=== PATIENT | female | born 1935 | race Caucasian/White ===

== ENCOUNTER 2016-04-29 19:31 | Outpatient (CLI) | payer MEDICARE ==
[~2016-04-29] VITALS: Ht 162.6 cm; Wt 65.0 kg
--- NOTE | ~2016-04-29 | HEMODYNAMI ---
PATIENT:LILI DELUCA MEDICAL RECORD: [id number] : 33 LOCATION:[facility] ADMISSION DATE: 04/29/16 Generatedon:04/30/201611:47 Patient name: LILI DELUCA Patient #: [id number] : 1935 Date of study: 04/30/2016 Page: Of Hemodynamic Procedure Report Patient Data Patient Demographics Procedure consent was obtained First Name: LILI Gender: Female Last Name: SANDRINE : 1935 Middle Initial: R Age: 81 year(s) Patient #: [id number] Race: SSN: [id number] Additional ID: [id number] Contact details Address: [address] [place] [address] State: [place] City: [place] Zip code: [address] Past Medical History Allergies Allergen Reaction Date Comments Reported Other allergy 04/30/2016 Keflex Admission Admission Data Admission Date: 04/29/2016 Admission Time: 19:31 Arrival Date: 04/29/2016 Arrival Time: 18:24 Admit Source: Emergency Insurance Payor: Medicare department Height (in.): 66 BSA: 1.73 (m2) Height (cm.): 167.64 BMI: 23.08 (kg/m2) Weight (lbs.): 143 Weight (kg.): 64.86 Lab Results Lab Result Date: 04/30/2016 Lab Result Time: 0:00 Biochemistry Name Units Result Min Max BUN mg/dl 36 --(----)-* 7 18 Creatinine mg/dl 2.3 --(----)-* 0.6 1.3 Glucose mg/dl 147 --(----)-* 74 106 CBC Name Units Result Min Max Hemoglobin g/dl 12.1 *-(----)-- 13.5 17.5 Procedure Procedure Types Cath Procedure Diagnostic Procedure [facility] w/Coronaries PCI Procedure Coronary Stent Initial Miscellaneous Procedures Moderate Sedation up to 15 minutes Procedure Description Procedure Date Procedure Date: 04/30/2016 Procedure Start Time: 11:04 Procedure End Time: 11:19 Procedure Staff Name Function Joe Carranza RT Roof Panel Hanger Renetta Ying RT Scrub Fahad Feliciano RN Nurse Manuelito Castillo MD Performing Physician Luzmaria Everett RT Monitor Procedure Data Cath Procedure Fluoroscopy Diagnostic fluoroscopy Total fluoroscopy Time: 2.3 time: 2.3 min min Diagnostic fluoroscopy Total fluoroscopy dose: 325 dose: 325 mGy mGy Contrast Material Contrast Material Type Amount (ml) Isovue 300 75 Entry Location Entry Primary Successful Side Size Upsize Upsize Entry Closure Succes sful Closure Location (Fr) 1 (Fr) 2 (Fr) Remarks Device Remarks Femoral Right 5 Fr 6 Fr Exoseal Fem stop artery Short Estimated blood loss: 10 ml Diagnostic catheters Device Type Used For End Catheter Placement Cordis 5Fr Pigtail Ventriculography Catheter (MP) Cordis 5Fr JL 4.0 Procedure Catheter (MP) Cordis 5Fr 3DRC Catheter Procedure (MP) Procedure Complications No complications Procedure Medications Medication Administration Route Dosage Oxygen NC 2 l/min Lidocaine 2% added to field 20 Heparin Flush Bag added to field 2 bags (1000units/500ml NS) 0.9% NaCl I.V. 100 ml/hr Versed I.V. 1 mg Fentanyl I.V. 50 mcg Lopressor I.V. 5 mg Heparin Bolus I.V. 4000 units Lopressor I.V. 5 mg Integrilin (Bolus I.V. 5.6 ml 2mg/ml) Plavix P.O. 600 mg Hemodynamics Rest HGB: 12.1 (g/dl) O2 Consumption: Estimated: 184.09 (ml/min) O2 Consumption index ed: Estimated:106.41 (ml/min/m) Heart Rate: 115 (bpm) Snapshots Pre Cath Intra NCS Post Cath Vital Signs Time Heart Resp SPO2 NIBP (mmHg) Rhythm Pain Sedation Rate (ipm) (%) Status Level (bpm) 10:37:16 130 19 97 166/118(148) NSR 0 (11) 10(A) , No pain 10:41:30 114 35 96 179/117(157) NSR 0 (11) 10(A) , No pain 10:52:03 129 25 97 183/127(170) NSR 0 (11) 10(A) , No pain 10:56:23 119 28 94 183/121(153) NSR 0 (11) 10(A) , No pain 11:00:43 114 18 93 170/114(143) NSR 0 (11) 10(A) , No pain 11:04:59 116 13 93 152/104(133) NSR 0 (11) 10(A) , No pain 11:09:09 110 16 95 145/94(128) NSR 0 (11) 9(A) , No pain 11:13:19 108 15 96 144/85(125) NSR 0 (11) 9(A) , No pain 11:18:32 117 16 96 138/98(125) NSR 0 (11) 10(A) , No pain Medications Time Medication Route Dose Verified Delivered Reason Notes Effectiveness by by 10:52:39 Oxygen NC 2 Manuelito Vásquez Per physician l/min Anna Feliciano RN 10:52:46 Lidocaine 2% added 20ml Manuelito Billings for local to vial Anna Castillo MD anesthetic field 10:52:52 Heparin Flush added 2 Manuelito Manuelito used for Bag to bags Anna Castillo MD procedure (1000units/500ml field NS) 10:53:00 0.9% NaCl I.V. 100 Manuelito Vásquez Per physician ml/hr Anna Feliciano RN 11:05:01 Versed I.V. 1 mg Manuelito Vásquez for sedation Anna Feliciano RN 11:05:06 Fentanyl I.V. 50 Manuelito Ferrellie for sedation mcg Anna Feliciano RN 11:07:53 Lopressor I.V. 5 mg Manuelito Vásquez Per physician Anna Feliciano RN 11:09:29 Heparin Bolus I.V. 4000 Manuelito Vásquez for units Anna Feliciano RN anticoagulation 11:10:55 Lopressor I.V. 5 mg Manuelito Vásquez Per physician Anna Feliciano RN 11:13:12 Integrilin I.V. 5.6 Manuelito Vásquez for (Bolus 2mg/ml) ml Anna Feliciano RN antiplatelet therapy 11:19:50 Plavix P.O. 600 Manuelito Vásquez for mg Anna Feliciano RN antiplatelet therapy Procedure Log Time Note 10:19:13 Informed consent obtained and on chart 10:19:27 Arrival Date: 04/29/2016 6:24:00 PM 10:19:34 Insurance Payor : Medicare 10::42 Lab Result : Creatinine 2.3 mg/dl 10::42 Lab Result : Hemoglobin 12.1 g/dl 10::42 Lab Result : Glucose 147 mg/dl :: Lab Result : BUN 36 mg/dl 10:23:56 Procedure type changed to Cath procedure, Diagnostic procedure, LHC, [facility] w/Coronaries, PCI procedure, Coronary Stent Initial, Miscellaneous Procedures, Moderate Sedation up to 15 minutes 10:24:25 Diagnostic Cath status Emergency 10:24:28 Joe Carranza RT(R) (CV) sent for patient. Start room use. 10:24:30 Time tracking: Regular hours 10:24:35 Plan of Care:Hemodynamics will remain stable., Cardiac rhythm will remain stable., Comfort level will be maintained., Respiratory function will remain adequate., Patient/ family verbilizes understanding of procedure., Procedure tolerated without complication., Recovers from procedure without complications.. 10:30:32 Patient received from ED to CCL 2 Alert and oriented. Tansferred to table in Supine position. 10:30:33 Correct patient and procedure confirmed by team. 10:30:33 Warm blankets applied, and vini hugger turned on for patient comfort. 10:30:35 ECG and BP/O2 sat monitors applied to patient. 10:36:09 Vital chart was started 10:36:11 Baseline sample Acquired. 10:36:15 Full Disclosure recording started 10:36:21 H&P Date Dictated: 04/30/2016 Within 30 days and on chart.. 10:36:23 Pre-procedure instructions explained to patient. 10:36:29 Pre-op teaching completed and patient verbalized understanding. 10:36:34 Patient NPO since Midnight. 10:39:00 Patient allergic to Other allergyKeflex 10:39:07 Is the patient allergic to Iodine/contrast media? No. 10:39:54 [facility] 22 gauge IV catheter with 0.9% NaCl at KVO. 10:40:53 Patient is Moh[place]. Does not speak Romansh... 10:41:06 Lab results completed and on chart. 10:41:09 Right groin area was prepped with chlora-prep and draped in sterile fashion 10:41:10 Alarms reviewed by R. N. 10:41:11 Sharps counted by scrub and verified by R.N. 10:41:13 Physician paged 10:41:21 Previous problem with sedation/anesthesia? Unknown ? 10:41:23 Snore? Unknown 10:52:21 Sleep apnea? Unknown 10:52:32 Dentures? Unknown ? 10:52:39 Oxygen 2 l/min NC was administered by Fahad Feliciano RN; Per physician; 10:52:46 Lidocaine 2% 20ml vial added to field was administered by Manuelito Castillo MD; for local anesthetic; 10:52:52 Heparin Flush Bag (1000units/500ml NS) 2 bags added to field was administered by Manuelito Castillo MD; used for procedure; 10:53:00 0.9% NaCl 100 ml/hr I.V. was administered by Fahad Feliciano RN; Per physician; 10:54:20 Patient Weight : 64.86 kg 10:54:28 Patient Height : 167.64 cm 10:56:14 Use device set Femoral Dx 10:56:16 Bag Decanter opened to sterile field. 10:56:16 Acist Syringe opened to sterile field. 10:56:17 Medline Cath Pack opened to sterile field. 10:56:18 Terumo 5Fr [place] Sheath opened to sterile field. 10:56:19 [facility] 260cm J .035 wire opened to sterile field. 10:56:20 Acist Hand Control opened to sterile field. 10:56:21 Acist Manifold opened to sterile field. 10:56:22 Diagnostic Infinity 5Fr Multipack catheter opened to sterile field. 10:56:23 Tegaderm 4 x 4 opened to sterile field. 10:56:51 IV Extension Set opened to sterile field. 11:04:33 Physician arrived 11:04:34 --------ALL STOP TIME OUT------ 11:04:37 Final Timeout: patient, procedure, and site verified with staff and physician. All members of the team are in agreement. 11:04:39 Right groin site verified by team. 11:04:42 Physical assessment completed. ASA score P 2 - A patient with mild systemic disease as per Manuelito Castillo MD. 11:04:46 Sedation plan: IV Moderate Sedation Versed, Fentanyl 11:04:50 Procedure started. 11:04:54 Local anesthetic to right femoral artery with Lidocaine 2% by Manuelito Castillo MD.INITIAL ACCESS ONLY 11:05:01 Versed 1 mg I.V. was administered by Fahad Feliciano RN; for sedation; 11:05:06 Fentanyl 50 mcg I.V. was administered by Fahad Feliciano RN; for sedation; 11:05:20 A 5 Fr sheath was inserted into the Right Femoral artery 11:05:25 Zero performed for pressure channel P1 11:05:31 Zero performed for pressure channel P1 11:05:51 A Cordis 5Fr Pigtail Catheter (MP) was advanced over the wire and used for Ventriculography. 11:06:53 EF : 35 % 11:06:58 Catheter removed. 11:07:07 A Cordis 5Fr JL 4.0 Catheter (MP) was advanced over the wire and used for Procedure. 11:07:12 LCA angiography performed. 11:07:53 Lopressor 5 mg I.V. was administered by Fahad Feliciano RN; Per physician; 11:09:01 Catheter removed. 11:09:08 A Cordis 5Fr 3DRC Catheter (MP) was advanced over the wire and used for Procedure. 11:09:29 Heparin Bolus 4000 units I.V. was administered by Fahad Feliciano RN; for anticoagulation; 11:09:40 Catheter removed. 11:10:38 Crain Whisper J 300cm 0.014 guide wire opened to sterile field. 11:10:38 Terumo TR Band Standard opened to sterile field. 11:10:39 [employer] BasixCompak Inflation Kit opened to sterile field. 11:10:40 Terumo 6Fr [place] Sheath opened to sterile field. 11:10:50 6 Fr ? guide catheter was inserted over the wire 11:10:55 Lopressor 5 mg I.V. was administered by Fahad Feliciano RN; Per physician; 11:11:01 Sheath upsized to a 6 Fr Short. 11:11:27 6 Fr xblad guide catheter was inserted over the wire 11:11:43 Cordis 6FR XBLAD 3.5 guide catheter opened to sterile field. 11:11:48 whisp wire advanced. 11:12:43 Inflation Number: 1 A Imonomy Interactivetronic Integrity 3.0 X 26 stent was prepped and advanced across the Mid LAD. The stent was deployed at 13 FEROZ for 0:10 (min:sec). 11:13:12 Integrilin (Bolus 2mg/ml) 5.6 ml I.V. was administered by Fahad Feliciano RN; for antiplatelet therapy; 11:15:39 [facility] Femstop Arch Gold opened to sterile field. 11:15:54 Guide catheter removed. 11:16:28 Sheath removed intact; hemostasis achieved with Exoseal to the Right Femoral artery. 11:16:32 Procedure ended.(Physican Out) 11:16:40 Fluoroscopy time 02.30 minutes. 11:16:45 Fluoroscopy dose: 325 mGy 11:16:45 Flurop Dose total: 325 11:16:51 Contrast amount:Isovue 300 75ml. 11:16:53 Sharps counted by scrub and verified by R.N. 11:17:13 Post right femoral artery:hematoma 11:17:22 Femstop placed over the right femoral artery at 125 mmHg. Hemostasis achieved. 11:17:37 Post Procedure Pulses reassessed and unchanged 11:17:43 Post-procedure physical assessment completed. ASA score P 2 - A patient with mild systemic disease as per Manuelito Castillo MD. 11:17:48 Post procedure rhythm: unchanged. 11:17:51 Estimated blood loss: 10 ml 11:17:55 Post procedure instruction explained to patient.Patient verbalizes understanding. 11:17:58 Patient needs reinforcement of post procedure teaching. 11:18:11 Procedure and supply charges have been captured, reviewed, submitted and are correct. 11:18:53 Procedure Complication : No complications 11:18:59 Vital chart was stopped 11:19:00 See physician's report for complete and final results. 11:19:03 Report given to ED. 11:19:07 Full Disclosure recording stopped 11:19:07 Procedure ended. 11:19:11 End room use (Document Last) 11:19:50 Plavix 600 mg P.O. was administered by Fahad Feliciano RN; for antiplatelet therapy; Intervention Summary Intervention Notes Time ActionType Lesion and Equipment Action# Pressure Duration Attributes Used 11:12:43 Place stent Mid LAD Medtronic 1 13 00:10 Integrity 3.0 X 26 stent Device Usage Item Name Manufacture Quantity Catalog Hospital Part Current Minimal L ot# / Number Charge Number Stock Stock Serial# Code [email or web address] 1 16290 212998 783930 909083 20 Syringe Medical Systems Inc Bag Microtek 1 2002S 793227 49951 770827 5 Decanter Medical Inc. Medline Cardinal 1 [id number] 991856 55487 765744 5 Cath Pack Health Terumo 5Fr Terumo 1 [id number] 671268 615862 727107 [address] [facility] 1 923458 671999 694804 010134 30 260cm J .035 wire Acist Hand Acist 1 25714 411254 588512 822380 5 Control Medical Systems Inc Acist Acist 1 21263 764611 280322 479504 5 Manifold Medical Systems Inc Diagnostic Cardinal 1 [id number] 386437 15730 419436 30 Dreamforge 5Fr Multipack catheter Tegaderm 4 3M 1 1626W 290904 294278 908542 5 x 4 IV Hospira 1 08159-46 111203 76478 212140 5 Extension Set Cordis 5Fr Cardinal 1 [id number] 5 Pigtail Health Catheter (MP) Cordis 5Fr Cardinal 1 687161 5 JL 4.0 Health Catheter (MP) Cordis 5Fr Cardinal 1 768244 5 3DRC Health Catheter (MP) Terumo TR Terumo 1 [id number] 688194 584384 578068 40 Band Standard Crain Crain 1 [id number] 900635 494084 200765 5 Whisper J Vascular 300cm 0.014 guide wire Merit Merit 1 [id number] 144618 949377 178610 15 BasixCompak Medical Inflation Kit Terumo 6Fr Terumo 1 [id number] 864594 001063 188819 40 [place] Sheath Cordis 6FR Cardinal 1 [id number] 612626 350016 463509 10 XBLAD 3.5 Health guide catheter Medtronic Medtronic 1 [id number] 938808 489181 1 0 [id number] Integrity 3.[address] [facility] 1 [id number] 848538 338351 601188 5 Femstop Arch Gold Signature Audit [place] Stage Time Signature Unsigned Intra-Procedure 04/30/2016 Luzmaria Everett 11:25:34 AM RT(R) Signatures Monitor : Luzmaria Everett Signature : RT Date : Time : [id number] [place] [address]
[2016-04-29 19:04] LABS: BASOPHILS 0.4 % (0.0-2.0); EOSINOPHILS 1.8 % (0-7); HEMATOCRIT 34.2 % (36.0-48.0); IMMATURE GRANULOCYTES 0.2 % (0-5); LYMPHOCYTES 27.3 % (15-50); MCH 29.3 pg (26.0-34.0); MCHC 32.2 g/dL (31.0-37.0); MCV 91.2 fL (80.0-100.0); MEAN PLATELET VOLUME 11.7 fL (7.4-10.4); MONOCYTES 6.4 % (2-11); NEUTROPHILS 63.9 % (40-80); PLATELET COUNT 161 10x3/uL (130-400); RBC 3.75 10x6/uL (4.00-5.40); RDW 14.8 % (11.5-14.5); WBC 5.7 10x3/uL (4.8-10.8)
[2016-04-29 19:19] LABS: ALBUMIN 3.4 g/dL (3.4-5.0); ALKALINE PHOSPHATASE 91 U/L (46-116); ALT (SGPT) 19 U/L (10-68); BILIRUBIN - TOTAL 0.29 mg/dL (0.2-1.3); CALC OSMOLALITY 286 mosm/kg (275-300); CALCIUM 7.6 mg/dL (8.5-10.1); CARBON DIOXIDE 23.9 mmol/L (21.0-32.0); CHLORIDE - SERUM 104 mmol/L (98-107); CREATININE - SERUM 2.3 mg/dL (0.6-1.3); GLUCOSE 122 mg/dL (74-106); POTASSIUM - SERUM 4.8 mmol/L (3.5-5.1); SODIUM 139 mmol/L (136-145); UREA NITROGEN 34 mg/dL (7-18); eGFR NON AFRICAN AMERICAN 21 mL/min (90-120)
[2016-04-29 19:29] LABS: CHOL - HDL RATIO 3.3 ratio (2.3-4.1); CHOLESTEROL, TOTAL 187 mg/dL (0-200); CKMB 1.7 U/L (0.0-3.6); CREATINE KINASE 79 UL (21-215); HDL CHOLESTEROL 57 mg/dL (32-96); LDL CHOLESTEROL 102 mg/dL (0-100); LDL-HDL RATIO 1.8 ratio (1.5-3.5); TRIGLYCERIDE 144 mg/dL (30-200); TROPONIN-I 0.019 ng/mL (0.000-0.060)
[~2016-04-29 19:31] MED LIST: CARDIZEM CD180 MG PO; CARDIZEM CD240 MG PO; CORDARONE200 MG PO; COREG12.5 MG PO; COREG25 MG PO; COUMADIN5 MG PO; LASIX20 MG PO; LEVAQUIN250 MG PO; METOPROLOL TART50 MG PO; PROTONIX40 MG PO
[2016-04-29 22:05] LABS: APPEARANCE HAZY (CLEAR); BILIRUBIN NEGATIVE (NEGATIVE); COLOR YELLOW (YELLOW); GLUCOSE NEGATIVE (NEGATIVE); KETONE NEGATIVE (NEGATIVE); LEUKOCYTE ESTERASE 1+ (NEGATIVE); NITRITE POSITIVE (NEGATIVE); PROTEIN NEGATIVE (NEGATIVE); SPECIFIC GRAVITY 1.015 (1.005-1.020); UROBILINOGEN NORMAL (NORMAL)
[2016-04-29 22:08] LABS: BACTERIA MANY /hpf (NONE SEEN); EPITHELIAL CELLS 0-5 /hpf (0-5); RED CELLS - URINE 0-5 /hpf (0-5)
[2016-04-30 04:53] LABS: INR 1.6 (0.85-1.17)
[2016-04-30 07:20] VITALS: BP 161/96; Ht 162.6 cm; Wt 65.0 kg
[2016-04-30 07:54] VITALS: BP 115/108
[2016-04-30 08:08] LABS: BASOPHILS 0.5 % (0.0-2.0); EOSINOPHILS 0.9 % (0-7); HEMATOCRIT 37.8 % (36.0-48.0); HEMOGLOBIN 12.1 g/dL (12-16); IMMATURE GRANULOCYTES 0.1 % (0-5); LYMPHOCYTES 25.2 % (15-50); MCH 28.9 pg (26.0-34.0); MCV 90.2 fL (80.0-100.0); NEUTROPHILS 68.3 % (40-80); PLATELET COUNT 184 10x3/uL (130-400); RBC 4.19 10x6/uL (4.00-5.40); RDW 14.4 % (11.5-14.5)
[2016-04-30 08:11] LABS: WBC 7.5 10x3/uL (4.8-10.8)
[2016-04-30 08:13] LABS: ANION GAP 18.3 mmol/L (8-16); CALCIUM 8.4 mg/dL (8.5-10.1); CARBON DIOXIDE 21.5 mmol/L (21.0-32.0); CREATININE - SERUM 2.3 mg/dL (0.6-1.3); POTASSIUM - SERUM 4.8 mmol/L (3.5-5.1)
--- NOTE | 2016-04-30 08:45 | NUR ---
PATIENT IS RESTING QUIETLY IN HER BED, CURLED UP IN THE POSITION. HER COVERS ARE ALL WADDED UP AROUND HER. TOOK SOME AND COVERED HER MORE THOROUGHLY, I DID SO SHE LOOKED UP AND SMILED, NO ATTEMPTS TO VERBALIZE THOUGH. SHE CLOSED HER EYES BACK AND APPEARS TO SLEEP. TACHYCARDIA NOTED, B/P UNCHANGED. MONITORING.
[2016-04-30 09:08] VITALS: BP 161/96
--- NOTE | 2016-04-30 09:42 | NUR ---
DR. MEDINA REVIEWED NEW EKG VS'S PRIOR EKG. HE WILL BE TAKING HER TO TRAVEL DIRECTOR TODAY. WILL KEEP HER NPO.
--- NOTE | 2016-04-30 10:00 | NUR ---
ER NURSE TRIP GOINS RN CALLED THE LANGUAGE LINE TO DISCUSS HEART CATH AND CONSENT FOR TREATMENT. PATIENT IS SCOTTISH. SHE VOICED CONSENT AND SIGNED FORMS. VS'S 161/96, 96% ON 2 LITERS, RESP 20, HR 115. BHAVESH PONCE FROM HOSE INSPECTOR IS PRESENT AND TOOK TO HOSE INSPECTOR WHEN CONVERSATION COMPLETED.
--- NOTE | 2016-04-30 10:30 | NUR ---
PATIENT OFF THE UNIT TO CATHLAB.
--- NOTE | 2016-04-30 12:01 | NUR ---
RECEIVED PATINET BACK TO ROOM 3. SHE IS RESTING QUIETLY WITH EYES CLOSED FEMSTOP IN PLACE, NO BLEEDING AT INSERTION SITE. IVF INITIATDE TO RIGHT WRIST IV. NO SIGNS OF IRRITATION OF INFILTRATION AT THIS SITE. HER VSS.
[2016-04-30 12:06] VITALS: BP 157/104
--- NOTE | 2016-04-30 13:24 | NUR ---
PT ARRIVED TO UNIT VIA ER STAFF. TRANSFERRED PT ONTO [facility] 2 BED. PT IS NEPALESE AND DOESNT SPEAK ANY ROMANIAN. LANGUAGE BARRIER IN PLACE BUT TRANSLATING PHONE AT BEDSIDE. VSS AND BEING MONITERED. PT HAD A CATH DONE AND HAS FEM STOP IN PLACE TO R.GROIN, NO S/S OF BLEEDING OR HEMATOMA NOTED. PT IS CONSTANTLY MOVING AND TRYING TO RAISE HER LEG. PT HAS A FRIEND AT BEDSIDE WHO CAN SPEAK ROMANIAN AND NEPALESE AND RELATED TO PT TO KEEP HER LEGS STRAIGHT AND REMAIN FLAT FOR 4 HOURS. 4 HOUR LAY COMPLETE AT 1600. PT VERBALIZES UNDERSTANDING TO FRIEND AT BEDSIDE HOWEVER PT OFTEN STAY FIDGETING. WILL CTM CLOSELY.
--- NOTE | 2016-04-30 14:59 | NUR ---
PT CALLED FOR BEDPAN. VOIDED VERY SCANT AMOUNT CLEAR YELLOW URINE. VITALS HTN BUT STABLE. PT HAS FAMILY AT BEDSIDE VISITING WHOM SPEAK CZECH AND ASSIST WITH TRANSLATION. PT LYING FLAT R.GROIN FEM STOP DEFLATED, NO S/S OF BLEEDING. WILL CPOC.
--- NOTE | 2016-04-30 15:28 | NUR ---
PTS HTN INCREASING. BP NOW 160/110 VIA L.ARM. PAGED AND AWAITING ORDERS.
[2016-04-30 16:01] VITALS: BP 160/110
--- NOTE | 2016-04-30 18:40 | NUR ---
PT RESTING QUIETLY IN BED WITH EYES CLOSED. RR NONLABORED ON RA. VSS. PERIPHERAL PULSES INTACT, R.GROIN DRSG CDI NO S/S OF HEMATOMA OR BLEEDING NOTED. CL IN REACH. WILL CTM.
--- NOTE | 2016-04-30 19:59 | NUR ---
RESUMED CARE OF PT LYING IN BED RESPIRATIONS EVEN AND UNLABORED ON ROOM AIR. RIGHT HAND IV REMOVED BY PT, TIP INTACT. 96 CAF ON TELEMETRY. RIGHT GROIN WNL PEDAL PULSE PALPABLE. NO NEEDS VOICED AT THIS TIME. WILL CONTINUE TO MONITOR. SEE NURSE ASSESSMENT.
[2016-04-30 20:00] VITALS: BP 152/86
[2016-05-01] VITALS: BP 136/83
[2016-05-01 04:00] VITALS: BP 122/53
--- NOTE | 2016-05-01 06:47 | NUR ---
NO CHANGES FROM PREVIOUS ASSESSMENT. CALL LIGHT IN REACH. RIGHT GROIN C/D/I.
[2016-05-01] MEDS ORDERED: PLAVIX75 MG PO (07:40)
[2016-05-01 07:41] VITALS: BP 155/90
[2016-05-01] MEDS ORDERED: METOPROLOL TART50 MG PO (07:41)
--- NOTE | 2016-05-01 10:34 | NUR ---
DISCHARGE INSTRUCTIONS COMPLETED. PAPERS SIGNED AND IN THE CHART. TELEMETRY REMOVED. ARY SITE HAS SEAN STILL CDI. PT HAS FRIENED AT BEDSIDE TO ASSIST HER GETTING DRESSED AND SHE IS HER RIDE. WILL CALL FOR TRANSPORTER WHEN SHE IS COMPLETELY READY.
--- NOTE | 2016-05-01 10:47 | NUR ---
PT LEAVING FLOOR NOW.
--- NOTE | 2016-05-06 14:38 | HP ---
PATIENT: LILI DELUCA MEDICAL RECORD: [id number] ACCOUNT: [id number] LOCATION:[facility] : 33 ADMISSION DATE: 04/29/16 HISTORY AND PHYSICAL EXAMINATION DIAGNOSES: 1. Unstable angina. 2. Coronary artery disease. 3. Atrial fibrillation, chronic. 4. Coumadin anticoagulation. 5. Hypertension. HISTORY OF PRESENT ILLNESS: Mrs. Deluca presents with anginal symptomatology times 2 days. She is very uncomfortable with chest pain, chest discomfort, she rates it as an 8. She has nonspecific ST-T abnormalities on her EKG. She is quite tachycardic, which is not unusual for her. She is in atrial fibrillation, which is chronic, this is not new. She is on diltiazem and Coreg for rate control as well as on Coumadin. Her INR is 1.6. She continues to have significant chest pain. She does have a history of coronary artery disease, previous PTCA stent of her LAD a number of years ago. PHYSICAL EXAMINATION: GENERAL APPEARANCE: Well-nourished, well-developed, appears stated age. Level of distress, comfortable. PSYCHIATRIC: Mental status, alert, normal affect. Orientation, oriented to time, place and person. EYES: Lids and conjunctiva, noninjected. No discharge, no pallor. ENT: Lips, teeth, gums, normal dentition. Oropharynx, no cyanosis, no pallor. NECK: Carotid arteries, bilateral normal upstroke, no bruits, no thrills. JUGULAR VEINS: No jugular venous pressure or distention. CERVICAL LYMPH NODES: Nontender, nonenlarged. THYROID: Not enlarged. Nontender. No nodules. LUNGS: Respiratory effort, unlabored. CHEST: Normal curvature. No thoracic deformity. No chest wall tenderness. Percussion, resonant. Auscultation, clear. No wheezes, no rales, no rhonchi. CARDIOVASCULAR: Precordial exam, nondisplaced. No heaves or pericardial thrills. Rate and rhythm is irregularly irregular. Tachycardic with atrial fibrillation. Heart sounds, normal S1, normal S2. No S3, no gallop, no rub. Systolic murmur, not heard. Diastolic murmur, not heard. EXTREMITIES: No cyanosis, no edema. Peripheral pulses, full and equal in all extremities, except as noted. No bruits appreciated. ABDOMEN: Soft, nondistended. Normal aorta. No bruit. Nontender. No masses. Liver, nontender, no hepatomegaly. Spleen, nontender, no splenomegaly. MUSCULOSKELETAL: No joint tenderness. No joint swelling. No erythema. NEUROLOGICAL: Normal gait, normal strength, normal tone. SKIN: Warm and dry. OVERALL IMPRESSION: Unstable angina. We will try to control her heart rate with increased beta-blockade. We will proceed with coronary angiography. Further care depends upon findings of the angiography. TRANSINT:[id number] Voice Confirmation ID: [id number] DOCUMENT ID: [id number] HISTORY AND PHYSICAL [id number] LILI DELUCA JEFFREY MD at 1438 CC: [id number] DICTATION DATE: 04/30/16 1124 COGNOS REPORT DEVELOPER: 04/30/16 1148 DEP CLI 05/01/16 [id number] [place] [address]
--- NOTE | 2016-05-06 14:38 | OP ---
PATIENT NAME: LILI DELUCA MEDICAL RECORD: [id number] :33 LOCATION:D.OPS ADMISSION DATE: SURGEON: RUBY MEDINA MD DATE OF OPERATION: 04/30/2016 PROCEDURES: 1. PTCA stent of ramus intermedius. 2. Left heart catheterization. 3. Selective coronary angiography. 4. Left ventriculogram. INDICATION: Unstable angina. PROCEDURE IN DETAIL: After informed consent was obtained and after detailed explanation of risks, benefits as well as alternative therapies, the patient elected to proceed with angiogram and angioplasty. The right femoral area was prepped and draped in normal sterile fashion. Right femoral artery was cannulated via modified Seldinger technique with placement of 6-Kazakh sheath. All catheters exchanged through this sheath. FINDINGS: Left ventriculogram was performed in standard 30-degree HELTON view, reveals decreased cardiac wall motion throughout all segments. Overall ejection fraction 35%. SELECTIVE CORONARY ANGIOGRAPHY: 1. Left main showed no significant angiographic disease. 2. Left anterior descending has previously placed stent. This is widely patent with no significant restenosis. No disease elsewise throughout the LAD or its branches. 3. The left circumflex and large ramus intermedius with 80% stenosis proximally. 4. Right coronary has moderate irregularities, but no flow-limiting stenosis. PTCA STENT OF THE LEFT CIRCUMFLEX AND RAMUS INTERMEDIUS: The stent used was a 3.0 x 26 mm Integrity. Result was 0% residual stenosis. OVERALL IMPRESSION: Successful percutaneous transluminal coronary angioplasty stent of the ramus intermedius going from 80% initial stenosis to 0% residual. TRANSINT:[id number] Voice Confirmation ID: [id number] DOCUMENT ID: [id number] RUBY MEDINA MD at 1438 CC: [id number] DICTATION DATE: 04/30/16 1126 SOLE SEAMER: 04/30/16 1232 DEP CLI 05/01/16 [place] [id number]
== END 2016-05-01 10:48 | disposition home or self-care (01) ==
LOC: D.OPS 19:31 → EDSTATUS 04-30 12:30 → D.M2 04-30 13:10 → D.OPS 05-01 10:48
PROVIDERS: Emergency Medicine; Internal Medicine Interventional Cardiology; Physician Assistant Medical
DX: I25.110 Atherosclerotic heart disease of native coronary artery with unstable angina pectoris (principal); I48.2 Chronic atrial fibrillation; Z79.01 Long term (current) use of anticoagulants; I10 Essential (primary) hypertension

== ENCOUNTER 2016-05-04 13:59 | Inpatient (IN) | payer MEDICARE ==
[~2016-05-04] VITALS: Ht 162.6 cm; Wt 54.5 kg
[~2016-05-04 13:59] MED LIST changes: +PLAVIX75 MG PO
[2016-05-04 14:39] LABS: BASOPHILS 0.4 % (0.0-2.0); EOSINOPHILS 0.9 % (0-7); HEMATOCRIT 36.9 % (36.0-48.0); HEMOGLOBIN 11.8 g/dL (12-16); IMMATURE GRANULOCYTES 0.3 % (0-5); LYMPHOCYTES 17.5 % (15-50); MCH 29.1 pg (26.0-34.0); MCV 90.9 fL (80.0-100.0); MEAN PLATELET VOLUME 11.5 fL (7.4-10.4); NEUTROPHILS 73.9 % (40-80); PLATELET COUNT 186 10x3/uL (130-400); RBC 4.06 10x6/uL (4.00-5.40); RDW 14.5 % (11.5-14.5); WBC 7.5 10x3/uL (4.8-10.8)
[2016-05-04 15:12] LABS: ALBUMIN 3.6 g/dL (3.4-5.0); ALKALINE PHOSPHATASE 91 U/L (46-116); ALT (SGPT) 23 U/L (10-68); BILIRUBIN - TOTAL 0.46 mg/dL (0.2-1.3); CALC OSMOLALITY 284 mosm/kg (275-300); CALCIUM 7.7 mg/dL (8.5-10.1); CARBON DIOXIDE 25.5 mmol/L (21.0-32.0); CHLORIDE - SERUM 104 mmol/L (98-107); CREATININE - SERUM 2.2 mg/dL (0.6-1.3); GLUCOSE 111 mg/dL (74-106); PROTEIN - SERUM 7.4 g/dL (6.4-8.2); SODIUM 138 mmol/L (136-145); UREA NITROGEN 36 mg/dL (7-18); eGFR NON AFRICAN AMERICAN 23 mL/min (90-120)
[2016-05-04 15:22] LABS: CHOL - HDL RATIO 3.5 ratio (2.3-4.1); CHOLESTEROL, TOTAL 205 mg/dL (0-200); CKMB 2.5 U/L (0.0-3.6); CREATINE KINASE 122 UL (21-215); HDL CHOLESTEROL 59 mg/dL (32-96); LDL CHOLESTEROL 123 mg/dL (0-100); LDL-HDL RATIO 2.1 ratio (1.5-3.5); TRIGLYCERIDE 119 mg/dL (30-200); TROPONIN-I 0.032 ng/mL (0.000-0.060)
--- NOTE | 2016-05-04 17:30 | NUR ---
RECEIVED PT TO ROOM 2122 VIA W/C FROM ER IN STABLE CONDITION TELEMETRY APPLIED SR RATE 93 O2 APPLIED AT 2 LPM NC RECEIVED REPORT FROM JASIEL PONCE IN ER SHE STATED DR WITT HAD BEEN CONSULTED AND NOTIFIED
[2016-05-04 17:38] VITALS: BP 183/102; BMI 20.6
[2016-05-04] MEDS ORDERED: COREG12.5 MG PO (17:44)
--- NOTE | 2016-05-04 19:27 | NUR ---
INITIAL ROUNDS COMPLETED. PT DENIES ANY DISCOMFORT. WILL CONTINUE TO MONITOR. BED ALARM IN USE.
[2016-05-04 20:15] VITALS: BP 145/67
[2016-05-04 22:33] LABS: CKMB 2.9 U/L (0.0-3.6); CREATINE KINASE 100 UL (21-215); TROPONIN-I 0.033 ng/mL (0.000-0.060)
--- NOTE | 2016-05-04 23:13 | NUR ---
ASSESSMENT COMPLETED AT 2020 HRS. VSS. A-FLUTTER PER CM HR 61. IV TO LAC SL. O2 2LNC. LUNGS DIMINISHED IN BASES BILAT. PT DECLINES SCD'S. BED ALARM IN USE. EKG DONE AT 2240 HRS. PT CURRENTLY RESTING WITH EYES CLOSED. RESP EVEN AND REGULAR. SR UP X2,CALL LIGHT WITHIN REACH.
--- NOTE | 2016-05-05 00:23 | NUR ---
PT RESTING WITH EYES CLOSEDE. RESP EVEN AND REGULAR. SR UP X2, CALL LIGHT WITHIN REACH.
[2016-05-05 01:00] VITALS: BP 149/72
--- NOTE | 2016-05-05 02:13 | NUR ---
PT AWAKE; DENIES ANY DISCOMFORT. SR UP X2, CALL LIGHT WITHIN REACH AND BED ALARM ON.
--- NOTE | 2016-05-05 04:36 | NUR ---
ST HR 125 PER CM. PT DENIES ANY DISCOMFORT. SR UP X2 CALL LIGHT WITHIN REACH AND BED ALARM ON.
[2016-05-05 04:45] VITALS: BP 159/104
[2016-05-05 05:27] LABS: CKMB 3.2 U/L (0.0-3.6); CREATINE KINASE 105 UL (21-215)
--- NOTE | 2016-05-05 06:29 | NUR ---
A-FLUTTER HR SUSTAINING IN 120'S. AM BROOKE HOFFMAN WILL CONTINUE TO MONITOR.
[2016-05-05 08:16] VITALS: BP 195/114
--- NOTE | 2016-05-05 10:45 | NUR ---
PT MORNING BP PER TECH 194/114. PAGED PRIMARY FOR BP MEDICATION SHE NORMALLY TAKES METOPROLOL. RECHECKED PTS BP AND ITS 164/88, STILL WAITING ON PAGE BACK.
[2016-05-05 11:35] LABS: CKMB 3.5 U/L (0.0-3.6); CREATINE KINASE 109 UL (21-215); TROPONIN-I 0.036 ng/mL (0.000-0.060)
[2016-05-05 11:37] VITALS: BP 162/88
[2016-05-05 13:19] VITALS: Ht 162.6 cm; Wt 54.5 kg
[2016-05-05 13:43] LABS: INR 1.43 (0.85-1.17); PROTIME 17.4 SECONDS (11.6-15.0)
[2016-05-05 15:32] VITALS: BP 160/75
--- NOTE | 2016-05-05 19:30 | NUR ---
SITTING UP IN BED, VOICES NO C/O PAIN OR DISCOMFORT AT THIS TIME. TELEMETRY SHOWING HR ST PER DESIGN ANALYST, O2 @ 2L VIA NC IN USE. UP AD JEMAL W/O DIFF TO BSC, KADY WELL. HOB UP SR UP X2, C/L IN REACH, CONTINUE TO MONITOR.
[2016-05-05 20:00] VITALS: BP 154/99
[2016-05-06] VITALS (9 sets, daily range): BP systolic 106–160; BP diastolic 59–105
--- NOTE | 2016-05-06 02:50 | NUR ---
AWAKE, ALERT, SITTING UP ON SIDE OF BED, VOICES NO C/O PAIN OR DISCOMFORT AT THIS TIME. C/L IN REACH.
--- NOTE | 2016-05-06 04:26 | NUR ---
BP 148/98 MANUALLY AT THIS TIME. HOT PACK PLACED ON RT HIP AREA. KADY WELL. HOB UP SR UP X2, C/L IN REACH. CONTINUE TO MONITOR.
[2016-05-06 05:55] LABS: BASOPHILS 0.6 % (0.0-2.0); EOSINOPHILS 2.3 % (0-7); HEMATOCRIT 34.5 % (36.0-48.0); HEMOGLOBIN 11.2 g/dL (12-16); IMMATURE GRANULOCYTES 0.2 % (0-5); MCH 29.2 pg (26.0-34.0); MCHC 32.5 g/dL (31.0-37.0); MCV 90.1 fL (80.0-100.0); MEAN PLATELET VOLUME 11.3 fL (7.4-10.4); MONOCYTES 8.4 % (2-11); NEUTROPHILS 69.5 % (40-80); PLATELET COUNT 187 10x3/uL (130-400); RBC 3.83 10x6/uL (4.00-5.40); RDW 14.6 % (11.5-14.5); WBC 6.4 10x3/uL (4.8-10.8)
[2016-05-06 06:07] LABS: INR 1.52 (0.85-1.17); PROTIME 18.3 SECONDS (11.6-15.0)
[2016-05-06 06:14] LABS: ANION GAP 13.4 mmol/L (8-16); CALCIUM 8.3 mg/dL (8.5-10.1); CARBON DIOXIDE 25.3 mmol/L (21.0-32.0); CREATININE - SERUM 2.3 mg/dL (0.6-1.3); POTASSIUM - SERUM 4.7 mmol/L (3.5-5.1)
--- NOTE | 2016-05-06 16:15 | NUR ---
Patient Name: LILI DELUCA Admission Status: ER Accout number: [id number] Admission Date: 05-05-2016 : 1935 Admission Diagnosis: Attending: KRYSTLE Current LOS: 1 Anticipated DC Date: 05-08-2016 Planned Disposition: Care Home Facility Primary Insurance: MEDICARE A & B PLANNED EXTERNAL PROVIDER: [facility], MEDICARE REHAB BED Discharge Planning Comments: * Is the patient Alert and Oriented? Yes 0 * How many steps to enter\exit or inside your home? 3-O / 0-I 0 * PCP NONE 0 * Pharmacy [facility] 0 * Preadmission Environment Home Alone 0 * ADLs Independent 0 * Equipment None 0 * Other Equipment NO MEDICAL EQUIPMENT PROVIDER PREFERENCE 0 * List name and contact numbers for known caregivers / representatives who currently or will assist patient after discharge: SIDNEY CHRISTIANSEN, SON IN LAW, LATOYA SMALL, FRIEND, 0 * Community resources currently utilized None 0 * Please name any agencies selected above. NONE 0 * Additional services required to return to the preadmission environment? Yes * Can the patient safely return to the preadmission environment? Yes 0 * Has this patient been hospitalized within the prior 30 days at any hospital? No 0 05/05/16 AT APPROXIMATELY 1630 HOURS, CM MET WITH PT AND LATOYA SMALL, FRIEND, IN ROOM TO DISCUSS DISCHARGE PLANNING AND NEEDS. PT REPORTS LIVING AT HOME INDEPENDENTLY AND ALONE. PT HAS NO MEDICAL EQUIPMENT AND NO OUTSIDE SERVICES ASSISTING IN THE HOME. CM DISCUSSED AVAILABILITY OF HOME HEALTH, REHAB SERVICES AND MEDICAL EQUIPMENT. PT REPORTS SHE MAY NEED A WHEELCHAIR AND WANTS TO GO TO [facility] FOR REHAB PRIOR TO GOING HOME. PT REPORTS THAT IF SHE NEEDS ORNAMENT SETTER CARE, SHE WOULD WANT TO STAY AT [facility]. PT'S FRIEND REPORTS THAT SHE DOES NOT THINK PT NEEDS TO LIVE AT HOME ALONE ANY LONGER; SHE ALSO REPORTS THAT PT'S FAMILY DOES NOT LIVE HERE AND PT HAS NO SUPPORT OTHER THAN FRIENDS AT THIS TIME. PT REPORTS HAVING FRIENDS TO ASSIST WITH TRANSPORT HOME AT DISCHARGE. IMPORTANT MESSAGE FROM MEDICARE PROVIDED AND EXPLAINED. CHOICE SIGNED FOR [facility]. CM CALLED JADIEL AT [facility], , WHO WILL SCREEN PT FOR REHAB AND ORNAMENT SETTER CARE. CM FAXED REFERRAL TO [facility] AT [phone]. CM WAITING ADMISSION DETERMINATION FROM [facility]. Rail Splitter: Stef [employer]
--- NOTE | 2016-05-06 17:52 | NUR ---
TRANSFERRED PT TO [facility]. BEDSIDE SHIFT REPORT GIVEN. PT VERBALIZED UNDERSTANDING. VSS. NO FURTHER NEEDS.
--- NOTE | 2016-05-06 18:13 | NUR ---
PATIENT RECEIVED TO ROOM 1214 VIA ACCOMPANIED BY HER PRIMARY CARE NURSE. SHE IS UP AD JEMAL AROUND HER ROOM. SHE DENIES NEEDS, MEAL TRAY SET UP ON HER BEDSIDE TABLE. SHE HAS AN ENSURE THAT SHE LIKES. FRIEND IS AT THE BEDSIDE AND ASSISTS WITH GETTING HER SETTLED.
--- NOTE | 2016-05-06 18:40 | NUR ---
PATIENT IS RESTING QUIETLY WITH EYES CLOSED, HOB UP 60 DEGREES. NO NEEDS NOTED.
--- NOTE | 2016-05-06 19:30 | NUR ---
PM ROUNDS MADE, PT VISITING WITH FRIENDS, INFORMED PT THAT I WILL BE BACK SHORTLY TO DO ASSESSMENT, PT VERBALIZES UNDERSTANDING, DENIES NEEDS AT THIS TIME
--- NOTE | 2016-05-06 20:09 | NUR ---
ASSESSMENT PER FLOW SHEET, VS OBTAINED PER ALANA PATTON RN, SALINE LOCK IN LEFT AC INTACT WITH NO REDNESS OR EDEMA, PT REPORTS FLATUS, NO BM, VOIDING BY SELF WITH NO DIFFICULTY, PT DENIES NEEDS OR PAIN AT THIS TIME
--- NOTE | 2016-05-06 21:16 | NUR ---
PT AWAKE, ADM 2100 MEDS PO PER MD ORDERS, SEE EMAR, PT DENIES NEEDS OR PAIN
--- NOTE | 2016-05-06 21:35 | NUR ---
PT WANDERED INTO ROOM 1215, WANTED TO STAY IN THERE WITH THE OTHER PT, PT STATES "I JUST GOT SCARED", PT BACK TO HER OWN ROOM AND TO BED, PT INST TO NOT GET UP WITHOUT USING THE CALL LIGHT AND NOT TO BE GOING INTO ANOTHER PT'S ROOM, PT VERBALIZES UNDERSTANDING, DENIES NEEDS AT THIS TIME
--- NOTE | 2016-05-06 22:33 | NUR ---
PT RESTING WITH EYES CLOSED, RESP QUIET, NO DISTRESS NOTED, LEFT UNDISTURBED AT THIS TIME
--- NOTE | 2016-05-06 23:40 | NUR ---
PT SITTING ON SIDE OF BED RESTING WITH EYES CLOSED, PT AROUSES TO SOFT VERBAL STIMULATION, PT UP TO BR, GAIT STEADY, VOIDED BY SELF WITH NO DIFFICULTY, PT TO SINK TO WASH HANDS, PT BACK TO BED, PT INFORMED OF SCD'S, PT REFUSES, PT INFORMED OF THE REASON FOR THE SCD'S, CONTINUES TO REFUSE, PT INFORMED AND INST ON BED ALARM, PT VERBALIZES UNDERSTANDING, BED IN LOW POSITION, SIDE RAILS X 2, CALL LIGHT IN REACH
--- NOTE | 2016-05-07 00:25 | NUR ---
PT AWAKE, PT REPORTS BEING COLD, WARM BLANKET AND EXTRA PILLOW PROVIDED, PT STATES "OH YEA, THAT FEELS SO MUCH BETTER", PT DENIES FURTHER NEEDS
--- NOTE | 2016-05-07 02:00 | NUR ---
PT RESTING WITH EYES CLOSED, RESP QUIET, NO DISTRESS NOTED, LEFT UNDISTURBED AT THIS TIME
[2016-05-07 04:30] VITALS: BP 141/92
--- NOTE | 2016-05-07 04:30 | NUR ---
PT AWAKE, PT HAD GOTTEN UP PER SELF TO BR, PT UP TO BEDSIDE SCALE, WEIGHT 121, PT BACK TO BED, VS OBTAINED, PT DENIES NEEDS OR PAIN AT THIS TIME
--- NOTE | 2016-05-07 05:27 | NUR ---
GIOVANNI, MEDIA LAW FACULTY MEMBER, REPORTS THAT PT GOES FROM SINUS TO CONTROLLED AFIB TO SINUS TACHYCARDIA TO SINUS
[2016-05-07 06:24] LABS: BASOPHILS 0.6 % (0.0-2.0); EOSINOPHILS 3.6 % (0-7); HEMOGLOBIN 10.8 g/dL (12-16); IMMATURE GRANULOCYTES 0.2 % (0-5); LYMPHOCYTES 22.8 % (15-50); MCHC 31.8 g/dL (31.0-37.0); MCV 91.4 fL (80.0-100.0); MEAN PLATELET VOLUME 11.2 fL (7.4-10.4); MONOCYTES 8.4 % (2-11); NEUTROPHILS 64.4 % (40-80); PLATELET COUNT 174 10x3/uL (130-400); RBC 3.72 10x6/uL (4.00-5.40); RDW 14.8 % (11.5-14.5); WBC 5.4 10x3/uL (4.8-10.8)
[2016-05-07 06:48] LABS: ANION GAP 13.4 mmol/L (8-16); CARBON DIOXIDE 24.2 mmol/L (21.0-32.0); CREATININE - SERUM 2.3 mg/dL (0.6-1.3); POTASSIUM - SERUM 4.6 mmol/L (3.5-5.1)
--- NOTE | 2016-05-07 07:00 | NUR ---
SHIFT REPORT TO DAY SHIFT
--- NOTE | 2016-05-07 07:00 | NUR ---
SBAR HANDOFF RECEIVED FROM KIARA MULLINS RN. PATIENT REMAINS STABLE IN BED WITH EYES CLOSED; RESP REG AND EVEN. HOB ELEVATED 45 DEGREES. SKIN WARM DRY AND PINK. LEFT AC SALINE LOCK INTACT WITH NO SIGNS OF COMPLICATIONS.
--- NOTE | 2016-05-07 07:05 | NUR ---
SBAR HANDOFF RECEIVED FROM KIARA MULLINS RN. PATIENT REMAINS STABLE IN BED WITH NO SIGNS OF RESP DISTRESS OR OTHER DISTRESS NOTED OR REPORTED. SKIN WARM DRY AND PINK. O2 CONT PER NASAL CANNULA AT 2L/MIN. LEFT FOREARM SALINE LOCK INTACT WITH NO SIGNS OF COMPLICATIONS.
[2016-05-07 07:13] LABS: INR 1.54 (0.85-1.17); PROTIME 18.4 SECONDS (11.6-15.0)
[2016-05-07 07:40] VITALS: BP 151/105
--- NOTE | 2016-05-07 07:40 | NUR ---
ALERT AND ORIENTED X 4. REMINDED NOT TO GET OUT OF BED WITHOUT STAFF ASSIST. DENIES PAIN OR DYSPNEA. O2 CONT AT 2 LITER/MIN PER NASAL CANNULA. PATIENT WAS RETURNING FROM BATHROOM WHEN NURSE ENTERED ROOM. STEADY GAIT. REVIEWED POC WITH PATIENT. PATIENT STATES SHE LIVES WITH DTR.
--- NOTE | 2016-05-07 08:10 | NUR ---
BP MEDS GIVEN EARLY DUE TO ELEVATED BP 151/105
--- NOTE | 2016-05-07 08:30 | NUR ---
NTG MEDS HELD DUE TO SPB 97
--- NOTE | 2016-05-07 08:57 | NUR ---
REMAINS STABLE IN BED WITH NO SIGNS OF RESP DISTRESS OR OTHER DISTRESS NOTED OR REPORTED.
--- NOTE | 2016-05-07 09:13 | NUR ---
SPOKE WITH DIANE COLON APN RE CONSTIPATION AND BP. NEW ORDERS NOTED.
[2016-05-07 10:20] VITALS: BP 132/89
--- NOTE | 2016-05-07 10:27 | NUR ---
dulcolax suppository 10 mg x2 given per rectum while patient lying on left side. patient wears depends. depends is dry. scd applied ble. reminded to call for assist to get out of bed. miralax mixed in 4 oz water but patient would only drink 2 oz. left ac saline lock flushed w/saline
--- NOTE | 2016-05-07 11:00 | NUR ---
HAS DRANK 1/2 OF MIRALAX DOSE IN 4 OZ WATER. STATES SHE CANNOT DRINK ANYMORE IT WILL MAKE HER VOMIT.
--- NOTE | 2016-05-07 11:00 | NUR ---
TO BATHROOM FOR BM. SPONGE BATH GIVEN AND KADY WELL THEN RETURNED TO BED SLIGHTLY DYSPNEIC. VSS.
--- NOTE | 2016-05-07 11:30 | NUR ---
VISITOR AT BEDSIDE. REMAINS STABLE DENYING COMPLAINTS OF PAIN OR DYSPNEA EXCEPT AFTER BM COMPLAINED OF SLIGHT DYSPNEA BUT VSS AT THAT TIME
--- NOTE | 2016-05-07 12:21 | NUR ---
Patient Name: LILI DELUCA Encounter No: [id number] : 1935 Primary Insurance: MEDICARE A & B Anticipated DC Date: 05-08-2016 Planned Disposition: Half-Way Facility External Planned Provider: [facility], MEDICARE REHAB BED DCP follow-up note: CM CALLED JADIEL AT [facility], , WHO REPORTS THEY WILL ACCEPT PT TOMORROW FOR A SHORT REHAB STAY PT WILL HAVE THREE MIDNIGHTS AFTER TONIGHT. CM NOTIFIED RN ANDREA URIAS. FOR DISCHARGE ON 05-08-16 TO [facility] FOR REHAB, FAX DISCHARGE INFORMATION TO [facility], ; NURSE REPORT TO BE CALLED TO [facility] AT [phone]. [facility] TO ARRANGE VAN TRANSPORTION. Slot Host: Stef [employer]
--- NOTE | 2016-05-07 12:43 | NUR ---
DIANE COLON APN AT BEDSIDE FOR ROUNDS; [facility] IS WORKING ON PLACEMENT FOR PATIENT AFTER DISCHARGE.
[2016-05-07] MEDS ORDERED: PROTONIX40 MG PO (13:15)
[2016-05-07] MEDS ORDERED: MIRALAX17 GM PO (13:15)
[2016-05-07] MEDS ORDERED: LANOXIN125 MCG PO (13:15)
--- NOTE | 2016-05-07 13:45 | NUR ---
PT REQUESTED SOMETHING TO EAT. TOLD HIM HE COULD HAVE CLEAR LIQUIDS, THEN WE WILL ADVANCE TO A REGULAR DIET. .
--- NOTE | 2016-05-07 14:30 | NUR ---
WALKING IN [place] WITH O2 OFF PER PATIENT REQUEST. KADY WELL.
--- NOTE | 2016-05-07 14:56 | NUR ---
REMAINS STABLE IN ROOM WITH O2 AT 2L/MIN PER NASAL CANNULA. NO DYPSNEA NOTED. SKIN WARM DRY AND PINK. ALERT AND ORIENTED X 4. SALINE LOCK INTACT LEFT AC WITH NO COMPLICATIONS NOTED.
--- NOTE | 2016-05-07 15:08 | NUR ---
REFUSES SCD STATING SHE WANTS TO BE ABLE TO GET OUT OF BED FREELY TO GO TO RESTROOM AND WALK.
--- NOTE | 2016-05-07 15:30 | NUR ---
INTRODUCED MYSELF TO PT. SHE OFFERS NO COMPLAINTS. I GAVE HER COUMADIN 5MG PO. HER BED IS LOW, SIDE RAILS UP X 2 AND CALL LIGHT IN REACH. SHE HAD A BM EARLIER AFTER TAKING DUCOLAX AND HALF OF MIRALAX.
--- NOTE | 2016-05-07 17:08 | NUR ---
PT IS SITTING UP IN BED. WENT TO ASK HER IF SHE NEEDED ANYTHING. ASKED ME TO SIT ON SIDE OF BED. SHE WANTED TO TALK. SUCH A SWEET LADY. OFFERED NO COMPLAINTS. BE IS LOW, SIDE RAILS UP X 2 AND CALL LIGHT IN REACH.
--- NOTE | 2016-05-07 17:13 | NUR ---
PT GIVEN VANILLA ICE CREAM. SHE TOLERATED WELL.
[2016-05-07 19:10] VITALS: BP 156/101
--- NOTE | 2016-05-07 19:10 | NUR ---
AWAKE DURING INITIAL ROUNDS. INTRODUCED SELF. V/S TAKEN. BP 156/101. O2 SAT 96% ON 2L/NC. ASSESSMENT DONE. STATUS Dx: CHEST PAIN, HYPERTENSION, ATRIAL FIB/FLUTTER. SALINE LOCK TO R ac. TELEMETRY ON. REFUSED SCD's. UP AD JEMAL IN THE ROOM.
--- NOTE | 2016-05-07 20:39 | NUR ---
LOPRESSOR 100mg PO GIVEN FOR HYPERTENSION. UP TO THE BATHROOM. GAIT STEADY. REFUSED SCD's. PT STATES "NO PUT."
[2016-05-07 23:05] VITALS: BP 163/90
--- NOTE | 2016-05-07 23:05 | NUR ---
V/S RECHECKED. BP 163/90.
--- NOTE | 2016-05-08 01:27 | NUR ---
EYES CLOSED. LEFT UNDISTURBED.
--- NOTE | 2016-05-08 03:20 | NUR ---
APPEARS TO BE ASLEEP.
[2016-05-08 04:20] VITALS: BP 156/106
--- NOTE | 2016-05-08 04:20 | NUR ---
V/S RECHECKED. BP 156/106. UP TO THE BATHROOM. VOIDED.
--- NOTE | 2016-05-08 04:40 | NUR ---
INTERNAL REVENUE SERVICE AGENT HERE TO DRAW AM LAB.
--- NOTE | 2016-05-08 04:58 | NUR ---
DAILY WEIGHT DONE ON UPRIGHT SCALE. SLEPT ON AND OFF DURING THE NIGHT. CONTINUING PLAN OF CARE.
--- NOTE | 2016-05-08 06:01 | NUR ---
PROTONIX 40mg 1tab PO GIVEN SCHED. SEE E-MAR.
[2016-05-08 06:12] LABS: BASOPHILS 0.5 % (0.0-2.0); EOSINOPHILS 3.4 % (0-7); HEMATOCRIT 35.6 % (36.0-48.0); HEMOGLOBIN 11.3 g/dL (12-16); IMMATURE GRANULOCYTES 0.2 % (0-5); LYMPHOCYTES 23.7 % (15-50); MCH 28.8 pg (26.0-34.0); MCHC 31.7 g/dL (31.0-37.0); MCV 90.8 fL (80.0-100.0); MEAN PLATELET VOLUME 11.4 fL (7.4-10.4); MONOCYTES 9.2 % (2-11); PLATELET COUNT 184 10x3/uL (130-400); RBC 3.92 10x6/uL (4.00-5.40); RDW 14.7 % (11.5-14.5); WBC 6.1 10x3/uL (4.8-10.8)
[2016-05-08 06:28] LABS: ANION GAP 11.9 mmol/L (8-16); CALCIUM 8.5 mg/dL (8.5-10.1); CARBON DIOXIDE 27.1 mmol/L (21.0-32.0); CREATININE - SERUM 2.3 mg/dL (0.6-1.3)
[2016-05-08 06:34] LABS: INR 1.49 (0.85-1.17); PROTIME 17.9 SECONDS (11.6-15.0)
[2016-05-08 07:45] VITALS: BP 168/107
--- NOTE | 2016-05-08 07:45 | NUR ---
PATIENT IS AWAKE AND ALERT, SHE HAS BEEN UP TO THE RESTROOM AND IS BACK INTO BED ASSESSING HER BREAKFAST. SHE ATE HER TOAST BUT VERY LITTLE OF ANYTHING ELSE. ELEVATED BP NOTED. TACHYCARDIA WELL. WILL HOLGER FELICIANO. SHE IS WITHOUT DISTRESS. LUNGS ARE CLEAR AND IS WITHOUT NOTED MURMUR. NO SWELLING NOTED. BS X4. CALL LIGHT IS WITHIN REACH, PATINET VISIBLE FROM DESK, UP AD JEMAL WITH SLOW BUT STEADY GAIT. MONITORING.
--- NOTE | 2016-05-08 08:38 | NUR ---
AM rounds - pt noted setting up in bed. Resting with eyes closed at this time. No acute distress noted at this time.
--- NOTE | 2016-05-08 08:54 | NUR ---
PATIENT TOOK HER AM MEDICATIONS. TELEMETRY CONFIRMED STDR. TUCKER PAGEAruna REGARDING HER BP. LANI WAS RESTING WITH EYES CLOSED I ENTERED. SHE FROWNED AT HER MEDICATIONS, AFTER AWAKENING EASILY TO VOICE. STATES THAT SHE WAS DREAMING OF RUNNING AWAY. AND FLUTTERED FINGERS.
--- NOTE | 2016-05-08 09:13 | NUR ---
PATIENT SLEEPIN WITH HOB UP 60 DEGREES. CALL LIGHT IS WITHIN HER REACH. VISIBLE FROM DESK. NO NEEDS NOTED.
--- NOTE | 2016-05-08 09:54 | NUR ---
SPOKE WITH JADIEL AT [facility]. SHE WILL BE COMING TODAY TO SIGN PAPERWORK FOR ADMISSION TO THEIR REHAB, SHE IS ARRANGING A SETTLEMENT TECHNICIAN. SPOKW WITH KRIS TUCKERSUPPLY PLANNER. PHONE NUMBER FOR TRANSLATER REGARDING OUR DISCHARGE PAPERWORK OBTAINED. WILL VERIFY HER UNDERSTANDING OF REHAB AT THAT TIME.
--- NOTE | 2016-05-08 10:42 | NUR ---
PATIENT SITTING UP IN BED VISITING WITH THE DIRECTOR MEETINGS. SHE IS ANIMATED AND WITHOUT NOTED NEEDS.
--- NOTE | 2016-05-08 10:42 | NUR ---
Nutrition Follow Up: Chart reviewed. Pt is eating 13% meal avg on an AHA diet. +BM 05/07/16. Wt stable. Meds and labs noted. Noted pt to likely d/c. Will change diet to Regular to encourage po intake. Rec an appetite stimulant. RD following.
--- NOTE | 2016-05-08 11:04 | NUR ---
164/102 BP NOTED. EXTRA TOPROL GIVEN. PATIENT STATES THAT SHE HAS GREST EMOTION AND FEELING, MAKING HER BP GO UP, UP. SHE TOOK MEDICATION WITHOUT COMPLAINT. SHE DOESN'T LOOK FORWARD TO GOING TO [facility] FOR REHAB.
--- NOTE | 2016-05-08 12:19 | NUR ---
Patient Name: LILI DELUCA Encounter No: [id number] : 1935 Primary Insurance: MEDICARE A & B Anticipated DC Date: 05-08-2016 Planned Disposition: Halfway Facility External Planned Provider: [facility], MEDICARE REHAB BED DCP follow-up note: KRIS HATHAWAY CALLED JADIEL OF [facility] WHO REPORTS THEY WILL ACCEPT PT TODAY AFTER COMING TO HOSPITAL AND HAVING PT SIGN LEGALS FOR ADMISSION. JADIEL WILL CALL PT'S FRIEND AND BOTH WILL MEET WITH PT TODAY AROUND 1:00PM. ANDREA MET WITH PT IN ROOM, INFORMED OF ACCEPTANCE AT [facility] FOR REHAB. PT IN AGREEMENT WITH DISCHARGE TO [facility] FOR REHAB TODAY AND UNDERSTANDS THAT SAULTOBYShanita AND HER FRIEND WILL BE HERE AFTER LUNCH TO SEE HER TO FILL OUT PAPERWORK. IMPORTANT MESSAGE FROM MEDICARE PROVIDED AND EXPLAINED. [facility] TO MEET WITH PT AT ABOUT 1300 HOURS TODAY; WHEN NOTIFIED BY [facility] THAT THEY CAN ACCEPT, FAX DISCHARGE INFORMATION TO [facility], ; NURSE REPORT TO BE CALLED TO [facility] AT [phone]. [facility] TO ARRANGE VAN TRANSPORTION. Marketing Developer: [employer]
--- NOTE | 2016-05-08 12:23 | NUR ---
PATIENT SITTING UP IN HER BED, HI FOWLERS. NO COMPLAINTS OR NEEDS NOTED.
--- NOTE | 2016-05-08 14:23 | NUR ---
LANI SITTING UP IN HER BED, REFUSED SHOWER.
--- NOTE | 2016-05-08 14:52 | NUR ---
Patient Name: LILI DELUCA Encounter No: [id number] : 1935 Primary Insurance: MEDICARE A & B Anticipated DC Date: 05-08-2016 Planned Disposition: Assisted Facility External Planned Provider: [facility], MEDICARE REHAB BED DCP follow-up note: CM RECEIVED CALL FROM BEDSIDE NURSE TO CHECK ON STATUS OF PLACEMENT; [place] STAFF MET WITH PT EARLIER TODAY. CM CALLED JADIEL AT [facility], , WHO REPORTED THAT PT HAS COMPLETED ADMISSION PAPTERWORK AND [facility] CAN ACCEPT TODAY. JADIEL WILL NOTIFY CM WITH VAN HOT MIX OPERATOR TIME SHORTLY. CM TO FAX DISCHARGE INFORMATION TO [facility], ; NURSE REPORT TO BE CALLED TO [facility], [facility] NURSE AT [phone]. [facility] TO ARRANGE VAN TRANSPORTION. Assistant Child Care Teacher: Stef Gaming
--- NOTE | 2016-05-08 15:15 | NUR ---
PATIENT WALKED TO DESK. SHE TOLD ME "MY SITUATION IS VERY BAD. I WANT TO GO HOME." CALLED CASE MANAGEMENT TO REPORT HER CHANGE OF INTENTIONS. SPOKE WITH DR. TUCKER ALSO. SHE WISHES THAT THE PATIENT WILL CONSIDER GOING TO REHAB.
--- NOTE | 2016-05-08 15:46 | NUR ---
PATIENT IS ADAMENT THAT SHE WILL BE GOING HOME TODAY. SHE WANTS TO CATCH THE BUS FOR A RIDE HOME. SHE IS SITTING IN THE HALLWAY WAITING FOR HER PAPERWORK TO BE COMPLETED. SHE HAS CALLED SOMEONE ON HER CELL PHONE ANDIS TALKING ANIMATEDLY WITH THE OTHER PERSON.
--- NOTE | 2016-05-08 15:59 | NUR ---
PATIENT REPORTS THAT SHE HAS A FRIEND THAT WILL COME PICK HER UP TO TAKE HER HOME. CASE MANAGEMENT IS HERE TO MAKE ARRANGEMENTS FOR HOME HEALTH. WAITING FOR PHYSICIAN TO RETURN PAGE. LANI CONTINUES TO WAIT IN THE HALLWAY. SHE'S ASKED ME TO GET HER PAPERS READY.
--- NOTE | 2016-05-08 17:02 | NUR ---
Patient Name: LILI DELUCA Encounter No: [id number] : 1935 Primary Insurance: MEDICARE A & B Anticipated DC Date: 05-08-2016 Planned Disposition: HOME WITH HOME HEALTH External Planned Provider: [facility] DCP follow-up note: CM RECEIVED CALL FROM BEDSIDE NURSE, PT NOW REFUSING TO GO TO REHAB AND WANTS TO GO HOME. CM MET WITH PT IN ROOM. PT REPORTED SHE DOES NOT WANT TO GO TO REHAB. CM EXPLAINED THE DOCTOR FELT IT BEST FOR AT LEAST A WEEK TO ENSURE PT IS TAKING MEDICATIONS AND STRONG ENOUGH FOR HOME. PT STATED NO, SHE GO HOME. CM ASKED IF PT IS WILLING FOR HOME HEALTH NURSE TO COME AND CHECK ON HER AT HOME AND TO ENSURE HER MEDICATIONS ARE CORRECT AT HOME; PT STATED YES. PT HAD NO PREFERENCE FOR HOME HEALTH PROVIDER AND SIGNED CHOICE. CM ASKED TO CALL HER FAMILY, PT STATED NO. CM ASKED TO CALL A FRIEND TO PICK HER UP, PT STATED SHE WILL RIDE THE BUS, SHE HAS RODE THE BUS AND KNOWS IT COMES EVERY HOUR AND WILL DROP HER CLOSE TO HER HOUSE. CM EXPLAINED THAT SHE HAS NO PRIMARY DOCTOR AND CM WILL HAVE TO CHECK TO SEE IF HOME HEALTH CAN BE ARRANGED, PT AGREED TO WAIT. BEDSIDE NURSE SPOKE TO DR. TUCKER, ADVISED OF ABOVE. DR. TUCKER AGREED TO FOLLOW PT FOR HOME HEALTH ORDERS AND WILL HAVE HOUSE CALLS FOLLOW UP WITH PT. PT CALLED A FRIEND ON HER CELL PHONE. CM ADVISED BY LOG BRANDER TO USE [employer] LOIN PULLER TO ENSURE PT UNDERSTANDS EVERYTHING. CM CALLED [employer], , AND OBTAINED A [place] IS[place]ER LOIN PULLER. PT AGAIN STATED SHE DOES NOT WANT REHAB AT [place] AND WILL BE GOING HOME. SHE VERIFIED SHE WANTS HOME HEALTH AND UNDERSTOOD THAT DR. TUCKER WILL PROVIDE HOME HEALTH ORDERS. PT VERFIED HER PHARMACY AT [facility] ON [facility] WHICH IS CLOSE TO [place] [address] ON [address]. PT REPORTED SHE HAS CALLED A FRIEND, LUIS, WHO WILL PICK HER UP OUT FRONT OF THE HOSPITAL SHORTLY. PT DENIES FURTHER DISCHARGE NEEDS. CM CALLED [facility], , CANCELLED REFERRAL WITH JADIEL FOR REHAB SERVICES. CM CALLED [facility], , PROVIDED REFERRAL TO [facility] WHO WILL TRY TO HAVE PT ADMITTED TOMORROW FOR HOME HEALTH. ANDREA FAXED REFERRAL TO [facility] AT [phone]. BEDSIDE NURSE NOTIFIED. Stef Gaming, CASE MANAGEMENT
--- NOTE | 2016-05-08 17:25 | NUR ---
DISCUSSED PATIENT'S DISCHARGE INSTRUCTIONS AT LENGTH WITH A [place] INTERPERTER PER OUT LANGUAGE LINE. SHE VOICED UNDERSTANDING OF MEDICATIONS AND SAID THAT THE NEIGHBOR WHO IS PICKING HER UP TODAY WILL TAKE HER TO COLLECT HER MEDICATIONS. SHE IS THANKFUL FOR THE NURSES THAT WILL BE COMING TO HER HOME. SHE ALSO FEELS CONFIDENT THAT HER NEIGHBOR WILL TAKE HER TO THE GROCERY STORE. SHE REFUSES TO GO TO THE REHAB. SHE STATES THAT IT IS BAD. SHE CANNOT EAT OR SLEEP THERE, OR RELAX. SHE WANTS TO GO HOME. SHE UNDERSTANDS THAT SHE IS TO GO TO DR. MEDINA'S OFFICE FOR A FOLLOW UP AND IS THANKFUL THAT DR. TUCKER IS SENDING AN GLASSBLOWER TO HER HOUSE. SHE WOULD LIKE TO MEET HER IN THE FUTURE SINCE DR. FALCON IS NO LONGER PRACTICING.
--- NOTE | 2016-05-08 17:29 | NUR ---
LANI OUT TO WAITING VEHICLE VIA WHEELCHAIR. HER NEIGHBOR IS ANXIOUS TO GO AND CALLED TWICE WHILE WE WERE REVIEWING DISCHARGE INSTRUCTIONS.
--- NOTE | 2016-05-09 16:03 | NUR ---
Patient Name: LILI DELUCA Encounter No: [id number] : 1935 Primary Insurance: MEDICARE A & B Anticipated DC Date: 05-08-2016 Planned Disposition: HOME DCP follow-up note: CM RECEIVED ALL FROM [facility] WHO REPORTED THAT THEY WERE UNABLE TO ADMIT PT FOR HOME HEALTH THEY HAVE CONTACTED DR. TUCKER WHO REFUSED TO SIGN ORDERS ON NON ESTABLISHED PATIENT. Stef Gaming, CASE MANAGEMENT
== END 2016-05-08 17:15 | disposition home health service (06) | DRG 310 ==
LOC: D.ER 13:59 → OBSVTIME 16:53 → D.M2 16:53 → D.WS 05-06 17:52
PROVIDERS: Emergency Medicine; Family Medicine; ADMIT Family Medicine
DX: I48.92 Unspecified atrial flutter (principal); I16.0 Hypertensive urgency; I48.91 Unspecified atrial fibrillation; I25.10 Atherosclerotic heart disease of native coronary artery without angina pectoris; I12.9 Hypertensive chronic kidney disease with stage 1 through stage 4 chronic kidney disease, or unspecified chronic kidney disease; N18.9 Chronic kidney disease, unspecified

== ENCOUNTER 2016-08-24 12:27 | Inpatient (IN) | payer MEDICARE ==
[~2016-08-24] VITALS: Ht 162.6 cm; Wt 56.5 kg
[~2016-08-24 12:27] MED LIST changes: +LANOXIN125 MCG PO; +MIRALAX17 GM PO
[2016-08-24 13:06] LABS: BASOPHILS 0.5 % (0-2); EOSINOPHILS 3.1 % (0-7); HEMOGLOBIN 10.6 g/dL (12-16); IMMATURE GRANULOCYTES 0.2 % (0-5); LYMPHOCYTES 16.3 % (15-50); MCH 30.3 pg (26.0-34.0); MCHC 32.1 g/dL (31.0-37.0); MCV 94.3 fL (80.0-100.0); MEAN PLATELET VOLUME 10.2 fL (7.4-10.4); MONOCYTES 4.1 % (2-11); NEUTROPHILS 75.8 % (40-80); PLATELET COUNT 150 10x3/uL (130-400); RDW 14.6 % (11.5-14.5); WBC 6.1 10x3/uL (4.8-10.8)
[2016-08-24 13:33] LABS: APPEARANCE CLEAR (CLEAR); BACTERIA FEW /hpf (NONE SEEN); BILIRUBIN NEGATIVE (NEGATIVE); COLOR YELLOW (YELLOW); EPITHELIAL CELLS 0-5 /hpf (0-5); GLUCOSE NEGATIVE (NEGATIVE); KETONE NEGATIVE (NEGATIVE); LEUKOCYTE ESTERASE NEGATIVE (NEGATIVE); MUCUS <1+ /lpf (NONE SEEN); NITRITE NEGATIVE (NEGATIVE); PROTEIN 2+ mg/dL (NEGATIVE); RED CELLS - URINE 0-5 /hpf (0-5); UROBILINOGEN NORMAL (NORMAL); WHITE CELLS - URINE 0-5 /hpf (0-5)
[2016-08-24 13:48] LABS: ALBUMIN 3.6 g/dL (3.4-5.0); ANION GAP 15.9 mmol/L (8-16); BILIRUBIN - TOTAL 0.46 mg/dL (0.2-1.3); CALCIUM 7.8 mg/dL (8.5-10.1); CREATININE - SERUM 2.6 mg/dL (0.6-1.3); POTASSIUM - SERUM 4.9 mmol/L (3.5-5.1); PROTEIN - SERUM 7.2 g/dL (6.4-8.2); TROPONIN-I 0.031 ng/mL (0.000-0.060)
[2016-08-24 15:17] LABS: INR 1.11 (0.85-1.17); PROTIME 14.2 SECONDS (11.6-15.0)
--- NOTE | 2016-08-24 20:25 | NUR ---
ARRIVED TO FLOOR VIA STRETCHER, ACCOMPANIED BY HOSPITAL STAFF. ORIENTED TO UNIT. CALL LIGHT IN REACH. WILL CONTINUE TO MONITOR, SEE NURSE ASSESSMENT.
[2016-08-24 22:41] VITALS: BP 184/87
[2016-08-25 02:51] VITALS: BP 171/69
--- NOTE | 2016-08-25 03:07 | NUR ---
CALL LIGHT IN REACH, WILL CONTINUE WITH PLAN OF CARE. 47 SB WITH PACS ON TELEMETRY
--- NOTE | 2016-08-25 04:56 | NUR ---
42 CAF ON TELEMETRY. 100/62 BP. CLEANED OF INCONTINENT EPISODE. LETHARGIC, BUT AWARE OF SURROUNDINGS. WILL CONTINUE TO MONITOR.
[2016-08-25 05:27] VITALS: BP 108/52
--- NOTE | 2016-08-25 07:37 | NUR ---
ASSESSMENT DONE. DENIES NEEDS.
[2016-08-25 08:00] VITALS: BP 94/51
--- NOTE | 2016-08-25 09:30 | NUR ---
RESTS IN BED WITH EYES CLOSED. CALL LIGHT IN REACH. WILL MONITOR NEEDS.
[2016-08-25 12:09] LABS: % SATURATION 16 % (15-55); IRON 38 ug/dl (35-150); TOTAL IRON BIND CAPACITY 233 ug/dl (260-445); UNSAT IRON BIND CAPACITY 195 ug/dl (150-375)
[2016-08-25 12:17] VITALS: BP 152/61
[2016-08-25 12:21] LABS: CKMB 1.2 U/L (0.0-3.6); CREATINE KINASE 69 UL (21-215); TROPONIN-I 0.048 ng/mL (0.000-0.060)
[2016-08-25 12:26] LABS: DIGOXIN 2.36 ng/mL (0.90-2.00)
[2016-08-25 14:01] VITALS: Ht 162.6 cm; Wt 56.5 kg
[2016-08-25 14:49] VITALS: BP 145/38
--- NOTE | 2016-08-25 17:12 | NUR ---
WITHOUT CHANGES OR DIATRESS NOTED AT THIS TIME. DENIES NEEDS.
[2016-08-25 17:25] LABS: CREATINE KINASE 82 UL (21-215)
[2016-08-25 17:27] LABS: TROPONIN-I 0.069 ng/mL (0.000-0.060)
--- NOTE | 2016-08-25 19:00 | NUR ---
ASSESSMENT COMPLETE PER FLOWSHEET. VOICES NO CO AT TIME. FAMILY AT THE BEDSIDE.
[2016-08-25 20:00] VITALS: BP 153/53
--- NOTE | 2016-08-25 21:00 | NUR ---
SLEEPING NO DISTRESS NOTED. AWAKEN FOR MEDS, AND REFUSES THEM WILL TRY AGAIN.
[2016-08-25 22:58] LABS: CKMB 0.8 U/L (0.0-3.6); CREATINE KINASE 73 UL (21-215)
[2016-08-25 22:59] LABS: TROPONIN-I 0.077 ng/mL (0.000-0.060)
--- NOTE | 2016-08-25 23:48 | NUR ---
SLEEPING NO DISTRESS NOTED. SR UP X 2. CALL LIGHT WITHIN REACH.
[2016-08-26] VITALS: BP 170/71
--- NOTE | 2016-08-26 00:25 | NUR ---
SLEEPING NO DISTRESS NOTED. SR UP X 2. CALL LIGHT WITHIN REACH.
--- NOTE | 2016-08-26 03:00 | NUR ---
ATTEMPT TO GIVE MEDS AGAIN PT SHUT MOUTH AND SHOOK HEAD NO.
[2016-08-26 04:00] VITALS: BP 166/74
--- NOTE | 2016-08-26 04:56 | NUR ---
PT AWAKEN AND SWALLOW PROTONIX. CARDIZEM AND ATENOLOL PT REFUSED.
[2016-08-26 06:36] LABS: ANION GAP 16.9 mmol/L (8-16); CALCIUM 7.3 mg/dL (8.5-10.1); CARBON DIOXIDE 23.5 mmol/L (21.0-32.0); POTASSIUM - SERUM 5.4 mmol/L (3.5-5.1)
[2016-08-26 06:37] LABS: CREATININE - SERUM 3.4 mg/dL (0.6-1.3)
[2016-08-26 06:51] LABS: BASOPHILS 0.3 % (0-2); HEMATOCRIT 30.3 % (36.0-48.0); HEMOGLOBIN 9.6 g/dL (12-16); IMMATURE GRANULOCYTES 0.2 % (0-5); LYMPHOCYTES 25.7 % (15-50); MCH 30.3 pg (26.0-34.0); MCHC 31.7 g/dL (31.0-37.0); MCV 95.6 fL (80.0-100.0); MEAN PLATELET VOLUME 11.7 fL (7.4-10.4); NEUTROPHILS 63.8 % (40-80); PLATELET COUNT 170 10x3/uL (130-400); RBC 3.17 10x6/uL (4.00-5.40); RDW 14.8 % (11.5-14.5); WBC 6.5 10x3/uL (4.8-10.8)
--- NOTE | 2016-08-26 08:49 | NUR ---
RESTS WITH EYES CLOSED. CALL LIGHT IN REACH. NO S/S DISCOMFORTS NOTED. WILL MONITOR.
[2016-08-26 09:15] LABS: FOLATE (FOLIC ACID) - SERUM 15.8 ng/mL (>3.0)
[2016-08-26 13:08] VITALS: BP 173/90
[2016-08-26 13:09] VITALS: BP 176/92
[2016-08-26 16:30] VITALS: BP 150/77
--- NOTE | 2016-08-26 16:43 | NUR ---
WITHOUT CHANGES OR DISTRESS NOTED AT THIS TIME. DENIES NEEDS.
--- NOTE | 2016-08-26 20:38 | NUR ---
PT LYING IN BED, AWAKE, ALERT, ORIENTED, DENIES ANY NEEDS AT THIS TIME. CONTINUE TO MONITOR CLOSELY. BED LOW, CALL LIGHT IN REACH, SIDE RAILS X 2, HOB 30 DEGREES.
--- NOTE | 2016-08-26 23:54 | NUR ---
PT LYING IN BED ON RIGHT SIDE, EYES CLOSED, RESPIRATIONS EVEN AND UNLABORED. COTNINUE TO MONITOR CLOSELY. BED LOW, CALL LIGHT IN REACH, SIDE RAILS X 2, HOB 30 DEGREES.
[2016-08-27 04:00] VITALS: BP 148/58
[2016-08-27 06:23] LABS: BASOPHILS 0.3 % (0-2); EOSINOPHILS 4.1 % (0-7); HEMATOCRIT 30.4 % (36.0-48.0); IMMATURE GRANULOCYTES 0.1 % (0-5); LYMPHOCYTES 24.1 % (15-50); MCH 31.3 pg (26.0-34.0); MCHC 32.9 g/dL (31.0-37.0); MEAN PLATELET VOLUME 11.3 fL (7.4-10.4); MONOCYTES 5.5 % (2-11); NEUTROPHILS 65.9 % (40-80); PLATELET COUNT 173 10x3/uL (130-400); RDW 14.8 % (11.5-14.5); WBC 7.1 10x3/uL (4.8-10.8)
--- NOTE | 2016-08-27 06:48 | NUR ---
PT AWAKE, ALERT, ORIENTED, DENIES ANY NEEDS. CONTINUE TO MONITOR.
[2016-08-27 07:02] LABS: ANION GAP 16.4 mmol/L (8-16); CALCIUM 7.4 mg/dL (8.5-10.1); CARBON DIOXIDE 24.8 mmol/L (21.0-32.0); CREATININE - SERUM 3.8 mg/dL (0.6-1.3)
[2016-08-27 07:32] LABS: POTASSIUM - SERUM 6.2 mmol/L (3.5-5.1)
--- NOTE | 2016-08-27 08:12 | NUR ---
LAB CALLED WITH CRITICAL K+ OF 6.2. DIANE [facility]ON APN CALLED AND ORDERS RECEIVED. MONITOR SHOWS [email or web address].
[2016-08-27 10:02] VITALS: BP 148/57
[2016-08-27 14:42] VITALS: BP 160/75
[2016-08-27 17:48] VITALS: BP 133/63
[2016-08-27 19:00] VITALS: BP 160/79
[2016-08-27 20:09] LABS: COMPLEMENT C4 24.8 mg/dL (17.4-52.2)
[2016-08-27 20:12] LABS: ANION GAP 15.8 mmol/L (8-16); CARBON DIOXIDE 26.9 mmol/L (21.0-32.0); CHOL - HDL RATIO 3.5 ratio (2.3-4.1); CREATININE - SERUM 4.2 mg/dL (0.6-1.3); LDL-HDL RATIO 2.2 ratio (1.5-3.5); MAGNESIUM - SERUM 2.1 mg/dL (1.8-2.4); PHOSPHOROUS 4.4 mg/dL (2.5-4.9); POTASSIUM - SERUM 5.7 mmol/L (3.5-5.1)
[2016-08-28] VITALS: BP 172/65
--- NOTE | 2016-08-28 | NUR ---
PT UP IN [place] WITH BLOOD NOTED TO RIGHT FORARM NOTED PT HAS PULLED IV PUT AND IS BLEEDING PRESSURE AND COLD COMPRESS APPLIED. IV RESITED TO LEFT UPPER ARM 20 GA X 1 STICK TOLERATED WELL. CALL LIGHT IN REACH. PT TELEMETRY SHOWS CONTROLLED ATRIAL FIB RATE 73.
--- NOTE | 2016-08-28 01:35 | NUR ---
CALL LIGHT IN REACH, WILL CONTINUE WITH PLAN OF CARE.
[2016-08-28 06:24] VITALS: BP 166/50
--- NOTE | 2016-08-28 06:43 | NUR ---
CAUSEY CATH INSERTED VIA STERILE TECHNIQUE 16 FR IMMEDIATE RETURN OF 150 CC CLEAR YELLOW URINE. URINE COLLECTRED FOR TESTING PER ORDER.
[2016-08-28 06:59] LABS: BASOPHILS 0.5 % (0-2); HEMATOCRIT 28.8 % (36.0-48.0); HEMOGLOBIN 9.4 g/dL (12-16); IMMATURE GRANULOCYTES 0.2 % (0-5); LYMPHOCYTES 22.1 % (15-50); MCH 30.8 pg (26.0-34.0); MCHC 32.6 g/dL (31.0-37.0); MCV 94.4 fL (80.0-100.0); MEAN PLATELET VOLUME 11.3 fL (7.4-10.4); MONOCYTES 6.6 % (2-11); NEUTROPHILS 66.6 % (40-80); PLATELET COUNT 164 10x3/uL (130-400); RBC 3.05 10x6/uL (4.00-5.40); RDW 14.8 % (11.5-14.5); WBC 6.1 10x3/uL (4.8-10.8)
[2016-08-28 07:00] LABS: ANION GAP 13.7 mmol/L (8-16); CALCIUM 7.7 mg/dL (8.5-10.1); CARBON DIOXIDE 26.6 mmol/L (21.0-32.0); CREATININE - SERUM 4.2 mg/dL (0.6-1.3); POTASSIUM - SERUM 5.3 mmol/L (3.5-5.1)
--- NOTE | 2016-08-28 07:50 | NUR ---
AM ROUNDING DONE WITH PATIENT APPEARING TO BE ASLEEP, RESP ARE EVEN AND NON LABORED. ON ROOM AIR. CAUSEY CATH SEEN WITH CLEAR YELLOW URINE. ON EP, LAB VALUES ARE NORMAL. WILL CPOC.
[2016-08-28 07:52] LABS: PROTEIN - URINE 63.4 mg/dL (0.0-11.9)
[2016-08-28 08:00] VITALS: BP 165/73
[2016-08-28 12:00] VITALS: BP 166/63
--- NOTE | 2016-08-28 14:00 | NUR ---
Nutrition follow-up: Diet: REnal as tolerated PO intake ~25% of meals Labs reviewed Wt: 115# +BM PO intake is poor at this time. RDN will order Ensure with meals. RDN following.
--- NOTE | 2016-08-28 14:10 | NUR ---
PATIENT TO PULL OUT LEFT UPPER ARM SALINE LOCK. WILL NOT LET ME RE-SITE IV.
[2016-08-28 16:00] VITALS: BP 146/53
[2016-08-28 19:00] VITALS: BP 149/52
--- NOTE | 2016-08-28 19:00 | NUR ---
RECEIVED REPORT AND ASSUMED PT CARE FROM DAY SHIFT NURSE @ THIS TIME.
--- NOTE | 2016-08-28 21:11 | NUR ---
PT UP AMBUATING IN HALLS, NO C/O OR DISTRESS NOTED. MEDICATIONS ADMINISTERED. NO NEEDS VOICED. PT ASSISTED WITH PUTTING ON SLIPPER SOCKS AT THIS TIME. WILL MONITOR.
--- NOTE | 2016-08-28 23:15 | NUR ---
PT ASSISTED BACK TO ROOM. ATTEMPTING TO WANDER OFF THE UNIT. PT UNSURE WHAT TIME IT IS, EXPLAINED TO PT ABOUT THE TIME AND SHOWED HER THAT IT WAS DARK OUTSIDE THE WINDOW. PT VERBALIZES UNDERSTANDING. BACK TO HER ROOM WITH SBA ONLY. WILL MONITOR.
--- NOTE | 2016-08-29 03:30 | NUR ---
PT RESTING WELL WITHOUT C/O OR DISTRESS NOTED. NO NEEDS VOICED. WILL MONITOR.
[2016-08-29 04:00] VITALS: BP 146/63
[2016-08-29 06:16] LABS: BASOPHILS 0.6 % (0-2); EOSINOPHILS 3.5 % (0-7); HEMATOCRIT 26.1 % (36.0-48.0); HEMOGLOBIN 8.6 g/dL (12-16); IMMATURE GRANULOCYTES 0.2 % (0-5); LYMPHOCYTES 24.3 % (15-50); MCH 30.8 pg (26.0-34.0); MCV 93.5 fL (80.0-100.0); MEAN PLATELET VOLUME 11.6 fL (7.4-10.4); MONOCYTES 7.9 % (2-11); NEUTROPHILS 63.5 % (40-80); PLATELET COUNT 166 10x3/uL (130-400); RBC 2.79 10x6/uL (4.00-5.40); RDW 14.7 % (11.5-14.5); WBC 6.2 10x3/uL (4.8-10.8)
[2016-08-29 06:36] LABS: ANION GAP 16.7 mmol/L (8-16); CALCIUM 7.2 mg/dL (8.5-10.1); CARBON DIOXIDE 24.5 mmol/L (21.0-32.0); CREATININE - SERUM 4.6 mg/dL (0.6-1.3); POTASSIUM - SERUM 5.2 mmol/L (3.5-5.1)
[2016-08-29 08:07] VITALS: BP 157/64
[2016-08-29 11:18] LABS: ANA REFLEX - DBL STRANDED DNA <1 IU/mL (0-9); ANA REFLEX - DIRECT Negative (Negative)
[2016-08-29 12:06] VITALS: BP 138/64
--- NOTE | 2016-08-29 12:36 | NUR ---
THIS SHIFT PT WANTS TO GO HOME. SHE IS DRESSED. EXPLAINED TO PT SHE IS NOT READY TO GO HOME PER MD. PT SEEMS TO UNDERSTAND
[2016-08-29 14:44] VITALS: BP 141/60
--- NOTE | 2016-08-29 16:46 | NUR ---
IV STARTED TO RIGHT FA WITH 22 GAUGE CATH. LINE IS PATENT.
--- NOTE | 2016-08-29 17:16 | NUR ---
SURGERY CONSENTS SIGNED BY DAUGHTER.
[2016-08-29 20:00] VITALS: BP 148/61
[2016-08-30] VITALS: BP 151/57
[2016-08-30 04:00] VITALS: BP 146/63
[2016-08-30 05:30] LABS: BASOPHILS 0.7 % (0-2); EOSINOPHILS 1.5 % (0-7); HEMATOCRIT 28.1 % (36.0-48.0); HEMOGLOBIN 9.2 g/dL (12-16); IMMATURE GRANULOCYTES 0.4 % (0-5); LYMPHOCYTES 15.3 % (15-50); MCH 30.2 pg (26.0-34.0); MCHC 32.7 g/dL (31.0-37.0); MCV 92.1 fL (80.0-100.0); MEAN PLATELET VOLUME 11.3 fL (7.4-10.4); MONOCYTES 5.6 % (2-11); NEUTROPHILS 76.5 % (40-80); PLATELET COUNT 174 10x3/uL (130-400); RBC 3.05 10x6/uL (4.00-5.40); RDW 14.9 % (11.5-14.5); WBC 7.1 10x3/uL (4.8-10.8)
[2016-08-30 05:45] LABS: ANION GAP 16.3 mmol/L (8-16); CALCIUM 7.2 mg/dL (8.5-10.1); CARBON DIOXIDE 22.6 mmol/L (21.0-32.0); CREATININE - SERUM 4.7 mg/dL (0.6-1.3); POTASSIUM - SERUM 4.9 mmol/L (3.5-5.1)
--- NOTE | 2016-08-30 08:30 | NUR ---
INTERPRETOT LINE CALLED. REFUSES SURGERY. SUGEON NOTIFIED. WILL CONT. PLAN OF CARE.
--- NOTE | 2016-08-30 09:33 | NUR ---
REFUSES I@O CATH FOR URINE SPECIMEN.
--- NOTE | 2016-08-30 10:20 | NUR ---
PATIENT WAS BROUGHT TO [facility] CONSENTS WERE SIGNED BY DAUGHTER BUT PATIENT SPOKE NO CUBAN AND NO WAY TO CALL DAUGHTER TO TRANSLATE, MANY THINGS WERE SIGNED UTS BUT PATIENT WAS VERY ALERT JUST UNABLE TO COMMINICATE, LANGUAGE AND INTERPERTER PHONE BROUGHT TO OR WHERE WE WERE ABLE TO COMMINICATE WITH PATIENT WHAT THE SURGERY WAS AND DR RECINOS ALSO TALKED TO PATIENT BUT PATIENT COMMINICATED NO TO SURGERY 3 TIMES, DR RECINOS CANCELLED PROCEDURE BECAUSE OF THIS ISSUE, GET.
--- NOTE | 2016-08-30 10:29 | NUR ---
SEE NURSES NOTES UNDER OPERATION, CANCELED DUE TO LANGUAGE BARRIER AND PATIENT NOT WANTING SURGERY AFTER BRINE PROCESS OPERATOR CALLED, GET.
[2016-08-30 11:27] VITALS: BP 157/50
--- NOTE | 2016-08-30 15:08 | NUR ---
IV STARTED 22 GA TO RIGHT WRIST X 2 ATTEMPTS, IV COVERED WITH TEGADERM, FLUSHED WITHOUT DIFFICULTY
[2016-08-30 15:16] VITALS: BP 138/55; BP 140/63
[2016-08-30 19:00] VITALS: BP 138/54
--- NOTE | 2016-08-30 19:29 | NUR ---
Late Entry 1310 Patient's daughter, Halle, request to speak with CM. patient had apparently been taken to the OR for procedure. She declined. daughter reports the patient is confused and has been. The daughter signed the operative consent for the stent. She would like to proceed with the procedure. She states the patient is also schizophrenic. The daughter states she manages all of her mother's business and care. She does not have POA. Patient's help desk specialist retired. She has a new one at [facility]. Dtr cannot recall his name at this time. Contact home number for the daughter, Halle, is [phone]. Will address w/ admitting MD.
--- NOTE | 2016-08-30 22:14 | NUR ---
PT RESTING WELL WITHOUT C/O OR DISTRESS NOTED. NO NEEDS VOICED. WILL CONT TO MONITOR.
--- NOTE | 2016-08-31 03:30 | NUR ---
PT RESTING WELL WITHOUT C/O OR DISTRESS NOTED. CALL LIGHT WITHIN REACH.
[2016-08-31 05:00] VITALS: BP 151/73
[2016-08-31 05:47] LABS: BASOPHILS 0.3 % (0-2); EOSINOPHILS 1.8 % (0-7); HEMATOCRIT 27.2 % (36.0-48.0); IMMATURE GRANULOCYTES 0.3 % (0-5); LYMPHOCYTES 13.6 % (15-50); MCH 30.5 pg (26.0-34.0); MCHC 33.1 g/dL (31.0-37.0); MCV 92.2 fL (80.0-100.0); MEAN PLATELET VOLUME 10.7 fL (7.4-10.4); PLATELET COUNT 178 10x3/uL (130-400); RBC 2.95 10x6/uL (4.00-5.40); WBC 7.8 10x3/uL (4.8-10.8)
[2016-08-31 06:26] LABS: CARBON DIOXIDE 20.9 mmol/L (21.0-32.0); CREATININE - SERUM 4.9 mg/dL (0.6-1.3); POTASSIUM - SERUM 4.9 mmol/L (3.5-5.1)
[2016-08-31 06:28] LABS: CALCIUM 6.9 mg/dL (8.5-10.1)
--- NOTE | 2016-08-31 08:01 | NUR ---
STOOL COLLECTED AND TAKEN TO LAB. WILL MONITOR.
[2016-08-31 08:16] VITALS: BP 120/63
[2016-08-31 11:59] VITALS: BP 154/58
--- NOTE | 2016-08-31 12:24 | NUR ---
URINE SPECIMEN COLLECTED AND TAKEN TO LAB. WILL MONITOR.
[2016-08-31 12:46] LABS: APPEARANCE CLOUDY (CLEAR); COLOR YELLOW (YELLOW); LEUKOCYTE ESTERASE 2+ (NEGATIVE); NITRITE NEGATIVE (NEGATIVE); PROTEIN 1+ mg/dL (NEGATIVE)
[2016-08-31 12:47] LABS: BACTERIA MANY /hpf (NONE SEEN); BILIRUBIN NEGATIVE (NEGATIVE); EPITHELIAL CELLS 0-5 /hpf (0-5); GLUCOSE NEGATIVE (NEGATIVE); KETONE NEGATIVE (NEGATIVE); UROBILINOGEN NORMAL (NORMAL); WHITE CELLS - URINE >50 /hpf (0-5)
[2016-08-31 12:55] LABS: CREATININE - URINE 115.2 mg/dL (30-125); PRO/CRE RATIO URINE 0.7 mg/g; PROTEIN - URINE 79.4 mg/dL (0.0-11.9)
[2016-08-31 16:05] VITALS: BP 150/69
[2016-08-31 19:00] VITALS: BP 141/59
--- NOTE | 2016-08-31 19:36 | NUR ---
RESUMED CARE OF PT, LYING IN BED RESPIRATIONS EVEN AND UNLABORED ON ROOM AIR. RIGHT FOREARM INFUSING NS @ 75. NO NEEDS VOICED AT THIS TIME, CALL LIGHT IN REACH. SEE NURSE ASSESSMENT. WILL CONTINUE TO MONITOR.
--- NOTE | 2016-09-01 01:05 | NUR ---
CALL LIGHT IN REACH, WILL CONTINUE WITH PLAN OF CARE.
[2016-09-01 05:37] LABS: BASOPHILS 0.2 % (0-2); EOSINOPHILS 0.4 % (0-7); HEMATOCRIT 27.8 % (36.0-48.0); HEMOGLOBIN 9.3 g/dL (12-16); IMMATURE GRANULOCYTES 0.6 % (0-5); MCH 31.1 pg (26.0-34.0); MCHC 33.5 g/dL (31.0-37.0); MEAN PLATELET VOLUME 11.2 fL (7.4-10.4); MONOCYTES 4.9 % (2-11); NEUTROPHILS 84.9 % (40-80); PLATELET COUNT 204 10x3/uL (130-400); RBC 2.99 10x6/uL (4.00-5.40); RDW 15.3 % (11.5-14.5); WBC 8.9 10x3/uL (4.8-10.8)
[2016-09-01 05:55] LABS: ANION GAP 19.8 mmol/L (8-16); CARBON DIOXIDE 18.7 mmol/L (21.0-32.0); CREATININE - SERUM 4.7 mg/dL (0.6-1.3); POTASSIUM - SERUM 4.5 mmol/L (3.5-5.1)
[2016-09-01 05:58] LABS: CALCIUM 6.8 mg/dL (8.5-10.1)
--- NOTE | 2016-09-01 06:30 | NUR ---
NO CHANGES FROM PREVIOUS ASSESSMENT, CALL LIGHT IN REACH.
--- NOTE | 2016-09-01 07:30 | NUR ---
PT IN BED WITH EYES CLOSED RESP UNLABORED SKIN W/D COLOR WNL NAD NOTED
[2016-09-01 08:00] VITALS: BP 128/77
[2016-09-01 12:00] VITALS: BP 141/56
--- NOTE | 2016-09-01 12:39 | NUR ---
FSBS 142
--- NOTE | 2016-09-01 14:51 | NUR ---
Nutrition follow-up: Diet: Renal PO intake 25-50% of meals labs reviewed Wt: 117# +BM RDN following.
[2016-09-01 16:11] LABS: SPE - ALBUMIN 3.3 g/dL (2.9-4.4); SPE - ALPHA-1 GLOBULIN 0.3 g/dL (0.0-0.4); SPE - ALPHA-2 GLOBULIN 0.7 g/dL (0.4-1.0); SPE - GAMMA GLOBULIN 1.1 g/dL (0.4-1.8); SPE - M-SPIKE Not Observed g/dL (Not Observed); SPE - TOTAL PROTEIN 6.5 g/dL (6.0-8.5)
[2016-09-01 16:43] VITALS: BP 159/62
[2016-09-01 19:36] VITALS: BP 140/56
--- NOTE | 2016-09-01 20:09 | NUR ---
RESUMED CAER OF PT, LYING IN BED RESPIRATIONS EVEN AND UNLABORED ON ROOM AIR. FAMILY AT BEDSIDE. RIGHT FOREARM INFUSING NS @ 75. NO NEEDS VOICED AT THIS TIME, WILL CONTINUE TO MONITOR. SEE NURSE ASSESSMENT.
--- NOTE | 2016-09-02 00:31 | NUR ---
SAFETY COMPANION AT BEDSIDE TO OBTAIN VITALS, CALL LIGHT IN REACH. WILL CONTINUE WITH PLAN OF CARE.
[2016-09-02 01:53] VITALS: BP 132/54
[2016-09-02 05:28] LABS: BASOPHILS 0.1 % (0-2); EOSINOPHILS 0.2 % (0-7); HEMATOCRIT 26.3 % (36.0-48.0); HEMOGLOBIN 8.6 g/dL (12-16); IMMATURE GRANULOCYTES 0.4 % (0-5); LYMPHOCYTES 4.4 % (15-50); MCH 30.5 pg (26.0-34.0); MCHC 32.7 g/dL (31.0-37.0); MCV 93.3 fL (80.0-100.0); MEAN PLATELET VOLUME 11.1 fL (7.4-10.4); MONOCYTES 4.3 % (2-11); NEUTROPHILS 90.6 % (40-80); PLATELET COUNT 188 10x3/uL (130-400); RBC 2.82 10x6/uL (4.00-5.40); RDW 15.2 % (11.5-14.5); WBC 9.6 10x3/uL (4.8-10.8)
[2016-09-02 05:55] LABS: ANION GAP 20.7 mmol/L (8-16); CARBON DIOXIDE 18.3 mmol/L (21.0-32.0); CREATININE - SERUM 4.7 mg/dL (0.6-1.3)
[2016-09-02 05:56] VITALS: BP 132/47
[2016-09-02 06:07] LABS: CALCIUM 6.6 mg/dL (8.5-10.1)
--- NOTE | 2016-09-02 07:55 | NUR ---
RESTING QUIETLY RESP UNLABORED EYES CLOSED NAD NOTED
[2016-09-02 08:00] VITALS: BP 139/64
--- NOTE | 2016-09-02 08:14 | NUR ---
ASSESSMENT COMPLETED. PT HAS NO TELEMERTY OR O2. IV TO RIGHT FA WITH NS AT 75. NO C/O PAIN.UP AB JEMAL. DENIES ANY NEEDS. WILL MONITOR
[2016-09-02 08:19] LABS: UPE RAND - ALBUMIN 63.7 % (()); UPE RAND - ALPHA 1 GLOBULIN 3.5 % (()); UPE RAND - ALPHA 2 GLOBULIN 7.9 % (())
--- NOTE | 2016-09-02 10:53 | NUR ---
Patient Name: LILI DELUCA Encounter No: [id number] : 1935 Primary Insurance: MEDICARE A & B Anticipated DC Date: 09-02-2016 Planned Disposition: Inpatient Rehab External Planned Provider: [facility] INPATIENT REHAB DCP follow-up note: CM RECEIVED ORDER, MET WITH PT IN ROOM TO DISCUSS PRISON REHAB AND INPATIENT REHAB OPTIONS. PT WILL NOT CONSIDER PRISON FACILITY REHAB. PT WILL ONLY CONSIDER STAYING AT [place] FOR INPATIENT REHAB WITH PLAN TO RETURN HOME ALONE AT DISCHARGE. PT SPEAKS VERY LIMITED TANZANIAN, PT REPORTS SPEAKING FOUR LANGUAGES, PRIMARY LANGUAGE IS FRENCH, SECONDARY IS ENGLISH. IMPORTANT MESSAGE FROM MEDICARE PROVIDED AND EXPLAINED. [employer], CASE MANAGEMENT
[2016-09-02 11:55] VITALS: BP 142/56
--- NOTE | 2016-09-02 14:29 | NUR ---
Rehab Note- Acute Rehab Prescreen order received. The seems to be a good candidate for IRF stay. Will plan on admitting when medically stable and ready for discharge from the acute hospital. Thank you for this referral! Zaida Cardoza RN Clinical Liaison, [facility] Rehab
[2016-09-02 15:36] VITALS: BP 135/49
--- NOTE | 2016-09-02 16:29 | NUR ---
UP IN BEDSIDE CHAIR. DENIES ANY NEEDS. CALL LIGHT IN REACH. VISITOR AT BEDSIDE
--- NOTE | 2016-09-02 18:49 | NUR ---
LYING QUIETLY. DENIES ANY NEEDS. WILL MONITOR
[2016-09-02 20:01] VITALS: BP 135/56
[2016-09-03 00:17] VITALS: BP 141/58
--- NOTE | 2016-09-03 01:07 | NUR ---
THIS SHIFT, PATIENT HAS HAD VISITORS EARLY ON. PM MEDS GIVEN AND PATIENT SLEEPING AT THIS NOTE. WILL CONTINUE TO MONITOR
[2016-09-03 04:46] VITALS: BP 130/55
--- NOTE | 2016-09-03 06:02 | NUR ---
REFUSE TO HAVE AM LAB DRAWN.
[2016-09-03 08:19] VITALS: BP 142/69
--- NOTE | 2016-09-03 09:41 | NUR ---
Ambulates hallway with PT assist.
[2016-09-03 12:05] VITALS: BP 132/52
[2016-09-03 12:33] LABS: BASOPHILS 0.3 % (0-2); EOSINOPHILS 0.9 % (0-7); HEMATOCRIT 25.3 % (36.0-48.0); HEMOGLOBIN 8.4 g/dL (12-16); IMMATURE GRANULOCYTES 1.2 % (0-5); LYMPHOCYTES 8.8 % (15-50); MCH 30.9 pg (26.0-34.0); MCHC 33.2 g/dL (31.0-37.0); MEAN PLATELET VOLUME 11.3 fL (7.4-10.4); MONOCYTES 6.7 % (2-11); NEUTROPHILS 82.1 % (40-80); PLATELET COUNT 191 10x3/uL (130-400); RBC 2.72 10x6/uL (4.00-5.40); RDW 15.7 % (11.5-14.5); WBC 7.6 10x3/uL (4.8-10.8)
[2016-09-03 12:47] LABS: CARBON DIOXIDE 17.4 mmol/L (21.0-32.0); CREATININE - SERUM 5.1 mg/dL (0.6-1.3); POTASSIUM - SERUM 4.4 mmol/L (3.5-5.1)
[2016-09-03 12:49] LABS: CALCIUM 6.8 mg/dL (8.5-10.1)
--- NOTE | 2016-09-03 13:54 | CN ---
PATIENT NAME:LILI DELUCA MEDICAL RECORD: [id number] : [birth year] LOCATION:D. D.[id number] ADMIT DATE: 08/27/16 ACCOUNT: [id number] CONSULTING PHYSICIAN: RUBY MEDINA MD REFERRING PHYSICIAN: NAVYA JOEL MD DATE OF CONSULTATION: 08/25/2016 Cardiology Consultation ADMITTING DIAGNOSES: 1. Paroxysmal atrial fibrillation. 2. Bradycardia. 3. Hypertension. 4. Coronary artery disease. HISTORY OF PRESENT ILLNESS: Mrs. Deluca comes in with shortness of breath, no chest pain or chest discomfort. She has a past history of coronary artery disease, past history of atrial fibrillation. She was on metoprolol, digoxin and diltiazem for her blood pressure as well as her atrial fibrillation and she now has heart rates in the 30s. She also has chronic renal insufficiency with BUN of 33, creatinine of 2.6. This is approximately where she is and has been since 2013. She has a questionable compliance of medications at home. She is usually relatively compliant with her diltiazem, but not compliant with her Coumadin or her metoprolol. She has been getting metoprolol since she has been in here. PHYSICAL EXAMINATION: GENERAL APPEARANCE: Well-nourished, well-developed, appears stated age. Level of distress, comfortable. PSYCHIATRIC: Mental status, alert, normal affect. Orientation, oriented to time, place and person. EYES: Lids and conjunctiva, noninjected. No discharge, no pallor. ENT: Lips, teeth, gums, normal dentition. Oropharynx, no cyanosis, no pallor. NECK: Carotid arteries, bilateral normal upstroke, no bruits, no thrills. JUGULAR VEINS: No jugular venous pressure or distention. CERVICAL LYMPH NODES: Nontender, nonenlarged. THYROID: Not enlarged. Nontender. No nodules. LUNGS: Respiratory effort, unlabored. CHEST: Normal curvature. No thoracic deformity. No chest wall tenderness. Percussion, resonant. Auscultation, clear. No wheezes, no rales, no rhonchi. CARDIOVASCULAR: Precordial exam, nondisplaced. No heaves or pericardial thrills. Rate and rhythm, regular. Heart sounds, normal S1, normal S2. No S3, no gallop, no rub. Systolic murmur, not heard. Diastolic murmur, not heard. EXTREMITIES: No cyanosis, no edema. Peripheral pulses, full and equal in all extremities, except as noted. No bruits appreciated. ABDOMEN: Soft, nondistended. Normal aorta. No bruit. Nontender. No masses. Liver, nontender, no hepatomegaly. Spleen, nontender, no splenomegaly. MUSCULOSKELETAL: No joint tenderness. No joint swelling. No erythema. NEUROLOGICAL: Normal gait, normal strength, normal tone. SKIN: Warm and dry. OVERALL IMPRESSION: Bradycardia, most likely she does not take the metoprolol at home and with the renal insufficiency we have reinstituted the metoprolol therapy causing the bradycardia. She is usually not bradycardic if she only takes the diltiazem. She does not take the Coumadin and would not press that CONSULT REPORT [id number] LILI DELUCA as we have been through that before with her and she is grossly noncompliant with Coumadin. We will discontinue the digoxin and discontinue the metoprolol and use only the diltiazem. Hopefully, this will be adequate for heart rate and blood pressure control and she will take this as an outpatient. TRANSINT:[id number] Voice Confirmation ID: [id number] DOCUMENT ID: [id number] RUBY MEDINA MD at 1354 CC: [id number] DICTATION DATE: 08/25/16 1101 PLYWOOD STOCK GRADER: 08/28/16 0017 ADM IN [facility] [address] [place] [address]
[2016-09-03 15:13] VITALS: BP 131/56
[2016-09-03] MEDS ORDERED: HYDRALAZINE HCL50 MG PO (15:36)
[2016-09-03] MEDS ORDERED: CARDIZEM CD240 MG PO (15:36)
[2016-09-03] MEDS ORDERED: HYDROCODONE-APA1 TAB PO (15:37)
[2016-09-03] MEDS ORDERED: Levaquin PO (15:44)
--- NOTE | 2016-09-03 17:42 | NUR ---
REPORT CALLED TO REHAB. TRANSFERED BY W/C.
== END 2016-09-03 17:45 | DRG 640 ==
LOC: D.ER 12:27 → D.M2 17:30 → OBSVTIME 17:30 → D.M2 17:30
PROVIDERS: Emergency Medicine; Family Medicine; Internal Medicine Nephrology; ADMIT Emergency Medicine
DX: E87.5 Hyperkalemia (principal); N17.0 Acute kidney failure with tubular necrosis; N18.4 Chronic kidney disease, stage 4 (severe); E44.0 Moderate protein-calorie malnutrition; Z68.1 Body mass index [BMI] 19.9 or less, adult; I12.9 Hypertensive chronic kidney disease with stage 1 through stage 4 chronic kidney disease, or unspecified chronic kidney disease; I16.0 Hypertensive urgency; I48.0 Paroxysmal atrial fibrillation; Z91.14 Patient's other noncompliance with medication regimen; I25.10 Atherosclerotic heart disease of native coronary artery without angina pectoris

== ENCOUNTER 2016-09-03 18:23 | Inpatient (IN) | payer MEDICARE ==
[~2016-09-03] VITALS: Ht 162.6 cm; Wt 67.1 kg
[~2016-09-03 18:23] MED LIST changes: +HYDRALAZINE HCL50 MG PO; +HYDROCODONE-APA1 TAB PO; +Levaquin PO
--- NOTE | 2016-09-03 19:30 | NUR ---
IN BED, AWAKE. MULTIPLE FAMILY MEMBERS PRESENT VISITING. DENIES CURRENT NEEDS. GRAPHIC PRE PRESS TRADES WORKER PHONE SET UP FOR PATIENT.
--- NOTE | 2016-09-03 21:30 | NUR ---
PATIENT RESTING QUIETLY AT THIS TIME.
--- NOTE | 2016-09-03 22:05 | NUR ---
PLACED PATIENT ON 2L O2 PER N/C FOR CURRENT PULSEOX OF 93% WITH RR OF 24. PATIENT CONTINUES ANXIOUS BUT OTHERWISE VS ARE STABLE.
--- NOTE | 2016-09-03 22:20 | NUR ---
ATTEMPTED TO CONTACT FAMILY TO HAVE THEM SPEAK TO PATIENT AND IF POSSIBLE TO STAY WITH PATIENT TO REDUCE HER ANXIETY, BUT COULD NOT FIND A GOOD NUMBER FROM HOSPITAL RECORDS. CALLED PATIENT'S HOME NUMBER LISTED ON HER FACE SHEET AND REACH A MONIKA KNOX WHO SAYS HE IS A PERSONAL FRIEND AND PRIOR TO THIS HAD TAKEN CARE OF HER FOR MANY YEARS. ASKED HIM TO SPEAK WITH HER AND TRY TO OBTAIN A GOOD NUMBER FOR HER FAMILY MEMBERS. MR. KNOX STATED THAT HE IS IN [place], AND NOT IN [place], SO PATIENT'S PHONE IS SOMEHOW FORWARDED TO HIS NUMBER THERE.
[2016-09-03 22:57] VITALS: BP 153/73
--- NOTE | 2016-09-03 23:20 | NUR ---
PATIENT SPOKE WITH MR. KNOX FOR ABOUT 30 MINUTES. AT THE END OF THE CONVERSATION I ASKED MR. KNOX TO TELL THE PATIENT THAT SHE WAS PHYSICAL STABLE OR SHE WOULD NOT HAVE BEEN DISCHARGED TO US. MR. KNOX SAID HE WOULD TRY TO CONTACT FAMILY MEMBERS AND THEN EITHER HE WOULD GET BACK TO ME OR THEY WOULD CALL EITHER [facility] OR TOMORROW. HOPEFULLY FAMILY WILL VISIT HER TOMORROW. PROCEEDED WITH HS MEDS AND ADMISSION ASSESSMENT AFTER OBTAINING FRESH SET OF VITAL SIGNS. HR IS 92 AND REGULAR. BP SLIGHTLY ELEVATED @ 153/73. ASSURED PATIENT THAT I WILL LAN GOOD CARE OF HER. SHE SEEMED TO UNDERSTAND.
[2016-09-03 23:44] VITALS: BMI 21.3
--- NOTE | 2016-09-04 00:05 | NUR ---
PATIENT CALLED TO SAYS THAT SHE HAS BEEN PRAYING, BUT IS STILL NERVOUS (ANXIOUS). SHE STATED, "I PRAY,GOD SAY THAT I NOT ." I REITERATED THAT HER HEART IS MUCH BETTER THAN WHEN SHE CAME TO THE HOSPITAL, AND THAT I WILL BE WATCHING OVER HER ALL NIGHT. SHE SAID, POINTING TO HER BEDSIDE, "YOU STAY HERE." TOLD HER I HAVE OTHER PATIENTS THAT I MUST CARE FOR, BUT THAT I AM ONLY 20 FEET AWAY AT THE NURSING STATION AND WHEN SHE CALLS I WILL ANSWER.
--- NOTE | 2016-09-04 00:30 | NUR ---
ASSISTED PATIENT UP TO [facility] TO URINATE AFTER MODERATE INCONTINENCE IN HER BRIEF. PATIENT UNABLE TO URINATE FURTHER.
--- NOTE | 2016-09-04 02:00 | NUR ---
IN BED, AWAKE. DROWSY. COVERED PATIENT UP WITH SHEET SHE EARLIER REFUSED IT. PATIENT MUMBLING ALMOST CONTINUOUSLY. REMAINS DISORIENTED TO TIME AND SITUATION. RESTING POORLY. DENIES PAIN. IS ABLE TO USE CALL LIGHT AND TO COMMUNICATE WHEN SHE NEEDS TO TOILET.
--- NOTE | 2016-09-04 04:20 | NUR ---
RESTING QUIETLY IN BED, EYES CLOSED. RESPIRING QUIETLY. PATIENT HAS BEEN ALTERNATELY SLEEPING QUIETLY OR VERY RESTLESS AND CONFUSED TONIGHT.
--- NOTE | 2016-09-04 05:35 | NUR ---
PATIENT WAS RESTING QUIETLY AND APPEARED COMFORTABLE UNTIL SHE WAS AWAKENED BY PHLEBOTAMIST FOR LAB DRAW. SINCE THEN SHE HAS BEEN SOFTLY CALLING FOR HELP OR REPEATEDLY SAYING WHAT SOUNDS LIKE, "HEEYAH". ASKED HER TO OPEN HER EYES AND LOOK AT ME AND THE BEHAVIOR EXTINGUISHED UNTIL AFTER SHE TOOK HER PROTONIX TAB WITH WATER. SHE THEN CLOSED HER EYES AND BEGAN HER VOCALIZATIONS AGAIN. DENIED ANY PAIN. FSBS AT 0450 WAS 137. CONTINUES ON O2 @ 2L PER N/C.
[2016-09-04 06:45] LABS: BASOPHILS 0.2 % (0-2); EOSINOPHILS 0.2 % (0-7); HEMATOCRIT 24.9 % (36.0-48.0); HEMOGLOBIN 8.1 g/dL (12-16); IMMATURE GRANULOCYTES 0.7 % (0-5); LYMPHOCYTES 5.3 % (15-50); MCH 30.3 pg (26.0-34.0); MCHC 32.5 g/dL (31.0-37.0); MCV 93.3 fL (80.0-100.0); MEAN PLATELET VOLUME 11.4 fL (7.4-10.4); NEUTROPHILS 86.6 % (40-80); PLATELET COUNT 182 10x3/uL (130-400); RBC 2.67 10x6/uL (4.00-5.40); RDW 15.9 % (11.5-14.5); WBC 8.5 10x3/uL (4.8-10.8)
[2016-09-04 07:01] LABS: CARBON DIOXIDE 16.3 mmol/L (21.0-32.0); CREATININE - SERUM 5.3 mg/dL (0.6-1.3)
[2016-09-04 07:04] LABS: ANION GAP 22.9 mmol/L (8-16); CALCIUM 6.9 mg/dL (8.5-10.1); POTASSIUM - SERUM 5.2 mmol/L (3.5-5.1)
--- NOTE | 2016-09-04 07:54 | NUR ---
PT ASSISTED TO BR. PT DID NOT VOID AT THIS TIME. PT RETURNED TO BED AND REPOSITIONED FOR BREAKFAST. WCTM.
[2016-09-04 08:00] VITALS: BP 117/56
--- NOTE | 2016-09-04 09:30 | NUR ---
DUE TO LANGUAGE BARRIER, INTERPRETOR CALLED TO EXPLAIN THERAPY. PT DENIES NEEDS AT THIS TIME.
[2016-09-04 10:10] VITALS: Ht 162.6 cm; Wt 67.1 kg
--- NOTE | 2016-09-04 12:05 | NUR ---
PT SITTING UP IN WC WAITING FOR LUNCH, DENIES NEEDS. WCTM.
--- NOTE | 2016-09-04 15:11 | NUR ---
PT REQ AND REC'D PRN PAIN MEDICATION VIA CUSTODIAN MANAGER. WCTM. BED LOW. CL IN REACH.
[2016-09-04 19:21] VITALS: BP 125/76
--- NOTE | 2016-09-04 19:30 | NUR ---
GRANDDAUGHTER, CAREGIVER FOR MOTHER, STATES THEY CANNOT STAY, HOWEVER IF GRANDMA DOESN'T DO WELL DURING THE NIGHT TO CALL HER AND SHE WILL TRY TO COME UP. DAUGHTER STATES THAT MOTHER HAS HX OF SCHIZOPRHENIA, AND USUALLY TAKES SOME TIME TO ADJUST TO NEW SURROUNDINGS, BUT THINKS SHE WILL BE OK TONIGHT.
--- NOTE | 2016-09-04 20:20 | NUR ---
ADMINISTERED MEDICATIONS EARLY SO FAMILY COULD BE PRESENT TO ASSIST WITH TRANSLATION. DISCUSSED WITH FAMILY AND PATIENT COMMUNICATION STRATEGY.
[2016-09-05] VITALS (11 sets, daily range): BP systolic 112–136; BP diastolic 8–69
--- NOTE | 2016-09-05 01:30 | NUR ---
PT USED TO CALL LIGHT FOR ASSISTANCE, TRANSFERRED WITH MIN ASSIST FROM BED TO W/C. ASSISTANCE TO HELP BALANCE. PT TRANSFERRED TO TOILET WITH SBA AND USE OF HAND RAILS, MIN ASSIST TO TRANSFER FROM BED TO W/C. PT MOTIONED FOR TV TO BE OFF, TURNED OFF TV AND PT VERBALIZED 'THANK YOU.' ASSISTED PT WITH COVERS. PT DENIES PAIN.
--- NOTE | 2016-09-05 03:22 | NUR ---
RESTING QUIETLY IN BED, EYES CLOSED, RESPIRATIONS REGULAR AND UNLABORED, NO S/S OF ACUTE DISTRESS.
[2016-09-05 07:03] LABS: BASOPHILS 0.3 % (0-2); EOSINOPHILS 1.6 % (0-7); HEMATOCRIT 24.6 % (36.0-48.0); HEMOGLOBIN 8.1 g/dL (12-16); IMMATURE GRANULOCYTES 0.6 % (0-5); LYMPHOCYTES 12.9 % (15-50); MCH 30.7 pg (26.0-34.0); MCHC 32.9 g/dL (31.0-37.0); MCV 93.2 fL (80.0-100.0); MEAN PLATELET VOLUME 11.7 fL (7.4-10.4); NEUTROPHILS 77.6 % (40-80); PLATELET COUNT 210 10x3/uL (130-400); RBC 2.64 10x6/uL (4.00-5.40); RDW 16.1 % (11.5-14.5); WBC 6.9 10x3/uL (4.8-10.8)
[2016-09-05 07:07] LABS: ANION GAP 22.4 mmol/L (8-16); CARBON DIOXIDE 16.8 mmol/L (21.0-32.0); POTASSIUM - SERUM 5.2 mmol/L (3.5-5.1)
--- NOTE | 2016-09-05 08:00 | NUR ---
RESTING QUIETLY IN BED. EYES CLOSED. NO S/S DISTRESS.
--- NOTE | 2016-09-05 10:01 | NUR ---
SITTING ON BED WATCHING TV. DOES NOT SPEAK SLOVENIAN. STAFF HAS TO USE TRANSLATION PHONE WHICH IS AT BED SIDE. PT DENIES PAIN. HER APPETITE IS POOR. HER GRAND DAUGHTER VISITED THIS AM AND TRIED TO GET PT TO EAT. PT ARE FEW BITES ONLY.
--- NOTE | 2016-09-05 12:31 | NUR ---
BLOOD STARTED. PT COOPERATIVE. IV ACCESS NURSE HAD TO START IV DUE TO POOR VESSELS. NURSE SITTING IN ROOM WITH PT FOR FIRST 15 MINUTES TO MONITOR FOR REACTION.
--- NOTE | 2016-09-05 19:15 | NUR ---
PT. IN BED WITH HOB UP FOR COMFORT LYING ON HER RIGHT SIDE. EYES CLOSED AND RESP. EVEN. PT. AWAKENS EASILY FOR ASSESSMENT. CALL LIGHT WITHIN REACH.
--- NOTE | 2016-09-06 01:10 | NUR ---
ASSISTED PT TO BATHROOM AND BACK TO BED.
--- NOTE | 2016-09-06 01:15 | NUR ---
REST IN BED, EYE OPEN, DENIES NEEDS.
--- NOTE | 2016-09-06 03:08 | NUR ---
REST IN BED, EYE CLOSE, BED LOW, CALL LIGHT WITHIN REACH.
[2016-09-06 07:26] LABS: BASOPHILS 0.3 % (0-2); EOSINOPHILS 0.9 % (0-7); HEMATOCRIT 28.5 % (36.0-48.0); HEMOGLOBIN 9.5 g/dL (12-16); IMMATURE GRANULOCYTES 0.8 % (0-5); MCH 30.6 pg (26.0-34.0); MCHC 33.3 g/dL (31.0-37.0); MCV 91.9 fL (80.0-100.0); MEAN PLATELET VOLUME 11.2 fL (7.4-10.4); MONOCYTES 6.7 % (2-11); NEUTROPHILS 84.3 % (40-80); PLATELET COUNT 181 10x3/uL (130-400); RDW 16.3 % (11.5-14.5); WBC 7.6 10x3/uL (4.8-10.8)
--- NOTE | 2016-09-06 07:30 | NUR ---
SITTING UP IN BED RUBBING LEGS. PT STATES "HURT WHILE RUBBING LEGS" AND ALSO STATES "HOME" AND POINTS UPWARD. PT DOES HAVE LANGUAGE BARRIER AND SPEAKS VERY LITTLE KITTITIAN. BLE 2+ EDEMA. CONTINUES ON O2 2L NC AND LEFT UPPER ARM IV NS @ 100ML/HR. CALL LIGHT IN REACH WILL CONTINUE TO MONITOR
[2016-09-06 08:00] VITALS: BP 144/53
[2016-09-06 08:15] LABS: CARBON DIOXIDE 17.8 mmol/L (21.0-32.0); POTASSIUM - SERUM 5.8 mmol/L (3.5-5.1)
[2016-09-06 08:24] LABS: CALCIUM 6.6 mg/dL (8.5-10.1)
--- NOTE | 2016-09-06 12:30 | RHP ---
PATIENT: LILI DELUCA MEDICAL RECORD: [id number] ACCOUNT: [id number] LOCATION:[facility]1112 : [birth year] ADMISSION DATE: 09/03/16 REHABILITATION HISTORY AND PHYSICAL EXAMINATION POST ADMISSION PHYSICIAN EXAMINATION Post-Admission Physical Examination and History of Physical DATE OF ADMISSION TO THE REHAB: 09/04/2016 ADMITTING DIAGNOSES: Cardiac with paroxysmal atrial fibrillation. HISTORY OF PRESENT ILLNESS: Patient was admitted to the inpatient rehab with paroxysmal atrial fibrillation. She is an 81-year-old lady of descent, presented to the ED with altered mental status and reports of blood sugar 62. She was admitted to the hospital, found to have hypertension, hypoglycemia with altered mental status. She complained of dyspnea during her acute hospital stay. Her admit had been episodes of bradycardia down in the 30s. She was found to have a UTI with E. coli bacteria. She has been started on Levaquin. She has chronic renal insufficiency with BUN of 33 and creatinine of 2.6, has been independent with her ADLs and mobility prior to this hospitalization. She is currently a moderate assist for ADLs and [id number] assist for mobility. She wants to return home. She lives alone and would like to get back to her prior level of functioning better. COMORBIDITIES: Include dysphagia, UTI, bradycardia, hypertension, coronary artery disease, hyperkalemia, AFib, chronic kidney disease, noncompliance and hyperglycemia. PAST MEDICAL HISTORY: Significant for unstable angina, coronary artery disease with stenting, chronic AFib, hypertension, chronic kidney disease stage IV, CHF, schizophrenia. PAST SURGICAL HISTORY: Includes stent placement. ALLERGIES: No known drug allergies. CURRENT MEDICATIONS: Include MiraLax 17 grams daily. She is on Floranex 460 mg daily, Protonix 40 mg daily, Levaquin 250 mg daily, Indian 10/325 as needed for pain, hydralazine 100 mg t.i.d., and diltiazem 240 b.i.d. HABITS: No alcohol or tobacco use. FAMILY HISTORY: Noncontributory. SOCIAL HISTORY: Patient hopes to return back home and get back to her prior level of functioning. She lives alone. REVIEW OF SYSTEMS: GENERAL: Does complain of weakness and fatigue. HEENT: Denies cold, cough, or congestion. CARDIOVASCULAR: Denies chest pain. LUNGS: Does complain of some shortness of breath. PHYSICAL EXAMINATION: HISTORY AND PHYSICAL [id number] LILI DELUCA VITAL SIGNS: Stable. She is afebrile. GENERAL: Elderly female in no acute distress, alert upon exam. HEENT: Normocephalic and atraumatic. Mucosa moist. NECK: Supple, with no lymphadenopathy. LUNGS: Clear at this time. HEART: Irregular rate and rhythm. ABDOMEN: Benign. EXTREMITIES: No clubbing, cyanosis or edema. NEUROLOGIC: Slow to mentate. LABORATORY DATA: Her white count is 8.5, H&H 8.1 and 24.9, platelet count is 182. Sodium is 136, potassium 5.2, BUN and creatinine of 74 and 5.3 and her blood sugar is noted to be 127. ASSESSMENT: This is an 81-year-old female patient admitted to rehab with a working diagnosis of cardiac/atrial fibrillation with weakness. Patient has potential to make improvement. We instituted the following multidisciplinary therapies including, but not limited to physical, occupational, respiratory, speech, nutritional services, prosthetics and orthotics. Given her complex condition and risk for more complications, rehabilitation services cannot be provided at a lower level of care such as detention facility. PLAN: 1. Admit to [facility] rehab for intensive inpatient therapy to include the following disciplines: A. Physical therapy to improve gait, all transfer skills and bed mobility to a modified independent level. B. Occupational therapy to improve activities of daily living to a modified independent level. C. Case management to assist with discharge planning and placement options. D. Nutrition to assist with nutritional needs. E. Rehabilitation nursing to assist with monitoring the patient's underlying medical conditions and to assist with any type of bowel or bladder management. 2. The patient's current medications and medical care will be continued. 3. The patient's FIM scores updated as reported. 4. We will discuss this patient during care team staff meeting this week. TRANSINT:[id number] Voice Confirmation ID: [id number] DOCUMENT ID: [id number] EDUIN notes whether there has been none or any medical/functional change since admission: - No change since prescreen. EDUIN attests patient continues to be appropriate for IRF: - Continues to be appropriate. HISTORY AND PHYSICAL [id number] LILI DELUCA SCOTT MD at 1230 CC: [id number] DICTATION DATE: 09/04/16 0844 BURR GRINDER: 09/04/16 1034 ADM IN [facility] [address] [id number]
--- NOTE | 2016-09-06 13:25 | NUR ---
LYING IN BED GRIMMACING AND TEARY EYED RUBBING LEGS. ADMINISTERED NORCO 10MG FOR PAIN IN BLE. CALL LIGHT IN REACH
--- NOTE | 2016-09-06 13:57 | NUR ---
IN BED,EYES CLOSED.CL IN REACH.STATES DOING FINE.
--- NOTE | 2016-09-06 14:28 | NUR ---
LYING IN BED ON RIGHT SIDE EYES CLOSED RESTING. EASILY AROUSED WITH STIMULI. WILL CONTINUE TO MONITOR. CALL LIGHT IN REACH
--- NOTE | 2016-09-06 17:00 | NUR ---
FAMILY FRIEND TRANSLATED TO PT IN REGARDS TO INSERTING CAUSEY CATHETER. PT TURNED TO ME AND STATED "IT'S OK DO WHAT YOU HAVE TO". WILL INSERT AFTER PT FINISHES VISITING WITH FRIENDS
[2016-09-06 18:00] VITALS: BP 143/73
--- NOTE | 2016-09-06 18:00 | NUR ---
SITTING UP IN BED VISITING WITH FAMILY AND FRIENDS. CALL LIGHT IN REACH. WILL CONTINUE TO MONITOR
--- NOTE | 2016-09-06 18:59 | NUR ---
INSERTED CAUSEY CATH 16FR. PER DR. DALE. PREPED FERN AREA WITH CAUSEY PREP CLOTHES. PREPPED FERN AREA WITH POVIDINE-IODINE, INSERTED CAUSEY CATH WITHOUT DIFFICULTY. FILLED BULB WITH 10ML SALINE. STATLOCK ADHERED TO RIGHT INNER THIGH. CLEANED FERN AREA. CAUSEY BAG HANGING ON RIGHT SIDE OF BED. CALL LIGHT IN REACH. WILL CONTINUE TO MONITOR.
[2016-09-06 20:00] VITALS: BP 149/74
--- NOTE | 2016-09-06 20:00 | NUR ---
PT IN BED WITH HOB UP FOR COMFORT. WATCHING TV. RESTING QUIETLY. 02 @ 2L VIA N/C. LEFT UPPER ARM NS @ 100ML/HR. FSBS. CAUSEY CATH. STRICT I & O. DAILY WEIGHT. Q6H VITALS. SPEAKS VERY LITTLE CITIZEN [place]. BED IN LOWEST POSITION AND CALL LIGHT WITHIN REACH.
--- NOTE | 2016-09-06 22:52 | NUR ---
PT. IN BED WITH HOB UP FOR COMFORT WITH EYES CLOSED AND RESP. EVEN. CALL LIGHT WITHIN REACH.
[2016-09-07 00:50] VITALS: BP 136/70
--- NOTE | 2016-09-07 02:20 | NUR ---
PT LYING IN BED WITH HOB UP FOR COMFORT. EYES CLOSED. RESP. EVEN. BED IN POSITION AND CALL LIGHT WITHIN REACH.
--- NOTE | 2016-09-07 04:20 | NUR ---
PT LYING ING BED. EYES CLOSED. CHEST RISING AND FALLING. BED IN LOWEST POSITION AND CALL LIGHT WITHIN REACH.
[2016-09-07 06:04] VITALS: BP 154/65
[2016-09-07 06:40] LABS: BASOPHILS 0.3 % (0-2); EOSINOPHILS 2.2 % (0-7); HEMATOCRIT 27.6 % (36.0-48.0); HEMOGLOBIN 9.1 g/dL (12-16); LYMPHOCYTES 8.5 % (15-50); MCH 30.5 pg (26.0-34.0); MCV 92.6 fL (80.0-100.0); MEAN PLATELET VOLUME 10.3 fL (7.4-10.4); MONOCYTES 8.6 % (2-11); NEUTROPHILS 79.4 % (40-80); PLATELET COUNT 167 10x3/uL (130-400); RBC 2.98 10x6/uL (4.00-5.40); RDW 16.3 % (11.5-14.5); WBC 7.7 10x3/uL (4.8-10.8)
--- NOTE | 2016-09-07 06:59 | NUR ---
LYING IN BED SUPINE EYES CLOSED RESTING. CONTINUES ON O2 @ 2L NC. IV LT FOREARM NS @ 100ML/HR. APPROPRIATE RISE AND FALL OF CHEST. EASILY AROUSED WITH STIMULI. CALL LIGHT IN REACH. WILL CONTINUE TO FOLLOW.
[2016-09-07 07:12] LABS: ANION GAP 20.9 mmol/L (8-16); CREATININE - SERUM 5.8 mg/dL (0.6-1.3); POTASSIUM - SERUM 4.9 mmol/L (3.5-5.1)
[2016-09-07 07:13] LABS: CALCIUM 6.5 mg/dL (8.5-10.1)
--- NOTE | 2016-09-07 11:30 | NUR ---
PT SITTING UP IN BED WITH FAMILY AT BEDSIDE. CALL LIGHT IN REACH.
[2016-09-07 12:00] VITALS: BP 138/72
--- NOTE | 2016-09-07 13:00 | NUR ---
CL IN REACH.WILL CONTINUE TO MONITOR
--- NOTE | 2016-09-07 14:30 | NUR ---
PER DR. MEHTA ORDER DC IV NS AND CAUSEY CATHETER. CAUSEY CATHETER INTACT.
--- NOTE | 2016-09-07 17:00 | NUR ---
SITTING UP IN BED RESTING AND VISITING WITH FRIENDS. CALL LIGHT IN REACH
[2016-09-07 18:15] VITALS: BP 140/76
[2016-09-07 20:00] VITALS: BP 157/69
--- NOTE | 2016-09-07 20:15 | NUR ---
LYING IN BED WITH EYES OPEN. FAMILY AT BEDSIDE. DENIES ANY PAIN.
--- NOTE | 2016-09-08 00:43 | NUR ---
RESTING IN BED WITH EYES CLOSED. NO S/S OF DISTRESS OBSERVED. CALL LIGHT AND OVERBED TABLE IN REACH.
[2016-09-08 01:20] VITALS: BP 157/69
[2016-09-08 06:54] VITALS: BP 127/56
[2016-09-08 07:35] LABS: ANION GAP 22.1 mmol/L (8-16); CARBON DIOXIDE 16.1 mmol/L (21.0-32.0); POTASSIUM - SERUM 5.2 mmol/L (3.5-5.1)
[2016-09-08 07:39] LABS: CALCIUM 6.7 mg/dL (8.5-10.1)
--- NOTE | 2016-09-08 08:01 | NUR ---
SITTING UP IN BED EATING BREAKFAST. DENIES NEEDS OR C/O. CALL LIGHT IN REACH
--- NOTE | 2016-09-08 08:06 | NUR ---
DR SOTOMAYOR ON FLOOR. HE IS AWARE OF CALCIUM LEVEL.
[2016-09-08 08:27] VITALS: BP 127/60
[2016-09-08 12:30] VITALS: BP 141/69
--- NOTE | 2016-09-08 16:06 | NUR ---
RESTING QUIETLY IN BED. NO S/S DISTRESS. CALL LIGHT IN REACH
--- NOTE | 2016-09-08 18:18 | NUR ---
RESTING QUIETLY IN BED. REFUSED SUPPER. CALL LIGHT IN REACH
--- NOTE | 2016-09-08 19:30 | NUR ---
PT RESTING WITH EYES CLOSED, RESPIRATIONS REGULAR AND UNLABORED.
[2016-09-08 22:26] VITALS: BP 137/58
--- NOTE | 2016-09-09 01:10 | NUR ---
PT CRAWLING OUT OF BED, MOANING, USED BUILDING CONSTRUCTION FOREMAN PHONE, PT IS HAVING PAIN AND WANTED A PAIN MEDICATION. MEDICATED WITH PAIN PILL, ARMS EDEMATOUS, LEFT ARM REDDEDNED AT IV INSERTION SITE EXTENDED ABOUT 3 CMS, DC'D IV, CANULA INTACT. PRESSURE THEN BANDAID APPLIED. PT TOLERATED WELL, PT SITTING ON SIDE OF BED WITH HEAD ON ARMS, ON BEDSIDE TABLE, PT REFUSED TO LAY DOWN.
--- NOTE | 2016-09-09 04:41 | NUR ---
PT SITTING UP IN BED, MOANING.
[2016-09-09 05:22] VITALS: BP 128/46
[2016-09-09 06:11] LABS: ANION GAP 22.7 mmol/L (8-16); CARBON DIOXIDE 16.2 mmol/L (21.0-32.0); CREATININE - SERUM 6.6 mg/dL (0.6-1.3); POTASSIUM - SERUM 4.9 mmol/L (3.5-5.1)
[2016-09-09 06:15] LABS: CALCIUM 6.6 mg/dL (8.5-10.1)
[2016-09-09 08:13] VITALS: BP 115/50
[2016-09-09] MEDS ORDERED: LASIX20 MG PO (14:31)
[2016-09-09] MEDS ORDERED: TUMS500 MG PO (14:33)
[2016-09-09] MEDS ORDERED: FLORAJEN3 CAPS460 MG PO (14:34)
--- NOTE | 2016-09-09 16:05 | NUR ---
RESTING QUIETLY IN BED. EYES CLOSED. NO S/S DISTRESS. OXYGEN IN PLACE. HOANG SHAH WITH RENAL MD'S ROUNDED TODAY AND DUE TO PT'S CONDITION, IT WAS DECIDED SHE NEEDED TO HAVE DIALYSIS ACCESS AND START DIALYSIS. PT IS NOT EATING OR DRINKING MUCH AND HAS POOR OUTPUT. ALSO EDEMA TO EXTREMITIES THAT HAS NOT RESPONDED TO LASIX. DR. DOMINGUEZ CAME TO FLOOR AND SAW PT BUT DECIDED SHE WOULD BE TRANSFERED TO ACUTE CARE TOMORROW INSTEAD OF TODAY. PT'S FAMILY AWARE OF PT CONDITION AND WAS SPOKEN TO BY STAFF NURSE AND PABLO BOLTON TODAY. PT ALLOWED OPPERTUNITY TO ASK QUESTIONS WAS PT.
[2016-09-09 18:45] VITALS: BP 113/54
--- NOTE | 2016-09-09 18:47 | NUR ---
RESTING QUIETLY IN BED. DENIES NEEDS OR C/O. CALL LIGHT IN REACH
--- NOTE | 2016-09-09 20:10 | NUR ---
ASSISTED PT TO BATHROOM AND BACK TO BED.
[2016-09-10 00:35] VITALS: BP 147/63
--- NOTE | 2016-09-10 02:07 | NUR ---
REST IN BED, EYE OPEN, DENIES NEEDS.
--- NOTE | 2016-09-10 02:58 | NUR ---
REST QUIETLY IN BED, CALL LIGHT WITHIN REACH.
--- NOTE | 2016-09-10 04:06 | NUR ---
PT SITTING ON SIDE OF BED, DRINKING MEAL SUPPLEMENT, PT SMILES EASILY. PT HAS LANGUAGE BARRIER WITH UKRAINIAN.
[2016-09-10 05:52] LABS: CARBON DIOXIDE 16.9 mmol/L (21.0-32.0); CREATININE - SERUM 6.8 mg/dL (0.6-1.3)
[2016-09-10 05:55] LABS: ANION GAP 22.8 mmol/L (8-16); CALCIUM 6.7 mg/dL (8.5-10.1); POTASSIUM - SERUM 5.7 mmol/L (3.5-5.1)
[2016-09-10 06:10] VITALS: BP 126/45
[2016-09-10 08:24] VITALS: BP 120/52
--- NOTE | 2016-09-10 08:30 | NUR ---
PT AM MEDS ADMINISTERED. PT HAS 3+ PITTING EDEMA TO BILAT UE AND LE. PT MEDICATIONS READ AND PT NODDED IN AGREEMENT. PT RESTING AND DENIES NEEDS AT THIS TIME. BED LOW. CL IN REACH.
--- NOTE | 2016-09-10 09:38 | NUR ---
DUE TO CHANGE IN MEDICAL CONDITION PATIENT DISCHARGE FROM REHAB AND ADMITTED TO ACUTE FLOOR.
--- NOTE | 2016-09-10 10:40 | NUR ---
PT DISCHARGED TO ACUTE UNIT. REPORT GIVEN TO DC. PT TAKEN VIA WC ACCOMPANIED BY HOSPITAL STAFF AND FRIEND.
== END 2016-09-10 10:52 | disposition short-term general hospital (02) | DRG 308 ==
LOC: D.REHAB 18:23
PROVIDERS: Internal Medicine; ADMIT Emergency Medicine
DX: I48.0 Paroxysmal atrial fibrillation (principal); N17.0 Acute kidney failure with tubular necrosis; N18.6 End stage renal disease; N39.0 Urinary tract infection, site not specified; I12.0 Hypertensive chronic kidney disease with stage 5 chronic kidney disease or end stage renal disease; R13.12 Dysphagia, oropharyngeal phase; R53.1 Weakness; R00.1 Bradycardia, unspecified; I25.10 Atherosclerotic heart disease of native coronary artery without angina pectoris; E87.5 Hyperkalemia; Z91.19 Patient's noncompliance with other medical treatment and regimen; R53.83 Other fatigue; B96.20 Unspecified Escherichia coli [E. coli] as the cause of diseases classified elsewhere

== ENCOUNTER 2016-09-10 11:30 | Inpatient (IN) | payer MEDICARE ==
[~2016-09-10] VITALS: Ht 162.6 cm; Wt 50.5 kg
--- NOTE | ~2016-09-10 | OP ---
PATIENT NAME: LILI DELUCA MEDICAL RECORD: [id number] :34 LOCATION:D. D.2113 ADMISSION DATE:09/10/16 SURGEON: NAUN POTTS MD DATE OF OPERATION: 09/11/2016 DIAGNOSES: End-stage renal disease and dependence on hemodialysis and hyperkalemia, N18.6, Z99.2 and E87.5. POSTOPERATIVE DIAGNOSES: End-stage renal disease and dependence on hemodialysis and hyperkalemia, N18.6, Z99.2 and E87.5. OPERATION PERFORMED: Ultrasound-guided insertion of a right internal jugular non-tunneled central venous line for acute dialysis access. SURGEON: Naun Potts MD ANESTHESIA: General by mask per Dr. Villar. REFERRING PHYSICIAN: Dr. Dr. Bar PREOPERATIVE NOTE: Ms. Deluca is an 81-year-old demented and psychotic white female, who is non-Greek speaking and renal failure, hyperkalemic and requiring dialysis. She has no dialysis access or even any venous access. Without any peripheral IV access, Dr. Villar was able to administer general anesthesia by mask and I was able to have the patient rapidly prepped and draped and then visualized the right internal jugular vein with ultrasound. A small incision was made at the base of the neck and through that incision with continuous ultrasound guidance. A needle and guidewire were inserted into the internal jugular vein. Images were saved from the ultrasound. Under C-arm, a catheter and a longer guidewire were inserted and then serial dilators were passed over the wire and lastly, a 19-cm Trialysis catheter was inserted and its tip reached into the right atrium. All 3 lumens were aspirated and free return of blood confirmed. They were then flushed with saline and dilute heparin solution, clamped and capped. The catheter was sutured to the skin near the entry site with 2-0 silk and sterile dressing applied. The patient was then awakened and in stable condition returned to the intensive care unit. Blood loss during the procedure was trivial and unreplaced. All sponges, instruments and needles were accounted for at the termination of the operation. No drain was used and no surgical specimen was submitted for histopathology. TRANSINT:[id number] Voice Confirmation ID: [id number] DOCUMENT ID: [id number] NAUN POTTS MD CC: [id number] DICTATION DATE: 09/22/16 1635 BOILER SETTER: 09/22/[id number] ADM IN [facility] [address] [place] [address]
--- NOTE | ~2016-09-10 | EC ---
PATIENT:LILI DELUCA DATE OF SERVICE: 09/10/16 SEX: F MEDICAL RECORD: [id number] DATE OF : 34 LOCATION:[facility] AGE OF PATIENT: 81 ADMISSION DATE: 09/10/16 REFERRING PHYSICIAN: INTERPRETING PHYSICIAN: RUBY CASTILLO MD ECHOCARDIOGRAM REPORT ECHO CHARGES 4 ECHO COMPLETE CLINICAL DIAGNOSIS: AFIB ECHOCARDIOGRAPHIC MEASUREMENTS (adult normal given) AC root (d.<3.7cm) 3.9 cm LV Septum d (<1.2 cm> 1.2 cm Valve Excursion 1.3 cm LV Septum (systole) 1.4 cm Left Atria (s.<4.0cm> 4.7 cm LVPW d(<1.2cm) 1.4 cm RV (d.<2.3cm) 3.7 cm LVPW (sytole) 1.6 cm LV diastole(<5.6CM) 5.1 cm MV E-F(>70mm/sec) cm LV systole 3.9 cm LVOT Diameter 1.2 cm MV exc.(>10mm) 1.8 cm Est.ejection fraction (50-75%) % Pericardial Effusion N DOPPLER: LVIT cm/sec A 35.0 cm/sec E 110 cm/sec LA cm/sec RVSP 41 mmHg LVOT 88 cm/sec AOP1/2T m/s Asc. Ao 182 cm/sec RVOT 91 cm/sec RA cm/sec PA cm/sec AV Gradient Peak 13.25mmHg AV Mean 7.19 mmHg AV Area 1.2 cm MV Gradient Peak 7.85 mmHg MV Mean 3.47 mmHg MV Area cm COMMENTS: Environmental Scientists: Albaro VALIENTE Disease Case Manager: 1 Dr. Castillo TAPE# PACS DATE OF SERVICE: 09/12/2016 Echocardiogram FINDINGS: 1. Left ventricular chamber size is within normal limits. Left ventricular systolic function is mildly depressed. Overall ejection fraction 40%-45%. 2. Left atrium is enlarged at 4.7 cm. Right atrium and right ventricular chamber sizes are as well mildly dilated. 3. Valvular structures: Aortic valve demonstrates mild calcific aortic ECHOCARDIOGRAM REPORT [id number] LILI DELUCA stenosis. Valve area calculates to 1.3 cm-squared, has a gradient of 30 mm across the valve. The remaining valvular structures have normal structure and motion. 4. Doppler interrogation elsewise reveals mild aortic insufficiency, favi-vj-nctsnkgs mitral regurgitation, [id number] tricuspid regurgitation, no other valvular insufficiency or stenosis; however, pulmonary systolic pressure is preserved at 41 mmHg. 5. No pericardial effusion is present. There is a moderate pleural effusion present. TRANSINT:[id number] Voice Confirmation ID: [id number] DOCUMENT ID: [id number] RUBY CASTILLO MD CC: [id number] DICTATION DATE: 09/12/16 1244 GROUNDS MAINTENANCE SUPERVISOR: 09/12/16 1733 ADM IN [facility] [address] [id number]
--- NOTE | ~2016-09-10 | OP ---
PATIENT NAME: LILI DELUCA MEDICAL RECORD: [id number] :34 [facility] ADMISSION DATE:09/10/16 SURGEON: NAUN POTTS MD DATE OF OPERATION: 09/16/2016 REFERRING PHYSICIANS: Dr. Bar and Dr. Don. PREOPERATIVE DIAGNOSIS: End-stage renal disease. POSTOPERATIVE DIAGNOSIS: End-stage renal disease. OPERATION PERFORMED: Insertion of right internal jugular HemoSplit tunneled dialysis catheter under fluoroscopy. SURGEON: Naun Potts MD. ANESTHESIA: TIVA per INSOLE ROUNDER and local 1% lidocaine. PREOPERATIVE NOTE: Ms. Deluca is an 81-year-old non-Tanzanian speaking Eastern white female with end-stage renal disease and psychiatric illness or dementia. She began on dialysis urgently last week and I have been asked to now place a tunneled dialysis catheter. She is brought to the operating room for that reason. She does have a Trialysis catheter in place on the right. DESCRIPTION OF PROCEDURE: Under TIVA per INSOLE ROUNDER, the patient was placed in supine position, prepped and draped in sterile manner. Her Trialysis catheter was removed over a guidewire and dilators passed over the wire and then dilator and introducer were inserted. I chose a site for the entry site for the catheter, anesthetize the skin and subcutaneous tissues there with lidocaine, made a stab incision and placed the catheter through that and a subcutaneous tunnel bringing it out up at the low cervical incision. The catheter cuff was placed in the subcutaneous tunnel and the catheter inserted through the peel-away sheath. When positioned, C-arm fluoroscopy was utilized to confirm proper positioning with the catheter tip in the deep in the right atrium and no kinks or evidence of any other complications. Both lumens of the catheter were accessed and aspirated, free return of blood confirmed. They were then flushed with saline and then hep-lock, the catheter was clamped and capped. It was sutured to the skin near the entry site with 2-0 silk. The cervical incision was closed with interrupted inverted 3-0 Vicryl and Dermabond glue and dressed with Maxorb Ag, Tegaderm and Cavilon skin prep. The catheter entry or exit site was dressed with a Biopatch and appropriate central venous catheter sterile dressing. The patient awakened and was returned to the ICU in serious, but of stable condition. TRANSINT:[id number] Voice Confirmation ID: [id number] DOCUMENT ID: [id number] NAUN POTTS MD CC: MONIKA DON MD [id number] DICTATION DATE: 09/16/168 SERVICE CENTER TECHNICIAN: 09/17/16 0207 ADM IN [facility] [address] [id number]
--- NOTE | 2016-09-10 11:11 | NUR ---
ARRIVE TO ROOM VIA WHEELCHAIR FROM REHAB. ALERT. UNABLE TO SPEAK DANISH. GRANDDAUGHTER UNAWARE OF DIALYSIS PER CAROLYNRN IN REHAB. GENERALIZED PITTING EDEMA. DENIES ANY NEEDS. FINISH ADMISSION PROCESS BY GATHERING OLD RECORDS AND FROM GRANDDAUGHTER ARI. CONTINUE PLAN OF CARE. BED LOCKED AND LOW. CALL LIGHT IN REACH. TWO SIDERAILS UP.
[~2016-09-10 11:30] MED LIST changes: +FLORAJEN3 CAPS460 MG PO; +TUMS500 MG PO
[2016-09-10 14:53] VITALS: BP 149/48; BMI 25.7
[2016-09-10 16:00] VITALS: BP 134/47
--- NOTE | 2016-09-10 16:37 | NUR ---
ALERT. ROAD CONSULTANT AT BEDSIDE. PATIENT SAYS "YES" TO PORT PLACEMENT FOR HD. ISHMAEL HUMPHREY ([phone]), PATIENT'S GRANDDAUGHTER GIVES CONSENT VIA TELEPHONE FOR TRIALYSIS PLACEMENT DUE TO PATIENT UNABLE TO SIGN. CONSULT FOR ORDERED. CONSENTS ON CHART. CONTINUE PLAN OF CARE. BED LOCKED AND LOW. CALL LIGHT IN REACH. TWO SIDERAILS UP.
--- NOTE | 2016-09-10 19:30 | NUR ---
PATIENT SITTING UP ON THE SIDE OF THE BED. PATIENT LOOKS SAD. INTRODUCED SELF TO PATIENT. THERE IS A LANGUAGE BARRIOR, SHE SPEAKS VERY LIMITED ANDORRAN. I ASKED PATIENT "ARE YOU OKAY?" SHE STATED "NO NOT OKAY. NOT OKAY. BAD, VERY BAD." I ASKED HER "ARE YOU IN PAIN?" SHE STATED "NO PAIN. IT'S BAD." SHE POINTED TO HER LEGS THAT ARE VERY SWOLLEN AND TO HER ARMS THAT ARE SWOLLEN, SHE SHOOK HER HEAD NO AND KEPT REPEATING "IT IS BAD." RESPIRATIONS ARE EVEN AND UNLABORED. THERE IS NO SIGNS OF DISTRESS AT THIS TIME. GAVE PATIENT HER CALL LIGHT, POINTED AT THE BUTTON AND SAID "PUSH THIS IF YOU NEED ME" THEN I POINTED TO MYSELF. PATIENT STATED "OKAY." BED IN LOWEST POSITION, CALL LIGHT IN REACH. BED RAILS UP X'S 2.
[2016-09-10 21:52] VITALS: BP 135/62
--- NOTE | 2016-09-10 23:21 | NUR ---
PATIENT WOKE UP, AND WANTED TO SIT UP ON THE SIDE OF THE BED. SHE APPEARS VERY SAD, SHE KEEPS REPEATING "OIYO, OIYO" (NOT SURE ON THE SPELLING). PATIENT STATED "WHAT IS MY SITUATION?" SHE POINTED AT HER LEGS THAT ARE SWOLLEN. I STATED "YOUR KIDNEYS ARE NOT WORKING CORRECTLY." SHE STATED "I ... TONIGHT." I HELD HER HAND. SHE KEPT REPEATING "OIYO, OIYO". I ASKED HER IF SHE WANTS TO CALL HER FAMILY. SHE SAID YES. DAILED THE NUMBER FOR ARI FOR HER. SHE TALKED ON THE PHONE, THEN HANDED IT TO ME. ARI ASKED IF SHE CAN GET SOMETHING FOR ANXIETY. I TOLD HER IF THE PATIENT WANTS SOMETHING I WILL CALL THE DOCTOR. I HANDED THE PHONE BACK TO HER AND SHE ASKED HER IF SHE WANTS SOMETHING. THE PATIENT LOOKED AT ME AND SAID "YES YES. MEDICINE PLEASE ANXIETY." SHE HANDED THE PHONE BACK TO ME. SHE SAID "YEAH SHE WANTS SOMETHING FOR ANXIETY. SHE SAID SHE THINKS SHE IS GOING TO BECAUSE THE SWELLING IS SO BAD SHE THINKS SHE IS GOING TO CRACK OPEN AND ."
--- NOTE | 2016-09-10 23:30 | NUR ---
CALLED NEDA, THE OIL CHANGER FOR THE AMY (UNABLE TO PULL FROM [facility] SINCE PHARMACY IS NOT HERE).
--- NOTE | 2016-09-10 23:30 | NUR ---
SPOKE WITH NATASHA VAZQUEZ FOR RENAL, SHE SAID GIVE HER 0.5MG OF ATIVAN EVERY 4 HOURS NEEDED FOR ANXIETY.
[2016-09-11] VITALS (15 sets, daily range): BP systolic 122–179; BP diastolic 48–98; Ht 162.6 cm; Wt 50.5 kg
--- NOTE | 2016-09-11 04:27 | NUR ---
PATIENT IS RESTING QUIETLY WITH EYES CLOSED. NO SIGNS OF DISTRESS NOTED. HOB AT 40 DEGREES. BED IN LOWEST POSITION, CALL LIGHT IN REACH.
--- NOTE | 2016-09-11 08:09 | NUR ---
AM ROUNDS - PT IN BED AND APPEARS TO BE SLEEPING WITH EQUAL AND NON LABORED BREATHING. PT HAS NO IV AT THIS TIME. OS AT 2L VIA NC. BED AT LOWEST POSITION. CALL ROY IN USE/REACH. SIDE RAILS UP X2. WILL CONTINUE TO MONITOR
--- NOTE | 2016-09-11 09:58 | NUR ---
OR CALLED TO PREOP PT. CALLED OR BECAUSE THERE ARE NO PREOP MEDICATIONS IN. AWAITING CALL BACK WITH FUTHER INSTRUCTIONS.
--- NOTE | 2016-09-11 10:04 | NUR ---
SCDS PLACED ON PT.
--- NOTE | 2016-09-11 10:48 | NUR ---
ANESTHESIA CONSENT NOT SIGNED. NOT ABLE TO GET IN TOUCH WITH GRANDDAUGHTER. PHONE NUMBERS ARE NOT WORKING/VALID. OR NOTIFIED. USED TRANSLATION LINE TO GAIN SIGNATURES FOR CONSENTS SHWETA REF# [id number]
[2016-09-11 11:28] LABS: BASOPHILS 0.2 % (0-2); EOSINOPHILS 2.3 % (0-7); HEMATOCRIT 28.1 % (36.0-48.0); HEMOGLOBIN 9.3 g/dL (12-16); IMMATURE GRANULOCYTES 1.1 % (0-5); LYMPHOCYTES 9.3 % (15-50); MCH 30.5 pg (26.0-34.0); MCHC 33.1 g/dL (31.0-37.0); MCV 92.1 fL (80.0-100.0); MONOCYTES 7.3 % (2-11); NEUTROPHILS 79.8 % (40-80); PLATELET COUNT 152 10x3/uL (130-400); RBC 3.05 10x6/uL (4.00-5.40); RDW 16.4 % (11.5-14.5); WBC 6.2 10x3/uL (4.8-10.8)
--- NOTE | 2016-09-11 11:38 | NUR ---
PT HAS NO IV. DR BHAKTA NOTIFIED. AND PREOP MEDS NOT TO BE GIVEN. ALSO DR. BHAKTA NOTIFIED OF CRITICAL LAB. K+6.3. DR BHAKTA ORDERED FOR RENAL TO BE NOTIFIED. HOANG ROQUE RENAL APPLIER HERE AND NOTIFIED OF CRITICAL LAB. NO ORDERS RECEIVED. PREOP CHECKLIST DONE AND EKG DONE.
--- NOTE | 2016-09-11 12:17 | NUR ---
PT LEFT FLOOR FOR PROCEDURE
--- NOTE | 2016-09-11 14:29 | NUR ---
CALLED REPORT TO ICU, KRIS DIOR, TRANSLATION PHONE AND PERSONAL BELONGINGS TAKEN TO ICU.
--- NOTE | 2016-09-11 14:40 | NUR ---
RECEIVED PT FROM RECOVERY ROOM AT 1430. HAD R IJ TRIALYSIS PLACEMENT. WAS TRANSFERRED TO UNIT DUE TO DIFFICULTY WAKING UP FROM PROCEDURE. BP 179/77 MAP 95, HR 71, 02 SAT 94% ON 4L O2 VIA NC, TEMPERATURE 96.0 TEMPORAL. WARM BLANKET PROVIDED. PT WITH EYES CLOSED AT THIS TIME.
--- NOTE | 2016-09-11 15:25 | NUR ---
PT CURRENTLY DYALYSING. FRIEND IN ROOM WITH HER. PT STATES THAT SHE IS HUNGRY. FRIEND STATES THAT THE PT DRINKS ENSURE. SPOKE WITH DR. BECERRA ABOUT ORDERING PAIN MEDICINE. TRAMADOL 50MG PO TAB ORDERED Q 8HRS PRN.
--- NOTE | 2016-09-11 15:41 | NUR ---
Patient Name: LILI DELUCA Admission Status: Elective Accout number: [id number] Admission Date: 09-10-2016 : 1935 Admission Diagnosis: Attending: ANH Current LOS: 1 Anticipated DC Date: Planned Disposition: Inpatient Rehab Primary Insurance: MEDICARE A & B PLANNED EXTERNAL PROVIDER: [facility] Discharge Planning Comments: * Is the patient Alert and Oriented? Yes 0 * How many steps to enter\exit or inside your home? 3 0 * PCP NONE 0 * Pharmacy [facility] 0 * Preadmission Environment Acute Inpatient Rehab 0 * Facility Name [facility] 0 * ADLs Independent 0 * Equipment None 0 * Other Equipment NO MEDICAL EQUIPMENT PROVIDER PREFERENCE 0 * List name and contact numbers for known caregivers / representatives who currently or will assist patient after discharge: ISHMAEL HUMPHREY, DAUGHTER, GONZALO DELAROSA, 0 * Community resources currently utilized None 0 * Please name any agencies selected above. NONE 0 * Additional services required to return to the preadmission environment? Yes * Can the patient safely return to the preadmission environment? No 0 * Has this patient been hospitalized within the prior 30 days at any hospital? Yes 0 CM MET WITH PT IN ROOM TO DISCUSS DISCHARGE NEEDS AND PLANNING. PT SPEAKS LIMITED [place]ER[place] WITH HER [place] LANGUAGES BEING WELSH AND SOUTH AFRICAN; PT ALSO REPORTS TO SPEAK SLOVENIAN. PT REPORTS SHE WAS IN REHAB HERE BUT NOW DIALYSIS. PT KNOWS SHE NEEDS REHAB PRIOR TO GOING HOME AND WANTS CM TO CALL HER DAUGHTER ISHMAEL FOR PLANS. PT REPORTS SHE FEELS VERY BAD AND NOT WANT TO DISCUSS THIS NOW. CM CALLED GONZALO, ISHMAEL, , WHO PROVIDED NUMBER FOR PT'S DAUGHTER, ISHMAEL. CM CALLED PT'S DAUGHTER, ISHMAEL AMAYA, . ISHMAEL REPORTS SHE PERSONALLY HAS LEUKEMIA AND IS HAVING ONE DAY PER WEEK TREATMENT IN [place] AND THREE DAYS PER WEEK PHYSICAL THERAPY; ISHMAEL ALSO REPORTS SHE HAS TO GO TO [facility] IN [place] AND MAY BE GONE FOR A MONTH, SHE IS NOT SURE YET. ISHMAEL REPORTS PLAN FOR PT TO RETURN TO INPATIENT REHAB AT [place] AND IF SHE NEEDS FURHTER REHAB, THEY WOULD LIKE REFERRAL TO [facility]. CHOICE LETTER FOR [facility] COMPLETED VIA PHONE. CM CONTACTED EVELIN IN ADMISSIONS AND UPDATED EMERGENCY CONTACT INFORMATION. PT'S PLAN PER DAUGHTER, IS TO RETURN TO [facility] AND IF NOT ACCEPTED OR NEEDS MORE REHAB FOLLOWING INPATIENT REHAB, WANTS REFERRED TO [facility]. CM TO CONTINUE TO FOLLOW AND ASSIST NEEDED. Chief Of Safety And Protection: [employer]
--- NOTE | 2016-09-11 16:55 | NUR ---
GIVEN DIRECT ORDERS PER DR. BHAKTA TO CONTACT DR. POTTS AND HAVE THIS PATIENT ADMITTED TO ICU. CALLED DR. POTTS'S OFFICE AND SPOKE WITH IMANI DR. POTTS WAS IN A PROCEDURE. GAVE REPORT TO IMANI REGARDING PATIENT'S RESPIRATORY STATUS AND ELEVATED POTASSIUM LEVEL. IMANI THEN INFORMED ME PER DR. POTTS TO CONTACT DR. BECERRA AND GET ORDERS TO ADMIT THE PATIENT TO ICU UNDER DR. BECERRA (NEPHROLOGY) I THEN CALLED DR. BECERRA AND WAS GIVEN VERBAL ORDERS TO ADMIT PATIENT TO ICU. CALL REGISTRATION AND RECEIVED A BED 2311.
--- NOTE | 2016-09-11 17:01 | NUR ---
EKG PERFORMED PER DR. BECERRA'S ORDERS. PT HEART RATED INCREASING. RIGHT NOW IN THE 130S. RENAL PAGED.
--- NOTE | 2016-09-11 17:21 | NUR ---
DR. BECERRA ORDERED DILTIAZEM DRIP, TROPONIN Q8 X 3, CARDIOLOGY CONSULT AND ECHO. PT WENT INTO A FIB DURING DIALYSIS. DR. JONES.
--- NOTE | 2016-09-11 17:35 | NUR ---
SPOKE WITH DR. COREA WITH CARDIOLOGY. ORDERED 15MG IV BOLUS OF CARDIZEM. SAID TO CANCEL THE TROPONIN LAB.
--- NOTE | 2016-09-11 18:11 | NUR ---
BOLUS OF 15MG CARDIZEM GIVEN PER ORDERS. CARDIZEM DRIP INFUSING AT 10MG/HR. BP 165/66 MAP 93, PULSE RATE 94, O2 SAT 96% ON 4L NC. FRIENDS IN ROOM VISITING PT.
--- NOTE | 2016-09-11 19:10 | NUR ---
REPORT RECIEVED, SHIFT ASSESSMENT COMPLETE, PT IS ALERT LYING IN BED, PT UNABLE TO SPEAK ALOT OF SOMALI, NODS HEAD APPROPRIATELY TO QUESTIONS, ON 3L NC WITH 97% O2 SAT. LUNGS CLEAR IN B/L UPPER LOBES, DIMINISHED IN B/L LOWER LOBES, S1S2, CM-NSR, PATENT RIGHT IJ TRIALYSIS WITH CARDIZIEM INFUSING VIA PUMP, ABDOMEN IS SOFT AND FLAT WITH ACTIVE BS, BRIEF ON PT, PT OLIGURIA, PITTING EDEMA IN ALL EXTREMETIES, ALL PPP BUT WEAK, VSS, CALL LIGHT IN REACH
--- NOTE | 2016-09-11 21:00 | NUR ---
NO VISITORS AT THIS TIME, 100CC OF URINE AND SM BM AT THIS TIME
--- NOTE | 2016-09-11 22:22 | NUR ---
PT IN UNCONTROLLED AFIB AT A RATE OF 130, PT C/O OF SOB, DR. COREA NOTIFIED, NEW ORDERS RECIEVED,
[2016-09-12] VITALS (30 sets, daily range): BP systolic 104–182; BP diastolic 62–123
--- NOTE | 2016-09-12 01:00 | NUR ---
NO NEEDS NOTED AT THIS TIME, WILL CON'T TO MONITOR
--- NOTE | 2016-09-12 03:30 | NUR ---
REASSESSMENT COMPLETE, NO CHANGES NOTED, PT RESTING AT THIS TIME, DENIES ANY NEEDS, WILL CON'T TO MONITOR
[2016-09-12 04:47] LABS: BASOPHILS 0.2 % (0-2); EOSINOPHILS 2.6 % (0-7); HEMATOCRIT 28.1 % (36.0-48.0); HEMOGLOBIN 9.4 g/dL (12-16); IMMATURE GRANULOCYTES 0.7 % (0-5); MCH 30.5 pg (26.0-34.0); MCHC 33.5 g/dL (31.0-37.0); MCV 91.2 fL (80.0-100.0); MEAN PLATELET VOLUME 11.2 fL (7.4-10.4); MONOCYTES 8.6 % (2-11); NEUTROPHILS 76.9 % (40-80); PLATELET COUNT 124 10x3/uL (130-400); RBC 3.08 10x6/uL (4.00-5.40); RDW 16.2 % (11.5-14.5); WBC 5.4 10x3/uL (4.8-10.8)
[2016-09-12 04:58] LABS: ALBUMIN 2.6 g/dL (3.4-5.0); BILIRUBIN - TOTAL 0.49 mg/dL (0.2-1.3); CREATININE - SERUM 5.1 mg/dL (0.6-1.3); MAGNESIUM - SERUM 2.1 mg/dL (1.8-2.4); PROTEIN - SERUM 6.5 g/dL (6.4-8.2)
--- NOTE | 2016-09-12 05:00 | NUR ---
PT UPTO BSC, COMPLETE BATH AND LINEN CHANGE, PT TOLERATED WELL
[2016-09-12 05:07] LABS: PHOSPHOROUS 4.3 mg/dL (2.5-4.9)
--- NOTE | 2016-09-12 07:00 | NUR ---
REPORT RECIEVED FROM ON COMING NURSE.SEE FLOW SHEET FOR ASSESSMENT. DURING REPORT, PT HIT CALL LIGHT AND WAS INCONT. OF BLADDER. LINENS CHAGNED. PERICARE PREFORMED. PT SPEAKS MACEDONIAN AND ABLE TO UNDERSTAND VERY FEW WORDS OF GREEK. PT HAS TRIALISIS TO RIGHT JUGULAR. CARDIZEM DRIP INFUSING AT 5MG/H. UNCONTROLLED AFIB AT 110BPM. NO S/SX OF DISTRESS/DISCOMFORT NOTEED. BREATHING NORMAL AND UNALBORED. UNDERSTANDS CALL LIGHT AND DEMOSTRATED KNOWLEDGED. BED IN LOWEST POSITION. WILL CONT POC.
[2016-09-12 08:18] LABS: HEPATITIS C ANTIBODY <0.1 (0.0-0.9)
--- NOTE | 2016-09-12 09:11 | NUR ---
FAMILY AT BED SIDE. ABLE TO TRANSLATE. PT DENIES PAIN AT THIS TIME. PT HAD ANOTHER BLADDER INC. EPISIODE. PERICARE PREFORMED AND LINENS CHANGED. FAMILY WONDERING ABOUT A FC. EXPLAINED I WILL PAGE THE DOCTOR.
--- NOTE | 2016-09-12 10:20 | NUR ---
HAD NEW ORDRES FOR FC PLACEMENT. FC INSERTED IN STERILE FASSION. CLEAR YELLOW URINE NOTED. SAMPLE COLLECTED AND SENT TO THE LAB PER ORDRES.
--- NOTE | 2016-09-12 10:52 | NUR ---
DC FROM [facility] CALLED AND NOTICED AN ULTRASOUND WAS TO BE PREFORMED TODAY. PT HAD A RENAL [facility] ON 08/28/16. PAGED AND NEW ORDRES TO DC TODAYS [facility].
--- NOTE | 2016-09-12 11:00 | NUR ---
SEE ASSESSMENT PER FLOW SHEET. PT IN BED RESTING WITH EYES CLOSED. 0 S/SX OF DISTRESS/DISCOMFRT NOTED. BREATHING NORMAL AND UNLABORED. CALL LIGHT IN REACH.
--- NOTE | 2016-09-12 12:15 | NUR ---
PT GRIMICING AND MOANING. GAURDING LOWER BACK AND TRIALISIS CATHETER. COMMUNICATION WAS DIFFICULT BUT SHE WAS ABLE TO UNDERSTAND HER PRN ULTRAM AND AGREED TO TAKE IT.
--- NOTE | 2016-09-12 14:07 | NUR ---
LUNGS ASCULTATED AND WHERE WORSING FROM THE MORNING. BILATERAL UPPER LOBE CRACKLES WHERE NOTED AND DEMINISHED LOWER LOBES. SAID FOR HER TO HAVE DIALYSIS TODAY. BREATHING NORMAL AND UNLABORD. KATHRYN SOB.
--- NOTE | 2016-09-12 14:54 | NUR ---
DIALISIS IN PT BED SIDE.
--- NOTE | 2016-09-12 15:00 | NUR ---
PT REMAINS ON DIALYSIS. DENIES PAIN. NO SOB. CALL LIGHT IN REACH. WILL CONT POC
--- NOTE | 2016-09-12 16:30 | NUR ---
DURING DIALYSIS, PT PULSE WAS GOING FROM 115 TO 130 IN UNCONTROLLED AFIB. BP 106/82. MD NOTIFIED AND GAVE NEW ORDRES TO GIVEN LOPRESSOR 5MG IV PUSH UP TO X DOSES. FIRST DOSE GIVEN AND PULSE NO 90-100 STILL IN AFIB. BP 115/86.
--- NOTE | 2016-09-12 17:15 | NUR ---
DEEPALI STATED SHE PULLED 2.5L OF FLUID FROM PT. PT IN BED RESTING WITH EYES CLOSED WITH 0 S/SX OF DISTRESS/DISCOMFORT NOTED. ANSACRA NOTED STILL. DEB AND LLL CRACKLES NOTED. RUL CRACKLES NOTED AND DEMINISHED RLL. REMAIS IN CONTROLLED AFIB WITH A BP OF 120/95. CALL LIGHT IN REACH. WILL CONT POC
--- NOTE | 2016-09-12 19:20 | NUR ---
ASSESSMENT COMPLETED. SEE ASSESSMENT FLOWSHEET. SPEAKS SOME BENGALI. FOLLOWS COMMANDS BY DEMONSTRATING WHAT I WANT HER TO DO. EQUAL AND STRONG HAND GRASPS BILATERALLY. ABLE TO LIFT LEGS TO COMMAND. DENIES PAIN. RT IJ TRIALYSIS WITH CARDIZEM GTT @ 5MG/HR INFUSING. AFIB IN THE 90-100'S ON THE MONITOR. GENERALIZED EDEMA NOTED AND PITTING +4 TO LE'S BILATERALLY. B/P CUFF NOTED ON RLE. CAUSEY TO GRAVITY-CLEAR, YELLOW URINE, MINIMAL AMOUNT. WILL SENT OFF SPECIMEN TO LAB. WILL CONTINUE TO MONITOR.
[2016-09-12 19:51] LABS: APPEARANCE CLEAR (CLEAR); COLOR YELLOW (YELLOW); LEUKOCYTE ESTERASE NEGATIVE (NEGATIVE); NITRITE NEGATIVE (NEGATIVE); PROTEIN - URINE 105.9 mg/dL (0.0-11.9); SPECIFIC GRAVITY 1.015 (1.005-1.020)
[2016-09-12 19:52] LABS: BILIRUBIN NEGATIVE (NEGATIVE); GLUCOSE NEGATIVE (NEGATIVE); KETONE NEGATIVE (NEGATIVE); PROTEIN TRACE mg/dL (NEGATIVE); UROBILINOGEN NORMAL (NORMAL)
[2016-09-12 19:53] LABS: RED CELLS - URINE 25-50 /hpf (0-5)
[2016-09-12 19:54] LABS: BACTERIA FEW /hpf (NONE SEEN)
--- NOTE | 2016-09-12 20:30 | NUR ---
2nd DOSE OF LOPRESSOR GIVEN DUE TO SBP 140-160'S AND HEART RATE IN THE 110'S IN UNCONTROLLED A-FIB. WILL MONITOR.
--- NOTE | 2016-09-12 22:00 | NUR ---
CONVERTED TO SINUS TACHYCARDIA AT 120. CARDIZEM GTT REMAINS @ 5MG/HR. WILL MONITOR.
--- NOTE | 2016-09-12 22:50 | NUR ---
TURNED AND REPOSITIONED TO LEFT SIDE. REASSESSMENT COMPLETED. SEE ASSESSMENT FLOWSHEET. SOME BLANKETS REMOVED PER REQUEST. WILL MONITOR.
--- NOTE | 2016-09-12 23:15 | NUR ---
DR. BECERRA RETURNED PAGED AND INFORMED OF HIGH B/P SINCE CONVERTING TO SINUS TACHYCARDIA RHYTHM. NEW IV MEDS ORDERED AND PARAMETERS FOR B/P. WILL MONITOR.
[2016-09-13] VITALS (32 sets, daily range): BP systolic 111–179; BP diastolic 66–125
--- NOTE | 2016-09-13 | NUR ---
APPEARS TO HAVE GONE BACK INTO AFIB-UNCONTROLLED. WILL CONTINUE TO MONITOR.
--- NOTE | 2016-09-13 00:43 | NUR ---
WENT TO GIVE SECOND DOSE OF LABATELOLFOR SBP >150 AND HAD TO READJUST B/P CUFF AND MOVED TO RT UPPER ARM. BP NOW 139 SYSTOLIC. WILL HOLD OFF ON MED FOR NOW. WILL MONITOR.
--- NOTE | 2016-09-13 01:20 | NUR ---
ATTEMPTING TO TRY TO TELL ME SOMETHING I COULD NOT UNDERSTAND. USED STILL TENDER PHONE AND WAS ABLE TO COMMUNICATE. IS AWAKE, ALERT AND ORIENTED. STATED IT IS 1999-SOMETHING, UNSURE OF THE YEAR. REPORTS "ALL PEOPLE MY AGE CAN'T REMEMBER THINGS LIKE THAT". "I'M 81 CORAL HAD A GREAT LIFE AND IT IS MY TIME TO GO. I WANT TO BE WITH MY BROTHERS AND SISTERS". UPON TRANSLATION, EMILIA SHE IS ON THE BRINK OF , WANTS TO BE ABLE TO SPEAK TO HER GREASE MAN TYPE PERSON. UNABLE TO TELL ME THE NAME OF TAOIST. INFORMED HER WE WILL ASK HE GRANDDAUGHTER IN THE EARLY AM IF SHE DIDNT FEEL THIS WAS EMERGENT. OK WITH THIS AND THEN EXPLAINED VIA COMMERCIAL ENERGY AUDITOR I WOULD CHANGE HER RT NECK DRESSING AND IT IS 0130 IN THE MORNING, HER VITAL SIGNS WERE GOOD AND TO TRY TO REST. WAS THANKFUL AND REPORTED "GOD BLESS YOU" AFTER COMMERCIAL ENERGY AUDITOR CALL COMPLETED. RT IJ TRAILYSIS CATHETER DRSG CHANGED USING STERILE TECHNIQUE. SBP NOW OVER 150-LABETALOL 30MG GIVEN AT THIS TIME. WILL MONITOR.
--- NOTE | 2016-09-13 03:00 | NUR ---
EYES CLOSED. NO ACUTE DISTRESS NOTED. WILL MONITOR.
--- NOTE | 2016-09-13 04:00 | NUR ---
REASSESSMENT COMPLETED. SEE ASSESSMENT. TURNED SELF OVER IN BED. AM LABS DRAWN FROM RT IJ CVL. SENT TO LAB WITH VAUGHN CONTRERAS AT BEDSIDE. FLUSHED LUMEN WITH NS. NEW BAG OF CELESTINO DEJESUS. I & O'S COMPLETED. SAYS "GOD BLESS YOU" I WALK OUT. WILL MONITOR.
[2016-09-13 04:10] LABS: BASOPHILS 0.3 % (0-2); EOSINOPHILS 1.6 % (0-7); HEMATOCRIT 29.5 % (36.0-48.0); HEMOGLOBIN 9.9 g/dL (12-16); IMMATURE GRANULOCYTES 0.5 % (0-5); LYMPHOCYTES 14.5 % (15-50); MCH 30.8 pg (26.0-34.0); MCHC 33.6 g/dL (31.0-37.0); MCV 91.9 fL (80.0-100.0); MEAN PLATELET VOLUME 11.1 fL (7.4-10.4); MONOCYTES 7.1 % (2-11); PLATELET COUNT 104 10x3/uL (130-400); RBC 3.21 10x6/uL (4.00-5.40); RDW 16.1 % (11.5-14.5); WBC 6.1 10x3/uL (4.8-10.8)
[2016-09-13 04:28] LABS: ALBUMIN 2.6 g/dL (3.4-5.0); ANION GAP 14.4 mmol/L (8-16); BILIRUBIN - TOTAL 0.51 mg/dL (0.2-1.3); CALCIUM 7.3 mg/dL (8.5-10.1); CARBON DIOXIDE 27.1 mmol/L (21.0-32.0); CREATININE - SERUM 4.2 mg/dL (0.6-1.3); POTASSIUM - SERUM 4.5 mmol/L (3.5-5.1); PROTEIN - SERUM 6.4 g/dL (6.4-8.2)
--- NOTE | 2016-09-13 05:45 | NUR ---
TURNED SELF IN BED TO RT SIDE. READJUSTED IV LINES AND O2 SENSOR FOR HER. DENIES NEEDS WHEN ASKEDM SAID "NO, GOD BLESS YOU". WILL MONITOR.
--- NOTE | 2016-09-13 07:00 | NUR ---
REC'D CARE OF PT. SPEAKS SOME CZECH. ALERT. CM=UAF RATE 112.
--- NOTE | 2016-09-13 08:00 | NUR ---
HNT. 167/110. HD SCHEDULED TODAY.
--- NOTE | 2016-09-13 08:03 | NUR ---
REFUSED BREAKFAST TRAY.
--- NOTE | 2016-09-13 09:00 | NUR ---
BEING DYALISED. TOLERATING WELL.
--- NOTE | 2016-09-13 10:04 | NUR ---
HD RN GETTING READY FOR HD.
--- NOTE | 2016-09-13 11:49 | NUR ---
HNT RESOLVED WITH HD.
--- NOTE | 2016-09-13 11:50 | NUR ---
ASSISTED WITH LUNCH TRAY. ATE ONLY A FEW BITES AND THEN REFUSED.
--- NOTE | 2016-09-13 12:23 | NUR ---
FAMILY AT [facility]. UPDATED THEM. GRANDDAUGHTER IS MANAGER [employer]. PT. DENIES NEEDS. AND DEINIES PAIN. DISORIENTED TO DATE. REORIENTED.
--- NOTE | 2016-09-13 13:20 | NUR ---
INCONTINENT OF STOOL. CAUSEY CARE PERFORMED. BATHED AND LINEN CHANGED.PERICARE PERFORMED.
--- NOTE | 2016-09-13 14:54 | NUR ---
LABETALOL GAVE FOR SBP OF 176.
--- NOTE | 2016-09-13 15:05 | NUR ---
SBP 150.
--- NOTE | 2016-09-13 16:44 | NUR ---
TX COMPLETE. 2L OFF. PT B/P DID DROP DURING TX. PT WAS AWAKE AND PRAYING DURING TX, FAMILY CAME IN TOWARDS LATER PART AND WAS SAYING THAT SHE IS CONFUSED AND THAT SHE WAS PRAYING BECAUSE SHE BELIEVED THAT WE WERE GOING TO HARM HER. NO OTHER COMPLAINTS.
--- NOTE | 2016-09-13 17:09 | NUR ---
KENYA MAGALLON APN WITH NEPHROLOGY FOR CONTINUING HNT.
--- NOTE | 2016-09-13 17:28 | NUR ---
JORGE ALBERTO RETURNED PAGE. ORDERS REC'D FOR LABETALOL PO 100 MG TID.
--- NOTE | 2016-09-13 18:11 | NUR ---
FAMILY AT BEDSIDE. UPDATED. REMAINS HNT. MEDICATION GIVEN. WILL CONTINUE TO MONITOR.
--- NOTE | 2016-09-13 18:11 | NUR ---
USED FAMILY FINANCIAL UNDERWRITER. DENIES PAIN. DENIES NEEDS. REFUSED LIQUIDS.
--- NOTE | 2016-09-13 19:30 | NUR ---
ASSESSEMENT COMPLETED. SEE ASSESSMENT. TALKING TO HERSELF CONTINUOUSLY. UPON ASSESSING, IS PRAYING. WEARING HEAD BEANIE ON HER HEAD. RT IJ TRIALYSIS INTACT WITH CARDIZEM INFUSING @ 5MG/HR. B/P CUFF READJUSTED DUE TO HIGH READING. SBP 170. PO LABETALOL RECENTLY GIVEN. WILL MONITOR. SCD'S PLACED ON BILATERAL LE'S. EDEMA NOTED TO ALL EXTREMITIES AND IS PITTING. CAUSEY TO GRAVITY-CLEAR, YELLOW URINE. WILL MONITOR.
--- NOTE | 2016-09-13 20:10 | NUR ---
TELEPHONE CALL FROM PROTESTANT FRIEND. TRANSFERRED THE CALL AND SHE SPOKE WITH FRIEND. WILL MONITOR.
--- NOTE | 2016-09-13 20:38 | NUR ---
IV LABETALOL GIVEN FOR SBP >150. CONTINUOUSLY PRAYING TO WALTER. WILL MONITOR.
--- NOTE | 2016-09-13 21:30 | NUR ---
SITTING UP ON SIDE OF BED. PULLING OFF GOWN AND MONITORING EQUIPMENT. BARELY SAVED HER FROM PULLING OUT RT IJ TRIALYSIS CATH. SPEAKING ENGLISH, UNABLE TO COMMUNICATE. SUPERVISOR INSULATION PHONE USED. PATIENT NOT ORIENTED. THINKS WE ARE "TRYING TO KILL ME". PLACED BACK IN BED, WOULD NOT DO WHEN TOLD TO BY THE SUPERVISOR INSULATION. PLACED IN BILATERAL WRIST RESTRAINTS. WILL CALL FAMILY AND MAzael.
--- NOTE | 2016-09-13 21:40 | NUR ---
DR. BECERRA INFORMED OF INCREASED DIASTOLIC B/P AND NEW CONFUSION. INFORMED OF PUTTING IN WRIST RESTRAINTS. FAMILY-ARI (GRANDDAUGHTER) HAS BEEN NOTIFIED. WILL MONITOR.
--- NOTE | 2016-09-13 22:42 | NUR ---
WON'T TAKE ANY PO MEDS OR ANYTHING P.O. DR. BECERRA ANSWERING SERVICE PAGED.
--- NOTE | 2016-09-13 23:00 | NUR ---
REASSESSMENT COMPLETED. SEE ASSESSMENT FLOWSHEET. AGITATION INCREASED ASSESSMENT DONE. SAT UP IN BED AND TRYING TO GET WRIST RESTRAINTS OFF.
[2016-09-14] VITALS (29 sets, daily range): BP systolic 118–157; BP diastolic 55–113
--- NOTE | 2016-09-14 00:20 | NUR ---
AWOKE. SITTING UP IN BED PULLING OFF WRIST RESTRAINTS. INFORMED SHE CAN NOT TAKE THEM OFF AT THIS TIME. IV ATIVAN GIVEN-0.5MG AT FIRST TO SEE HOW SHE REACTS. WILL MONITOR.
--- NOTE | 2016-09-14 02:13 | NUR ---
EYES CLOSED. MOUTH OPEN. SBP 130'S. WILL MONITOR.
--- NOTE | 2016-09-14 03:20 | NUR ---
I & O'S ASSESSED. TEMP ASSESSED. UNABLE TO OBTAIN ORALLY DUE TO KEEPING HER MOUTH OPEN. TEMPORAL 96.9 DEGREES FARENHEIT. REASSESSMENT COMPLETED. SEE ASSESSMENT FLOWSHEET. LETHARGIC FROM POSSIBLE ATIVAN 0.5 GIVEN EARLIER. LUNGS CTA, DIMINISHED IN THE BASES. GENERALIZED PITTING EDEMA STILL NOTED AND UNCHANGED. HEELS BRIDGED. SCD'S ON AND WORKING TO BILATERAL LE'S. RTIJ TRIAYLSIS CATH WITH CARDIZEM @ 5MG/HR. AFIB ON THE MONITOR IN THE 80-90'S CURRENTLY. WILL MONITOR.
--- NOTE | 2016-09-14 04:20 | NUR ---
AM LABS DRAWN FROM RT IJ TRIALYSIS WITHOUT DIFFICULTY. FLUSHES EASILY. TURNED AND REPOSITIONED TO LEFT SIDE WITH PILLOW SUPPORT. SLIGHTLY AWOKE AND MOANED. NO DISTRESS NOTED. WILL MONITOR.
[2016-09-14 04:48] LABS: BASOPHILS 0.3 % (0-2); EOSINOPHILS 1.9 % (0-7); HEMATOCRIT 26.7 % (36.0-48.0); IMMATURE GRANULOCYTES 0.3 % (0-5); LYMPHOCYTES 20.1 % (15-50); MCH 30.6 pg (26.0-34.0); MCHC 33.7 g/dL (31.0-37.0); MCV 90.8 fL (80.0-100.0); MEAN PLATELET VOLUME 11.9 fL (7.4-10.4); MONOCYTES 9.4 % (2-11); RBC 2.94 10x6/uL (4.00-5.40); RDW 15.7 % (11.5-14.5)
[2016-09-14 04:55] LABS: PLATELET COUNT 69 10x3/uL (130-400); WBC 3.7 10x3/uL (4.8-10.8)
[2016-09-14 05:17] LABS: PLATELET ESTIMATE DECREASED; PLATELET MORPHOLOGY NORMAL PLT MORPH
[2016-09-14 05:18] LABS: ALBUMIN 2.3 g/dL (3.4-5.0); BILIRUBIN - TOTAL 0.6 mg/dL (0.2-1.3); CARBON DIOXIDE 28.1 mmol/L (21.0-32.0); CREATININE - SERUM 3.2 mg/dL (0.6-1.3); PHOSPHOROUS 4.5 mg/dL (2.5-4.9); POTASSIUM - SERUM 4.1 mmol/L (3.5-5.1); PROTEIN - SERUM 5.8 g/dL (6.4-8.2)
--- NOTE | 2016-09-14 05:50 | NUR ---
AWOKE. READJUSTING HER COVERS. ASKED IF SHE WAS COLD AND I MADE THE SHIVERING MOTION AND SHE SAID "YES" AND SOMETHING THAT SOUNDING LIKE FREEZE. COVERED WITH BLANKET. OFFERED SIP OF DRINK. SHOOK HEAD "YES". SOIPS OF NEPRO SHAKE AT BEDSIDE GIVEN. TWO SIPS TAKEN. WILL MONITOR CLOSELY.
--- NOTE | 2016-09-14 06:11 | NUR ---
USED AUTO TRANSMISSION SPECIALIST LINE TO COMMUNICATE. SHE IS STILL CONFUSED STATING SHE IS AT HOME, TAKING CARE OF HERSELF AND CAN BARELY PAY THE WATER BILL. REORIENTED BY AUTO TRANSMISSION SPECIALIST. SIPS OF NEPRO GIVEN.
--- NOTE | 2016-09-14 07:42 | NUR ---
RESTING IN BED AT THIS TIME, RESPIRATIONS AT STEADY AND UNLABORED RATE, AWAKENS EASILY WHEN SPOKEN TO, THEN PT QUICKLY GOES BACK TO SLEEP. NO ACUTE DISTRESS NOTED. SALEEM CONTINUE PLAN OF CARE.
--- NOTE | 2016-09-14 09:41 | NUR ---
NO ACUTE DISTRESS NOTED AT THIS TIME. PT RESTING, RESPIRATIONS STEADY AND UNLABORED. AWAKENS WHEN SPOKEN TO THEN QUICKLY GOES BACK TO SLEEP. WILL CONTINUE PLAN OF CARE.
--- NOTE | 2016-09-14 11:01 | NUR ---
BP NOTED 157/92. PRN LABETALOL ADMIN AT THIS TIME. PT DENIES ANY NEEDS. RESTING AT THIS TIME. RESPIRATIONS STEADY AND UNLABLRED. AWAKENS WHEN SPOKEN TO. WILL CONTINUE PLAN OF CARE.
--- NOTE | 2016-09-14 13:32 | NUR ---
BOWEL MOVEMENT NOTED AT THIS TIME. PT CLEANED UP VIA TOTAL ASSIST VIA FERN CARE AND CAUSEY CARE. PT ABLE TO ASSIST WITH TURNING. NO ACUTE DISTRESS NOTED. WILL CONTINUE PLAN OF CARE.
--- NOTE | 2016-09-14 15:30 | NUR ---
RESTRAINTS DC AT THIS TIME. PT NOT CONFUSED AND NOT PULLING AT LINES. PT AGREED TO NOT PULL AT LINES. NO ACUTE DISTRESS NOTED. WILL CONTINUE PLAN OF CARE.
--- NOTE | 2016-09-14 15:46 | NUR ---
CONTINENT BOWEL MOVEMENT NOTED AT THIS TIME; LOOSE BROWN VIA BEDPAN. FERN CARE AND CAUSEY CARE PROVIDED VIA TOTAL ASSIST, PT ASSISTS WITH TURNING VIA MOD ASSIST. NO ACUTE DISTRESS NOTED. PT ABLE TO STATE NEEDS. WILL CONTINUE PLAN OF CARE.
--- NOTE | 2016-09-14 17:16 | NUR ---
UP IN BED AT THIS TIME RESTING WITH EYES CLOSED. AWAKENS EASILY WHEN SPOKEN TO. NO ACUTE DISTRESS NOTED. ABLE TO STATE NEEDS. WILL CONTINUE PLAN OF CARE.
--- NOTE | 2016-09-14 18:09 | NUR ---
UP IN BED. PT DENIES ANY NEEDS. NO ACUTE DISTRESS NOTED. WILL CONTINUE PLAN OF CARE.
--- NOTE | 2016-09-14 18:14 | NUR ---
FAMILY AT BEDSIDE VISITING WITH PT. NO ACUTE DISTRESS NOTED. WILL CONTINUE PLAN OF CARE.
--- NOTE | 2016-09-14 19:00 | NUR ---
REPORT RECEIVED. ASSESSMENT COMPLETE PER FLOW SHEET. PT LAYING IN BED ALERT AND ORIENTED. DENIES PAIN AT THIS TIME. TELEMETRY MONITORING RATE OF 101 UNCONTROLLED A-FIB. S1S2 PRESENT. RADIAL AND POPLITEAL PULSES PALP. RIGH JUGULAR TRIALYSIS CATHETER PATENT, INFUSING DILTIAZEM AT 5 MG/HR. BS ACTIVE X4. ABDOMENAL APPEARANCE SOFT. CAUSEY CATHETER IN PLACE AND SECURED, DRAINING CLEAR YELLOW URINE. MUCOUS MEMBRANES MOIST. BRUISES NOTED BILAT HANDS/ARMS. REDDENED AREA IN BUTTOCK. BRUSISES AND SCAB/SORES NOTED TO RT LEG. SCDS IN PLACE. BED ALARM ON, BED IN LOWEST POSITION. CALL LIGHT WITHIN REACH. DENIES NEEDS AT THIS TIME. SEE FLOW SHEET FOR COMPLETE ASSESMENT. SALEEM CONTINUE TO MONITOR.
--- NOTE | 2016-09-14 21:00 | NUR ---
LAYING IN BED, 2 FRIENDS FROM MUSLIM AT BEDSIDE. MEDS ADMINISTERED PER EMAR. PT DENIES NEEDS AT THIS TIME. CALL LIGHT WITHIN REACH. BED IN LOWEST POSITION. WILL CONTINUE TO MONITOR.
--- NOTE | 2016-09-14 22:31 | NUR ---
PT LAYING IN BED RESTING. DENIES NEEDS AT THIS TIME. CALL LIGHT WITHIN REACH. BED IN LOWEST POSITION. WILL CONTINUE TO MONITOR.
--- NOTE | 2016-09-14 23:00 | NUR ---
REASSESSMENT COMPLETE PER FLOW SHEET, SEE FOR DETAILS. VSS. REPOSITIONED FOR COMFORT. DENIES NEEDS AT THIS TIME. CALL LIGHT WITHIN REACH. BED IN LOWEST POSITION. WILL CONTINUE TO MONITOR.
[2016-09-15] VITALS (23 sets, daily range): BP systolic 96–151; BP diastolic 59–101
--- NOTE | 2016-09-15 01:00 | NUR ---
LAYING IN BED RESTING. VSS. WILL CONTINUE TO MONITOR. BED IN LOWEST POSITION.
--- NOTE | 2016-09-15 03:00 | NUR ---
REASSESSMENT COMPLETE PER FLOW SHEET, SEE FOR DETAILS. NO ACUTE CHANGES NOTED. WILL CONTINUE TO MONITOR. DENIES PAIN AND NEEDS AT THIS TIME. CALL LIGHT WIHIN REACH. BED IN LOWEST POSITION.
[2016-09-15 04:23] LABS: BASOPHILS 0.4 % (0-2); EOSINOPHILS 2.9 % (0-7); HEMATOCRIT 27.6 % (36.0-48.0); HEMOGLOBIN 9.1 g/dL (12-16); IMMATURE GRANULOCYTES 0.4 % (0-5); LYMPHOCYTES 19.9 % (15-50); MCH 30.2 pg (26.0-34.0); MCV 91.7 fL (80.0-100.0); MEAN PLATELET VOLUME 10.9 fL (7.4-10.4); MONOCYTES 6.6 % (2-11); NEUTROPHILS 69.8 % (40-80); PLATELET COUNT 76 10x3/uL (130-400); RBC 3.01 10x6/uL (4.00-5.40); RDW 15.8 % (11.5-14.5)
[2016-09-15 04:27] LABS: WBC 5.2 10x3/uL (4.8-10.8)
[2016-09-15 04:38] LABS: ALBUMIN 2.4 g/dL (3.4-5.0); ANION GAP 10.3 mmol/L (8-16); BILIRUBIN - TOTAL 0.49 mg/dL (0.2-1.3); CARBON DIOXIDE 30.9 mmol/L (21.0-32.0); CREATININE - SERUM 3.5 mg/dL (0.6-1.3); POTASSIUM - SERUM 4.2 mmol/L (3.5-5.1); PROTEIN - SERUM 5.8 g/dL (6.4-8.2)
[2016-09-15 04:39] LABS: CALCIUM 6.8 mg/dL (8.5-10.1)
--- NOTE | 2016-09-15 05:00 | NUR ---
COMPLETE BED BATH GIVEN, REPOSITIONED FOR COMFORT. DENIES FURTHER NEEDS AT THIS TIME. WILL CONTINUE TO MONITOR. BED IN LOWEST POSITION. CALL LIGHT WITHIN REACH.
--- NOTE | 2016-09-15 06:17 | NUR ---
SBP GREATER THAN 150. LABETALOL GIVEN PER DOCTORS ORDERS.
--- NOTE | 2016-09-15 07:31 | NUR ---
SHIFT ASSESSMENT COMPLETE. PATIENT SITTING UP IN BED FOR BREAKFAST, FOLLOW COMMANDS WITH HAND GESTURES. CALL LIGHT WITHIN REACH, AND BED IN LOW POSITION.
--- NOTE | 2016-09-15 08:16 | NUR ---
LEN DELGADON HERE IN TO SEE PATIENT, AND NEW ORDERS RECEIVED.
--- NOTE | 2016-09-15 09:39 | NUR ---
NINA FROM [facility] IS HERE IN ROOM WITH PATIENT, SHE REQUESTED NS 1000ML BAG AND 5 VIALS OF HEPARIN 1000 UNITS.
--- NOTE | 2016-09-15 10:22 | NUR ---
NUTRITION MONITORING & EVAL CHART REVIEWED, PT TOLERATING RENAL DIET.75% INTAKE BREAKFAST PER NURSING. WILL CONTINUE TO MONITOR PO INTAKE, PT PROGRESS. RD FOLLOWING
--- NOTE | 2016-09-15 10:45 | NUR ---
DR. CASTRO NOTIFIED OF CONSULT AND WILL SEE PATIENT TODAY.
--- NOTE | 2016-09-15 10:47 | NUR ---
09/15/2016 10:43 DCP: Discharge Planning Order rec'd for outpatient HD & SNF placement. CM spoke with daughter, Shirley, via telephone. She prefers patient return to inpatient rehab over SNF. If patient is not accepted back to inpatient rehab, they want [facility]. Initial referral faxed to Claudine at [facility]. Voice message left for Kimmie Gill with [facility] to arrange outpatient HD clinic. CM will follow & assist as needed.
--- NOTE | 2016-09-15 10:51 | NUR ---
09/15/2016 10:50 DCP: Discharge Planning Patient Name: JIMMY CLIFTON Encounter No: [id number] : 12-28-1968 Primary Insurance: MEDICARE A & B Planned Disposition: Home DCP follow-up note: Patient and family in agreement with discharge plan. No changes to plan. Case management will follow and assist as needed. Kyra Mckinney
--- NOTE | 2016-09-15 11:00 | NUR ---
DIALYSIS NURSE IS STILL AT BEDSIDE WITH PATIENT. PATIENT REPOSISTIONED FOR COMFORT AND SKIN CARE. CALL LIGHT WITHIN REACH, AND BED IN LOW POSITION. PATIENT AROUSES EASILY TO VERBAL STIMULI.
--- NOTE | 2016-09-15 12:59 | NUR ---
PATIENT IS STILL RECEIVING DIALYSIS WITH NURSE AT BEDSIDE. PATIENT IS TOLERATING WELL. CALL LIGHT WITHIN REACH, AND BED IS IN LOW POSITION.
--- NOTE | 2016-09-15 13:41 | NUR ---
DIALYSIS IS FINISHED AND 2/L WAS REMOVED FROM PATIENT PER DIALYSIS NURSE NINA.
--- NOTE | 2016-09-15 16:00 | NUR ---
SPOKE WITH DAUGHTER AND SHE STATES THAT SHE TALKED WITH DR. DON TODAY ABOUT DISCHARGE PLANS FOR PATIENT. SHE STATED THAT WHEN PATIENT WAS ABLE TO BE TRANSFERRED OUT OF HERE SHE WOULD GO TO REHAB AND THEN TO LONG TERM TO RECEIVE DIALYSIS.
--- NOTE | 2016-09-15 18:31 | NUR ---
PATIENT FAMILY BROUGHT HER SOME GRAPES AND BANANAS, SHE IS EATING THEM WELL. CALL LIGHT WTIHIN REACH, AND BED IN LOW POSITION.
--- NOTE | 2016-09-15 19:00 | NUR ---
REPORT RECIEVED. ASSESSMENT COMPLETED. PT IS ALERT AND ORIENTATED. PT IS ON ROOM AIR WITH ADUQUATE SATURATION. PT HAS CLEAR LUNG RUST. PT IS ON TELEMETRY WITH A RATE OF 103 WITH UNCONTROLLED A FIB. PT IS RECIEVING CARDIZEM AT A SET RATE OF 5 MG/HR TO THE RT IJ TRIALYSIS CATH VIA NURSE PORT. PT HAS BOWEL SOUNDS X4 AND PALP PULSES IN ALL EXTREMITIES. PT HAS SCD'S ON AT THIS TIME. PT IS POSITIONED IN BED FOR COMFORT. WILL CONTINUE TO MONITOR.
--- NOTE | 2016-09-15 21:00 | NUR ---
NO VISITORS AT THIS TIME. PT POSITIONED FOR COMFORT WILL CONTINUE TO MONITOR.
--- NOTE | 2016-09-15 23:00 | NUR ---
REASSESSMENT COMPLETED. NO ACUTE CHANGES AT THIS TIME. PT POSITIONED FOR COMFORT. WILL CONTINUE TO MONITOR.
[2016-09-16] VITALS (25 sets, daily range): BP systolic 120–165; BP diastolic 74–129
--- NOTE | 2016-09-16 01:00 | NUR ---
PT SLEEPING DENIES ANY NEEDS. POSITIONED FOR COMFORT BED IN THE LOWEST POSITION. WILL CONTINUE TO MONITOR.
--- NOTE | 2016-09-16 03:00 | NUR ---
REASSESSMENT COMPLETED. NO ACUTE CHANGES AT THIS TIME. PT POSITONED FOR COMFORT WILL CONTINUE TO MONITOR.
[2016-09-16 04:28] LABS: BASOPHILS 0.5 % (0-2); EOSINOPHILS 2.8 % (0-7); HEMATOCRIT 28.7 % (36.0-48.0); HEMOGLOBIN 9.5 g/dL (12-16); IMMATURE GRANULOCYTES 0.3 % (0-5); LYMPHOCYTES 17.4 % (15-50); MCH 30.6 pg (26.0-34.0); MCHC 33.1 g/dL (31.0-37.0); MCV 92.6 fL (80.0-100.0); MEAN PLATELET VOLUME 12.5 fL (7.4-10.4); MONOCYTES 7.8 % (2-11); NEUTROPHILS 71.2 % (40-80); PLATELET COUNT 77 10x3/uL (130-400); RDW 15.5 % (11.5-14.5); WBC 6.5 10x3/uL (4.8-10.8)
[2016-09-16 04:41] LABS: ALBUMIN 2.6 g/dL (3.4-5.0); ANION GAP 9.9 mmol/L (8-16); BILIRUBIN - TOTAL 0.55 mg/dL (0.2-1.3); CALCIUM 7.3 mg/dL (8.5-10.1); CARBON DIOXIDE 30.9 mmol/L (21.0-32.0); PHOSPHOROUS 3.9 mg/dL (2.5-4.9); POTASSIUM - SERUM 3.8 mmol/L (3.5-5.1); PROTEIN - SERUM 6.4 g/dL (6.4-8.2)
[2016-09-16 04:42] LABS: CREATININE - SERUM 2.5 mg/dL (0.6-1.3)
--- NOTE | 2016-09-16 05:30 | NUR ---
PT SEEMS AGITATED CAUGHT PT TRYING TO GET OUT OF BED TRIED TO COMMUNICATE THE BEST I COULD PT EVENTUALLY GOT BACK IN BED AFTER PRN DOSE OF ATIVAN. PT SEEMS TO BE LESS ANXIOUS AND TRYING TO GO BACK TO SLEEP WILL CONTINUE TO MONITOR.
--- NOTE | 2016-09-16 08:09 | NUR ---
CALLED THE INTERPRETOR TO SPEAK WITH PATIENT. PATIENT WAS VERY RESTLESS IN BED. INTERPRETOR STATES PATIENT DENIES ANY PAIN, JUST UNCOMFORTABLE. PATIENT HAS LABORED RESPIRATION. SP02 91-92% ON RA, O2 PLACED ON PATIENT AT 2L/MIN VIA NC. SPO2 INCREASED TO 94-95% AND PATIENT IS NOT RESTLESS SHE WAS.
--- NOTE | 2016-09-16 09:02 | NUR ---
SPOKE WITH GRANDDAUGHTER TO GET PATIENTS DAUGHTER HERE TO HELP WITH COMMUNICATION FOR CONSENT FORMS. SHE SHOULD BE HERE BEFORE NOON.
--- NOTE | 2016-09-16 12:25 | NUR ---
GRANDDAUGHTER HERE INTERPRETED HEMISPLIT PROCEDURE TO PATIENT, AND VERBALIZED UNDERSTANDING OF PATIENT. SHE STATES PATIENT UNDERSTANDS THAT SHE IS GOING TO SURGERY FOR HEMISPLIT, THE RISK INVOLVED, AND SHE CONSENTS TO BLOOD PRODUCTS NEEDED. GRANDDAUGHTER SIGNED CONSENT AFTER PATIENT WITNESS THAT PATIENT VERBALIZED UNDERSTANDING.
--- NOTE | 2016-09-16 13:54 | NUR ---
Rec'd phone call from Lorena with [facility] - they are requesting a [place] application be sent. Explained there is no psychiatric diagnosis but they insist due to Seroquel being given. Spoke with Kimmie with [facility] - she is working on outpatient HD clinic appointment. CM will follow.
--- NOTE | 2016-09-16 13:55 | NUR ---
PHYSICAL THERAPY HERE TO WALK PATIENT. PATIENT TOLERATING WELL SITTING ON BEDSIDE AT THIS TIME.
--- NOTE | 2016-09-16 14:01 | NUR ---
Dialysis Coordinator: [facility]: Notified of patient needing OPHD arrangements. Chart accessed, records uploaded. Per Kyra PONCE CM - Patient is able to speak & understand Ukrainian. However, has a thick accent and is difficult at times. DC will meet with patient in the am for education and further information regarding OPHD placement. Patient is from areas. Per CM, Discharge disposition is either Acute Rehab and/or SNF. [facility] has been mentioned. This NH prefers MWF schedules. DC will reach out to the 2 OPHD facilities in [place] to see which one can accomodate a schedule for this patient. MEHUL FORREST.
--- NOTE | 2016-09-16 17:20 | NUR ---
SPOKE WITH DR. DON ABOUT PATIENTS BLOOD PRESSURE AND THAT LABETALOL WAS GIVEN WITH MINIMAL RESULTS. NO NEW ORDERS RECEIVED FROM DR. DON AT THIS TIME.
--- NOTE | 2016-09-16 17:25 | NUR ---
PT RECEIVED TO CVICU ROOM 7. PT ALERT AND FOLLOWS COMMANDS. THERE IS LANGUAGE BARRIER. PT UNDERSTANDS UKRAINIAN, BUT DOESN'T RESPOND IN UKRAINIAN BUT A FEW WORDS. HAS CAUSEY CATHETER. RIGHT IJ TRIALYSIS CATH WITH DILTIAZEM INFUSING FOR TREATMENT OF A-FIB. PT IS NPO FOR PLACEMENT OF HEMOSPLIT CATHETER. IS ON 2L NC. SCD'S ON.
--- NOTE | 2016-09-16 18:16 | NUR ---
PT RESTING QUIETLY AWAITING HEMOSPLIT PLACEMENT. WARM BLANKET PROVIDED FOR PATIENT COMFORT.
--- NOTE | 2016-09-16 19:00 | NUR ---
REPORT RECEIVED. ASSESSMENT COMPLETE PER FLOW SHEET. PT LAYING IN BED, AWAKE AND ALERT. MUCOUS MEMBRANES MOIST. 2 L 02 VIA NC. S1S2 PRESENT. BS ACTIVE X4. RADIAL AND POPLITEAL PULSES PALP. R IJ TRIALYSIS INFUSING DILTIAZEM AT 5 MG/HR, DRESSING ADHERED TO SKIN. FULL ROM IN UPPER AND LOWER EXTREMITIES. EDEMA NOTED IN UPPER AND LOWER EXTREMITIES. SEE FLOW SHEET FOR COMPLETE ASSESSMENT. BED IN LOWEST POSITION. DENIES FURTHER NEEDS AT THIS TIME. CALL LIGHT WITHIN REACH. WILL CONTINUE TO MONITOR.
--- NOTE | 2016-09-16 20:30 | NUR ---
PT STATING SHE IS HUNGRY, EDUCATION PROVIDED ABOUT STAYING NPO FOR SURGERY. PT VERBALIZES UNDERSTANDING. DENIES FURTHER NEEDS AT THIS TIME. CALL LIGHT WITHIN REACH. BED IN LOWEST POSITION. WILL CONTINUE TO MONITOR.
--- NOTE | 2016-09-16 21:09 | NUR ---
PT SAYING "POOP," BED ALVAREZ PROVIDED. SMALL DARK BROWN STOOL NOTED. PT CLEANED AND REPOSITIONED FOR COMFORT. BED IN LOWEST POSITION. WILL CONTINUE TO MONITOR.
--- NOTE | 2016-09-16 22:28 | NUR ---
PRE-OP MEDS ADMINISTERED PER ORDERS. PT CLEANED AND READY FOR PROCEDURE.
--- NOTE | 2016-09-16 22:40 | NUR ---
PT TAKEN TO OR FOR SCHEDULED PROCEDURE
--- NOTE | 2016-09-16 23:40 | NUR ---
PT BACK IN ROOM FROM OR. LAYING IN BED RESTING. ALL MONITORING RESUMED. WILL CONTINUE TO MONITOR.
--- NOTE | 2016-09-16 23:50 | NUR ---
REASSESMENT COMPLETE PER FLOW SHEET, PT LAYING IN BED RESTING, LETHARGIC FROM PROCEDURE BUT OPENS EYES SPONTANEOUSLY AND IS ABLE TO FOLLOW COMMANDS. PERIPHERAL PULSES PALP. R CHEST HEME SPLIT, SCANT AMOUNT OF RED BLOOD NOTED AROUND SITE, DRESSING ADHERED TO SKIN. CAUSEY CATHETER IN PLACE, SECURED, DRAINING CLEAR YELLOW URINE. SCDs ON. SEE FLOW SHEET FOR COMPLETE ASSESSMENT. BED IN LOWEST POSITION. CALL LIGHT WITHIN REACH. WILL CONTINUE TO MONITOR.
[2016-09-17] VITALS (24 sets, daily range): BP systolic 120–172; BP diastolic 58–116
--- NOTE | 2016-09-17 01:00 | NUR ---
SOAP AND WATER BED BATH GIVEN. HAIR WASHED. NEW GOWN PROVIDED. BED LINENS CHANGED. DENIES NEEDS AT THIS TIME. CALL LIGHT WITHIN REACH. BED IN LOWEST POSITION. WILL CONTINUE TO MONITOR.
--- NOTE | 2016-09-17 02:38 | NUR ---
PT ANXIOUS, TRYING TO GET OUT OF BED. UNABLE TO KEEP HER CALM, PRN ATIVAN GIVEN. ENCOURAGED PT TO LAY BACK DOWN. BED IN LOWEST POSITION. WILL CONTINUE TO MONITOR.
--- NOTE | 2016-09-17 03:00 | NUR ---
REASSESSMENT COMPLETE PER FLOW SHEET. PT CONFUSED AND RESTLESS. OBEYS COMMAND WHEN ASKED TO LAY BACK DOWN, BUT IN ABOUT A MINUTE SHE CONTINUES TO TRY TO GET UP. PERIPHERAL PULSES PALP. RT CHEST HEMESPLIT PATENT, DRESSING ADHERED TO SKIN, SMALL AMOUNT OF RED BLOOD NOTED AROUND SITE DUE TO PT CONSTANTLY MOVING AND WANTING TO GET UP, DESPITE EFFORTS TO KEEP HER CALM AND PRN ATIVAN GIVEN. SCDs ON. CAUSEY CATHETER IN PLACE AND SECURED. SEE FLOW SHEET FOR COMPLETE ASSESSMENT. BED IN LOWEST POSITION. CALL LIGHT WITHIN REACH. WILL CONTINUE TO MONITOR.
[2016-09-17 04:46] LABS: BASOPHILS 0.6 % (0-2); EOSINOPHILS 2.4 % (0-7); HEMATOCRIT 28.7 % (36.0-48.0); HEMOGLOBIN 9.2 g/dL (12-16); IMMATURE GRANULOCYTES 0.2 % (0-5); LYMPHOCYTES 15.4 % (15-50); MCH 30.6 pg (26.0-34.0); MCHC 32.1 g/dL (31.0-37.0); MEAN PLATELET VOLUME 11.5 fL (7.4-10.4); MONOCYTES 6.3 % (2-11); NEUTROPHILS 75.1 % (40-80); PLATELET COUNT 63 10x3/uL (130-400); RBC 3.01 10x6/uL (4.00-5.40); RDW 15.6 % (11.5-14.5); WBC 4.9 10x3/uL (4.8-10.8)
[2016-09-17 04:49] LABS: MCV 95.3 fL (80.0-100.0)
--- NOTE | 2016-09-17 05:00 | NUR ---
LAYING IN BED. VSS. BED IN LOWEST POSITION. WILL CONTINUE TO MONITOR.
[2016-09-17 05:08] LABS: ALBUMIN 2.8 g/dL (3.4-5.0); ANION GAP 11.7 mmol/L (8-16); BILIRUBIN - TOTAL 0.61 mg/dL (0.2-1.3); CALCIUM 7.4 mg/dL (8.5-10.1); CARBON DIOXIDE 30.2 mmol/L (21.0-32.0); CREATININE - SERUM 2.9 mg/dL (0.6-1.3); POTASSIUM - SERUM 3.9 mmol/L (3.5-5.1); PROTEIN - SERUM 6.6 g/dL (6.4-8.2)
--- NOTE | 2016-09-17 06:11 | NUR ---
NO VISITORS AT THIS TIME. VSS. BED IN LOWEST POSITION. CALL LIGHT WITHIN REACH. WILL CONTINUE TO MONITOR.
--- NOTE | 2016-09-17 07:15 | NUR ---
PT PULLING AT LINES AND ATTEMPTING TO GET OOB. BED ALARM SET AND WORKING. ATTEMPTS MADE TO REORIENT. PT SPEAKS/UNDERSTANDS VERY LITTLE [place]. TRANSLATION PHONE AT BEDSIDE, WILL UTILIZE.
--- NOTE | 2016-09-17 07:30 | NUR ---
SHIFT ASSESSMENT VIA FLOWSHEET, SEE FOR DETAILS.
--- NOTE | 2016-09-17 07:51 | NUR ---
SHIFT ASSESSMENT VIA FLOWSHEET, SEE FOR DETAILS.
--- NOTE | 2016-09-17 08:03 | NUR ---
ATTEMTED TO CALL PT DAUGHTER, ISHMAEL, AT [phone]. NO ANSWER AND VOICEMAIL BOX IS NOT SET UP AT THIS TIME.
--- NOTE | 2016-09-17 09:15 | NUR ---
VISITOR AT BEDSIDE, UPDATE PROVIDED. CON AFIB ON CM.
--- NOTE | 2016-09-17 10:00 | NUR ---
NUTRITION MONITORING & EVAL CHART REVIEWED, PT TOLERATING APPLESAUCE THIS AM. RENAL DIET TO START AT LUNCH. NURSING TO ORDER NEPRO. RD FOLLOWING
--- NOTE | 2016-09-17 11:30 | NUR ---
REASSESSMENT VIA FLOWSHEET, SEE FOR DETAILS.
--- NOTE | 2016-09-17 12:30 | NUR ---
LUNCH TRAY PROVIDED. OFFERED PT FOOD AND DRINK, REFUSED BOTH. REMAINS CON AFIB ON CM. NO FAMILY AT BEDSIDE.
--- NOTE | 2016-09-17 13:22 | NUR ---
OFFERED PATIENT SIPS OF WATER AND/OR NEPRO. PT REFUSED ANGRILY SHOUTING, "NO!"
--- NOTE | 2016-09-17 13:45 | NUR ---
PT AGITATED, SITTING UP IN BED AND PULLING AT LINES, LINENS AND GOWN. PT REPOSITIONED. OFFERED FOOD/DRINK, REFUSED. BED ALARM SET.
--- NOTE | 2016-09-17 14:00 | NUR ---
USED TRANSLATION PHONE TO COMMUNICATE WITH PATIENT. CONSTRUCTION LABORER ID [id number] STATED SHE WAS UNABLE TO UNDERSTAND THE PATIENT AND COULD ONLY DECIPHER A FEW WORDS IN THE CONVERSATION. PT UNABLE TO ANSWER ORIENTATION QUESTIONS AND FAILS ATTEMPTS TO REORIENT. REMAINS AGITATED AND PULLS AT LINES DESPITE BEING RESTRAINED.
--- NOTE | 2016-09-17 14:10 | NUR ---
PER BEAM BUILDER HELPER PT STATES SHE, "NEEDS TO GET UP SO SHE CAN GO TO WORK."
--- NOTE | 2016-09-17 14:30 | NUR ---
ENTERED ROOM TO FIND PATIENT HAD PULLED CAUSEY CATHETER WITH BULB INTACT. NEW 16FR CAUSEY INSERTED WITH ASSISTANCE FROM JOBY SPENCE RN.
--- NOTE | 2016-09-17 15:11 | NUR ---
MARIA INES WITH [facility]ATH[facility] HERE SETTING UP FOR HD.
--- NOTE | 2016-09-17 15:15 | NUR ---
[email or web address] application completed, signed by & faxed to [email or web address]. Waiting determination. CM will follow.
--- NOTE | 2016-09-17 15:35 | NUR ---
REASSESSMENT VIA FLOWSHEET, SEE FOR DETAILS. HD IN PROGRESS.
--- NOTE | 2016-09-17 15:38 | NUR ---
DR DON HERE TO SEE PATIENT. KIARA MARVIN DIP TUBE ASSEMBLER MACHINE NOTIFIED PER REQUEST.
--- NOTE | 2016-09-17 17:07 | NUR ---
BEDPAN PROVIDED PER PT REQUEST.
--- NOTE | 2016-09-17 17:29 | NUR ---
Dialysis Coordinator: [facility]: Referral to LAVON Perez for review. Unable to meet with the patient today d/t patient combative/confused last pm per RN and was given haladol. Will continue to follow patient and work on OPHD placement. Patient will need Hemosplit, preferably AVF, prior to discharge. Before patient can be accepted in a clinic she must exhibit ability to tolerate sitting up in chair x 3-4 hours. Also, it was noted that patient is in restraints today in regarding to patient pulling at lines/etc. Restraints not allowed in OPHD setting. Will cont to work on OPHD as able. MEHUL FORREST.
--- NOTE | 2016-09-17 17:30 | NUR ---
PT SEEMINGLY MORE ALERT AND COMMUNICATING USING MORE NICARAGUAN. GRAPES AND VANILLA NEPRO PROVIDED. LEFT HAND RELEASED FROM RESTRAINT FOR PATIENT TO CONSUME FOOD. EXPLAINED IMPORTANCE OF NOT PULLING LINES. WHEN ASKED IF SHE UNDERSTANDS PT STATES, "UNDERSTAND."
--- NOTE | 2016-09-17 18:20 | NUR ---
VISITORS AT BEDSIDE, UPDATED. PT CONTINUES TO RECEIVE HD.
--- NOTE | 2016-09-17 18:59 | NUR ---
Mrs. Aleman had bedside hemodialysis today via her right IJ Hemosplit from 1549 until 1849. Average blood flow was 400mls/minute. Net fluid removed was 2500 mls. No problems. Post vital signs were: B/P:131/64, HR: 84, Resps: 16.
--- NOTE | 2016-09-17 19:00 | NUR ---
REPORT RECEIVED. ASSESSMENT COMPLETE. PT LAYING IN BED. 5 L 02 VIA NC. RT CHEST HEME SPLIT. PERIPHERAL PULSES PALP. CAUSEY CATHETER IN PLACE AND SECURED. SCDS ON. REFER TO FLOW SHEET FOR COMPLETE ASSESSMENT. VSS. WILL CONTINUE TO MONITOR.
--- NOTE | 2016-09-17 19:00 | NUR ---
REPORT RECEIVED. ASSESSMENT COMPLETE PER FLOW SHEET. PT LAYING IN BED. 2 L O2 VIA NC. RT CHEST HEME SPLIT. PERIPHERAL PULSES PALP. CAUSEY CATHETER IN PLACE AND SECURED. TELEMETRY MONITORING RATE OF 87. SEE FLOW SHEET FOR COMPLETE ASSESSMENT. BED IN LOWEST POSITION. VSS. WILL CONTINUE TO MONITOR.
--- NOTE | 2016-09-17 21:00 | NUR ---
PT LAYING IN BED. VSS. WILL CONTINUE TO MONITOR.
--- NOTE | 2016-09-17 23:00 | NUR ---
REASSESSMENT COMPLETE, SEE FLOW SHEET FOR DETAILS. NO ACUTE CHANGES NOTED. WILL CONTINUE TO MONITOR.
[2016-09-18] VITALS (25 sets, daily range): BP systolic 139–172; BP diastolic 63–98
--- NOTE | 2016-09-18 01:00 | NUR ---
PT LAYING IN BED, RESTING. NO ACUTE CHANGES NOTED. BED IN LOWEST POSITION. WILL CONTINUE TO MONITOR.
--- NOTE | 2016-09-18 03:00 | NUR ---
REASSESMENT COMPLETE, SEE FLOW SHEET FOR DETAILS. NO ACUTE CHANGES NOTED. WILL CONTINUE TO MONITOR. BED IN LOWEST POSITION.
--- NOTE | 2016-09-18 04:00 | NUR ---
BLEEDING NOTED FROM RT CHEST HEME SPLIT, DRESSING CHANGED, PRESSURE DRESSING AND SANDBAG APPLIED. WILL CONTINUE TO MONITOR.
[2016-09-18 04:35] LABS: BASOPHILS 0.4 % (0-2); EOSINOPHILS 2.7 % (0-7); HEMATOCRIT 28.5 % (36.0-48.0); HEMOGLOBIN 9.3 g/dL (12-16); IMMATURE GRANULOCYTES 0.1 % (0-5); LYMPHOCYTES 8.9 % (15-50); MCH 30.4 pg (26.0-34.0); MCHC 32.6 g/dL (31.0-37.0); MEAN PLATELET VOLUME 12.3 fL (7.4-10.4); MONOCYTES 5.1 % (2-11); NEUTROPHILS 82.8 % (40-80); PLATELET COUNT 73 10x3/uL (130-400); RBC 3.06 10x6/uL (4.00-5.40)
[2016-09-18 04:36] LABS: MCV 93.1 fL (80.0-100.0); WBC 7.8 10x3/uL (4.8-10.8)
[2016-09-18 04:54] LABS: ALBUMIN 2.8 g/dL (3.4-5.0); ANION GAP 10.7 mmol/L (8-16); BILIRUBIN - TOTAL 0.57 mg/dL (0.2-1.3); CALCIUM 7.6 mg/dL (8.5-10.1); CARBON DIOXIDE 32.8 mmol/L (21.0-32.0); CREATININE - SERUM 1.8 mg/dL (0.6-1.3); PHOSPHOROUS 3.6 mg/dL (2.5-4.9); POTASSIUM - SERUM 3.5 mmol/L (3.5-5.1); PROTEIN - SERUM 6.6 g/dL (6.4-8.2)
--- NOTE | 2016-09-18 06:00 | NUR ---
PT LAYING IN BED RESTING. NO VISITORS AT THIS TIME. BED IN LOWEST POSITION. WILL CONTINUE TO MONITOR.
--- NOTE | 2016-09-18 07:10 | NUR ---
REPORT RECEIVED AND CARE ASSUMED. PREVIOUS NURSE REPORTS BLEEDING AT HEMESPLIT AT RIGHT CHEST. SAND BAG IN PLACE AND PRESSURE DRESSING APPLIED BY PREVIOUS SHIFT. PT CON AFIB ON CM.
--- NOTE | 2016-09-18 07:15 | NUR ---
SHIFT ASSESSMENT VIA FLOWSHEET, SEE FOR DETAILS.
--- NOTE | 2016-09-18 07:35 | NUR ---
RIGHT CHEST HEMESPLIT NOTED TO HAVE MORE BLEEDING THAN BEFORE. MODERATE AMOUNT OF BLOOD ON PT GOWN AND LINENS. GAUZE AND PRESSURE APPLIED.
--- NOTE | 2016-09-18 07:39 | NUR ---
STAT H&H, PT/INR DRAWN AND SENT TO LAB.
--- NOTE | 2016-09-18 07:40 | NUR ---
RECTAL TEMP 93.6. MARCE HUGGER PLACED ON PT.
[2016-09-18 07:50] LABS: HEMATOCRIT 26.3 % (36.0-48.0); HEMOGLOBIN 8.7 g/dL (12-16)
[2016-09-18 08:14] LABS: INR 1.09 (0.85-1.17)
--- NOTE | 2016-09-18 09:12 | NUR ---
NO VISITORS AT THIS TIME. RIGHT CHEST HEMESPLIT BLOODY, SMALL CLOT FORMING UNDER GAUZE. PRESSURE DRESSING REMAINS IN PLACE. WILL CONTINUE TO MONITOR. AWAITING RETURN CALL
--- NOTE | 2016-09-18 09:15 | NUR ---
RETURN CALL RECEIVED FROM DR DON. PT STATUS REPORTED, NO NEW ORDERS AT THIS TIME.
--- NOTE | 2016-09-18 11:15 | NUR ---
PT TEMP RISING IN RESPONSE TO MARCE COTTON. WILL CONTINUE TO MONITOR.
--- NOTE | 2016-09-18 11:30 | NUR ---
REASSESSMENT VIA FLOWSHEET, SEE FOR DETAILS.
--- NOTE | 2016-09-18 12:30 | NUR ---
DR DON HERE TO SEE PT. DRESSING REMOVED FROM RIGHT CHEST, LARGE CLOT UNDERNEATH. PER DR DON HEMESPLIT CLEANED AND NEW DRESSING APPLIED.
--- NOTE | 2016-09-18 12:45 | NUR ---
SLOW FLOW OF BLOOD NOTED AROUND HEMESPLIT INSERTION SITE. DRESSING APPLIED PER PROTOCOL.
--- NOTE | 2016-09-18 13:30 | NUR ---
PT ABLE TO TAKE CARDIZEM WITH APPLESAUCE. TOLERATED WITHOUT S/S OF SWALLOWING DIFFICULTY.
--- NOTE | 2016-09-18 14:51 | NUR ---
PT AWAKENED BY VISITOR AT BEDSIDE. COMMUNICATING IN INAJA LANGUAGE.
--- NOTE | 2016-09-18 15:00 | NUR ---
BLOODY DRAINAGE REMAINS AT RIGHT CHEST, GAUZE APPLIED AND DRESSING REINFORCED. CON AFIB ON CM. WILL CONTINUE TO MONITOR.
--- NOTE | 2016-09-18 15:30 | NUR ---
REASSESSMENT VIA FLOWSHEET, SEE FOR DETAILS.
--- NOTE | 2016-09-18 17:50 | NUR ---
COMPLETE BED BATH AND LINEN CHANGE PROVIDED. RT CHEST DRESSING CHANGED AND REINFORCED.
--- NOTE | 2016-09-18 18:00 | NUR ---
CAUSEY CARE WITH SOAP AND WATER COMPLETED DURING PT BATH.
--- NOTE | 2016-09-18 19:10 | NUR ---
Received patient resting in bed with eyes closed, assessment completed per flowsheet. Patient disoriented to Time/Place/Situation, speaks some citizen of [place] and makes incomprehensible sounds when questioned. Patient Lethargic and arouses to voice. Eyes PERRLA @ 3mm with brisk response, sclera is white. S1/S2 noted Uncontrolled Afib on telemetry with HR 110, irregular. Breathing is even and unlabored on 2L via NC with O2 sat 96%, luing sounds clear bilateral upper and mid with diminished lower. Abdomen is soft and flat with bowel sounds active x4, non-tender. Reardon secured in place, small amount of clear yellow urine noted. Weakness noted all extremities with all pulses palpable, cap refill < 3 sec. Hemosplit noted R chest, Dressing attatched with small bloody drainage noted on dressing and sandbag present. Patient denies pain or other needs at this time, all VSS and will continue to monitor.
--- NOTE | 2016-09-18 21:00 | NUR ---
No visitors at this time, patient initially refused to take HS meds but eventually agreed. No fresh blood noted from Hemosplit site, old blood visible through dressing. Denies pain or other needs at this time, all VSS and will continue to monitor.
--- NOTE | 2016-09-18 23:00 | NUR ---
Reassessment completed per flowsheet, patient resting in bed with eyes closed. S1/S2 noted Uncontrolled Afib on telemetry with HR 112, irregular. Breathing is even and unlabored on 2L via NC with O2 sat 94%. Hemosplit R upper chest dressing intact, no fresh bleeding noted but old blood visible beneath dressing with sandbag in use. Rinku hugger in use, patient skin warm and dry to touch. Patient denies pain or other needs at this time, all VSS and will continue to monitor.
[2016-09-19] VITALS (24 sets, daily range): BP systolic 115–168; BP diastolic 51–100
--- NOTE | 2016-09-19 01:00 | NUR ---
Patient resting in bed with eyes closed, slightly lethargic but opens eyes to voice. Small bleeding noted from Hemosplit site, dressing reinforced and sandbag reapplied. All pulses palpable and cap refill < 3 sec. Patient denies pain or other needs at this time, all VSS and will continue to monitor.
--- NOTE | 2016-09-19 03:05 | NUR ---
Reassessment completed per flowsheet, patient resting in bed with eyes closed. S1/S2 noted Uncontrolled Afib on telemetry with HR 111, irregular. Breathing is even and unlabored on 2L via NC with O2 sat 93%. Hemosplit site dressing intact, old bllod noted beneath dressing with small fresh bleeding noted on dressing and sandbag in use. All pulses palpable with cap refill < 3 sec, skin is cool/dry to touch. Patient denies pain or other needs at this time, all VSS and will continue to monitor.
--- NOTE | 2016-09-19 05:00 | NUR ---
Patient resting in bed with eyes closed, breathing is even and unlabored. R upper chest Hemosplit dressing intact with old blood visible, small fresh blood noted from site. Denies pain or other needs at this time, all VSS and will continue to monitor.
[2016-09-19 06:55] LABS: BASOPHILS 0.6 % (0-2); EOSINOPHILS 2.1 % (0-7); HEMATOCRIT 26.1 % (36.0-48.0); HEMOGLOBIN 8.5 g/dL (12-16); IMMATURE GRANULOCYTES 0.1 % (0-5); MCH 30.2 pg (26.0-34.0); MCHC 32.6 g/dL (31.0-37.0); MCV 92.9 fL (80.0-100.0); MEAN PLATELET VOLUME 11.1 fL (7.4-10.4); NEUTROPHILS 69.2 % (40-80); RBC 2.81 10x6/uL (4.00-5.40); RDW 15.1 % (11.5-14.5)
[2016-09-19 07:01] LABS: PLATELET COUNT 99 10x3/uL (130-400)
[2016-09-19 07:23] LABS: ALBUMIN 2.6 g/dL (3.4-5.0); ANION GAP 11.7 mmol/L (8-16); BILIRUBIN - TOTAL 0.6 mg/dL (0.2-1.3); CALCIUM 7.3 mg/dL (8.5-10.1); CARBON DIOXIDE 30.8 mmol/L (21.0-32.0); POTASSIUM - SERUM 3.5 mmol/L (3.5-5.1); PROTEIN - SERUM 6.1 g/dL (6.4-8.2)
[2016-09-19 07:26] LABS: CREATININE - SERUM 2.7 mg/dL (0.6-1.3)
--- NOTE | 2016-09-19 08:59 | NUR ---
BACK TO BED WITH MINIMAL ASSISTANCE. HD NURSE PREPARING FOR HD TREATMENT.
--- NOTE | 2016-09-19 09:35 | NUR ---
NUTRITION MONITORING & EVAL CHART REVIEWED, NURSING REPORTS PT WITH ~25% INTAKE BREAKFAST. NO INTAKE NEPRO THIS AM. NOW ON HD. RD FOLLOWING
--- NOTE | 2016-09-19 13:26 | NUR ---
HD TREATMENT COMPLETED. 582 CC OFF. TOLERATED WELL. HEMOSPLIT DRESSING CHANGED PER HD NURSE.
--- NOTE | 2016-09-19 13:34 | NUR ---
UPDATE GIVEN TO RENAL LEARNING SUPPORT AIDE CONCERNING NH PLACEMENT. STATES OK TO SEND PT TO FLOOR. PT NEEDS TO BE UP IN CHAIR AND WALKING WITH P.T. PER ORDER.
--- NOTE | 2016-09-19 14:31 | NUR ---
NON-PASRR received yesterday from [facility] - faxed to [facility]. Spoke with Claudine @ [facility] - she states they anticipate accepting patient when she is medically stable and able to go to outpatient dialysis via [facility].
--- NOTE | 2016-09-19 19:00 | NUR ---
REPORT RECIEVED, INITIAL ASSESSMENT COMPLETE, PLEASE SEE FLOW SHEETS FOR DETAILS. PATIENT WILL NOT VERBALIZE AND ANSWERS TO QUESTIONS. SHE IS TURKMEN AND SPEAKS VERY LITTLE SERBIAN PER REPORT. WHEN ASKED OF PAIN SHE NODDED, NO GRIMMACING NOTED AND DID NOT POINT WHEN ASKED TO, TO WHERE SHE WAS HURTING. PT IN CONTROLLED A-FIB RATE OF 83. PPP. TURNING PROVIDED TO BACK. NO OTHER REACTIONS FROM PATIENTS. CAUSEY IN PLACE AND DRAINING VIA GRAVITY TO CLOSED SYSTEM BAG, SMALL AMOUNT OF VERY CONCENTRATED URINE NOTED. WHEN ASKED OF SHE NEEDED ANYTHING, SHE DID NOT RESPOND. BED LOW AND LOCKED, CALL LIGHT IN REACH. WILL CPOC.
--- NOTE | 2016-09-19 21:00 | NUR ---
TURNING PROVIDED. ANSWERED SOME QUESTIONS, TOLD ME HER NAME, ALSO DENIES ANY PAIN/HURTING. SHE ALSO SAID THANK YOU AFTER BEING TURNED. BED LOW AND LOCKED, CALL LIGHT IN REACH. WILL CPOC.
--- NOTE | 2016-09-19 22:52 | NUR ---
REASSESSMENT COMPLETE, PLEASE SEE FLOW SHEETS FOR DETAILS. DENIES PAIN/NEEDS ATT. BED LOW AND LOCKED, CALL LIGHT IN REACH. WILL CPOC.
[2016-09-20] VITALS (22 sets, daily range): BP systolic 118–168; BP diastolic 66–101
--- NOTE | 2016-09-20 01:00 | NUR ---
SLEEPING, WOKE EASILY, TURNING PROVIDED. NO NEEDS ATT. BED LOW AND LOCKED, CALL LIGHT IN REACH. WILL CPOC.
--- NOTE | 2016-09-20 03:00 | NUR ---
REASSESSMENT COMPLETE, PLEASE SEE FLOW SHEETS FOR DETAILS. TURNING PROVIDED. BED LOW AND LOCKED, CALL LIGHT IN REACH. VSS, WILL CPOC.
[2016-09-20 04:26] LABS: BASOPHILS 0.6 % (0-2); EOSINOPHILS 3.4 % (0-7); HEMATOCRIT 22.9 % (36.0-48.0); IMMATURE GRANULOCYTES 0.2 % (0-5); LYMPHOCYTES 24.3 % (15-50); MCH 30.5 pg (26.0-34.0); MCHC 32.8 g/dL (31.0-37.0); MCV 93.1 fL (80.0-100.0); MONOCYTES 8.7 % (2-11); NEUTROPHILS 62.8 % (40-80); PLATELET COUNT 99 10x3/uL (130-400); RBC 2.46 10x6/uL (4.00-5.40); RDW 14.9 % (11.5-14.5)
[2016-09-20 04:33] LABS: HEMOGLOBIN 7.5 g/dL (12-16)
--- NOTE | 2016-09-20 04:35 | NUR ---
CRITICAL LAB VALUES RECIVED FROM LAB, PAGED DR BECERRA,
--- NOTE | 2016-09-20 04:38 | NUR ---
WILL PAGE ARTISTS' MODEL RENAL MD WHEN ALL LABS RECIVED.
[2016-09-20 04:49] LABS: ALBUMIN 2.3 g/dL (3.4-5.0); ANION GAP 4.4 mmol/L (8-16); BILIRUBIN - TOTAL 0.5 mg/dL (0.2-1.3); CALCIUM 7.3 mg/dL (8.5-10.1); CARBON DIOXIDE 34.8 mmol/L (21.0-32.0); PHOSPHOROUS 3.3 mg/dL (2.5-4.9); POTASSIUM - SERUM 3.2 mmol/L (3.5-5.1); PROTEIN - SERUM 5.7 g/dL (6.4-8.2)
[2016-09-20 04:50] LABS: CREATININE - SERUM 1.9 mg/dL (0.6-1.3)
--- NOTE | 2016-09-20 05:00 | NUR ---
RESTING, NO S&S OF DISTRESS NOTED, BED LOW AND LOCKED, CALL LIGHT IN REACH, WILL CPOC.
--- NOTE | 2016-09-20 05:12 | NUR ---
PAGED DR MUNROE ABOUT CRITICAL LABS.
--- NOTE | 2016-09-20 06:22 | NUR ---
PAGED LUNCHROOM FOOD SERVICE SUPERVISOR MD TO REPORT CRITICAL LABS AGAIN.
--- NOTE | 2016-09-20 19:00 | NUR ---
REPORT RECIEVED, INITIAL ASSESSMENT COMPLETE, PLEASE SEE FLOW SHEETS FOR DETAILS. PT ALERT TO SELF (FIRST NAME STATED) WHEN ASKED WHAT YEAR SHE WAS BORN SHE RESPONDED WITH "1981", I SAID BIRTHDATE, AND SHE RESPONDED WITH POSSIBLE [place] NUMBERS, NOT SURE. I STATED HER CORRECT BIRTHDAY AND SHE SAID "YES". DENIES PAIN. SHE STATED SHE NEEDED TO "POOP", PROVIDED A BED ALVAREZ. PRBC INFUSING ATT, TOLERATING WELL, LUNG SOUNDS CLEAR IN UPPER LOBES AND DIMINISHED IN LOWER LOBES, WILL MONITOR THIS PT IS ESRD. BED LOW AND LOCKED, GAVE INSTRUCTION FOR CALL LIGHT USE, WILL CPOC.
--- NOTE | 2016-09-20 19:25 | NUR ---
FINISHED WITH BED ALVAREZ, MODERATE AMOUNT OF SOFT BROWN STOOL.
--- NOTE | 2016-09-20 21:09 | NUR ---
GRAND-DAUGHTER IN TO VISIT PATIENT, ANSWERED ALL QUESTIONS TO BEST OF ABILITY, SHE REQUESTED THAT PATIENT BE PUT ON A VEGETARIAN DIET BECAUSE SHE DOES NOT NORMALLY EAT MEAT. FAMILY THANKFUL FOR PATIENT GETTING GOOD CARE. FAMILY IN ROOM TO VISIT ATT.
--- NOTE | 2016-09-20 21:15 | NUR ---
CHECKED IN ON PT AND FAMILY, GRAND DAUGHTER BROUGHT FRESH BERRIES AND SANDRA FOR THE PATIENT TO EAT. PATIENT ATE HALF OF A SANDRA AND 2 HANDFULLS OF RASBERRIES AND BLUEBERRIES. FAMILY THEN ASKED IF SHE COULD HAVE SOME SOUP HEATED UP AND THIS WAS PROVIDED. LATER WHEN TALKING TO FAMILY THEY MENTIONED THAT THE PATIENT NEVER EATS MEAT AND SHOULD BE ON A VEGETERIAN DIET AND THAT THE PATIENT REALLY LIKES TO EAT FRESH FRUITS. WILL NOTIFY AM NURSE TO SPEAK TO MD ABOUT CHANGING HER DIET AGAIN TO THE PATIENTS PREFERENCES.
--- NOTE | 2016-09-20 23:00 | NUR ---
REASSESSMENT COMPLETE, PLEASE SEE FLOW SHEETS FOR DETAILS. DENIES PAIN/NEEDS ATT. BED LOW AND LOCKED, CALL LIGHT IN REACH. WILL CPOC.
[2016-09-21] VITALS (12 sets, daily range): BP systolic 142–189; BP diastolic 69–97
--- NOTE | 2016-09-21 01:00 | NUR ---
SLEEPING, NO S&S OF ACUTE DISTRESS NOTED. BED LOW AND LOCKED, CALL LIGHT IN REACH. VSS, WILL CPOC.
--- NOTE | 2016-09-21 03:00 | NUR ---
REASSESSMENT COMPLETE, PLEASE SEE FLOW SHEETS FOR DETAILS. DENIES PAIN/NEEDS ATT, CONTINUES TO BE IN UNCONTROLLED A-FIB ON MONITOR. BED IS LOW AND LOCKED, CALL LIGHT IN REACH. VSS ATT, WILL CPOC.
--- NOTE | 2016-09-21 05:00 | NUR ---
RESTING, VSS, BED LOW AND LOCKED, CALL LIGHT IN REACH. WILL CPOC.
[2016-09-21 05:10] LABS: BASOPHILS 0.5 % (0-2); EOSINOPHILS 4.2 % (0-7); HEMATOCRIT 26.8 % (36.0-48.0); HEMOGLOBIN 8.9 g/dL (12-16); IMMATURE GRANULOCYTES 0.2 % (0-5); LYMPHOCYTES 26.4 % (15-50); MCH 30.7 pg (26.0-34.0); MCHC 33.2 g/dL (31.0-37.0); MCV 92.4 fL (80.0-100.0); MEAN PLATELET VOLUME 10.6 fL (7.4-10.4); MONOCYTES 7.8 % (2-11); NEUTROPHILS 60.9 % (40-80); WBC 6.2 10x3/uL (4.8-10.8)
[2016-09-21 05:24] LABS: PLATELET COUNT 119 10x3/uL (130-400)
[2016-09-21 05:47] LABS: ALBUMIN 2.6 g/dL (3.4-5.0); BILIRUBIN - TOTAL 0.7 mg/dL (0.2-1.3); CALCIUM 7.5 mg/dL (8.5-10.1); CARBON DIOXIDE 33.5 mmol/L (21.0-32.0); POTASSIUM - SERUM 3.5 mmol/L (3.5-5.1); PROTEIN - SERUM 5.8 g/dL (6.4-8.2)
[2016-09-21 05:48] LABS: CREATININE - SERUM 2.5 mg/dL (0.6-1.3)
--- NOTE | 2016-09-21 14:27 | NUR ---
1330-ASSISTED TO BED-NOTED R HEMOSPLIT SANG DRAINAGE MODERATE AMOUNT-T CARYN NOTIFIED-TO CONTINUE WITHH TRANSFER TO CONTINUE
--- NOTE | 2016-09-21 14:50 | NUR ---
RECEIVED PT VIA W/C FROM CVICU IN STABLE CONDITION DENIES ANY NEEDS OR DISCOMFORT AT THIS TIME ORIENTED TO ROOM AND HOW TO USE CALL LIGHT
--- NOTE | 2016-09-21 19:20 | NUR ---
PT RESTING IN BED. HOB 45 PT HAS BLEEDING FROM RIGHT CHEST HEMOSPLIT. NEW GAUZE APPLIED. GOWN AND LINEN CHANGED. PT DENIES ANY NEEDS. NO S/S OF DISTRESS. BED LOW AND CALL LIGHT WITHIN REACH. WILL CONTINUE TO MONITOR
--- NOTE | 2016-09-21 21:10 | NUR ---
PT RIGHT CHEST HEMOSPLIT IS STILL BLEEDING. BLOOD THROUGH THE 4X4 GAUZE PUT ON AT LAST NOTE. AROUND 1900. ABD PAD APPLIED. TAPE APPLIED UNDER HEMOSPLIT. AND DOWN SIDE. LEFT TOP OPEN. CLOT FORMATION NOTED. BLOOD WENT THROUGH 4X4 ON TO GOWN AND PAD UNDERNEATH. PT DENIES ANY PAIN NO S/S OF DISTRESS. WILL CPOC
--- NOTE | 2016-09-21 23:56 | NUR ---
APLLIED NEW 4X4 OVER OTHER 4X4 AND PUT TAPE TO APPLY A LITTLE PRESSURE. PUT NEW WASHCLOTH AND PUT SANDBAG BACK ON AREA. PT ASLEEP RESPIRATIONS EVEN AND UNLABORED. NO S/S OF DISTRESS. WILL CPOC
[2016-09-22 00:20] VITALS: BP 146/91
--- NOTE | 2016-09-22 01:25 | NUR ---
SECOND LAYER OF 4X4 GAUZE REMOVED AND NEW ONES ADDED. SECURED WITH TAPE AND SANDBAG PUT BACK IN PLACE. PT STILL BLEEDING. PT ASLEEP. RESPIRATIONS EVEN AND UNLABORED. BED LOW AND CALL LIGHT WITHIN REACH. NO S/S OF DISTRESS. WILL CPOC
--- NOTE | 2016-09-22 03:20 | NUR ---
PT BLEEDING HAS DECREASED BUT IS STILL PRESENT. TOP LAYER OF GAUZE REMOVED AND PLACED AN ABD PAD OVER 1ST LAYER OF 4X4S. SANDBAG REAPPLIED. PT DENIES ANY PAIN OR NEEDS. PT REPOSITONED. BED LOW AND CALL LIGHT WITHIN REACH. NO S/S OF DISTRESS. WILL CPOC
--- NOTE | 2016-09-22 04:48 | NUR ---
CHECKED PT RIGHT CHEST HEMOSPLIT. NO BLOOD THROUGH ABD PAD. NO BLOOD SEEN THROUGH DRESSING. PT DENIES ANY NEEDS. NO S/S OF DISTRESS. BED LOW AND CALL LIGHT WITHIN REACH WILL CONTINUE POC
[2016-09-22 06:13] VITALS: BP 163/55
[2016-09-22 06:13] LABS: BASOPHILS 1.2 % (0-2); EOSINOPHILS 5.4 % (0-7); HEMATOCRIT 26.5 % (36.0-48.0); HEMOGLOBIN 8.7 g/dL (12-16); IMMATURE GRANULOCYTES 0.2 % (0-5); LYMPHOCYTES 24.6 % (15-50); MCH 30.5 pg (26.0-34.0); MCHC 32.8 g/dL (31.0-37.0); MEAN PLATELET VOLUME 10.7 fL (7.4-10.4); MONOCYTES 7.7 % (2-11); NEUTROPHILS 60.9 % (40-80); PLATELET COUNT 137 10x3/uL (130-400); RBC 2.85 10x6/uL (4.00-5.40); RDW 14.9 % (11.5-14.5)
[2016-09-22 06:31] LABS: ALBUMIN 2.5 g/dL (3.4-5.0); BILIRUBIN - TOTAL 0.59 mg/dL (0.2-1.3); CALCIUM 7.3 mg/dL (8.5-10.1); CARBON DIOXIDE 32.3 mmol/L (21.0-32.0); CREATININE - SERUM 2.6 mg/dL (0.6-1.3); PROTEIN - SERUM 6.2 g/dL (6.4-8.2)
[2016-09-22 06:32] LABS: POTASSIUM - SERUM 4.3 mmol/L (3.5-5.1)
--- NOTE | 2016-09-22 06:32 | NUR ---
LAB CALLED. GLUCOSE THIS MORNING IS 65. TOOK PT SOME JUICE AND FOOD. WILL CHECK IT AGAIN IN AN HOUR
--- NOTE | 2016-09-22 07:37 | NUR ---
BLOOD SUGAR TAKEN. NOW 134. PT HAD A PUDDING. PT DENIES ANY PAIN. NO S/S OF DISTRESS. WILL CPOC
[2016-09-22 08:14] VITALS: BP 159/89
--- NOTE | 2016-09-22 17:19 | NUR ---
Patient Name: LIIL DELUCA Encounter No: [id number] : 1935 Primary Insurance: MEDICARE A & B Anticipated DC Date: 09-22-2016 Planned Disposition: Nursing Home Facility External Planned Provider: [facility], MEDICARE REHAB BED DCP follow-up note: CM SPOKE TO DR. DON WHO INFORMED CM THAT PT IS READY FOR REHAB PLACEMENT. CM REVIEWED CHART, FOUND THAT OUTPATIENT DIALYSIS CLINIC ARRANGEMENT IS NOT COMPLETED. CM CALLED MONI PELLETIER, PATIENT PATHWAYS COORDINATOR, , INFORMED MONI OF PT'S STABILITY FOR DISCHARGE TO REHAB AND PENDING PLACEMENT AT [facility] WHICH PREFERS M/W/F OUTPATIENT DIALYSIS CLINIC PLACEMENT. MONI REPORTS SHE IS CONTINUING TO SEEK OUTPATIENT DIALYSIS CLINIC. CM WAITING OUTPATIENT DIALYSIS CLINIC PLACEMENT / ACCEPTANCE. CM TO NOTIFY [facility]. [phone], WITH OUTPATIENT DIALYSIS CLINIC SCHEDULE FOR FINAL REHAB PLACEMENT APPROVAL. [employer], CASE MANAGEMENT
--- NOTE | 2016-09-22 17:43 | NUR ---
RESTING IN BED. ALERT AND ORIENTED X4. REFUSE PHYSICAL THERAPY. COMPLAINS OF HEART PAIN. DENIES ANY NEEDS. BED LOCKED AND LOW. CALL LIGHT IN REACH. TWO SIDERAILS UP.
[2016-09-22 19:30] VITALS: BP 150/96
--- NOTE | 2016-09-22 19:46 | NUR ---
PT ASLEEP. RESPIRATIONS EVEN AND UNLABORED. NO S/S OF DISTRESS. BED LOW AND CALL LIGHT WITHIN REACH WILL CPOC
--- NOTE | 2016-09-22 22:50 | NUR ---
PT ON BSC. TRANSFER BACK TO BED WITH X1 ASSIST. UNSTEADY GAIT. PT TRIED FOR BM. C/O CONSTIPATION. PT WANTS PRUNE JUICE TO SEE OF THAT WILL HELP. GIVING PT 120ML OF PRUNE JUICE. PT DENIES ANY NEEDS. NO S/S OF DISTRESS. BED LOW AND CALL LIGHT WITHIN REACH. WILL CPOC
[2016-09-23 01:36] VITALS: BP 157/82
--- NOTE | 2016-09-23 03:06 | NUR ---
PT ASLEEP. RESPIRATIONS EVEN AND UNLABORED. NO S/S OF DISTRESS. BED LOW AND CALL LIGHT WITHIN REACH. WILL CPOC
[2016-09-23 05:29] VITALS: BP 151/86
[2016-09-23 08:21] VITALS: BP 157/71
[2016-09-23 12:54] VITALS: BP 147/66
--- NOTE | 2016-09-23 13:56 | NUR ---
Patient Name: LILI DELUCA Encounter No: [id number] : 1935 Primary Insurance: MEDICARE A & B Anticipated DC Date: 09-22-2016 Planned Disposition: [facility] Facility External Planned Provider: [facility] DCP follow-up note: CM RECEIVED CALL FROM MONI PELLETIER, PATIENT PATHWAYS COORDINATOR, WHO INFORMED CM THAT PT HAS BEEN ACCEPTED FOR OUTPATIENT DIALYSIS AT [facility], MWF, 0645AM. MONI TO FAX WELCOME LETTER TO [facility] FOR CM TO PROVIDE TO PT TODAY. CM NOTIFIED PT WHO IS IN AGREEMENT WITH DISCHARGE TO [facility], SHE IS AWARE THAT HER DAUGHTER AND GRANDDAUGHTER ARE IN [place] THIS WEEK. IMPORTANT MESSAGE FROM MEDICARE PROVIDED AND EXPLAINED. CM CALLED JADIEL AT [facility], ; JADIEL REPORTED RECEIVING FAXED UPDATE FROM YESTERDAY, THEY PLAN TO ACCEPT PT TODAY IF POSSIBLE AND WILL CALL FAMILY AND CALL CM BACK SHORTLY. CM RECEIVED CALL FROM JADIEL WHO HAS DISCUSSED ADMISSION WITH PT'S DAUGHTER AND GRANDDAUGHTER WHO ARE IN [place] AND WILL NOT BE BACK UNTIL THURSDAY NEXT WEEK. JADIEL WILL TRY TO ARRANGE TRANSPORTATION FOR DIALYSIS AND ALSO TRY TO SCHEDULE A STAFF MEMBER THAT SPEAKS SOME MICRONESIAN TO ASSIST WITH ADMISSION PAPERWORK. CM WAITING [facility] TO COMPLETE ARRANGEMENTS FOR PT'S ADMISSION TO [place] FOR REHAB. [employer], CASE MANAGEMENT
--- NOTE | 2016-09-23 14:10 | NUR ---
RD follow up note. Pt with constipation on 09.22, had PRBC on 09/20. Pt with poor intake on nepro. MD and nursing notes reviewed. Pt awaiting NH/Rehab placement. Pt has ESRD had a Tunnelled HD cath placed. Labs reviewed. NO changes at this time. Consider appetite stimulant secondary to inadequate oral intake. Will continue to follow and provide recommendations as needed.
--- NOTE | 2016-09-23 14:18 | NUR ---
Patient Name: LILI DELUCA Encounter No: [id number] : 1935 Primary Insurance: MEDICARE A & B Anticipated DC Date: 09-24-2016 Planned Disposition: Retirement Facility External Planned Provider: [facility], MEDICARE REHAB BED DCP follow-up note: CM RECEIVED CALL FROM JADIEL OF [facility], , WHO REPORTS THAT SHE IS NOT ABLE TO COME TO [facility] TO COMPLETE ADMISSION PAPERWORK WITH PT UNTIL TOMORROW. JADIEL REPORTS THAT [facility] WILL ACCEPT PT TOMORROW AFTER JADIEL COMPLETES ADMISSION PAPERWORK WITH PT. PT NOTIFIED. FOR DISCHARGE TO [facility] TOMORROW, 09-23-16, FAX DISCHARGE INFORMATION TO [facility] AT [phone]; NURSE REPORT TO BE CALLED TO [facility] AT [phone]. [facility] TO ARRANGE VAN TRANSPORTATION. [employer]f [employer], CASE MANAGEMENT
[2016-09-23 16:21] VITALS: BP 153/75
--- NOTE | 2016-09-23 17:00 | NUR ---
ALERT AND ORIENTED X4. SITTING UP ON SIDE OF BED. REFUSE TO EAT. DC CAUSEY. DEFLATE BULB 9mL. BULB INTACT. DENIES ANY NEED. BED LOCKED AND LOW. CALL LIGHT IN REACH. TWO SIDERAILS UP.
--- NOTE | 2016-09-23 19:34 | NUR ---
PT RESTING IN BED. STATES SHE IS VERY HAPPY, BECAUSE SHE HAS HER FRIENDS THERE VISITING WITH HER. PT DENIES ANY NEEDS. DENIES ANY PAIN. NO S/S OF DISTRESS. BED LOW AND CALL LIGHT WITHIN REACH. WILL CPOC
[2016-09-23 20:16] VITALS: BP 173/105
--- NOTE | 2016-09-23 22:35 | NUR ---
PT HAD AN INCONT VOID IN BED. PT UP TO BSC WITH X1 ASSIST. PT DENIES ANY PAIN. DENIES ANY NEEDS. NO S/S OF DISTRESS. WILL CPOC
[2016-09-24 04:55] VITALS: BP 156/84
--- NOTE | 2016-09-24 06:45 | NUR ---
CHANGED PT RIGHT CHEST HEMOSPLIT DRESSING. USED TANK FILLER. MASK ON THE PT AND I. LEFT BLOOD CLOT TO PREVENT THE PT FROM BLEEDING AGAIN. PT TOLERATED. AND IS NOW UP IN THE CHAIR. PT DENIES ANY NEEDS. CALL LIGHT WITHIN REACH. NO S/S OF DISTESS. WILL CPOC
[2016-09-24 07:10] LABS: BASOPHILS 0.5 % (0-2); EOSINOPHILS 5.3 % (0-7); HEMATOCRIT 24.3 % (36.0-48.0); HEMOGLOBIN 8.1 g/dL (12-16); LYMPHOCYTES 30.6 % (15-50); MCH 30.9 pg (26.0-34.0); MCHC 33.3 g/dL (31.0-37.0); MCV 92.7 fL (80.0-100.0); MEAN PLATELET VOLUME 10.7 fL (7.4-10.4); NEUTROPHILS 51.6 % (40-80); PLATELET COUNT 163 10x3/uL (130-400); RBC 2.62 10x6/uL (4.00-5.40); RDW 14.6 % (11.5-14.5)
[2016-09-24 07:33] LABS: ANION GAP 8.8 mmol/L (8-16); CALCIUM 7.9 mg/dL (8.5-10.1); CARBON DIOXIDE 33.2 mmol/L (21.0-32.0); CREATININE - SERUM 2.3 mg/dL (0.6-1.3)
[2016-09-24 08:43] VITALS: BP 155/99
[2016-09-24] MEDS ORDERED: CARDIZEM CD120 MG PO (10:50)
[2016-09-24] MEDS ORDERED: SEROQUEL25 MG PO (10:51)
--- NOTE | 2016-09-24 15:37 | NUR ---
Patient Name: LILI DELUCA Encounter No: [id number] : 1935 Primary Insurance: MEDICARE A & B Anticipated DC Date: 09-24-2016 Planned Disposition: Nursing Home Facility External Planned Provider: [facility], MEDICARE REHAB BED DCP follow-up note: DISCHARGE ORDER RECEIVED. JADIEL FROM [facility] CAME AND COMPLETED ADMISSION PAPERWORK WITH PT IN ROOM, PT IN AGREEMENT WITH DISCHARGE TO [facility] TODAY FOR REHAB. CM FAXED DISCHARGE INFORMATION TO [facility] AT [phone] AND PROVIDED JADIEL A COPY IN HAND. NURSE REPORT TO BE CALLED TO [facility] AT [phone]. [facility] TO ARRANGE VAN TRANSPORTATION. [employer], CASE MANAGEMENT
--- NOTE | 2016-09-24 16:09 | NUR ---
ALERT AND ORIENTED X4. RESTING IN BED. REPORT CALLED TO YESENIA DE SOUZA LPN AT [facility]. DC LT UPPER IV TIP INTACT. [facility] TRANSPORTATION PLANS TO MEDICAL FIELD REPRESENTATIVE AT 1730. ASSIST GETTING DRESSED. CONTINUE PLAN OF CARE AND SAFETY PRECAUTIONS.
[2016-09-24 16:16] VITALS: BP 144/91
== END 2016-09-24 18:58 | DRG 640 ==
LOC: D.M2 11:30 → D.ICU 11:31 → D.CVICU 11:31 → D.ICU 09-11 14:39 → D.CVICU 09-16 17:25 → D.M2 09-21 14:50
PROVIDERS: Anesthesiology; Internal Medicine; Internal Medicine Interventional Cardiology; Surgery; ADMIT Emergency Medicine
PROC: 02HV33Z Insertion of Infusion Device into Superior Vena Cava, Percutaneous Approach (ICD-10-PCS; 2016-09-11)
PROC: B5181ZA Fluoroscopy of Superior Vena Cava using Low Osmolar Contrast, Guidance (ICD-10-PCS; 2016-09-11)
PROC: B548ZZA Ultrasonography of Superior Vena Cava, Guidance (ICD-10-PCS; 2016-09-11)
PROC: 5A1D60Z (ICD-10-PCS; principal; 2016-09-11 10:15)
PROC: 0T9B70Z Drainage of Bladder with Drainage Device, Via Natural or Artificial Opening (ICD-10-PCS; 2016-09-12)
PROC: 05HM33Z Insertion of Infusion Device into Right Internal Jugular Vein, Percutaneous Approach (ICD-10-PCS; 2016-09-16)
PROC: B5131ZA Fluoroscopy of Right Jugular Veins using Low Osmolar Contrast, Guidance (ICD-10-PCS; 2016-09-16)
DX: E87.5 Hyperkalemia (principal); N18.6 End stage renal disease; N17.9 Acute kidney failure, unspecified; N39.0 Urinary tract infection, site not specified; I12.0 Hypertensive chronic kidney disease with stage 5 chronic kidney disease or end stage renal disease; R18.8 Other ascites; I48.92 Unspecified atrial flutter; E11.22 Type 2 diabetes mellitus with diabetic chronic kidney disease; Z91.19 Patient's noncompliance with other medical treatment and regimen; I48.91 Unspecified atrial fibrillation; B96.20 Unspecified Escherichia coli [E. coli] as the cause of diseases classified elsewhere; I25.10 Atherosclerotic heart disease of native coronary artery without angina pectoris; Z78.1 Physical restraint status; R41.0 Disorientation, unspecified

== ENCOUNTER 2016-12-13 13:05 | Inpatient (IN) | payer MEDICARE ==
[~2016-12-13] VITALS: Ht 162.6 cm; Wt 55.3 kg
--- NOTE | ~2016-12-13 | HEMODYNAMI ---
PATIENT:LILI DELUCA MEDICAL RECORD: [id number] : 33 LOCATION:[facility] [id number] ADMISSION DATE: 12/13/16 Generatedon:12/15/201614:17 Patient name: LILI DELUCA Patient #: [id number] : 1935 Date of study: 12/15/2016 Page: Of Hemodynamic Procedure Report Patient Data Patient Demographics Procedure consent was obtained First Name: LILI Gender: Female Last Name: SANDRINE : 1935 [facility] Initial: R Age: 81 year(s) Patient #: [id number] Race: SSN: [id number] Additional ID: [id number] Contact details Address: [address] [place] [address] State: [place] City: [place] Zip code: [address] Past Medical History Allergies Allergen Reaction Date Comments Reported Other allergy 04/30/2016 Keflex Admission Admission Data Admission Date: 12/13/2016 Admission Time: 15:18 Room #: D.2131 Lab Results Lab Result Date: 12/15/2016 Lab Result Time: 0:00 Biochemistry Name Units Result Min Max BUN mg/dl 34 --(----)-* 7 18 Creatinine mg/dl 5.1 --(----)-* 0.6 1.3 CBC Name Units Result Min Max Hemoglobin g/dl 11 *-(----)-- 13.5 17.5 Procedure Procedure Types Cath Procedure Diagnostic Procedure PPM/ICD PPM Dual Implant Procedure Description Procedure Date Procedure Date: 12/15/2016 Procedure Start Time: 0:00 Procedure Staff Name Function Frankie Shaw MD Performing Physician Renetta Ying RT Scrub Chi Stanton RN Nurse Westley Boswell MD Assisting physician Joe Carranza RT Monitor Procedure Data Cath Procedure Fluoroscopy Diagnostic fluoroscopy Total fluoroscopy Time: 4.1 time: 4.1 min min Diagnostic fluoroscopy Total fluoroscopy dose: dose: 22.04 mGy 22.04 mGy Contrast Material Contrast Material Type Amount (ml) Visipaque 270 10 Estimated blood loss: 20 ml Procedure Medications Medication Administration Route Dosage Oxygen NC 2 l/min Ancef (1Gm/50ml NS) I.V.P.B 1 g Ancef Irrigation Topical 1 g (1gm/500ml NS) Lidocaine 1% with added to field 20 ml Epi Bupivacaine 0.5% S.Q. 10 ml 0.9% NaCl I.V. Fentanyl I.V. 50 mcg Versed I.V. 1 mg Fentanyl I.V. 50 mcg Versed I.V. 1 mg Hemodynamics Rest HGB: 11 (g/dl) Heart Rate: 86 (bpm) Snapshots Pre Cath Intra NCS Post Cath Vital Signs Time Heart Resp SPO2 etCO2 NIBP (mmHg) Rhythm Pain Sedation Rate (ipm) (%) (mmHg) Status Level (bpm) 12:57:43 84 17 95 0 190/106(147) NSR 0 (11) 10(A) , No pain 13:02:07 82 17 99 0 187/104(150) NSR 0 (11) 10(A) , No pain 13:06:32 79 17 98 0 183/102(143) NSR 0 (11) 10(A) , No pain 13:10:56 77 17 98 0 179/95(142) NSR 0 (11) 10(A) , No pain 13:15:24 74 17 98 0 170/75(143) NSR 0 (11) 10(A) , No pain 13:19:50 73 18 98 0 170/71(143) NSR 0 (11) 10(A) , No pain 13:24:14 73 18 98 0 166/78(144) NSR 0 (11) 10(A) , No pain 13:28:35 88 10 98 0 159/73(105) NSR 0 (11) 10(A) , No pain 13:32:49 109 20 97 0 135/62(93) NSR 0 (11) 10(A) , No pain 13:37:50 93 19 95 0 178/82(128) NSR 0 (11) 10(A) , No pain 13:42:12 92 20 95 0 183/92(139) NSR 0 (11) 10(A) , No pain 13:46:36 93 18 96 0 179/90(144) NSR 0 (11) 10(A) , No pain 13:51:00 85 20 96 0 169/91(126) NSR 0 (11) 10(A) , No pain 13:55:20 129 19 97 0 170/89(131) NSR 0 (11) 10(A) , No pain 13:59:43 77 17 97 0 170/85(125) NSR 0 (11) 10(A) , No pain 14:04:05 88 19 97 0 170/86(138) NSR 0 (11) 10(A) , No pain 14:09:20 98 17 97 0 170/86(127) NSR 0 (11) 10(A) , No pain 14:11:42 77 16 97 0 159/82(122) NSR 0 (11) 10(A) , No pain 14:16:04 85 15 96 0 155/77(120) NSR 0 (11) 10(A) , No pain Medications Time Medication Route Dose Verified Delivered Reason Notes Effectiv eness by by 12:54:23 Oxygen NC 2 Frankie Mireles used for l/min CoggonGeorge Stanton blocker metal base 12:54:32 Ancef I.V.P.B 1 g Frankie Mireles used for (1Gm/50ml [facility] blocker metal base NS) 12:54:43 Ancef Topical 1 g Frankie David used for Irrigation [facility] procedure (1gm/500ml MD FELICIANO NS) 12:54:52 Lidocaine added 20 ml Frankie David for local 1% with Epi to [facility] anesthetic field MD FELICIANO 12:55:03 Bupivacaine S.Q. 10 ml Frankie David for local 0.5% [facility] anesthetic MD FELICIANO 12:55:33 0.9% NaCl I.V. kvo Frankie Mireles Per ml/hr [facility] Stanton RN physician 13:23:56 Fentanyl I.V. 50 Frankie Mireles for [facility] Stanton RN sedation 13:24:03 Versed I.V. 1 mg Frankie Mireles for [facility] Stanton RN sedation 13:47:20 Fentanyl I.V. 50 Frankie Mireles for [facility] Stanton RN sedation 13:47:23 Versed I.V. 1 mg Frankie Mireles for [facility] Stanton RN sedation Procedure Log Time Note 12:12:37 Diagnostic Cath Status : Elective 12::30 Time tracking: Regular hours 12::34 Plan of Care:Hemodynamics will remain stable., Cardiac rhythm will remain stable., Comfort level will be maintained., Respiratory function will remain adequate., Patient/ family verbilizes understanding of procedure., Procedure tolerated without complication., Recovers from procedure without complications.. 12:13:50 Informed consent obtained and on chart 12:15:10 Lab Result : BUN 34 mg/dl 12:15:10 Lab Result : Hemoglobin 11 g/dl 12:15:10 Lab Result : Creatinine 5.1 mg/dl 12:28:08 Medtronic Adapta PPM Dual Generator [id number] opened to sterile field. 12:29:06 Medtronic 4574-45 PPM Lead opened to sterile field. 12:30:19 Medtronic 4074-52 PPM Lead opened to sterile field. 12:31:38 oJe Carranza RT(R) (CV) sent for patient. Start room use. 12:43:14 Patient received from Med II to CCL 3 Alert and oriented. Tansferred to table in Supine position. 12:43:15 Warm blankets applied, and vini hugger turned on for patient comfort. 12:43:15 Correct patient and procedure confirmed by team. 12:43:16 ECG and BP/O2 sat monitors applied to patient. 12:54:23 Oxygen 2 l/min NC was administered by Chi Stanton RN; used for procedure; 12:54:32 Ancef (1Gm/50ml NS) 1 g I.V.P.B was administered by Chi Stanton RN; used for procedure; 12:54:43 Ancef Irrigation (1gm/500ml NS) 1 g Topical was administered by Frankie Shaw MD; used for procedure; 12:54:52 Lidocaine 1% with Epi 20 ml added to field was administered by Frankie Shaw MD; for local anesthetic; 12:55:03 Bupivacaine 0.5% 10 ml S.Q. was administered by Frankie Shaw MD; for local anesthetic; 12:55:31 Vital chart was started 12:55:33 0.9% NaCl kvo ml/hr I.V. was administered by Chi Stanton RN; Per physician; 12:55:33 Baseline sample Acquired. 12:55:42 Rhythm: sinus rhythm 12:55:43 Full Disclosure recording started 12:56:03 H&P Date Dictated: 12/13/2016 Within 30 days and on chart.. 12:57:47 PATIENT IS TURK[place], FAMILY EXPLAINED PROCEDURE. WE HAVE HAD THIS PATIENT BEFORE. TRANLATION PHONE AVAILABLE 12:57:52 Pre-procedure instructions explained to patient. 12:57:54 Pre-op teaching completed and patient verbalized understanding. 12:58:01 Family in waiting room. 12:59:49 Patient NPO since Breakfast. 13:00:30 Patient diabetic? No. 13:01:04 ----Pre-sedation anethsthesia assessment.---- 13:01:08 Previous problem with sedation/anesthesia? No ? 13:01:09 Snore? Yes 13:01:11 Sleep apnea? No 13:01:13 Deviated septum? No 13:01:48 Opens mouth fully? Yes 13:01:51 Sticks out tongue? Yes 13:01:56 Airway obstruction? No ? 13:02:05 Dentures? Yes OUT 13:02:17 IV patent on arrival in right wrist with 0.9% NaCl at [facility]. 13:02:51 Left chest area was prepped with chlora-prep and draped in sterile fashion 13:02:52 Alarms reviewed by Codie Lin 13:04:45 Medtronic 4574-45 PPM Lead opened to sterile field. 13:04:46 Medtronic 4074-52 PPM Lead opened to sterile field. 13:04:47 Medtronic Adapta PPM Dual Generator ADDR01 opened to sterile field. 13:05:16 3.0 Vicryl Single Pack [id number] opened to sterile field. 13:05:17 3.0 Vicryl Multipack [id number] opened to sterile field. 13:05:18 2.0 Ticron Multipack opened to sterile field. 13:05:18 2.0 Ticron Multipack opened to sterile field. 13:05:31 9Fr Safe Sheath opened to sterile field. 13:05:32 7Fr Safe Sheath opened to sterile field. 13:06:34 Medtronic territory account representative ANTHONY BROWN present for procedure. 13:06:50 Pre sharps counted by scrub and verified by RN: Sutures: 19 Sponges: 5 Stick needles: 2 Skin needles: 2 Blade: 1 Cautery: 1 13:06:54 Grounding pad site Left thigh. 13:12:13 Physician paged 13:20:24 Physician arrived 13::25 --------ALL STOP TIME OUT------ 13:20:25 Final Timeout: patient, procedure, and site verified with staff and physician. All members of the team are in agreement. 13:20:31 Left chest site verified by team. 13:20:39 Physical assessment completed. ASA score P 2 - A patient with mild systemic disease as per Westley Boswell MD. 13:20:44 Sedation plan: IV Moderate Sedation Versed, Fentanyl 13:20:58 Grounding pad site free from injury. 13:23:56 Fentanyl 50 mcg I.V. was administered by Chi Stanton RN; for sedation; 13:24:03 Versed 1 mg I.V. was administered by Chi Stanton RN; for sedation; 13:25:16 Lidocaine 1% w/epi and Bupivacaine 0.5% to left subclavicular area by Westley Boswell MD. 13:27:10 Incision made to left subclavicular area. 13:28:41 Generator pocket made/opened. 13:31:16 Left subclavian vein accessed with 7Fr Peel Away Sheath. 13:33:59 18 GUAGE NEEDLE ADDED 13:35:17 VISIPAQUE 270 OPENED 13:38:45 Left subclavian angiography performed 13:40:01 [facility] 260cm J .035 wire opened to sterile field. 13:41:41 260 J WIRE ADVANCED 13:42:23 Ventricular lead inserted and advanced. 13:43:46 Peel-a-way sheath was split and removed. 13:43:54 Left subclavian vein accessed with 9Fr Peel Away Sheath. 13:45:13 Atrial lead inserted and advanced. 13:45:14 Peel-a-way sheath was split and removed. 13:45:21 Ventricular lead positioned. 13:45:24 Ventricular lead tested. 13:47:11 Ventricular lead attachment was completed with 2-0 ticron. 13:47:20 Fentanyl 50 mcg I.V. was administered by Chi Stanton RN; for sedation; 13:47:23 Versed 1 mg I.V. was administered by Chi Stanton RN; for sedation; 13:49:59 Atrial lead positioned. 13:51:09 Atrial lead tested. 13:51:23 Atrial lead attachment was completed with 2-0 ticron. 13:52:16 Device pocket was irrigated with Ancef. 13:52:25 PPM Dual was attached to lead(s) and inserted into pocket. 13:58:33 Subcutaneous closure was completed with 3-0 vicryl plus. 14:09:01 Skin closure was completed with 3-0 vicryl. 14:10:20 Procedure ended.(Physican Out) 14:11:24 Fluoroscopy time 04.10 minutes. 14:11:34 Flurop Dose total: 22.04 14:11:34 Fluoroscopy dose: 22.04 mGy 14:11:46 Contrast amount:Visipaque 270 10ml. 14:12:31 Post sharps counted by scrub and verified by RN: Sutures: 19 Sponges: 5 Stick needles: 2 Skin needles: 3 Blade: 1 Cautery: 1 14:13:08 Insertion/operative site no bleeding no hematoma. 14:13:18 Post-op/insertion site Left Subclavian vein dressed using a Mepilex dressing. 14:13:29 Post left subclavian vein:stable 14:13:47 Estimated blood loss: 20 ml 14:16:06 Post-procedure physical assessment completed. ASA score P 2 - A patient with mild systemic disease as per Frankie Shaw MD. 14:16:13 Patient needs reinforcement of post procedure teaching. 14:16:15 Procedure and supply charges have been captured, reviewed, submitted and are correct. 14:16:24 Vital chart was stopped 14:16:25 See physician's report for complete and final results. 14:16:29 Report given to Med II. 14:16:34 Patient transfered to Med II with Bed. 14:17:12 End room use (Document Last) Device Usage Item Name Manufacture Quantity Catalog Hospital Part Current Minimal Lo t# / Number Charge Number Stock Stock Serial# Code Medtronic Medtronic 2 ADDR01 [id number] 5 NW [id number] Adapta EX P PPM Dual Generator ADDR01 Medtronic Medtronic 2 4574-45 433958 983381 5 BB [id number] EX P PPM Lead Medtronic Medtronic 2 4074-52 459248 819800 5 BB [id number] EX P PPM Lead 3.0 Ethicon 1 [id number] 316262 102533 5 Vicryl Single Pack [id number] 3.0 Ethicon 1 [id number] 948015 929391 5 Vicryl Multipack [id number] 2.0 Ethicon 2 [id number] 421925 28768 132454 5 Ticron Multipack 9Fr Safe Microtek 1 SU9 [id number] 415661 553226 5 [employer] 7Fr Safe Microtek 1 SU7 [id number] 236306 218279 [address] [facility] 1 325621 000364 196918 311642 30 260cm J .035 wire Signature Audit [place] Stage Time Signature Unsigned Intra-Procedure 12/15/2016 Joe Carranza 2:17:41 PM RT(R) (CV) Signatures Monitor : Joe Carranza RT Signature : Date : Time : [place] [address] [place] [address]
[~2016-12-13 13:05] MED LIST changes: +CARDIZEM CD120 MG PO; +SEROQUEL25 MG PO
[2016-12-13 13:48] LABS: BASOPHILS 0.8 % (0-2); EOSINOPHILS 2.9 % (0-7); HEMATOCRIT 33.5 % (36.0-48.0); HEMOGLOBIN 10.6 g/dL (12-16); IMMATURE GRANULOCYTES 0.5 % (0-5); LYMPHOCYTES 16.7 % (15-50); MCHC 31.6 g/dL (31.0-37.0); MEAN PLATELET VOLUME 9.9 fL (7.4-10.4); MONOCYTES 8.9 % (2-11); NEUTROPHILS 70.2 % (40-80); RBC 3.42 10x6/uL (4.00-5.40); WBC 6.7 10x3/uL (4.8-10.8)
[2016-12-13 13:50] LABS: PLATELET COUNT 218 10x3/uL (130-400)
[2016-12-13 13:53] LABS: APTT 27.2 SECONDS (22.8-39.4); INR 1.1 (0.85-1.17); PROTIME 14.1 SECONDS (11.6-15.0)
[2016-12-13 13:58] LABS: ALBUMIN 3.2 g/dL (3.4-5.0); ANION GAP 12.9 mmol/L (8-16); BILIRUBIN - TOTAL 0.19 mg/dL (0.2-1.3); CALCIUM 8.1 mg/dL (8.5-10.1); CARBON DIOXIDE 28.4 mmol/L (21.0-32.0); CREATININE - SERUM 3.7 mg/dL (0.6-1.3); POTASSIUM - SERUM 4.3 mmol/L (3.5-5.1); PROTEIN - SERUM 7.1 g/dL (6.4-8.2)
[2016-12-13 14:07] LABS: THYROID STIMULATING HORMONE 5.29 uIU/mL (0.36-3.74); TROPONIN-I 0.023 ng/mL (0.000-0.060)
--- NOTE | 2016-12-13 16:30 | NUR ---
PATIENT IN ROOM, FAMILY IS AT BEDSIDE. PATIENT IS ALERT AND ORIENTED AT THIS TIME, PATIENT DOES NOT SPEAK ESTONIAN, PATIENT SPEAKS CRYS, FAMILY AT BEDSIDE TO TRANSLATE, WAITING FOR TRANLATION PHONE. PATIENT DENIES ANY PAIN AT THIS TIME, PATIENT HAS A L FA IV THAT IS SL, PATIENT IS SB ON MONITOR WITH A BBB, AND A RATE OF 56. FAMILY DENIES ANY NEEDS. BED IS LOW AND LOCKED. WILL CONT TO MONITOR PATIENT. CPOC
[2016-12-13 16:31] VITALS: BP 108/58; BMI 17.9
--- NOTE | 2016-12-13 18:04 | NUR ---
SCDS ON PATIENT AND TOLERATING AT THIS TIME. CPOC
--- NOTE | 2016-12-13 18:36 | NUR ---
HEMOSPLIT DRESSING CHANGED, DUE TO HAVING THE WRONG DRESSING ON. DRESSING CHANGED TO FOLLOW HOSPITAL POLICY. PATIENT DENIES ANY NEEDS. BED LOW AND LOCKED. CPOC
--- NOTE | 2016-12-13 19:44 | NUR ---
RECEIVED REPORT, WILL ASSUME CARE OF PT, ASKING FOR ANOTHER BLANK, WILL GIVE, DENIES ANY NEEDS AT THIS TIME, BED IS LOW, CALL LIGHT IN REACH, PT HAS SCD ON, WILL CONTINUE PLAN OF CARE
[2016-12-13 20:00] VITALS: BP 118/45
[2016-12-14] VITALS: BP 131/50
--- NOTE | 2016-12-14 03:22 | NUR ---
ASSESSMENT COMPLETE, PT SLEEPING NO DISTRESS NOTICED, BED IS LOW, SRX2 SCD ARE ON, CALL LIGHT IN REACH, WILL CONTINUE PLAN OF CARE
[2016-12-14 05:06] VITALS: BP 154/61
--- NOTE | 2016-12-14 07:43 | NUR ---
AM ROUNDING- RECEIVED REPORT FROM FIBERGLASS PRODUCT TESTER NURSE NUNU. PT IS CURRENTLY SITTING UP IN BED WITH EYES CLOSED RESTING. ON 02 AT 2L VIA NC. ON MONITOR SHOWING SR, HR 65. IV SEEN TO LEFT FOREARM THAT IS CURRENTLY SALINE LOCKED. RIGHT CHEST HEMOSPLIT SEEN FOR DIALYSIS. NO NEED AT THIS CURRENT TIME. WILL CONTINUE TO MONITOR AND CONTINUE WITH PLAN OF CARE.
[2016-12-14 08:00] VITALS: BP 163/58
[2016-12-14 12:00] VITALS: BP 142/57
[2016-12-14 16:00] VITALS: BP 165/63
--- NOTE | 2016-12-14 17:54 | NUR ---
PT IS CURRENTLY SITTING UP IN BED WITH EYES OPEN RESTING. PT DENIES ANY NEED AT THIS TIME. DR. DON CAME TO ROOM TO MAKE ROUNDS. WILL CONTINUE TO MONITOR.
--- NOTE | 2016-12-14 19:43 | NUR ---
RESUMED CARE OF PT, UP IN ROOM AMBULATING. 73 SA ON TELEMETRY. LEFT FOREARM SALINE LOCKED. RIGHT CHEST HEMOSPLIT WNL. PLAN OF CARE DISUCSSED. CALL LIGHT IN REACH. WILL CONTINUE TO MONITOR. SEE NURSE ASSESSMENT.
[2016-12-14 20:00] VITALS: BP 160/62
[2016-12-15 04:00] VITALS: BP 184/84
--- NOTE | 2016-12-15 05:30 | NUR ---
NO CHANGES FROM PREVIOUS ASSESSMENT. IV INFILTRATED.
--- NOTE | 2016-12-15 06:15 | NUR ---
22 GAUGE TO RIGHT FOREARM X 2 STICKS. OLD IV DC'D WITH TIP INTACT.
[2016-12-15 06:16] LABS: BASOPHILS 0.6 % (0-2); EOSINOPHILS 2.9 % (0-7); HEMATOCRIT 34.9 % (36.0-48.0); IMMATURE GRANULOCYTES 0.2 % (0-5); LYMPHOCYTES 26.1 % (15-50); MCH 30.2 pg (26.0-34.0); MCHC 31.5 g/dL (31.0-37.0); MEAN PLATELET VOLUME 10.2 fL (7.4-10.4); NEUTROPHILS 63.2 % (40-80); PLATELET COUNT 236 10x3/uL (130-400); RBC 3.64 10x6/uL (4.00-5.40); RDW 14.4 % (11.5-14.5); WBC 8.2 10x3/uL (4.8-10.8)
[2016-12-15 06:29] LABS: ANION GAP 14.9 mmol/L (8-16); CALCIUM 7.9 mg/dL (8.5-10.1); CARBON DIOXIDE 27.5 mmol/L (21.0-32.0); MCV 95.9 fL (80.0-100.0); POTASSIUM - SERUM 4.4 mmol/L (3.5-5.1)
[2016-12-15 06:33] LABS: CREATININE - SERUM 5.1 mg/dL (0.6-1.3)
--- NOTE | 2016-12-15 07:15 | NUR ---
RECIEVED REPORT ON PATIENT, PATIENT IS ALERT AND ORIENTED AT THIS TIME. PATIENT HAS A R FA IV THAT IS SL AT THIS TIME. PATIENT IS SR ON MONITOR WITH FREQUENT PACS, WITH A RATE OF 73. PATIENT HAS A R CHEST HEMOSPLIT CATHETER FOR DIAYLSIS AND IS SUPPOSE TO DIAYLIZE TODAY. PATIENT DENIES ANY NEEDS OR PAIN, BED LOW AND LOCKED. CPOC
[2016-12-15 08:00] VITALS: BP 164/67
--- NOTE | 2016-12-15 09:04 | NUR ---
MORNING MEDICATION GIVEN. DENIES ANY NEEDS. CPOC
--- NOTE | 2016-12-15 11:05 | NUR ---
PATIENT RESTING IN BED. HEART SOUNDS ACCESSED, S1S2, PACS NOTED. NO REQUESTS OR COMPLAINTS AT THIS TIME. CALL LIGHT IN REACH. BED IN LOWEST POSITION AND LOCKED. CPOC
[2016-12-15 12:00] VITALS: BP 163/73
--- NOTE | 2016-12-15 12:40 | NUR ---
PATIENT GONE FOR PACEMAKER PLACEMENT
[2016-12-15 13:26] VITALS: Ht 162.6 cm; Wt 55.3 kg
--- NOTE | 2016-12-15 14:23 | NUR ---
REECIED REPORT FROM KAYLYN, PATIENT IS COMING BACK TO ROOM WITH A DUAL LEAD PACEMAKER TO L CHEST
--- NOTE | 2016-12-15 15:27 | NUR ---
PATIENT RESTING IN BED, AWAKE AND ALERT. VS STABLE POST PROCEDURE. WILL CONTINUE TO MONITOR. BED IN LOWEST POSITION AND LOCKED WITH CALL LIGHT IN REACH. CPOC
[2016-12-15 16:00] VITALS: BP 149/73
--- NOTE | 2016-12-15 18:33 | NUR ---
PATIENT SLEEPING AT THIS TIME, NAD NOTED. AROUSES TO VOICE, DENIES ANY NEEDS. CPOC
--- NOTE | 2016-12-15 19:45 | NUR ---
ROUNDING NOTE: PT LAYING IN BED AT CHANGE OF SHIFT. SHE IS A,A,OX3. PT SPEAKS LIMITED ARABIC, BUT TRANSLATION PHONE AVAILABLE NEEDED. PT HAS RIGHT FOREARM SALINE LOC AND A RIGHT CHEST HEME-SPLIT FOR HER DIALYSIS ACCESS. SHE IS USUALLY HD ON ,,; HOWEVER, DUE TO PACER PLACEMENT TODAY, HD WILL BE TOMORROW, THURSDAY. PT MAY BE D/C'D BACK TO [facility] EITHER TOMORROW OR THU. PT'S PACER DSG IS C/D/I ON LEFT CHEST W/ LEFT ARM IN SLING. PT IS SINUS RHYTHM ON THE TELE. WILL CONT TO MONITOR.
[2016-12-15 22:18] VITALS: BP 176/63
[2016-12-16 02:50] VITALS: BP 146/92
--- NOTE | 2016-12-16 04:19 | NUR ---
FIRE INFORMATION OFFICER NOTIFIED ME THAT PT'S PACER SITE WAS BLEEDING. WENT TO ASSESS PATIENT AND NOTED THAT THE PACER DSG ON LEFT CHEST IS NOW SATURATED WITH BLOOD AND DRIPPING DOWN PT'S CHEST AND ONTO BLANKETS. AT THE START OF THE SHIFT, THE DSG WAS COMPLETELY C/D/I. PT'S VS ARE STABLE. PT DOES REPORT THAT THE AREA IS VERY SORE. NO DEFINITE HEMOTOMA SEEN ON EXAMINATION OR FELT ON PALPATION. DR. COREA CALLED TO NOTIFY OF PT'S CHANGE IN CONDITION. ORDERS GIVEN FOR STAT CBC, SANDBAG FOR PRESSURE, AND CALL DR. LEE AT 0700. WILL CONT TO MONITOR.
[2016-12-16 04:25] LABS: BASOPHILS 0.3 % (0-2); EOSINOPHILS 1.6 % (0-7); HEMATOCRIT 29.4 % (36.0-48.0); HEMOGLOBIN 9.6 g/dL (12-16); IMMATURE GRANULOCYTES 0.1 % (0-5); LYMPHOCYTES 16.5 % (15-50); MCH 30.9 pg (26.0-34.0); MCHC 32.7 g/dL (31.0-37.0); MCV 94.5 fL (80.0-100.0); MEAN PLATELET VOLUME 9.1 fL (7.4-10.4); MONOCYTES 10.4 % (2-11); NEUTROPHILS 71.1 % (40-80); RBC 3.11 10x6/uL (4.00-5.40); RDW 14.4 % (11.5-14.5); WBC 6.9 10x3/uL (4.8-10.8)
[2016-12-16 04:27] LABS: PLATELET COUNT 166 10x3/uL (130-400)
[2016-12-16 04:58] LABS: ANION GAP 12.8 mmol/L (8-16); CALCIUM 7.7 mg/dL (8.5-10.1); CARBON DIOXIDE 27.2 mmol/L (21.0-32.0); CREATININE - SERUM 4.9 mg/dL (0.6-1.3)
[2016-12-16 05:35] VITALS: BP 144/70
--- NOTE | 2016-12-16 07:45 | NUR ---
AM ROUNDING DONE WITH NIGHT NURSE. LEFT PACEMAKER SITE HAS A BROWN DRESSING ON IT ALONG WITH 2 SATURATED ABD PADS UNDER THE SANDBAG. PATIENT HAS A SLING ON AT PRESENT TIME. ON HEART MONITOR SHOWING SR W OCC PAC, HR 93. ON 2L PER NC.RIGHT HEMISPLIT SEEN WITH ENDS TAPED. PATIENT REPORTS THAT SHE DOES NOT MAKE ANY URINE. WILL CONTINUE TO MONITOR.
[2016-12-16 08:32] VITALS: BP 157/88
[2016-12-16 10:19] LABS: HEPATITIS C ANTIBODY <0.1 (0.0-0.9)
--- NOTE | 2016-12-16 10:36 | NUR ---
1025-TO DIALYSIS VIA WHEELCHAIR. SHELBI HERNANDEZ RN TO TAKE HER ALONG WITH A CVL DRESSING KIT FOR DIALYSIS TO CHANGE DRESSING TO HEMISPLIT PAST TREATMENT.
--- NOTE | 2016-12-16 12:44 | NUR ---
PATIENT MADE NPO, STILL IN DIALYSIS
--- NOTE | 2016-12-16 13:05 | OP ---
PATIENT NAME: LILI DELUCA MEDICAL RECORD: [id number] :[birth year] LOCATION:D.M2 D.2131 ADMISSION DATE:12/13/16 SURGEON: ANNA AMOR MD DATE OF OPERATION: 12/15/2016 PROCEDURE: Lead portion of permanent pacemaker placement. INDICATION: Sick sinus syndrome. SURGEON: Westley Boswell MD DESCRIPTION OF PROCEDURE: After left subclavian was cannulated via modified Seldinger technique via Dr. Boswell, first under fluoroscopic guidance I placed the RV lead in the RA apex without difficulty. After adequate thresholds and R waves were obtained, again under fluoroscopic guidance, I placed the right atrial lead in the right atrial appendage without difficulty. After P waves and thresholds were obtained, the leads were attached to appropriate poles of the generator and the pocket was closed via Dr. Boswell. IMPRESSION: Successful lead portion of permanent pacemaker placement. COMPLICATIONS: None. ESTIMATED BLOOD LOSS: Minimal. DISPOSITION: To the floor, stable. TRANSINT:[id number] Voice Confirmation ID: [id number] DOCUMENT ID: [id number] ANNA AMOR MD at 1305 CC: [id number] DICTATION DATE: 12/15/16 1412 SCHOOL BUSINESS MANAGER: 12/15/16 1432 ADM IN [id number] [place] [address]
--- NOTE | 2016-12-16 14:39 | NUR ---
1430-PATIENT TO RETURN FROM DIALYSIS, STILL NPO. HIBICLENS BATH GIVEN. OP PERMITS SIGNED AT 1435.
[2016-12-16 16:31] VITALS: BP 108/71
--- NOTE | 2016-12-16 18:29 | NUR ---
PATIENT IS STILL NPO AT THIS TIME. DR LEE CAME BY AND SAW PATIENT. WILL CONTINUE TO MONITOR.
--- NOTE | 2016-12-16 19:25 | NUR ---
ROUNDING NOTE: PT HAD A PACER PLACEMENT ON 12/15. AT 0400 IN THE MORNING ON 12/16, HER PACER SITE BEGAN TO BLEED REQUIRING DRESSING REINFORCEMENT AND SANDBAGGING FOR PRESSURE. THE SITE CONTINUED TO BLEED AND DEVELOP A HEMATOMA DESPITE THESE MEASURES, SO DR. LEE PLANS TO LAN HER TO THE OR FOR INCISION AND EVACUATION OF THE HEMATOMA. PT REMAINS NPO FOR THIS PROCEDURE. PT REPORTS MILD/MODERATE PAIN. ON MONITOR, PT IS AFIB UNCONTROLLED WITH HR 110'S TO 120'S. SHE HAS A RIGHT FOREARM SALINE LOC AND A RIGHT HEMOSPLIT THAT IS USED FOR DIALYSIS. VITAL SIGNS ARE STABLE, WILL CONT TO MONITOR.
[2016-12-16 20:00] VITALS: BP 126/82
[2016-12-17 04:00] VITALS: BP 140/81
[2016-12-17 05:49] LABS: BASOPHILS 0.7 % (0-2); EOSINOPHILS 2.3 % (0-7); HEMATOCRIT 27.6 % (36.0-48.0); LYMPHOCYTES 20.4 % (15-50); MCH 30.6 pg (26.0-34.0); MCHC 32.6 g/dL (31.0-37.0); MCV 93.9 fL (80.0-100.0); MEAN PLATELET VOLUME 9.9 fL (7.4-10.4); MONOCYTES 9.7 % (2-11); NEUTROPHILS 66.9 % (40-80); PLATELET COUNT 187 10x3/uL (130-400); RBC 2.94 10x6/uL (4.00-5.40); RDW 14.2 % (11.5-14.5); WBC 5.7 10x3/uL (4.8-10.8)
[2016-12-17 05:52] LABS: CALCIUM 7.9 mg/dL (8.5-10.1); CARBON DIOXIDE 28.3 mmol/L (21.0-32.0); POTASSIUM - SERUM 4.3 mmol/L (3.5-5.1)
[2016-12-17 05:54] LABS: CREATININE - SERUM 2.9 mg/dL (0.6-1.3)
--- NOTE | 2016-12-17 07:41 | NUR ---
PT WENT TO THE OR LAST NIGHT FOR HEMATOMA EVACUATION OF LEFT CHEST PACER SITE. SURGERY WENT WELL. PT RETURNED W/ A 3 INCH INCISION CLOSED WITH DERMABOND ALONG WITH A EDUIN DRAIN BELOW. THERE IS NO BLEEDING NOTED AND NO DRAINAGE INTO THE EDUIN DRAIN EITHER. VS REMAIN STABLE. PT DENIES PAIN AND SHE HAS BEEN SLEEPING THE REST OF THE SHIFT UNEVENTFULLY.
--- NOTE | 2016-12-17 07:56 | NUR ---
AM ROUNDS COMPLETED. SHIFT ASSESSMENT DONE. INTRODUCED MYSELF TO PT PRIMARY RN FOR TODAYS SHIFT. PT FAMILIAR WITH ME FROM PREVIOUS ADMISSIONS. PT IS A&O SITTING UP IN BED AND SWALLOWED MORNING MEDICATIONS. PT STILL RUNNING UNCONTROLLED A.FIB PER Jumpstarter TECH IN THE 110S. PT RESTARTED CARDIZEM AND HOPEFULLY THIS WILL RESOLVE IT. L.CHEST HAS EDUIN DRAIN IN PLACE AND HAS NO DRAINAGE AT THIS TIME. R.CHEST HEMESPLIT DRSG CDI AND WILL BE CHANGED TODAY PER HOSPITAL POLICY. PT DENIES ANY CURRENT PAIN OR NEEDS AT THIS TIME. CL IN REACH, BED IN LOWEST, SIDE RAILS X2. WILL CPOC.
[2016-12-17 08:00] VITALS: BP 145/87
[2016-12-17 11:51] VITALS: BP 116/69
--- NOTE | 2016-12-17 12:29 | NUR ---
PAGED FOR PTS STILL UNCONTROLLED A.FIB. WANTS HER AMIODARONE RESTARTED AND WE WILL CTM.
--- NOTE | 2016-12-17 14:35 | NUR ---
PT NOW CONTROLLED A.FIB AFTER AMIODARONE WAS GIVEN AND RATE STAYING IN THE 80S. AWARE. NO FURTHER NEEDS AT THIS TIME.
[2016-12-17 17:26] VITALS: BP 140/62
--- NOTE | 2016-12-17 18:15 | NUR ---
PTS HR STILL CONTROLLED A.FIB. PT RESTING QUIETLY AND STATES SHE HAS HAD A GOOD DAY OVERALL AND HOPES TO BE DISCHARGED SOON. CL IN REACH, BED IN LOWEST, SIDE RAILS X2. WILL CPOC AND PASS ON REPORT TO NIGHTSHIFT NURSE.
--- NOTE | 2016-12-17 18:38 | NUR ---
Patient Name: LILI DELUCA Admission Status: ER Accout number: [id number] Admission Date: 12-13-2016 : 1935 Admission Diagnosis:BRADYCARDIA, UNSPECIFIED Attending: MONIKA DON Current LOS: 4 Anticipated DC Date: 12-18-2016 Planned Disposition: Nursing Facility [facility] Cert Primary Insurance: MEDICARE A & B PLANNED EXTERNAL PROVIDER: [facility], P[facility]ITENTIARY CARE MEDICAID BED Discharge Planning Comments: * Is the patient Alert and Oriented? Yes 0 * How many steps to enter\exit or inside your home? NONE 0 * PCP [facility] 0 * Pharmacy [facility] 0 * Preadmission Environment [facility] 0 * Facility Name [facility] 0 * ADLs Partial Dependent 0 * Partial ADLs (Assistance needed) Bathing Medication Management 0 * Equipment Rolling Walker Wheelchair 0 * Other Equipment ALL EQUIPMENT PROVIDED BY NURSING FACILITY 0 * List name and contact numbers for known caregivers / representatives who currently or will assist patient after discharge: ISHMAEL HUMPHREY DTR, 0 * Community resources currently utilized Other 0 * Please name any agencies selected above. OUTPATIENT DIALYSIS, [facility], MWF, [id number] SENIOR CARE TRANSPORTATION 0 * Additional services required to return to the preadmission environment? No 0 * Can the patient safely return to the preadmission environment? Yes 0 * Has this patient been hospitalized within the prior 30 days at any hospital? No 0 CM RECEIVED ORDER FOR DISCHARGE PLANNING. CM MET WITH PT IN ROOM, DISCUSSED DISCHARGE PLAN AND NEEDS. PT REPORTS HE NO LONGER LIVES IN HER HOME, SHE IS STILL AT [facility] AND WILL BE GOING BACK AT DISCHARGE. PT REPORTS THAT HER [facility] FAMILY TAKES HER PLACES AND SHE ALSO STILL GETS TO LEAVE TO GO TO [facility] [facility]. 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 PT THINKS THE DOCTOR WILL LET HER GO TOMORROW, WANTS CM TO CALL [facility] TO ARRANGE IT WITH THEM. IMPORTANT MESSAGE FROM MEDICARE PROVIDED AND EXPLAINED. CM FAXED UPDATE TO [facility], . FOR DISCHARGE, NURSE REPORT TO BE CALLED TO [facility] AT [phone]. FAX DISCHARGE INFORMATION TO [facility] AT [phone]. [facility] TO ARRANGE VAN TRANSPORTATION. Water Plant Maintenance Mechanic: [employer]
--- NOTE | 2016-12-17 19:29 | NUR ---
RESUMED CARE OF PT, LYING IN BED WITH EYES CLOSED RESPIRATIONS EVEN AND UNLABORED ON ROOM AIR. 88 PACED WITH PVCS ON TELEMETRY. RIGHT FOREARM SALINE LOCKED. CALL LIGHT IN REACH. WILL CONTINUE TO MONITOR. SEE NURSE ASSESSMENT.
--- NOTE | 2016-12-17 21:14 | NUR ---
EDUIN DRAIN REMOVED, 25ML OF SANGUINEOUS FLUID. DRESSING IN PLACE.
[2016-12-17 22:49] VITALS: BP 152/80
[2016-12-18] VITALS: BP 142/81
--- NOTE | 2016-12-18 00:14 | NUR ---
ASSET PROTECTION ASSISTANT AT BEDSIDE, CALL LIGHT IN REACH. WILL CONTINUE WITH PLAN OF CARE.
--- NOTE | 2016-12-18 05:44 | NUR ---
NO CHANGES FROM PREVIOUS ASSESSMENT, CALL LIGHT IN REACH. WILL CONTINUE TO MONITOR.
[2016-12-18 06:27] LABS: BASOPHILS 0.4 % (0-2); EOSINOPHILS 5.1 % (0-7); HEMATOCRIT 27.4 % (36.0-48.0); HEMOGLOBIN 9.2 g/dL (12-16); IMMATURE GRANULOCYTES 0.2 % (0-5); LYMPHOCYTES 21.4 % (15-50); MCH 31.2 pg (26.0-34.0); MCHC 33.6 g/dL (31.0-37.0); MCV 92.9 fL (80.0-100.0); MEAN PLATELET VOLUME 9.8 fL (7.4-10.4); MONOCYTES 8.5 % (2-11); NEUTROPHILS 64.4 % (40-80); PLATELET COUNT 179 10x3/uL (130-400); RBC 2.95 10x6/uL (4.00-5.40); RDW 14.2 % (11.5-14.5); WBC 4.7 10x3/uL (4.8-10.8)
[2016-12-18 06:46] LABS: ANION GAP 12.4 mmol/L (8-16); CALCIUM 7.6 mg/dL (8.5-10.1); CARBON DIOXIDE 27.6 mmol/L (21.0-32.0)
[2016-12-18 06:48] LABS: CREATININE - SERUM 3.9 mg/dL (0.6-1.3)
--- NOTE | 2016-12-18 07:45 | NUR ---
INTRODUCED MYSELF TO PT PRIMARY RN FOR TODAYS SHIFT. PT SITTING UP IN BED RESTING QUIETLY. A&O SHIFT ASSESSMENT COMPLETED. PACEMAKER INCISION TO LEFT CHEST CLEAN AND DRY, EDUIN DRAIN WAS REMOVED YESTERDAY AND DRSG IS IN PLACE AT THAT SITE RIGHT BELOW PACEMAKER INCISION, DRSG CDI. PT HAS A R.CHEST HEMESPLIT WITH DRSG CDI ADHERED TO SKIN, BIOPATCH IN PLACE AND CAPS IN USE. PT WEARING TELEMETRY RUNNING 78 CONTROLLED A.FIB PER [employer]. PT HOPES TO BE DISCHARGED TODAY AFTER DIALYSIS. NO CURRENT NEEDS AT THIS TIME. CL IN REACH, BED IN LOWEST, SIDE RAILS X2. WILL CPOC.
[2016-12-18 08:00] VITALS: BP 129/72
--- NOTE | 2016-12-18 08:50 | NUR ---
ORDER FOR DISCHARGE. CALL WAS PLACED TO [facility] [phone]. SPOKE WITH JADIEL ABOUT PATIENT COMING BACK TODAY. SHE STATED THAT THEY NEEDED AN UPDATE FROM THE PATIENTS WHOLE STAY BEING THAT THEY HAVE NOT RECEIVED ANY INFORMATION AND ONCE THEY HAVE THAT INFORMATION, THEY WILL CALL BACK AND SET UP A HOTEL RESERVATIONIST TIME. UPDATE WAS FAXED TO [phone].
--- NOTE | 2016-12-18 10:43 | NUR ---
DIALYSIS CALLED FOR PT. PT BROUGHT DOWN, NO FURTHER NEEDS AT THIS TIME.
[2016-12-18] MEDS ORDERED: PACERONE200 MG PO (11:36)
--- NOTE | 2016-12-18 13:18 | NUR ---
Patient Name: LILI DELUCA Encounter No: [id number] : 1935 Primary Insurance: MEDICARE A & B Anticipated DC Date: 12-18-2016 Planned Disposition: Nursing Facility DARIELA Cert External Planned Provider: [facility], BOGGER OPERATOR CARE MEDICAID BED DCP follow-up note: CM RECEIVED MESSAGE FROM [facility] THAT PT NEEDS ODETTE ASSESSMENT DUE TO BEING ON SEROQUEL. CHART REVIEW INDICATED PT WAS ON SEROQUEL A HOME MEDICATION SOMETIME IN THE PAST, WAS NOT PRESCRIBED OR GIVEN IN THE HOSPITAL. PT IS NOT CURRENTLY ON THE MEDICATION. CM SPOKE TO JADIEL AT [place] VIA PHONE, , DISCUSSED THIS CM DOES NOT THINK PT NEEDS ODETTE ASSESSMENT, FAXED EMAR, MED REC AND DISCHARGE MEDICATION LIST TO [place] FOR HAND FILER BALANCE WHEEL REVIEW AT [phone]. CM WAITING ADMISSION DETERMINATION FROM [facility].\ Stef Gamign, CASE MANAGEMENT
--- NOTE | 2016-12-18 14:57 | NUR ---
PT BACK FROM DIALYSIS AND RESTING QUIETLY. VSS AND PT REQUESTING A FOOD TRAY. WILL GET THEM ORDERED AND CPOC.
--- NOTE | 2016-12-18 15:41 | NUR ---
D/C PTS R.FA PIV WITH CATHETER TIP FULLY INTACT. PT STATES "IM READY TO BE DISCHARGED" DISCHARGE TEACHING PROVIDED AND PAPERS SIGNED, PT VERBALIZED UNDERSTANDING HOWEVER PT DOES HAVE A SLIGHT COMMUNICATION BARRIER SHE IS MALTESE BUT UNDERSTANDS AND SPEAKS LUXEMBOURGER WELL. PT BEING DISCHARGED BACK TO [place] WHERE SHE CAME FROM, WILL CALL REPORT TO THAT NURSE RECIEVING HER. READJUSTED PTS L.ARM SLING AND PACEMAKER SITE IS CLEAN AND DRY. NO FURTHER NEEDS AT THIS TIME, NOW AWAITING TRANSPORTATION FROM [facility]. WILL CTM.
--- NOTE | 2016-12-18 16:00 | NUR ---
Patient Name: LILI DELUCA Encounter No: [id number] : 1935 Primary Insurance: MEDICARE A & B Anticipated DC Date: 12-18-2016 Planned Disposition: Nursing Facility DARIELA Cert External Planned Provider: [facility], HAND FUR CLEANER CARE MEDICAID BED DCP follow-up note: CM RECEIVED CALL FROM JADIEL OF [facility], THEY WILL ACCEPT PT TODAY, VAN TO AUTOMATIC LOG CUT OFF SAWYER AT ABOUT 5:30PM. PT NOTIFIED, IN AGREEMENT WITH DISCHARGE TODAY TO [facility]. ARMATURE VARNISHER NURSE NOTIFIED. CM FAXED DISCHARGE INFORMATION TO [facility] AT [phone]. NURSE REPORT TO BE CALLED TO [facility] AT [phone], VAN TO AUTOMATIC LOG CUT OFF SAWYER AT ABOUT 1730 HOURS. Stef Gaming, CASE MANAGEMENT
--- NOTE | 2016-12-18 16:47 | NUR ---
CALLED REPORT TO SOM AND SHE IS AWARE AND READY FOR PT. STILL AWAITING VAN FOR P/U
--- NOTE | 2016-12-18 18:10 | NUR ---
TRANSPORTATION HERE AND BELONGINGS COLLECTED. PT LEAVING NOW.
--- NOTE | 2016-12-23 09:40 | OP ---
PATIENT NAME: LILI DELUCA MEDICAL RECORD: [id number] :[birth year] LOCATION:D.M2 D.2131 ADMISSION DATE:12/13/16 SURGEON: WESTLEY LEE MD DATE OF OPERATION: 12/15/2016 PREOPERATIVE DIAGNOSIS: Sick sinus syndrome. POSTOPERATIVE DIAGNOSIS: Sick sinus syndrome. PROCEDURE: Creation of left infraclavicular subcutaneous pocket. Introduction of the atrial and ventricular leads into the central venous system securing the leads into the pacemaker generator and then placing the pacemaker generator in the pocket and closure. This is a cosurgeon case. DIRECTOR APPAREL: Frankie Shaw MD SURGEON: Westley Lee MD ANESTHESIA: Local with IV sedation. COMPLICATIONS: None. The risks, possible complications and alternatives to procedure were explained to the patient. She elects to proceed. OPERATIVE COURSE: The patient was conveyed to the cardiac catheterization laboratory on 12/15/2016. IV sedation was induced by the anesthesia staff. The left chest was sterilely prepped and draped. A local anesthetic was used to infiltrate the skin and subcutaneous tissues inferior to the left clavicle. A subcutaneous pocket was created bluntly in a caudad direction. Through the pacemaker pocket, I was able to access the left subclavian vein in an antegrade fashion. Guidewire was passed easily. This was visualized under fluoroscopy. I tried to advance a 9-Cayman Islander dilator sheath over the wire; however, the wire kept kinking. I wanted to ensure that we were in a venous structure and not an arterial structure. I advanced the dilator from a 7-Cayman Islander sheath over the wire. Through this dilator, I injected some dye and the dye did not appear to be within an arterial structure. I changed out to the guidewire for a stiffer Glidewire. I was then able to dilate with a 9-Cayman Islander dilator and then advanced the 9-Cayman Islander dilator and sheath. The dilator was removed. Through the sheath, a ventricular lead was advanced. Dr. Frankie Shaw positioned the lead, appropriate thresholds were obtained. I then sutured the lead down to the underlying pectoralis fascia with 2-0 TiCron times 2. There was a secondary wire, a 7-Cayman Islander dilator sheath was advanced. The dilator and wire were removed. Through this sheath, an atrial lead was advanced. The Peel-Away sheath was then removed. Dr. Frankie Shaw positioned the atrial lead. Appropriate thresholds were obtained. I then sutured the lead down to the underlying pectoralis fascia with a 2-0 TiCrons times 2. A 2-0 TiCron was placed around the leads medially in order to help prevent any backbleeding. The pacemaker represented when I checked the leads and confirmed the serial OPERATIVE REPORT [id number] LILI DELUCA R numbers for the ventricular lead. The ventricular lead was placed in the ventricular dock of the pacemaker generator. I then tightened down on the screw. I tried to dislodge the ventricular lead and was unable to do so. I then placed the atrial lead in atrial dock of pacemaker generator. I tightened down with screw. I tried to dislodge the atrial lead and was unable to do so. I placed the pacemaker generator in pacemaker pocket with care paid to place the wires behind the pacemaker generator. The pacemaker generator was sutured to the underlying pectoralis fascia with 2-0 TiCron. I irrigated in the pacemaker pocket with normal saline. The deep adipose tissue was closed with interrupted 3-0 Vicryls. Subcutaneous adipose tissue was closed with interrupted 3-0 Vicryls. The skin was approximated with a running intracuticular 3-0 Vicryl. A sterile dressing was applied. The patient was then conveyed to the post-cardiac recovery area. I will see the patient on a p.r.n. basis. TRANSINT:[id number] Voice Confirmation ID: [id number] DOCUMENT ID: [id number] WESTLEY LEE MD at 0940 CC: [id number] DICTATION DATE: 12/15/161645 SERVICE CENTER REPRESENTATIVE: 12/15/161955 DIS IN 12/18/16 [facility] [address] [place] [address]
--- NOTE | 2016-12-23 09:40 | OP ---
PATIENT NAME: LILI DELUCA MEDICAL RECORD: [id number] :[birth year] LOCATION:D.M2 D.2131 ADMISSION DATE:12/13/16 SURGEON: LASHON LEE MD DATE OF OPERATION: 12/16/2016 PREOPERATIVE DIAGNOSIS: Postoperative pacemaker pocket hematoma. POSTOPERATIVE DIAGNOSES: Postoperative pacemaker pocket hematoma. PROCEDURE: Incision and evacuation of postoperative subcutaneous pacemaker port pocket hematoma. SURGEON: Lashon Lee MD HOUSEKEEPER CLEANING COOKING: None. BLOOD LOSS: Minimal. ANESTHESIA: Local with intravenous sedation. DRAINS: Times 1 (10-Central African round Dougie drain). The risks, possible complications, and alternatives to procedure were explained to the patient. She elects to proceed. OPERATIVE COURSE: The patient was conveyed to the operating room urgently on 12/16/2016. Intravenous sedation was induced by the anesthesia staff. The left upper chest was sterilely prepped and draped. A local anesthetic was used to infiltrate the skin and subcutaneous tissues around the port pocket incision. I incised the sutures. I opened up the pocket. I evacuated the hematoma. I checked for bleeding and found no areas of bleeding. I irrigated with hydrogen peroxide. Still, no evidence of any bleeding. I brought out a 10-Central African round Dougie type drain through the pocket inferiorly and laterally. The drain was sutured to skin with a 4-0 nylon. I irrigated more with hydrogen peroxide and found no evidence of any ongoing bleeding. I then instilled Dereck into the port pocket. The subdermal structures were approximated with interrupted 3-0 Vicryl. The skin was approximated with a running intracuticular 3-0 Vicryl. A sterile dressing was applied. The patient was then conveyed to the postanesthesia care unit, where she was in stable condition. TRANSINT:[id number] Voice Confirmation ID: [id number] DOCUMENT ID: [id number] LASHON LEE MD at 0940 CC: MONIKA DON MD and ANNA AMOR MD [id number] DICTATION DATE: 12/16/162200 HOUSING CASE MANAGER: 12/17/16 0018 DIS IN 12/18/16 [facility] [address] [place] [address]
== END 2016-12-18 18:21 | DRG 242 ==
LOC: D.ER 13:05 → D.M2 15:18
PROVIDERS: Emergency Medicine; Internal Medicine Interventional Cardiology; ADMIT Internal Medicine Nephrology
PROC: 02H63JZ Insertion of Pacemaker Lead into Right Atrium, Percutaneous Approach (ICD-10-PCS; 2016-12-15)
PROC: 02HK3JZ Insertion of Pacemaker Lead into Right Ventricle, Percutaneous Approach (ICD-10-PCS; 2016-12-15)
PROC: 5A1D70Z Performance of Urinary Filtration, Intermittent, Less than 6 Hours Per Day (ICD-10-PCS; 2016-12-15)
PROC: 0JH606Z Insertion of Pacemaker, Dual Chamber into Chest Subcutaneous Tissue and Fascia, Open Approach (ICD-10-PCS; principal; 2016-12-15 13:00)
PROC: 0JC60ZZ Extirpation of Matter from Chest Subcutaneous Tissue and Fascia, Open Approach (ICD-10-PCS; 2016-12-16)
DX: I49.5 Sick sinus syndrome (principal); N18.6 End stage renal disease; I13.2 Hypertensive heart and chronic kidney disease with heart failure and with stage 5 chronic kidney disease, or end stage renal disease; L76.32 Postprocedural hematoma of skin and subcutaneous tissue following other procedure; I48.92 Unspecified atrial flutter; I25.10 Atherosclerotic heart disease of native coronary artery without angina pectoris; I50.9 Heart failure, unspecified; Z99.2 Dependence on renal dialysis; I35.0 Nonrheumatic aortic (valve) stenosis; Y83.8 Other surgical procedures as the cause of abnormal reaction of the patient, or of later complication, without mention of misadventure at the time of the procedure; I48.2 Chronic atrial fibrillation; Z95.5 Presence of coronary angioplasty implant and graft

== ENCOUNTER 2017-04-21 05:15 | Day surgery (SDC) | payer MEDICARE ==
[2017-04-20 12:01] LABS: BASOPHILS 0.4 % (0-2); EOSINOPHILS 4.4 % (0-7); HEMOGLOBIN 10.5 g/dL (12-16); IMMATURE GRANULOCYTES 0.3 % (0-5); LYMPHOCYTES 18.4 % (15-50); MCH 26.3 pg (26.0-34.0); MCHC 30.9 g/dL (31.0-37.0); MEAN PLATELET VOLUME 9.3 fL (7.4-10.4); MONOCYTES 5.5 % (2-11); RDW 15.5 % (11.5-14.5); WBC 8.9 10x3/uL (4.8-10.8)
[2017-04-20 12:02] LABS: PLATELET COUNT 265 10x3/uL (130-400)
[2017-04-20 12:12] LABS: ANION GAP 12.6 mmol/L (8-16); CARBON DIOXIDE 27.5 mmol/L (21.0-32.0); CREATININE - SERUM 1.9 mg/dL (0.6-1.3); INR 1.39 (0.85-1.17); POTASSIUM - SERUM 4.1 mmol/L (3.5-5.1); PROTIME 16.6 SECONDS (11.6-15.0)
[2017-04-20 13:02] LABS: APTT > 200.0 SECONDS (22.8-39.4)
[~2017-04-21] VITALS: Ht 157.5 cm; Wt 47.2 kg
--- NOTE | ~2017-04-21 | OP ---
PATIENT NAME: LILI DELUCA MEDICAL RECORD: [id number] :[birth year] LOCATION:DSCOT ADMISSION DATE: SURGEON: NAUN POTTS MD DATE OF OPERATION: 04/21/2017 REFERRING PHYSICIAN: Renata Peres MD PREOPERATIVE DIAGNOSIS: End-stage renal disease and dependence on hemodialysis, presently dialyzing with a right internal jugular tunneled dialysis catheter. SURGEON: Naun Potts MD ANESTHESIA: General with LMA per ROENTGENOLOGIST. OPERATION PERFORMED: Implantation of a left forearm brachial artery to cephalic vein PTFE Propaten loop 4-6 mm taper. PREOPERATIVE NOTE: This very elderly white female patient, senior care resident, is on dialysis with a right IJV catheter and needs long-term access. I do not consider her candidate at this point for creation of a fistula and we will implant a PTFE graft in her left arm. Under general anesthesia, the patient was prepped and draped in a sterile manner. A Bigfoot drain was used as a proximal venous tourniquet and nitroglycerin ointment applied to the intact skin of the arm and forearm. I examined her with ultrasound and confirmed a suitable cephalic vein and brachial artery at the antecubital level. I made a transverse incision and exposed the vessels and controlled them with Silastic loops. I elected to use a 4-6 taper Propaten standard wall thickness PTFE graft. The venous end was beveled and the vein opened and flushed with heparinized saline proximally and distally and an anastomosis of dxw-yl-qcrwy to jtwi-la-twrt performed with running 6-0 Prolene. I made 2 counterincisions distally on the forearm medially and laterally and pulled the PTFE AV graft through subcutaneous incisions and back to the antecubital space. The occluding loops on the vein were released, and the graft flushed with heparinized saline, and hemostasis along the suture line was deemed adequate, and there was good flow in the graft. The arterial tapered end was then bevelled and shortened. The artery was occluded and opened and flushed with heparinized saline proximally and distally. An atm-vx-qoquj to elwa-th-ckcuak anastomosis was then performed with running 6-0 Prolene. After completion of the anastomosis and release of the occluding loops and clamps, excellent flow was established in the graft, and there was excellent persistence of a strong pulsatile flow in the ulnar artery to the hand. There was no sign of ischemia of the hand. The radial artery, which was diminished preop, was unchanged after the graft was implanted. The wounds were irrigated with Ancef-gentamicin solution and closed with interrupted inverted 3-0 Vicryl and Dermabond glue. They were dressed with Maxorb Ag, Tegaderm, and Cavilon skin prep. Blood loss was insignificant and unreplaced. All sponges, instruments, and needles were accounted for, and no drain was used. PLAN: Our plan for Ms. Deluca to go home to her senior care today and follow up with me in 2 weeks. I prefer the dressings be left intact until she sees me in the office. She will continue her same usual routine dialysis schedule, ESRD diet, and her same medications. TRANSINT:[id number] Voice Confirmation ID: [id number] DOCUMENT ID: [id number] OPERATIVE REPORT [id number] LILI DELUCA JAMES MD at 1351 CC: RENATA PERES MD [id number] DICTATION DATE: 04/21/17 1123 INSTRUCTOR MODELING: 04/21/17 1207 [facility] [address] [place] [id number]
[~2017-04-21 05:15] MED LIST changes: +PACERONE200 MG PO; +SENNA PLUS TA1 UDTAB PO
[2017-04-21 06:29] VITALS: BP 209/87; Ht 157.5 cm; Wt 47.2 kg
== END 2017-04-21 12:30 ==
LOC: D.OPS 05:15 → D.PAN 08:00 → D.OPS 12:30
PROVIDERS: Surgery
DX: N18.6 End stage renal disease (principal); I25.10 Atherosclerotic heart disease of native coronary artery without angina pectoris; Z01.812 Encounter for preprocedural laboratory examination; Z95.0 Presence of cardiac pacemaker; I49.5 Sick sinus syndrome; I48.91 Unspecified atrial fibrillation

== ENCOUNTER 2017-04-22 16:10 | Emergency (ER) | payer MEDICARE ==
[2017-04-21 06:29] VITALS: BMI 19.0
== END 2017-04-22 18:30 | disposition home or self-care (01) ==
LOC: D.ER 16:10
DX: Z03.89 Encounter for observation for other suspected diseases and conditions ruled out (principal)

== ENCOUNTER 2017-09-02 20:58 | Emergency (ER) | payer MEDICARE ==
[~2017-09-02] VITALS: Ht 157.5 cm; Wt 5.9 kg
[2017-09-02 21:00] VITALS: Ht 157.5 cm; Wt 5.9 kg
[2017-09-02] MEDS ORDERED: PACERONE200 MG PO (21:02)
[2017-09-02 21:49] LABS: BASOPHILS 0.3 % (0-2); EOSINOPHILS 17.4 % (0-7); HEMATOCRIT 40.1 % (36.0-48.0); HEMOGLOBIN 12.2 g/dL (12-16); IMMATURE GRANULOCYTES 0.1 % (0-5); LYMPHOCYTES 12.6 % (15-50); MCH 26.8 pg (26.0-34.0); MCHC 30.4 g/dL (31.0-37.0); MCV 88.1 fL (80.0-100.0); MONOCYTES 4.4 % (2-11); NEUTROPHILS 65.2 % (40-80); RBC 4.55 10x6/uL (4.00-5.40)
[2017-09-02 21:57] LABS: PLATELET COUNT 187 10x3/uL (130-400)
[2017-09-02 22:00] LABS: ALBUMIN 2.6 g/dL (3.4-5.0); ANION GAP 9.8 mmol/L (8-16); BILIRUBIN - TOTAL 0.31 mg/dL (0.2-1.3); CARBON DIOXIDE 32.4 mmol/L (21.0-32.0); CREATININE - SERUM 2.5 mg/dL (0.6-1.3); POTASSIUM - SERUM 4.2 mmol/L (3.5-5.1); PROTEIN - SERUM 6.4 g/dL (6.4-8.2)
[2017-09-02 22:11] LABS: TROPONIN-I 0.017 ng/mL (0.000-0.060)
[2017-09-02 22:55] LABS: MAGNESIUM - SERUM 1.9 mg/dL (1.8-2.4); THYROID STIMULATING HORMONE 4.85 uIU/mL (0.36-3.74)
[2017-09-02] MEDS ORDERED: SYNTHROID88 MCG PO (23:14)
[2017-09-03 00:43] VITALS: BP 110/70
== END 2017-09-03 00:41 | disposition home or self-care (01) ==
LOC: D.ER 20:58
PROVIDERS: Emergency Medicine
DX: R79.89 Other specified abnormal findings of blood chemistry (principal); R94.6 Abnormal results of thyroid function studies; E03.9 Hypothyroidism, unspecified; I12.9 Hypertensive chronic kidney disease with stage 1 through stage 4 chronic kidney disease, or unspecified chronic kidney disease; N18.9 Chronic kidney disease, unspecified; I50.9 Heart failure, unspecified; Z95.0 Presence of cardiac pacemaker

== ENCOUNTER 2017-09-07 14:53 | Inpatient (IN) | payer MEDICARE ==
[~2017-09-07] VITALS: Ht 157.5 cm; Wt 48.1 kg
--- NOTE | ~2017-09-07 | MORECARE ---
CASE MANAGEMENT DISCHARGE SUMMARY PATIENT: LILI DELUCA UNIT: [id number] ADM DATE: 09/07/17 AGE: 82 : 34 SEX: F ROOM/BED: D.[facility]6 AUTHOR: CASE, VENDOR QUALITY SUPERVISOR PHYSICIAN: REFERRING PHYSICIAN: RENATA MUNROE MD DATE OF SERVICE: 09/07/17 Discharge Plan Patient Name: LILI DELUCA Facility: [facility]:[place] : 1935 Planned Disposition: Nursing Facility DARIELA Cert Anticipated Discharge Date: 09/11/17 Discharge Date: Expected LOS: 4 Initial Reviewer: [email or web address] Initial Review Date: 09/11/2017 Generated: 09/11/17 2:08 pm Patient Name: LILI DELUCA Page [id number] All edits/amendments must be made on the electronic document DICTATION DATE: 09/11/17 1308 CANDY SUPERVISOR: 09/11/17 1308 RPT#: [id number] [place] DATE: STATUS: ADM IN [facility] [address] [place] [address] END OF REPORT
--- NOTE | ~2017-09-07 | CN ---
PATIENT NAME:LILI DELUCA MEDICAL RECORD: [id number] : [birth year] LOCATION:D.Oni D.2136 ADMIT DATE: 09/07/17 ACCOUNT: [id number] CONSULTING PHYSICIAN: ANNA AMOR MD REFERRING PHYSICIAN: RENATA MUNROE MD DATE OF CONSULTATION: 09/08/2017 HISTORY OF PRESENT ILLNESS: An 82-year-old female with a history of sick sinus syndrome, status post permanent pacemaker placement back in 2016, admitted with a clotted fistula, was found to be in atrial tachycardia, probably in atypical atrial flutter 4:1, occasionally pacing with appropriate sensing and capture. The patient is not a very good historian at this point. We are asked to see her concerning her cardiac arrhythmias. PAST MEDICAL HISTORY: 1. History of chronic renal insufficiency. 2. Hypothyroidism, on replacement. 3. Sick sinus syndrome, status post pacemaker placement as described above. MEDICATIONS: Include Synthroid 50 mcg every day, MiraLax 17 every day, Protonix 40 every day, amitriptyline 10 at bedtime, diltiazem 120 every day, Lanoxin 0.125 every other day, amiodarone 200 every day. SOCIAL HISTORY: Unobtainable due to the patient's factors. REVIEW OF SYSTEMS: Unobtainable due to the patient's factors. PHYSICAL EXAMINATION: GENERAL: , frail-appearing elderly female in no acute distress. VITAL SIGNS: Pulse is 70, blood pressure 178/99. HEENT: Normocephalic, atraumatic. NECK: No bruits noted. HEART: Regular currently. A II/ systolic ejection murmur. LUNGS: Good air excursion. ABDOMEN: Soft, nontender. EXTREMITIES: Pulses are decreased, 1+. There is no edema. DIAGNOSTIC DATA: Telemetry shows atrial tachycardia, probable atypical flutter 4:1. IMPRESSION: At this point in time, okay for a fistula revision if indicated. Pacemaker is functioning appropriately. Not a candidate for anticoagulation apparently. We will simplify medications, discontinue amiodarone, discontinue digoxin, increase baseline Cardizem. Hopefully, this will simplify meds and help to continue good rate control. TRANSINT:[id number] Voice Confirmation ID: [id number] DOCUMENT ID: [id number] CONSULT REPORT [id number] LILI DELUCA ANNA AMOR MD at 1116 CC: [id number] DICTATION DATE: 09/08/17 1604 BRICK TESTER: 09/08/17 1906 DIS IN 09/11/17 [id number] [place] [address]
--- NOTE | ~2017-09-07 | OP ---
PATIENT NAME: LILI DELUCA MEDICAL RECORD: [id number] :33 LOCATION:D.M2 D.2136 ADMISSION DATE:09/07/17 SURGEON: NAUN POTTS MD DATE OF OPERATION: 09/10/2017 PREOPERATIVE DIAGNOSES: End-stage renal disease, dependence on hemodialysis; and thrombosed left forearm PTFE loop AV graft, T82.591A. POSTOPERATIVE DIAGNOSES: End-stage renal disease, dependence on hemodialysis; and thrombosed left forearm PTFE loop AV graft, T82.591A. OPERATION PERFORMED: Implantation of an Acuseal 6-mm straight PTFE loop graft in the left upper arm from brachial artery to basilic vein and a venogram via the basilic vein. SURGEON: Naun Potts MD ANESTHESIA: General by LMA per GENETIC COUNSELLOR. REFERRING PHYSICIAN: Spencer Camp MD ATTENDING PHYSICIAN: Hubert Don MD PREOPERATIVE NOTE: Ms. Deluca is an 82-year-old demented white female, detention resident, with end-stage renal disease, on chronic hemodialysis with a left forearm PTFE loop AV graft. The graft has failed and she was found on recent angiography to have occlusion of the cephalic vein above that anastomosis, in the antecubital space without reconstitution. She is considered to be possibly a candidate for a revisionary operation if there is another vein in the vicinity to use for an outflow. Otherwise, she will need an upper arm AV graft. I brought her to the operating room yesterday. Due to time constraints, I was only able to place a percutaneous non-tunneled acute Trialysis dialysis catheter so that she can have dialysis. I think that she had dialysis instead this morning. Under general anesthesia in supine position, she was prepped and draped in sterile manner. I examined her with ultrasound after applying a Golden Eagle drain as a proximal venous tourniquet. I found a vein in the antecubital space actually lateral to the arterial anastomosis. I thought that might be possible to use for an outflow vein. I made a transverse antecubital incision and dissected in the area and found that there were no veins which I thought I could use for venous outflow of the graft, so we abandoned the forearm loop graft at that point. I made a longitudinal incision on the upper arm in medial aspect and exposed the proximal brachial artery and basilic vein. These vessels were controlled with Silastic loops as needed. I made a tunnel and then placed the Acuseal 6-mm straight PTFE graft in the tunnel, which looped from the upper arm incision down to the antecubital incision and then back up. The arterial anastomosis was done first. The artery was occluded and opened and then flushed with heparinized saline. The graft was shortened and beveled and anastomosed to the side of the artery with running 6-0 Prolene. The graft was flushed with heparinized saline and then shortened and beveled. The vein was occluded and opened and flushed proximally and distally with heparinized saline. The venous anastomosis was performed with running 6-0 Prolene. When completed and the occluding loops and clamps were released, excellent flow was established within the new AV graft. The wounds were irrigated with Ancef and gentamicin solution. OPERATIVE REPORT [id number] LILI DELUCA They were infiltrated with 0.25% Marcaine without epinephrine and closed with interrupted 3-0 Vicryl, running intracuticular 4-0 Monocryl, and Dermabond glue. They were further dressed with Maxorb Ag, Tegaderm, and Cavilon skin prep. There was about 10 cc of blood loss, none was replaced. All sponges, instruments, and needles were accounted for. No drain was used. PLAN: I would like to leave the temporary Trialysis catheter in place until Thursday or Thursday of next week, whichever is her dialysis day; and then begin to access the new Acuseal graft using Acuseal protocol. This of course can be started as an outpatient at [facility]. She can be discharged according to Dr. Don's judgment. TRANSINT:[id number] Voice Confirmation ID: [id number] DOCUMENT ID: [id number] NAUN POTTS MD at 1450 CC: HUBERT DON and KAEL MEHTA MD [id number] DICTATION DATE: 09/10/17 183 MUSEUM CURATOR: 09/10/17 1854 DIS IN 09/11/17 [facility] [address] [place] [address]
[~2017-09-07 14:53] MED LIST changes: +SYNTHROID88 MCG PO
[2017-09-07] MEDS ORDERED: SYNTHROID50 MCG PO (15:25)
[2017-09-07] MEDS ORDERED: ELAVIL10 MG PO (15:26)
[2017-09-07 15:39] LABS: BASOPHILS 0.8 % (0-2); EOSINOPHILS 13.9 % (0-7); HEMATOCRIT 44.2 % (36.0-48.0); HEMOGLOBIN 13.6 g/dL (12-16); IMMATURE GRANULOCYTES 0.3 % (0-5); LYMPHOCYTES 19.6 % (15-50); MCH 26.9 pg (26.0-34.0); MCHC 30.8 g/dL (31.0-37.0); MCV 87.5 fL (80.0-100.0); MEAN PLATELET VOLUME 10.4 fL (7.4-10.4); MONOCYTES 7.5 % (2-11); NEUTROPHILS 57.9 % (40-80); PLATELET COUNT 217 10x3/uL (130-400); RBC 5.05 10x6/uL (4.00-5.40); RDW 22.7 % (11.5-14.5); WBC 7.5 10x3/uL (4.8-10.8)
[2017-09-07 15:48] LABS: PROTIME 14.1 SECONDS (11.6-15.0)
[2017-09-07 15:49] LABS: INR 1.15 (0.85-1.17)
[2017-09-07 15:50] VITALS: BP 192/106; BMI 20.3
[2017-09-07 15:52] LABS: ANION GAP 7.4 mmol/L (8-16); CALCIUM 7.4 mg/dL (8.5-10.1); CARBON DIOXIDE 30.9 mmol/L (21.0-32.0); CREATININE - SERUM 4.3 mg/dL (0.6-1.3); PHOSPHOROUS 3.9 mg/dL (2.5-4.9); POTASSIUM - SERUM 4.3 mmol/L (3.5-5.1)
[2017-09-07 17:36] VITALS: BP 192/106
[2017-09-07 20:00] VITALS: BP 162/81
[2017-09-08 04:00] VITALS: BP 186/87
[2017-09-08 05:55] LABS: EOSINOPHILS 18.3 % (0-7); HEMATOCRIT 42.3 % (36.0-48.0); HEMOGLOBIN 13.3 g/dL (12-16); IMMATURE GRANULOCYTES 0.2 % (0-5); LYMPHOCYTES 20.4 % (15-50); MCHC 31.4 g/dL (31.0-37.0); MCV 85.8 fL (80.0-100.0); MEAN PLATELET VOLUME 10.9 fL (7.4-10.4); MONOCYTES 7.4 % (2-11); NEUTROPHILS 52.7 % (40-80); PLATELET COUNT 201 10x3/uL (130-400); RBC 4.93 10x6/uL (4.00-5.40); RDW 22.6 % (11.5-14.5); WBC 8.2 10x3/uL (4.8-10.8)
[2017-09-08 06:13] LABS: INR 1.24 (0.85-1.17); PROTIME 15.2 SECONDS (11.6-15.0)
[2017-09-08 06:20] LABS: ANION GAP 11.5 mmol/L (8-16); CALCIUM 7.3 mg/dL (8.5-10.1); CARBON DIOXIDE 26.1 mmol/L (21.0-32.0); CREATININE - SERUM 4.2 mg/dL (0.6-1.3); POTASSIUM - SERUM 4.6 mmol/L (3.5-5.1)
[2017-09-08 08:29] VITALS: BP 163/88
[2017-09-08 12:04] VITALS: BP 197/92
[2017-09-08 12:42] VITALS: Ht 157.5 cm; Wt 48.1 kg
[2017-09-08 15:30] VITALS: BP 178/99
[2017-09-08 20:00] VITALS: BP 179/89
[2017-09-09] VITALS: BP 138/59
[2017-09-09 04:00] VITALS: BP 145/70
[2017-09-09 09:28] LABS: BASOPHILS 0.6 % (0-2); EOSINOPHILS 14.6 % (0-7); HEMATOCRIT 43.3 % (36.0-48.0); HEMOGLOBIN 13.5 g/dL (12-16); IMMATURE GRANULOCYTES 0.3 % (0-5); LYMPHOCYTES 18.7 % (15-50); MCH 26.8 pg (26.0-34.0); MCHC 31.2 g/dL (31.0-37.0); MCV 85.9 fL (80.0-100.0); MEAN PLATELET VOLUME 10.7 fL (7.4-10.4); MONOCYTES 5.9 % (2-11); NEUTROPHILS 59.9 % (40-80); PLATELET COUNT 234 10x3/uL (130-400); RBC 5.04 10x6/uL (4.00-5.40); RDW 22.2 % (11.5-14.5)
[2017-09-09 09:30] LABS: ANION GAP 13.8 mmol/L (8-16); CALCIUM 7.2 mg/dL (8.5-10.1); CARBON DIOXIDE 23.9 mmol/L (21.0-32.0); CREATININE - SERUM 4.4 mg/dL (0.6-1.3); POTASSIUM - SERUM 4.7 mmol/L (3.5-5.1)
[2017-09-09 11:15] VITALS: BP 130/89
[2017-09-09 14:50] VITALS: BP 137/65
[2017-09-09 19:54] VITALS: BP 146/114
[2017-09-09 23:22] VITALS: BP 156/66
[2017-09-10 05:49] VITALS: BP 161/79
[2017-09-10 06:17] LABS: BASOPHILS 0.7 % (0-2); EOSINOPHILS 15.1 % (0-7); HEMATOCRIT 44.3 % (36.0-48.0); HEMOGLOBIN 13.9 g/dL (12-16); IMMATURE GRANULOCYTES 0.3 % (0-5); LYMPHOCYTES 18.9 % (15-50); MCHC 31.4 g/dL (31.0-37.0); MCV 86.2 fL (80.0-100.0); MEAN PLATELET VOLUME 10.2 fL (7.4-10.4); MONOCYTES 6.4 % (2-11); NEUTROPHILS 58.6 % (40-80); PLATELET COUNT 214 10x3/uL (130-400); RBC 5.14 10x6/uL (4.00-5.40); RDW 22.3 % (11.5-14.5); WBC 6.8 10x3/uL (4.8-10.8)
[2017-09-10 06:48] LABS: INR 1.21 (0.85-1.17); PROTIME 14.9 SECONDS (11.6-15.0)
[2017-09-10 06:53] LABS: ANION GAP 12.7 mmol/L (8-16); CARBON DIOXIDE 26.9 mmol/L (21.0-32.0); CREATININE - SERUM 4.8 mg/dL (0.6-1.3); POTASSIUM - SERUM 4.6 mmol/L (3.5-5.1)
[2017-09-10 07:08] LABS: CALCIUM 6.7 mg/dL (8.5-10.1)
[2017-09-10 09:51] VITALS: BP 137/70
[2017-09-10 18:35] VITALS: BP 138/84
[2017-09-10 18:55] VITALS: BP 152/71
[2017-09-10 20:33] VITALS: BP 152/71
[2017-09-11] VITALS: BP 133/55
[2017-09-11 05:36] VITALS: BP 136/45
[2017-09-11 08:19] VITALS: BP 144/53
[2017-09-11] MEDS ORDERED: CARDIZEM LA300 MG PO (12:48)
[2017-09-11 13:30] LABS: BASOPHILS 0.1 % (0-2); EOSINOPHILS 0 % (0-7); HEMATOCRIT 43.1 % (36.0-48.0); HEMOGLOBIN 13.8 g/dL (12-16); IMMATURE GRANULOCYTES 0.2 % (0-5); LYMPHOCYTES 6.8 % (15-50); MCH 27.3 pg (26.0-34.0); MCV 85.3 fL (80.0-100.0); MEAN PLATELET VOLUME 10.7 fL (7.4-10.4); MONOCYTES 5.4 % (2-11); NEUTROPHILS 87.5 % (40-80); PLATELET COUNT 244 10x3/uL (130-400); RBC 5.05 10x6/uL (4.00-5.40); RDW 22.5 % (11.5-14.5); WBC 13.8 10x3/uL (4.8-10.8)
[2017-09-11 13:39] LABS: ANION GAP 16.8 mmol/L (8-16); CALCIUM 7.7 mg/dL (8.5-10.1); CARBON DIOXIDE 27.4 mmol/L (21.0-32.0); CREATININE - SERUM 2.9 mg/dL (0.6-1.3); POTASSIUM - SERUM 4.2 mmol/L (3.5-5.1)
== END 2017-09-11 15:52 | DRG 264 ==
LOC: D.M2 14:53
PROVIDERS: Internal Medicine Nephrology; Surgery
PROC: 5A1D70Z Performance of Urinary Filtration, Intermittent, Less than 6 Hours Per Day (ICD-10-PCS; 2017-09-09)
PROC: B51N1ZZ Fluoroscopy of Left Upper Extremity Veins using Low Osmolar Contrast (ICD-10-PCS; 2017-09-10)
PROC: 03180JD Bypass Left Brachial Artery to Upper Arm Vein with Synthetic Substitute, Open Approach (ICD-10-PCS; principal; 2017-09-10 14:00)
DX: T82.858A Stenosis of other vascular prosthetic devices, implants and grafts, initial encounter (principal); N18.6 End stage renal disease; I12.0 Hypertensive chronic kidney disease with stage 5 chronic kidney disease or end stage renal disease; I48.92 Unspecified atrial flutter; I47.1 Supraventricular tachycardia; Y83.8 Other surgical procedures as the cause of abnormal reaction of the patient, or of later complication, without mention of misadventure at the time of the procedure; Z99.2 Dependence on renal dialysis; I25.10 Atherosclerotic heart disease of native coronary artery without angina pectoris; E03.9 Hypothyroidism, unspecified; Z95.0 Presence of cardiac pacemaker

== ENCOUNTER 2017-09-12 11:29 | Observation (INO) | payer MEDICARE ==
[~2017-09-12] VITALS: Ht 157.5 cm; Wt 50.5 kg
--- NOTE | ~2017-09-12 | MORECARE ---
CASE MANAGEMENT DISCHARGE SUMMARY PATIENT: LILI DELUCA UNIT: [id number] ADM DATE: 09/12/17 AGE: 82 : 34 SEX: F ROOM/BED: D.2139 AUTHOR: CASE, PEDIATRIC SPEECH LANGUAGE PATHOLOGIST PHYSICIAN: REFERRING PHYSICIAN: MONIKA DON MD DATE OF SERVICE: 09/12/17 Discharge Plan Patient Name: LILI DELUCA Facility: [facility]:[place] : 1935 Planned Disposition: Nursing Facility DARIELA Cert Anticipated Discharge Date: 09/13/17 Discharge Date: 09/13/2017 Expected LOS: 1 Initial Reviewer: [email or web address] Initial Review Date: 09/14/2017 Generated: 09/14/17 10:55 am Patient Name: LILI DELUCA Page [id number] All edits/amendments must be made on the electronic document DICTATION DATE: 09/14/17 0954 LICENSED PRACTICAL VOCATIONAL NURSE: 09/14/17 0954 RPT#: [id number] DC DATE:09/13/17 STATUS: DIS IN [facility] [address] [facility] [place] [address] END OF REPORT
[~2017-09-12 11:29] MED LIST changes: +CARDIZEM LA300 MG PO; +ELAVIL10 MG PO; +SYNTHROID50 MCG PO
[2017-09-12 12:38] LABS: BASOPHILS 0.6 % (0-2); HEMATOCRIT 37.5 % (36.0-48.0); HEMOGLOBIN 11.8 g/dL (12-16); IMMATURE GRANULOCYTES 0.3 % (0-5); LYMPHOCYTES 9.4 % (15-50); MCH 27.1 pg (26.0-34.0); MCHC 31.5 g/dL (31.0-37.0); MCV 86.2 fL (80.0-100.0); MEAN PLATELET VOLUME 10.2 fL (7.4-10.4); MONOCYTES 7.3 % (2-11); NEUTROPHILS 81.4 % (40-80); PLATELET COUNT 182 10x3/uL (130-400); RBC 4.35 10x6/uL (4.00-5.40); RDW 22.3 % (11.5-14.5); WBC 10.9 10x3/uL (4.8-10.8)
[2017-09-12 13:11] LABS: ANION GAP 14.6 mmol/L (8-16); BILIRUBIN - TOTAL 0.35 mg/dL (0.2-1.3); CARBON DIOXIDE 28.2 mmol/L (21.0-32.0); POTASSIUM - SERUM 4.8 mmol/L (3.5-5.1); PROTEIN - SERUM 6.6 g/dL (6.4-8.2)
[2017-09-12 13:12] LABS: CALCIUM 6.1 mg/dL (8.5-10.1)
[2017-09-12 16:30] VITALS: BP 151/60
[2017-09-12 17:30] VITALS: BP 151/69
[2017-09-13 01:15] VITALS: BP 149/62; BMI 20.3
[2017-09-13 04:30] VITALS: BP 148/53; BP 151/79
[2017-09-13 04:51] LABS: BASOPHILS 0.5 % (0-2); EOSINOPHILS 2.6 % (0-7); HEMATOCRIT 39.4 % (36.0-48.0); IMMATURE GRANULOCYTES 0.1 % (0-5); LYMPHOCYTES 12.1 % (15-50); MCH 26.4 pg (26.0-34.0); MCHC 30.5 g/dL (31.0-37.0); MCV 86.6 fL (80.0-100.0); MEAN PLATELET VOLUME 10.5 fL (7.4-10.4); MONOCYTES 7.4 % (2-11); NEUTROPHILS 77.3 % (40-80); PLATELET COUNT 192 10x3/uL (130-400); RBC 4.55 10x6/uL (4.00-5.40); RDW 22.3 % (11.5-14.5); WBC 8.4 10x3/uL (4.8-10.8)
[2017-09-13 05:13] LABS: ALBUMIN 2.8 g/dL (3.4-5.0); ANION GAP 14.8 mmol/L (8-16); BILIRUBIN - TOTAL 0.3 mg/dL (0.2-1.3); CARBON DIOXIDE 27.8 mmol/L (21.0-32.0); CREATININE - SERUM 6.1 mg/dL (0.6-1.3); POTASSIUM - SERUM 4.6 mmol/L (3.5-5.1); PROTEIN - SERUM 6.8 g/dL (6.4-8.2)
[2017-09-13 05:20] LABS: CALCIUM 5.9 mg/dL (8.5-10.1)
[2017-09-13 08:55] VITALS: BP 152/56
[2017-09-13 09:56] VITALS: Ht 157.5 cm; Wt 50.5 kg
[2017-09-13 13:25] VITALS: BP 157/54
[2017-09-13 16:11] VITALS: BP 156/57
[2017-09-13] MEDS ORDERED: ULTRAM50 MG PO (16:34)
== END 2017-09-13 18:15 ==
LOC: D.ER 11:29 → D.EDHOLD 15:55 → OBSVTIME 15:55 → D.M2 18:15
PROVIDERS: Family Medicine
DX: T82.848A Pain due to vascular prosthetic devices, implants and grafts, initial encounter (principal); Y83.8 Other surgical procedures as the cause of abnormal reaction of the patient, or of later complication, without mention of misadventure at the time of the procedure; I12.0 Hypertensive chronic kidney disease with stage 5 chronic kidney disease or end stage renal disease; N18.6 End stage renal disease; Z99.2 Dependence on renal dialysis; E03.9 Hypothyroidism, unspecified; I48.91 Unspecified atrial fibrillation; I87.2 Venous insufficiency (chronic) (peripheral)

== ENCOUNTER 2018-02-03 06:34 | Inpatient (IN) | payer MEDICARE ==
[2018-02-03] VITALS (24 sets, daily range): BP systolic 84–115; BP diastolic 59–88; BMI 22.3
[~2018-02-03] VITALS: Ht 157.5 cm; Wt 51.4 kg
[~2018-02-03 06:34] MED LIST changes: +ULTRAM50 MG PO
[2018-02-03 07:40] LABS: BASOPHILS 0.4 % (0-2); EOSINOPHILS 1.9 % (0-7); HEMATOCRIT 35.3 % (36.0-48.0); HEMOGLOBIN 11.9 g/dL (12-16); IMMATURE GRANULOCYTES 0.1 % (0-5); LYMPHOCYTES 20.8 % (15-50); MCHC 33.7 g/dL (31.0-37.0); MCV 94.9 fL (80.0-100.0); MEAN PLATELET VOLUME 10.3 fL (7.4-10.4); MONOCYTES 5.8 % (2-11); PLATELET COUNT 180 10x3/uL (130-400); RBC 3.72 10x6/uL (4.00-5.40); RDW 15.1 % (11.5-14.5); WBC 7.9 10x3/uL (4.8-10.8)
--- NOTE | 2018-02-03 07:56 | NUR ---
PT IS DRYHEAVING AT THIS TIME NEW ORDERS GIVEN
[2018-02-03 07:57] LABS: ALBUMIN 3.5 g/dL (3.4-5.0); ALKALINE PHOSPHATASE 104 U/L (46-116); ALT (SGPT) 29 U/L (10-68); BILIRUBIN - TOTAL 0.61 mg/dL (0.2-1.3); CALC OSMOLALITY 264 mosm/kg (275-300); CALCIUM 8.1 mg/dL (8.5-10.1); CARBON DIOXIDE 25.2 mmol/L (21.0-32.0); CHLORIDE - SERUM 88 mmol/L (98-107); CREATININE - SERUM 4.5 mg/dL (0.6-1.3); POTASSIUM - SERUM 4.6 mmol/L (3.5-5.1); PROTEIN - SERUM 7.6 g/dL (6.4-8.2); SODIUM 125 mmol/L (136-145); UREA NITROGEN 38 mg/dL (7-18); eGFR NON AFRICAN AMERICAN 10 mL/min (90-120)
[2018-02-03 07:59] LABS: GLUCOSE 164 mg/dL (74-106)
--- NOTE | 2018-02-03 08:08 | NUR ---
PT TRANSPORTED VIA STRETCHER TO CT.
[2018-02-03 08:11] LABS: CKMB 2.4 U/L (0.0-3.6); CREATINE KINASE 92 UL (21-215); LIPASE 71 U/L (73-393); THYROID STIMULATING HORMONE 5.97 uIU/mL (0.36-3.74); TROPONIN-I 0.017 ng/mL (0.000-0.060)
[2018-02-03 08:15] LABS: PRO BNP 76008 pg/mL (0-450)
--- NOTE | 2018-02-03 08:20 | NUR ---
CRITICAL LAB: LACTIC 2.4. CODY NARANJO. DR. GRIFFITHS NOTIFIED.
--- NOTE | 2018-02-03 08:25 | NUR ---
PT RETURNED FROM CT VIA STRETCHER. RESPIRATIONS EVEN AND NON-LABORED.
--- NOTE | 2018-02-03 10:54 | NUR ---
RECD PT TO ICU. ALL MONITORING EQUIPMENT ATTACHED AND ALARMS SET. PHONED DR UFLTON OFFICE AND REPORTED TIME OF ARRIVAL AND ROOM NO.
--- NOTE | 2018-02-03 15:07 | NUR ---
PT C/O NAUSEA. ZOFRAN GIVEN.
--- NOTE | 2018-02-03 16:14 | NUR ---
HR INCREASED TO 120BPM, RESP STATUS. PT CO SOB, SPO2 88%. DR DEUTSCH HERE. ABG'S ORDERED. INCREASED 02. WILL TITRATE.
--- NOTE | 2018-02-03 17:41 | NUR ---
PT INTUBATED BY DR LOMELI. 8.0 ETT. 21 LIP LINE. PLACEMENT VERIFIED BY AUSCULTATION BILAT LUNGS. CXR ORDERED. DR DEUTSCH HERE.
--- NOTE | 2018-02-03 17:43 | MORECARE ---
CASE MANAGEMENT DISCHARGE SUMMARY PATIENT: LILI DELUCA UNIT: [id number] ADM DATE: 02/03/18 AGE: 82 : 34 SEX: F ROOM/BED: D.2314 AUTHOR: ZOE MUELLER PHYSICIAN: REFERRING PHYSICIAN: JOEY DEUTSCH MD DATE OF SERVICE: 02/03/18 Discharge Plan Patient Name: LILI DELUCA Facility: [facility]:[place] : 1935 Planned Disposition: Anticipated Discharge Date: Discharge Date: Expected LOS: Initial Reviewer: [email or web address] Initial Review Date: 02/03/2018 Generated: 02/03/18 6:43 pm Patient Name: LILI DELUCA Page [id number] at 1743 All edits/amendments must be made on the electronic document DICTATION DATE: 02/03/181741 TAKER OFF HEMP FIBER: DAVIDA 02/03/181741 RPT#: [id number] ID DATE: STATUS: ADM IN [facility] [address] [place] [address] END OF REPORT
--- NOTE | 2018-02-03 17:48 | NUR ---
PT HYPOTENSIVE. LEVOPHED STARTED AND TITRATED ORDERED.
--- NOTE | 2018-02-03 19:00 | NUR ---
REPORT RECEIVED, SHIFT ASSESSMENT COMPLETE, PT IS SEDATED ON THE VENT, PM TO LEFT CHEST, ALL PPP, VSS, WILL CON'T TO MONITOR
--- NOTE | 2018-02-03 21:00 | NUR ---
NO VISITORS AT THIS TIME, WILL CON'T TO MONITOR
--- NOTE | 2018-02-03 23:20 | NUR ---
REASSESSMENT COMPLETE, NO CHANGES NOTED, PT REPOSITIONED FOR COMFORT, ORAL CARE PROVIDED, WILL CON'T TO MONITOR
[2018-02-04] VITALS (90 sets, daily range): BP systolic 61–130; BP diastolic 48–85; Ht 157.5 cm; Wt 51.4 kg
--- NOTE | 2018-02-04 01:10 | NUR ---
VENT ALARMING. ORAL CARE ADM. VSS. NO NEW CHANGES WILL CONTINUE TO MONITOR NEEDS MET
--- NOTE | 2018-02-04 03:23 | NUR ---
REASSESSMENT COMPLETE PER FLOW SHEET. VSS. NO NEW CHANGES WILL CONTINUE TO MONITOR
[2018-02-04 04:40] LABS: BASOPHILS 0.1 % (0-2); EOSINOPHILS 0.2 % (0-7); HEMATOCRIT 33.1 % (36.0-48.0); HEMOGLOBIN 11.5 g/dL (12-16); IMMATURE GRANULOCYTES 0.3 % (0-5); LYMPHOCYTES 9.5 % (15-50); MCH 31.8 pg (26.0-34.0); MCHC 34.7 g/dL (31.0-37.0); MONOCYTES 4.8 % (2-11); NEUTROPHILS 85.1 % (40-80); PLATELET COUNT 166 10x3/uL (130-400); RBC 3.62 10x6/uL (4.00-5.40)
[2018-02-04 04:50] LABS: MCV 91.4 fL (80.0-100.0)
[2018-02-04 05:15] LABS: CALCIUM 7.5 mg/dL (8.5-10.1); CREATININE - SERUM 5.1 mg/dL (0.6-1.3); TROPONIN-I 0.028 ng/mL (0.000-0.060); VANCOMYCIN - RANDOM 23.6 ug/mL (10.0-20.0)
[2018-02-04 05:16] LABS: ANION GAP 22.7 mmol/L (8-16); POTASSIUM - SERUM 5.7 mmol/L (3.5-5.1)
--- NOTE | 2018-02-04 05:52 | NUR ---
REPOSITIONED FOR COMFORT, ORAL CARE PROVIDED
--- NOTE | 2018-02-04 07:00 | NUR ---
TURNED LEVOPHED UP TO 6 MCG THIS MORNING ON ARRIVAL DUE TO SYSTOLIC BP 68. BP RESPONDED. HR ELEVATED TO 115--UNCHANGED FROM LASTNIGHT. 02 SAT 92%. ON 30% FI02. PATIENT SEDATED ON PROPOFOL INFUSING AT 10ML/HR. WILL CONTINUE TO MONITOR
--- NOTE | 2018-02-04 07:41 | NUR ---
SPOKE TO DR. PUGH FROM RADIOLOGY ABOUT CTA AND TOLD HIM DR. DEUTSCH WANTS HIM TO CALL HIM. WILL NOTIFY DIALYSIS TO DO DIALYSIS ON PATIENT TODAY
--- NOTE | 2018-02-04 07:53 | NUR ---
TAKING PATIENT TO RADIOLOGY AT THIS TIME
--- NOTE | 2018-02-04 08:15 | NUR ---
RETURNED FROM CT AT THIS TIME. NO COMPLICATIONS
--- NOTE | 2018-02-04 08:22 | NUR ---
PLACED BEAR HUGGER ON PATIENT FOR TEMPERATURE OF 96.7.
--- NOTE | 2018-02-04 08:43 | NUR ---
ECHO PERFORMED AT THIS TIME
--- NOTE | 2018-02-04 09:15 | NUR ---
TOOK PATIENT TO CT AT 0840. PORTABLE BP MONITOR FAILED TO TAKE BP BETWEEN 0840 AND 0915. PATIENT REMAINED STABLE AND BP UPON RETURN IS STABLE.
--- NOTE | 2018-02-04 09:59 | NUR ---
DR. VOGT DECIDED TO HOLD OFF ON PLATELETS FOR NOW DUE TO PREVIOUS HISTORY OF DVT AND PE.
--- NOTE | 2018-02-04 11:55 | NUR ---
NEOSYNEPHRINE DRIP STARTED AT THIS TIME AT TO MCG/MIN. LEVOPHED IS AT 5MCG. WILL TITRATE LEVOPHED DOWN TILL DC'D AND TITRATE NEOSYNEPHRINE UP TO COMPENSATE.
--- NOTE | 2018-02-04 12:26 | NUR ---
INCREASED PHENYLEPHRINE TO 30MCG/MIN. DECREASED LEVOPHED TO 4MCG/MIN. BP 101/45. HR 135.
--- NOTE | 2018-02-04 12:42 | NUR ---
TITRATED LEVOPHED DOWN TO 1MCG/MIN. NEOSYNEPHRINE AT 40MCG. BP STABLE AT 101 SYSTOLIC. HR STILL ELEVATED TO 134. 1/2 LITER HAS BEEN REMOVED SO FAR IN DIALYSIS TREATMENT. LUNG RUST SOUND CLEAR
--- NOTE | 2018-02-04 13:43 | NUR ---
STARTED NEPRO TUBE FEEDING AT 10CC/HR WITH 25CC FLUSH Q 4 HOURS. VERIFIED OGT PLACEMENT BY AUSCULTATION FIRST. STILL RECEIVING DIALYSIS. BP STABLE. HR 133. CLOSELY MONITORING.
--- NOTE | 2018-02-04 13:54 | NUR ---
DC'D LEVOPHED DRIP. NEOSYNEPHRINE DRIP TITRATED TO 60MCG/MIN TO COMPENSATE. BP 99/75. MAP 85. HR 134. DIALYSIS COMPLETE AT THIS TIME.
--- NOTE | 2018-02-04 15:07 | CN ---
PATIENT NAME:LILI DELUCA MEDICAL RECORD: [id number] : 33 LOCATION:[id number] ADMIT DATE: 02/03/18 ACCOUNT: [id number] CONSULTING PHYSICIAN: MARIELLA MUNOZ MD REFERRING PHYSICIAN: JOEY DEUTSCH MD DATE OF CONSULTATION: 02/03/2018 CONSULT REQUESTING PHYSICIANS: Joey Deutsch MD REASON FOR CONSULTATION: Acute respiratory failure, vent management. HISTORY OF PRESENT ILLNESS: Ms. Deluca is an 82-year-old female who was sent from dialysis to the ER with hypotension and generalized weakness. Workup showed that the patient is in pulmonary edema and bilateral pleural effusion. This afternoon, the patient went into respiratory distress and the patient was intubated. Now, the patient is intubated and sedated. The history was taken by talking to Dr. Deutsch as well as talking to the nursing staff and reviewing the patient's chart. REVIEW OF SYSTEMS: As in the history of present illness. PAST MEDICAL HISTORY: 1. End-stage renal disease. 2. Dementia. 3. Hypothyroidism. 4. Hypertension. 5. History of atrial fibrillation. 6. Gastroesophageal reflux disease. PAST SURGICAL HISTORY: 1. She is status post pacemaker placement. 2. Hemodialysis catheter placement. ALLERGIES: No known drug allergies. MEDICATIONS: In [place], is reviewed. PERSONAL AND SOCIAL HISTORY: The history of smoking and drinking is unknown. FAMILY HISTORY: Noncontributory. PHYSICAL EXAMINATION: GENERAL: Now, the patient is orally intubated and sedated. VITAL SIGNS: The blood pressure is 95-111/88, pulse is 106, respiration is 20, temperature is 97.7, SpO2 is 90% on assist control mechanical ventilation. HEENT: Conjunctivae are pink. Sclerae nonicteric. NECK: Supple. There is elevated JVD. CHEST: There are bilateral crackles. No wheezing. HEART: Rhythm regular, normal sound, no murmur. ABDOMEN: Soft, bowel sounds present. No hepatosplenomegaly. RECTAL: Deferred. EXTREMITIES: No cyanosis, no clubbing. There is 1+ pedal edema. CENTRAL NERVOUS SYSTEM: There are no obvious cranial nerve abnormalities. The patient is orally intubated and sedated. CONSULT REPORT [id number] LILI DELUCA LABORATORY DATA: CBC: WBC 7.9, hemoglobin 11.9, hematocrit 35.2, and the platelet count 180. Chemistry: Sodium 125, potassium 4.6, chloride 88, bicarbonate is 25.2, BUN is 38, creatinine 4.5. ABG: The pH is 7.26, pCO2 is 43.8, the pO2 is 60, and the bicarbonate is 19.7. IMPRESSION: 1. Acute hypoxic respiratory failure. 2. Pulmonary edema. 3. Bilateral pleural effusion. 4. Congestive heart failure, possible chronic diastolic dysfunction. 5. Fluid overload. 6. End-stage renal disease, on hemodialysis. 7. Mediastinal lymphadenopathy. RECOMMENDATIONS: 1. Continue mechanical ventilation to keep the peak airway pressure less than 40. 2. Start vent bundle, DVT and GI bleed prophylaxis. 4. Follow up labs and chest radiograph. 5. Follow up on cardiac enzymes. 6. Check the cardiac echo. 7. Hemodialysis per Dr. Deutsch. Dr. Deutsch, thank you for involving me in the care of Ms. Deluca. The critical care time is [address] Deutsch. TRANSINT:[id number] Voice Confirmation ID: [id number] DOCUMENT ID: [id number] MARIELLA MUNOZ MD at 1507 CC: [id number] DICTATION DATE: 02/03/181853 HEARING THERAPIST: 02/03/182157 ADM IN [place] [id number] [place] [id number]
--- NOTE | 2018-02-04 15:47 | NUR ---
OBTAINED ORDER FROM. DR. COREA FOR ONE TIME DOSE OF O.5 MG DIGOXIN TO TREAT HEART RATE OF 135.
--- NOTE | 2018-02-04 16:30 | NUR ---
PATIENTS GRAND DAUGHTER DENISHA CAME BY TO SEE PATIENT. GAVE UPDATE ON STATUS. CONFIRMED THAT SHE IS THE CLOSEST FAMILY MEMBER IN THE EVENT THAT A CHANGE IN CODE STATUS MAY BE APPROPRIATE AND SOMEONE NEEDS TO MAKE A A DECISION.
--- NOTE | 2018-02-04 17:15 | NUR ---
PAGED DR. COREA ABOUT HR STILL 130 AFTER DOSE OF DIGOXIN GIVEN
--- NOTE | 2018-02-04 17:43 | NUR ---
SPOKE TO DR. COREA ON PHONE. AT THIS TIME HEART IS HANGING AROUND 120--MORE IRREGULAR WITH FREQUENT PACED VENTRICLES. ALSO READ BACK EKG FROM 1100. NO ORDERS GIVEN. ST. SPANN NOT WORRIED ABOUT CURRENT STATUS.
--- NOTE | 2018-02-04 19:00 | NUR ---
RECEIVED PATIENT FROM DAY SHIFT RN. PT INTUBATED AND SEDATED. INITIAL SHIFT ASSESMENT COMPLETED, SEE FLOWSHEET.
--- NOTE | 2018-02-04 21:00 | NUR ---
NO NEW CHANGES NOTED. VSS. PATIENT APPEARS TO BE RESTING COMFORTABLY. PM MEDS GIVEN PER ORDER, SEE MAR. WILL MONITOR CLOSELY THROUGH OUT THE NIGHT.
--- NOTE | 2018-02-04 23:00 | NUR ---
SHIFT REASSESSMENT COMPLETED, SEE FLOWSHEET. WILL CTM.
[2018-02-05] VITALS (35 sets, daily range): BP systolic 99–149; BP diastolic 44–83
--- NOTE | 2018-02-05 01:00 | NUR ---
VSS. PATIENT APPEARS TO BE RESTING COMFORTABLY. TITRATING EDDI DRIP DOWN, TOLERATING WELL. WILL CTM.
--- NOTE | 2018-02-05 03:00 | NUR ---
SHIFT REASSESSMENT COMPLETED, SEE FLOWSHEET. VSS. NO ACUTE CHANGES NOTED. WILL CTM.
[2018-02-05 03:50] LABS: BASOPHILS 0.4 % (0-2); EOSINOPHILS 1.1 % (0-7); HEMATOCRIT 29.1 % (36.0-48.0); IMMATURE GRANULOCYTES 0.2 % (0-5); LYMPHOCYTES 16.1 % (15-50); MCH 31.8 pg (26.0-34.0); MCHC 34.4 g/dL (31.0-37.0); MCV 92.7 fL (80.0-100.0); MEAN PLATELET VOLUME 10.4 fL (7.4-10.4); MONOCYTES 4.9 % (2-11); NEUTROPHILS 77.3 % (40-80); RBC 3.14 10x6/uL (4.00-5.40); RDW 15.5 % (11.5-14.5)
[2018-02-05 03:51] LABS: PLATELET COUNT 112 10x3/uL (130-400); WBC 8.4 10x3/uL (4.8-10.8)
[2018-02-05 04:21] LABS: ANION GAP 17.3 mmol/L (8-16); CARBON DIOXIDE 23.3 mmol/L (21.0-32.0); CREATININE - SERUM 4.2 mg/dL (0.6-1.3); POTASSIUM - SERUM 3.6 mmol/L (3.5-5.1); VANCOMYCIN - RANDOM 16.7 ug/mL (10.0-20.0)
[2018-02-05 04:23] LABS: CALCIUM 6.9 mg/dL (8.5-10.1); TROPONIN-I 0.065 ng/mL (0.000-0.060)
--- NOTE | 2018-02-05 05:00 | NUR ---
PATIENT WITH LARGE BM, LOOSE GREENISH BROWN. COMPLETE BED BATH WITH LINEN CHANGE GIVEN. PATIENT TOLERATED WELL. VSS. NO ACUTE CHANGES NOTED. WILL CTM.
--- NOTE | 2018-02-05 07:00 | NUR ---
PATIENT RESTING IN BED SEDATED ON DIPRIVAN AT 45 MCG. ON VENTILATOR TO PRESCRIBED SETTINGS. HR WNL. RHYTHM IS VENTRICULARLY PACED. BP WNL. LUNG RUST CLEAR AND DIMINISHED IN LOWER LOBES. WILL CONTINUE TO MONITOR
--- NOTE | 2018-02-05 09:00 | NUR ---
PATIENT HAD LARGE LOOSE BM. CLEANED AND CHANGED PATIENT PADS. PULLED UP IN BED AND TURNED TO RIGHT SIDE. VSS. WILL CONTINUE TO MONITOR
--- NOTE | 2018-02-05 10:11 | NUR ---
PAGED DR. COREA ABOUT ST CHANGES ON EKG
--- NOTE | 2018-02-05 10:14 | NUR ---
SPOKE TO DR. COREA ON PHONE ABOUT ST CHANGES AND ELEVATED TROPONIN. WAS NOT CONCERNED. NO ORDERS GIVEN. WILL CONTINUE TO MONITOR.
--- NOTE | 2018-02-05 12:58 | NUR ---
PATIENT RESTING IN BED SEDATED ON DIPRIVAN AT 35MCG. HR 99. BP STABLE. O2 SAT 99 ON 30% FI02. SUCTIONED PATIENT ET NEEDED. SECRETIONS ARE CLEAR. LINENS ARE CLEAN AND DRY. WILL CONTINUE TO MONITOR
--- NOTE | 2018-02-05 15:45 | NUR ---
PATIENT HAD INCONTINENT BM. CLEANED, CHANGED, AND TURNED TO RIGHT SIDE. VSS. WILL CONTINUE TO MONITOR
--- NOTE | 2018-02-05 17:04 | NUR ---
DR. LEE REMOVED CHEST TUBE AT THIS TIME. NURSE ASSISTED. DID NOT GIVE INSTRUCTIONS ON HOW TO CHANGE DRESSING ON LEG.
--- NOTE | 2018-02-05 19:25 | NUR ---
REPORT RECIEVED, SHIFT ASSESSMENT COMPLETE, PLEASE SEE FLOW SHEETS FOR DETAILS. ON VENT AND SEDATED. WITHDRAWLS FROM PAINFUL STIMULI, DOES NOT OPEN EYES OR FOLLOW COMMANDS. SEE FLOW SHEETS FOR VENT SETTINGS. HR IRREGULAR, 85 AND PACED. PPP. EXTREME VERICOSE VEINS IN LE. LUMP ON RIGHT LEG NOTED, NO REDNESS, RESPONSE FROM PALPATION. RIGHT IJ CVL DRESSING CDI, SEE FLOW SHEETS FOR IVF. VSS ATT, BED LOW AND LOCKED, RESTRAINTS CHECKED. TURNING AND ORAL CARE PROVIDED. WILL CPOC.
--- NOTE | 2018-02-05 21:00 | NUR ---
ORAL CARE AND TURNING PROVIDED. TOLERATED WELL. GAG REFLEX NOTED. RESIDUAL CHECKED YEILDED 0 ML. FLUSHED TUBING WITH 20ML WATER. VSS ATT, BED LOW AND LOCKED, RESTRAINTS CHECKED. WILL CPOC.
--- NOTE | 2018-02-05 23:00 | NUR ---
REASSESSMENT COMPLETE, PLEASE SEE FLOW SHEETS FOR DETAILS. NO ACUTE CHANGES FROM PREVIOUS ASSESSMENT TO NOTE. ORAL CARE AND TURNING PROVIDED. RESTRAINTS CHECKED. VSS, BED LOW AND LOCKED. WILL CPOC.
[2018-02-06] VITALS (24 sets, daily range): BP systolic 118–170; BP diastolic 56–78
--- NOTE | 2018-02-06 01:00 | NUR ---
ORAL CARE, TURNING AND CAUSEY CARE PROVIDED. RESTRAINTS CHECKED. VSS, BED LOW AND LOCKED, CALL LIGHT IN REACH. WILL CPOC.
--- NOTE | 2018-02-06 01:00 | NUR ---
ORAL CARE AND TURNING PROVIDED. TOLERATED WELL. NEW TF SYSTEM PUT UP. TOLERATING TF WELL. VSS, BED LOW AND LOCKED, RESTRAINTS CHECKED. WILL CPOC.
--- NOTE | 2018-02-06 03:00 | NUR ---
REASSESSMENT COMPLETE, PLEASE SEE FLOW SHEETS FOR DETAILS. NO ACUTE CHANGES FROM PREVIOUS ASSESSMENT TO NOTE. ORAL CARE AND TURNING PROVIDED. VSS, RESTRAINTS CHECKED. BED LOW AND LOCKED. WILL CPOC.
--- NOTE | 2018-02-06 05:00 | NUR ---
ORAL CARE AND TURNING PROVIDED. TOLERATED WELL. NO ACUTE DISTRESS TO NOTE. VSS, BED LOW AND LOCKED, RESTRAITNS CHECKED. WILL CPOC.
[2018-02-06 05:44] LABS: BASOPHILS 0.3 % (0-2); EOSINOPHILS 3.7 % (0-7); HEMATOCRIT 27.3 % (36.0-48.0); HEMOGLOBIN 9.3 g/dL (12-16); IMMATURE GRANULOCYTES 0.3 % (0-5); LYMPHOCYTES 9.3 % (15-50); MCHC 34.1 g/dL (31.0-37.0); MCV 93.8 fL (80.0-100.0); MEAN PLATELET VOLUME 10.6 fL (7.4-10.4); MONOCYTES 6.7 % (2-11); NEUTROPHILS 79.7 % (40-80); PLATELET COUNT 101 10x3/uL (130-400); RBC 2.91 10x6/uL (4.00-5.40); RDW 15.6 % (11.5-14.5); WBC 7.6 10x3/uL (4.8-10.8)
[2018-02-06 06:23] LABS: ANION GAP 15.6 mmol/L (8-16); CARBON DIOXIDE 21.8 mmol/L (21.0-32.0); CREATININE - SERUM 4.8 mg/dL (0.6-1.3); POTASSIUM - SERUM 3.4 mmol/L (3.5-5.1); VANCOMYCIN - RANDOM 28.2 ug/mL (10.0-20.0)
[2018-02-06 06:25] LABS: TROPONIN-I 0.07 ng/mL (0.000-0.060)
--- NOTE | 2018-02-06 07:54 | NUR ---
LYING IN BED ON VENT AT THIS TIME. NO ACUTE DISTRESS NOTED. PT NOT FOLLOWING COMMANDS. TURNED Q2H. OGT RESIDUALS NOTED AT 5ML. PLACEMENT VERIFIED VIA AUSCULTATION. WILL CONTINUE PLAN OF CARE.
--- NOTE | 2018-02-06 09:33 | NUR ---
SPOKE WITH RENAL SHOE SHINER REGARDING PT LABS SUCH LOW SODIUM AND LOW POTASSIUM. STATED WILL PLACE ORDERS. NO ACUTE DISTRESS NOTED AT THIS TIME. TURNED Q2H. WILL CONTINUE PLAN OF CARE.
[2018-02-06 11:09] LABS: HEPATITIS C ANTIBODY <0.1 (0.0-0.9)
--- NOTE | 2018-02-06 11:52 | NUR ---
SEDATIONS PAUSED AT THIS TIME. PT NOTED TO OPEN EYES AND MOVE EXTREMITIES, BUT NOT FOLLOW COMMANDS. NO ACUTE DISTRESS NOTED. WILL CONTINUE PLAN OF CARE.
--- NOTE | 2018-02-06 13:17 | NUR ---
NO ACUTE DISTRESS NOTED. SEDATION PAUSED FOR PT TO CPAP. PT MOVES EXTREMITIES AND OPENS EYES, DOES NOT CURRENTLY FOLLOW COMMANDS. TURNED Q2H. WILL CONITNUE PLAN OF CARE.
--- NOTE | 2018-02-06 14:01 | NUR ---
LARGE BOWEL MOVEMENT AT THIS TIME, LIQUID BROWN WITH MUCOUS. CDT SPECIEMEN COLLECTED AND SENT TO LAB. ALSO RECTAL TUBE PLACED AT THIS TIME TO PRESERVE SKIN INTEGRITY WELL TO KEEP RT GROIN CVL FROM CONTAMINATION. PT TURNED Q2H. BED ALARM ON. NO ACUTE DISTRESS NOTED. WILL CONTINUE PLAN OF CARE.
--- NOTE | 2018-02-06 16:20 | NUR ---
NO ACUTE DISTRESS NOTED. NO CHANGE. PT TURNED Q2H. BED ALARM ON. WILL CONTINUE PLAN OF CARE.
--- NOTE | 2018-02-06 17:37 | NUR ---
VISITORS HERE, RECIEVED CONTACT INFORMATION REGARDING FAMILY. NO ACUTE DISTRESS NOTED. PT RECIEVING DIALYSIS. WILL CONTINUE PLAN OF CARE.
--- NOTE | 2018-02-06 19:10 | NUR ---
REPORT RECIEVED, SHIFT ASSESSMENT COMPLETE, PLEASE SEE FLOW SHEETS FOR DETAILS. PATIENT SEDATED AND ON VENT. RECIEVING HD ATT, GOT UPDATE FROM HD NURSE, PATIENT BP LOW BUT STABLE. PAGED SINUS RHYTHM WITH BBB ON CM. PPP. LUNGS CLEAR. BS ACTIVE. RECTAL TUBE IN PLACE. VSS, BED LOW AND LOCKED, RESTRAINTS CHECKED, WILL CPOC.
--- NOTE | 2018-02-06 21:00 | NUR ---
ORAL CARE AND TURNING PROVIDED. VSS, BED LOW AND LOCKED, RESTRAINTS CHECKED, WILL CPOC.
--- NOTE | 2018-02-06 22:00 | NUR ---
URINE INCONTINENCE CLEANED UP, PARTIAL LINEN CHANGE PROVIDED. TOLERATED WELL, WILL CPOC.
--- NOTE | 2018-02-06 23:00 | NUR ---
REASSESSMENT COMPLETE, PLEASE SEE FLOW SHEETS FOR DETAILS. NO ACUTE CHANGES FROM PREVIOUS ASSESSMENT TO NOTE. ORAL CARE AND TURNING PROVIDED. VSS, BED LOW AND LOCKED, RESTRAINTS CHECKED. RESIDUAL CHECK YEILDED 0ML. WILL CPOC.
[2018-02-07] VITALS (25 sets, daily range): BP systolic 124–175; BP diastolic 57–78
--- NOTE | 2018-02-07 01:00 | NUR ---
ORAL CARE AND TURNING PROVIDED. TOLERATED WELL. VSS, BED LOW AND LOCKED, RESTRAINTS CHECKED. WILL CPOC.
--- NOTE | 2018-02-07 03:00 | NUR ---
REASSESSMENT COMPLETE, PLEASE SEE FLOW SHEETS FOR DETAILS. NO ACUTE CHANGES FROM PREVIOUS ASSESSMENT TO NOTE. ORAL CARE AND TURNING PROVIDED. VSS, BED LOW AND LOCKED, RESTRAINTS CHECKED. WILL CPOC.
[2018-02-07 03:52] LABS: BASOPHILS 0.1 % (0-2); EOSINOPHILS 8.1 % (0-7); HEMATOCRIT 29.7 % (36.0-48.0); IMMATURE GRANULOCYTES 0.3 % (0-5); LYMPHOCYTES 8.5 % (15-50); MCH 31.6 pg (26.0-34.0); MCHC 33.7 g/dL (31.0-37.0); MEAN PLATELET VOLUME 10.2 fL (7.4-10.4); MONOCYTES 8.2 % (2-11); NEUTROPHILS 74.8 % (40-80); PLATELET COUNT 110 10x3/uL (130-400); RBC 3.16 10x6/uL (4.00-5.40); RDW 15.5 % (11.5-14.5); WBC 7.8 10x3/uL (4.8-10.8)
[2018-02-07 04:18] LABS: ANION GAP 13.7 mmol/L (8-16); CALCIUM 7.3 mg/dL (8.5-10.1); CARBON DIOXIDE 25.7 mmol/L (21.0-32.0); CREATININE - SERUM 3.5 mg/dL (0.6-1.3); POTASSIUM - SERUM 3.4 mmol/L (3.5-5.1); VANCOMYCIN - RANDOM 22.1 ug/mL (10.0-20.0)
--- NOTE | 2018-02-07 05:00 | NUR ---
ORAL CARE AND TURNING PROVIDED. VSS, BED LOW AND LOCKED, RESTRAINTS CHECKED. WILL CPOC.
--- NOTE | 2018-02-07 07:19 | NUR ---
LYING IN BED ON VENT AT THIS TIME. NO ACUTE DISTRESS NOTED. PT DOES NOT FOLLOW COMMANDS, HOWEVER MOVES EXTREMITIES AT TIMES. TURNED Q2H. RESIDUAL TO OGT NOTED AT 10ML. WILL CONTINUE PLAN OF CARE.
--- NOTE | 2018-02-07 09:19 | NUR ---
NO ACUTE DISTRESS NOTED AT THIS TIME. PT CALM ON VENT. TURNED Q2H. WILL CONTINUE PLAN OF CARE.
--- NOTE | 2018-02-07 10:04 | NUR ---
SEDATION TURNED DOWN FOR CPAP TRIAL
--- NOTE | 2018-02-07 11:00 | NUR ---
SEDATION PAUSED FOR CPAP TRIAL. PT CALM. NO ACUTE DISTRESS NOTED. WILL CONTINUE PLAN OF CARE.
--- NOTE | 2018-02-07 12:16 | NUR ---
NO ACUTE DISTRESS NOTED AT THIS TIME. PT CALM WITH SEDATION PAUSED ON CPAP AT THIS TIME. TURNED Q2H. WILL CONTINUE PLAN OF CARE.
--- NOTE | 2018-02-07 14:56 | NUR ---
RT EXTUBATED TO NC
--- NOTE | 2018-02-07 16:15 | NUR ---
SPOKE WITH PTS AMARIS, UPDATES GIVEN. NO ACUTE DISTRESS NOTED. WILL CONTINUE PLAN OF CARE.
--- NOTE | 2018-02-07 16:47 | NUR ---
RECTAL TUBE DC AT THIS TIME. FORMED STOOL NOTED AROUND OUTSIDE OF RECTAL TUBE, THEREFORE TUBE DC. AFTER TUBE DC, MEDIUM SIZED LIQUID BROWN STOOL NOTED. TOTAL LINEN CHANGE PROVIDED ALONG WITH FERN CARE. PT TURNED Q2H. PT STILL NOT FOLLOWING COMMANDS RESPONDS TO DISCOMFORT. OXYGEN SATURATION AT 99% AT 2L O2. NO ACUTE DISTRESS NOTED. WILL CONTINUE PLAN OF CARE.
--- NOTE | 2018-02-07 17:07 | NUR ---
SPOKE WITH PTS AMARIS REGARDING PT NOT FOLLOWING COMMANDS, SHE STATED HER BROTHER WILL BE BY LATER TO SEE PT AND SPEAK WITH HER, "PT SPEAKS BHUTANESE" ALSO STATED PT MIGHT BE SCARED WHICH IS ANOTHER REASON WHY PT IS NOT CURRENTLY RESPONDING TO STAFF. NO ACUTE DISTRESS NOTED. WILL CONTINUE PLAN OF CARE.
--- NOTE | 2018-02-07 17:42 | NUR ---
SBP TRENDING [address] DEUTSCH PAGED FOR FURTHER ORDERS.
--- NOTE | 2018-02-07 18:00 | NUR ---
SPOKE WITH DR DEUTSCH REGARDING HTN. ORDERS RECIEVED.
--- NOTE | 2018-02-07 18:35 | NUR ---
ATTEMPTED TO GIVE PT ORDERED NORVASC 5MG PO ORDERED BY PHYSICIAN, BEFORE ADMIN ATTEMPTED TO GIVE PT DRINK OF WATER TO SEE IF COULD TOLERATE PO MEDS. PT REFUSED ANYTHING PO, TURNED FACE AWAY FROM DRINK AND PUSHED IT AWAY ON MULTIPLE ATTEMPTS. ATTEMPTED TO EXPLAIN TO PT WHAT WAS GOING ON AND THAT SHE NEEDED MEDICATION FOR HIGH BLOOD PRESSURE, PT STILL REFUSED. WILL ATTEMPT TO OFFER AGAIN LATER.
--- NOTE | 2018-02-07 19:05 | NUR ---
DR DEUTSCH IN UNIT TO SEE PT, NOTIFIED THAT PT REFUSED ORDER FOR NORVASC, NEW ORDERS RECIEVED.
--- NOTE | 2018-02-07 19:20 | NUR ---
Received patient resting in bed with eyes closed, assessment completed per flowsheet. Patient speaks Gabonese as [place] language, no response to liberian. Blood collected for STAT labs, sent for testing. Attempted to reposition, patient attempted to push away and withdraws from touch. No further needs at this time, see flowsheet for details. All VSS and will continue close monitoring.
--- NOTE | 2018-02-07 19:40 | NUR ---
Inspector Technician notified of need for medication override, will administer when available.
--- NOTE | 2018-02-07 21:10 | NUR ---
Patient resting in bed with eyes closed, no s/s of distress at this time. Repositioned with patient displaying weak movements, all VSS and will continue to monitor.
--- NOTE | 2018-02-07 22:00 | NUR ---
Catapres Patch placed R upper arm, will continue to monitor.
--- NOTE | 2018-02-07 23:10 | NUR ---
Reassessment completed per flowsheet, patient resting in bed with eyes closed. Repositioned for comfort, arouses to voice with no verbal response. No further needs at this time, see flowsheet for details. All VSS and will continue to monitor.
[2018-02-08] VITALS (15 sets, daily range): BP systolic 147–179; BP diastolic 62–87
--- NOTE | 2018-02-08 01:10 | NUR ---
Patient resting in bed with eyes closed, no s/s of distress at this time. Repositioned for comfort, all VSS and will continue to monitor.
--- NOTE | 2018-02-08 03:10 | NUR ---
Reassessment completed per flowsheet, no changes from previous assessment. Patient does not follow instructions, no verbal response to questions. Repositioned for comfort, patient does not cooperate with movement/nursing care. No further needs at this time, see flowsheet for details. All VSS and will continue to monitor.
[2018-02-08 05:05] LABS: BASOPHILS 0.4 % (0-2); EOSINOPHILS 9.3 % (0-7); HEMATOCRIT 31.7 % (36.0-48.0); HEMOGLOBIN 10.5 g/dL (12-16); IMMATURE GRANULOCYTES 0.3 % (0-5); LYMPHOCYTES 10.8 % (15-50); MCH 31.9 pg (26.0-34.0); MCHC 33.1 g/dL (31.0-37.0); MEAN PLATELET VOLUME 10.2 fL (7.4-10.4); MONOCYTES 7.5 % (2-11); NEUTROPHILS 71.7 % (40-80); RBC 3.29 10x6/uL (4.00-5.40); RDW 15.7 % (11.5-14.5); WBC 8.9 10x3/uL (4.8-10.8)
[2018-02-08 05:23] LABS: ANION GAP 15.9 mmol/L (8-16); CALCIUM 8.1 mg/dL (8.5-10.1); CARBON DIOXIDE 25.3 mmol/L (21.0-32.0); POTASSIUM - SERUM 4.2 mmol/L (3.5-5.1); VANCOMYCIN - RANDOM 19.9 ug/mL (10.0-20.0)
[2018-02-08 05:27] LABS: MCV 96.4 fL (80.0-100.0); PLATELET COUNT 136 10x3/uL (130-400)
[2018-02-08 05:31] LABS: CREATININE - SERUM 4.5 mg/dL (0.6-1.3)
--- NOTE | 2018-02-08 07:21 | NUR ---
REPORT RECEIVED. ASSESSMENT COMPLETE PER FLOW SHEET. VSS. PT RESTING COMFORTABLY WILL CONTINUE TO MONITOR
--- NOTE | 2018-02-08 09:20 | NUR ---
DIALYSIS AT BEDSIDE.
--- NOTE | 2018-02-08 11:51 | NUR ---
REASSESSMENT COMPLET EPER FLOW SHEET. VSS NO NEW CHANGES WILL CONTINUE TO MONITOR
--- NOTE | 2018-02-08 13:38 | NUR ---
Nutrition Follow Up: Chart reviewed and spoke with nursing. Per MD pt to have ROTARY SHEAR CUTTER eval prior to diet advancement. Noted Diprivan and TF are currently turned off. BM: 02/07/18 I>O Wt stable Labs and meds reviewed Rec advancing EMILEE as soon as medically feasible. RD will continue to monitor pt progress.
--- NOTE | 2018-02-08 13:40 | NUR ---
FAMILY AT BEDSIDE. UPDATE GIVEN.
--- NOTE | 2018-02-08 14:48 | MORECARE ---
CASE MANAGEMENT DISCHARGE SUMMARY PATIENT: LILI DELUCA UNIT: [id number] ADM DATE: 02/03/18 AGE: 82 : 34 SEX: F ROOM/BED: D.2314 AUTHOR: ZOE MUELLER PHYSICIAN: REFERRING PHYSICIAN: JOEY DEUTSCH MD DATE OF SERVICE: 02/08/18 Discharge Plan Patient Name: LILI DELUCA Facility: [facility]:[place] : 1935 Planned Disposition: Detention Facility Anticipated Discharge Date: Discharge Date: Expected LOS: Initial Reviewer: [email or web address] Initial Review Date: 02/03/2018 Generated: 02/08/18 3:48 pm DCPIA - Discharge Planning Initial Assessment Updated by [email or web address]: Fatou Zepeda on 02/08/18 2:46 pm * Is the patient Alert and Oriented? Yes * PCP [facility] * Pharmacy [place] * Preadmission Environment [facility] * ADLs Partial Dependent * List name and contact numbers for known caregivers / representatives who currently or will assist patient after discharge: Halle Bartongrand-daughter [phone] * Verbal permission to speak to the caregivers and representatives has been obtained from the patient. N/A * Community resources currently utilized None * Please name any agencies selected above. Hemodialysis MWF * Additional services required to return to the preadmission environment? No * Can the patient safely return to the preadmission environment? Yes * Has this patient been hospitalized within the prior 30 days at any hospital? No Last DP export: 02/03/18 4:43 Patient Name: LILI DELUCA Page [phone] at 1448 All edits/amendments must be made on the electronic document DICTATION DATE: 02/08/181447 RAISIN SEPARATOR OPERATOR: DAVIDA 02/08/181447 RPT#: [id number] DC DATE: STATUS: ADM IN [facility] [address] [place] [address] END OF REPORT
--- NOTE | 2018-02-08 15:04 | MORECARE ---
CASE MANAGEMENT DISCHARGE SUMMARY PATIENT: LILI DELUCA UNIT: [id number] ADM DATE: 02/03/18 AGE: 82 : 34 SEX: F ROOM/BED: D.2314 AUTHOR: AMI,DOC PHYSICIAN: REFERRING PHYSICIAN: JOEY DEUTSCH MD DATE OF SERVICE: 02/08/18 Discharge Plan Patient Name: LILI DELUCA Facility: [facility]:[place] : 1935 Planned Disposition: Alf Facility Anticipated Discharge Date: Discharge Date: Expected LOS: Initial Reviewer: [email or web address] Initial Review Date: 02/03/2018 Generated: 02/08/18 4:04 pm Comments DCP- Discharge Planning Updated by [email or web address]: Fatou Zepeda on 02/08/18 1:[address] Patient Name: LILI DELUCA Admission Status: ER Accout number: [id number] Admission Date: 02-03-2018 : 1935 Admission Diagnosis:SEPSIS, UNSPECIFIED ORGANISM Attending: JOEY DEUTSCH Current LOS: 5 Anticipated DC Date: Planned Disposition: Alf Facility Primary Insurance: MEDICARE A & B Discharge Planning Comments: CM met with granddaughter at patient bedside. Patient doesn't speak Bruneian. Granddaughter Halle [phone] stated the patient lives at [facility] and plans on returning after discharge. Patient has dialysis MWF. Halle denies any discharge needs at this time. CM will continue to follow and assist with discharge planning / needs Insurance Counselor: Fatou Zepeda DCPIA - Discharge Planning Initial Assessment Updated by [email or web address]: Fatou Zepeda on 02/08/18 2:46 pm * Is the patient Alert and Oriented? Yes * PCP [facility] * Pharmacy [place] * Preadmission Environment [facility] * ADLs Partial Dependent * List name and contact numbers for known caregivers / representatives who currently or will assist patient after discharge: Halle Mayorga -grand-daughter [phone] * Verbal permission to speak to the caregivers and representatives has been obtained from the patient. N/A * Community resources currently utilized None * Please name any agencies selected above. Hemodialysis MWF * Additional services required to return to the preadmission environment? No * Can the patient safely return to the preadmission environment? Yes * Has this patient been hospitalized within the prior 30 days at any hospital? No Last DP export: 02/08/18 1:48 Patient Name: LILI DELUCA Page [id number] at 1504 All edits/amendments must be made on the electronic document DICTATION DATE: 02/08/181503 CONSTRUCTION SUPERVISOR: DAVIDA 02/08/181503 RPT#: [id number] DC DATE: STATUS: ADM IN [facility] [address] [place] [address] END OF REPORT
--- NOTE | 2018-02-08 15:17 | NUR ---
COMPLETE BB LINEN CHANGE ADM
--- NOTE | 2018-02-08 17:03 | NUR ---
PT RESTING COMFORTABLY VSS NON EW CHANGES. CALLED TO GIVE REPORT PT ROOM STILL DIRTY
--- NOTE | 2018-02-08 19:31 | NUR ---
ICU TRANFER, BED IS LOW, SRX3, CALL LIGHT IN REACH, WILL CONTINUE PLAN OF CARE
[2018-02-09] VITALS: BP 150/64
--- NOTE | 2018-02-09 02:20 | NUR ---
SLEEPING NO DISTRESS NOTICED, CALL LIGHT IN REACH
[2018-02-09 03:05] LABS: BASOPHILS 0.4 % (0-2); EOSINOPHILS 7.9 % (0-7); HEMOGLOBIN 10.7 g/dL (12-16); IMMATURE GRANULOCYTES 0.6 % (0-5); LYMPHOCYTES 11.9 % (15-50); MCH 32.5 pg (26.0-34.0); MCHC 33.4 g/dL (31.0-37.0); MCV 97.3 fL (80.0-100.0); MEAN PLATELET VOLUME 9.8 fL (7.4-10.4); NEUTROPHILS 70.2 % (40-80); PLATELET COUNT 140 10x3/uL (130-400); RBC 3.29 10x6/uL (4.00-5.40); RDW 15.6 % (11.5-14.5); WBC 8.1 10x3/uL (4.8-10.8)
[2018-02-09 03:28] LABS: ANION GAP 17.1 mmol/L (8-16); CALCIUM 8.3 mg/dL (8.5-10.1); CARBON DIOXIDE 25.8 mmol/L (21.0-32.0); CREATININE - SERUM 3.4 mg/dL (0.6-1.3); DIGOXIN 2.42 ng/mL (0.90-2.00); POTASSIUM - SERUM 3.9 mmol/L (3.5-5.1); VANCOMYCIN - RANDOM 25.9 ug/mL (10.0-20.0)
--- NOTE | 2018-02-09 03:59 | NUR ---
[id number] SOME APPLEJUCIE
[2018-02-09 04:00] VITALS: BP 120/68
--- NOTE | 2018-02-09 07:10 | NUR ---
REPORT RECIEVED FROM SAMPLE PREPARATION SUPERVISOR. PATIENT LAYING IN BED WITH EYES CLOSED AND BREATHING EVENLY. AROUSES TO VOICE. DOES NOT ANSWER ANY QUESTIONS. TAKES ORAL MEDS WITHOUT DIFFICULTY. SR UP X 2 CALL LIGHT IN REACH AND BED IN LOW POSITON. WILL CONTINUE TO MONITOR CLOSELY.
[2018-02-09 08:11] VITALS: BP 136/62
--- NOTE | 2018-02-09 10:52 | NUR ---
LANI LAYING IN BED WITH EYES CLOSED AND BREATHING EVENLY. WILL CONTINUE WITH PLAN OF CARE.
[2018-02-09 12:09] VITALS: BP 160/65
[2018-02-09 15:17] VITALS: BP 153/63
--- NOTE | 2018-02-09 15:20 | NUR ---
PATIENT REMAINS SLEEPY/LETHARGIC. RE-POSITIONED TO LEFT SIDE FOR COMFORT. PATIENT DENIES ANY NEEDS OR PATIENT. SR UP X 2 BED IN LOW POSITION AND CALL LIGHT IN REACH
--- NOTE | 2018-02-09 18:28 | NUR ---
PATIENT REFUSED SUPPER FOOD. MADE MULTIPLE ATTEMPTS TO ENCOURAGE PATIENT TO EAT AND OFFERED DIFFERENT FOODS, BUT PATIENT CONTINUED TO DECLINE. PATIENT DENIES ANY NEEDS OR PAIN. WILL CONTINUE TO MONITOR. SON IS AT BEDSIDE
--- NOTE | 2018-02-09 19:16 | NUR ---
PATIENT IN BED O2 AT 2L VIA N/C L EFT ARM HEM A GRAFT, WITH BRUT AND THRILL PRESENT. RIGHT GROWN TRILIS IN PLACE
[2018-02-09 20:00] VITALS: BP 130/50
[2018-02-10 06:04] LABS: ANION GAP 18.5 mmol/L (8-16); CARBON DIOXIDE 25.6 mmol/L (21.0-32.0); POTASSIUM - SERUM 4.1 mmol/L (3.5-5.1); VANCOMYCIN - RANDOM 23.1 ug/mL (10.0-20.0)
[2018-02-10 06:05] LABS: CREATININE - SERUM 4.8 mg/dL (0.6-1.3)
--- NOTE | 2018-02-10 06:53 | MORECARE ---
CASE MANAGEMENT DISCHARGE SUMMARY PATIENT: LILI DELUCA UNIT: [id number] ADM DATE: 02/03/18 AGE: 82 : 34 SEX: F ROOM/BED: D.2111 AUTHOR: AMIDOC PHYSICIAN: REFERRING PHYSICIAN: JOEY DEUTSCH MD DATE OF SERVICE: 02/10/18 Discharge Plan Patient Name: LILI DELUCA Facility: [facility]:[place] : 1935 Planned Disposition: Nursing Facility DARIELA Cert Anticipated Discharge Date: Discharge Date: Expected LOS: Initial Reviewer: [id number] Initial Review Date: 02/03/2018 Generated: 02/10/18 7:53 am Comments DCP- Discharge Planning Updated by [email or web address]: Fatou Zepeda on 02/08/18 1:[address] Patient Name: LILI DELUCA Admission Status: ER Accout number: [id number] Admission Date: 02-03-2018 : 1935 Admission Diagnosis:SEPSIS, UNSPECIFIED ORGANISM Attending: JOEY DEUTSCH Current LOS: 5 Anticipated DC Date: Planned Disposition: Residential Facility Primary Insurance: MEDICARE A & B Discharge Planning Comments: CM met with granddaughter at patient bedside. Patient doesn't speak Icelandic. Granddaughter Halle [phone] stated the patient lives at [facility] and plans on returning after discharge. Patient has dialysis MWF. Halle denies any discharge needs at this time. CM will continue to follow and assist with discharge planning / needs Lightout Examiner: Fatou Zepeda DCPIA - Discharge Planning Initial Assessment Updated by [email or web address]: Fatou Zepeda on 02/08/18 2:46 pm * Is the patient Alert and Oriented? Yes * PCP [facility] * Pharmacy [place] * Preadmission Environment Ladle Liner Helper Custodial * ADLs Partial Dependent * List name and contact numbers for known caregivers / representatives who currently or will assist patient after discharge: Halle Mayorga -grand-daughter [phone] * Verbal permission to speak to the caregivers and representatives has been obtained from the patient. N/A * Community resources currently utilized None * Please name any agencies selected above. Hemodialysis MWF * Additional services required to return to the preadmission environment? No * Can the patient safely return to the preadmission environment? Yes * Has this patient been hospitalized within the prior 30 days at any hospital? No Last DP export: 02/08/18 2:04 Patient Name: LILI DELUCA Page 90625 at 0653 All edits/amendments must be made on the electronic document DICTATION DATE: 02/10/18651 ELEVATOR PILOT: DAVIDA 02/10/18651 RPT#: [id number] DC DATE: STATUS: ADM IN [facility] [address] [place] [address] END OF REPORT
--- NOTE | 2018-02-10 07:15 | NUR ---
RECEIVED REPORT FROM HANDY WORKER. PATIENT AWAKE, ALERT AND ORIENTED TO NAME ONLY. PATIENT IS STABLE VITALS SIGNS ARE GOOD. BED IN LOW POSITION , SR UP X 2 CALL LIGHT IN REACH. WILL CONTINUE WITH PLAN OF CARE.
--- NOTE | 2018-02-10 07:26 | MORECARE ---
CASE MANAGEMENT DISCHARGE SUMMARY PATIENT: LILI DELUCA UNIT: [id number] ADM DATE: 02/03/18 AGE: 82 : 34 SEX: F ROOM/BED: D.2111 AUTHOR: AMIDOC PHYSICIAN: REFERRING PHYSICIAN: JOEY DEUTSCH MD DATE OF SERVICE: 02/10/18 Discharge Plan Patient Name: LILI DELUCA Facility: [facility]:[place] : 1935 Planned Disposition: Nursing Facility [facility] Cert Anticipated Discharge Date: Discharge Date: Expected LOS: Initial Reviewer: [id number] Initial Review Date: 02/03/2018 Generated: 02/10/18 8:26 am Comments DCP- Discharge Planning Updated by [email or web address]: Fatou Zepeda on 02/08/18 1:[address] Patient Name: LILI DELUCA Admission Status: ER Accout number: [id number] Admission Date: 02-03-2018 : 1935 Admission Diagnosis:SEPSIS, UNSPECIFIED ORGANISM Attending: JOEY DEUTSCH Current LOS: 5 Anticipated DC Date: Planned Disposition: Jail Facility Primary Insurance: MEDICARE A & B Discharge Planning Comments: CM met with granddaughter at patient bedside. Patient doesn't speak Macanese. Granddaughter Halle [phone] stated the patient lives at [facility] and plans on returning after discharge. Patient has dialysis MWF. Halle denies any discharge needs at this time. CM will continue to follow and assist with discharge planning / needs Resident Services Coordinator: Fatou Zepeda DCPIA - Discharge Planning Initial Assessment Updated by [email or web address]: Fatou Zepeda on 02/08/18 2:46 pm * Is the patient Alert and Oriented? Yes * PCP [facility] * Pharmacy [place] * Preadmission Environment Bit Grinder [facility]cf * ADLs Partial Dependent * List name and contact numbers for known caregivers / representatives who currently or will assist patient after discharge: Halle Mayorga -grand-daughter [phone] * Verbal permission to speak to the caregivers and representatives has been obtained from the patient. N/A * Community resources currently utilized None * Please name any agencies selected above. Hemodialysis MWF * Additional services required to return to the preadmission environment? No * Can the patient safely return to the preadmission environment? Yes * Has this patient been hospitalized within the prior 30 days at any hospital? No External Providers External Provider: [facility] Next Contact Date: 02/10/2018 Service Request Date: Service Type: Resolution: Reviewer: Comments: Last DP export: 02/10/18 5:53 am Patient Name: LILI DELUCA Page 97967 at 0726 All edits/amendments must be made on the electronic document DICTATION DATE: 02/10/18724 WORKDAY DIRECTOR: DAVIDA 02/10/18724 RPT#: [id number] DC DATE: STATUS: ADM IN [facility] [address] [place] [address] END OF REPORT
[2018-02-10 07:29] LABS: BASOPHILS 0.7 % (0-2); EOSINOPHILS 6.6 % (0-7); HEMATOCRIT 29.1 % (36.0-48.0); HEMOGLOBIN 9.5 g/dL (12-16); IMMATURE GRANULOCYTES 0.4 % (0-5); LYMPHOCYTES 14.6 % (15-50); MCHC 32.6 g/dL (31.0-37.0); MEAN PLATELET VOLUME 10.1 fL (7.4-10.4); MONOCYTES 8.9 % (2-11); NEUTROPHILS 68.8 % (40-80); PLATELET COUNT 151 10x3/uL (130-400); RBC 2.97 10x6/uL (4.00-5.40); RDW 15.7 % (11.5-14.5); WBC 7.3 10x3/uL (4.8-10.8)
--- NOTE | 2018-02-10 07:46 | MORECARE ---
CASE MANAGEMENT DISCHARGE SUMMARY PATIENT: LILI DELUCA UNIT: [id number] ADM DATE: 02/03/18 AGE: 82 : 34 SEX: F ROOM/BED: D.[facility] AUTHOR: AMIDOC PHYSICIAN: REFERRING PHYSICIAN: JOEY DEUTSCH MD DATE OF SERVICE: 02/10/18 Discharge Plan Patient Name: LILI DELUCA Facility: [facility]:[place] : 1935 Planned Disposition: Nursing Facility DARIELA Cert Anticipated Discharge Date: Discharge Date: Expected LOS: Initial Reviewer: [id number] Initial Review Date: 02/03/2018 Generated: 02/10/18 8:46 am Comments DCP- Discharge Planning Updated by [email or web address]: Stef Gaming on 02/10/18 6:[address] Patient Name: LILI DELUCA Encounter No: [id number] : 1935 Primary Insurance: MEDICARE A & B Anticipated DC Date: Planned Disposition: Nursing Facility [facility] Cert External Planned Provider: [facility], TRAFFIC CIRCUIT ENGINEER CARE MEDICAID BED DCP follow-up note: CM FAXED UPDATE TO JADIEL OF [facility] AT [phone]. FOR DISCHARGE, CM TO FAX DISCHARGE INFORMATION TO [facility] AT [phone]. NURSE REPORT TO BE CALLED TO [facility] AT [phone]. [facility] TO ARRANGE VAN TRANSPORT. KAITLIN Blakely DCP- Discharge Planning Updated by [email or web address]: Fatou Zepeda on 02/08/18 1:[address] Patient Name: LILI DELUCA Admission Status: ER Accout number: [id number] Admission Date: 02-03-2018 : 1935 Admission Diagnosis:SEPSIS, UNSPECIFIED ORGANISM Attending: JOEY DEUTSCH Current LOS: 5 Anticipated DC Date: Planned Disposition: Nursing Home Facility Primary Insurance: MEDICARE A & B Discharge Planning Comments: CM met with granddaughter at patient bedside. Patient doesn't speak Icelandic. Granddaughter Halle [phone] stated the patient lives at [facility] and plans on returning after discharge. Patient has dialysis MWF. Halle denies any discharge needs at this time. CM will continue to follow and assist with discharge planning / needs Snow Removal Supervisor: Fatou Zepeda DCPIA - Discharge Planning Initial Assessment Updated by [email or web address]: Fatou Zepeda on 02/08/18 2:46 pm * Is the patient Alert and Oriented? Yes * PCP [facility] * [place] * Preadmission Environment Fdc Detention * ADLs Partial Dependent * List name and contact numbers for known caregivers / representatives who currently or will assist patient after discharge: Halle Mayorga -grand-daughter [phone] * Verbal permission to speak to the caregivers and representatives has been obtained from the patient. N/A * Community resources currently utilized None * Please name any agencies selected above. Hemodialysis MWF * Additional services required to return to the preadmission environment? No * Can the patient safely return to the preadmission environment? Yes * Has this patient been hospitalized within the prior 30 days at any hospital? No Last DP export: 02/10/18 6:26 am Patient Name: LILI DELUCA Page 97314 at 0746 All edits/amendments must be made on the electronic document DICTATION DATE: 02/10/18744 TOWN JUSTICE: DAVIDA 02/10/18744 RPT#: [id number] DC DATE: STATUS: ADM IN [facility] [address] [place] [address] END OF REPORT
[2018-02-10 07:52] VITALS: BP 148/53
--- NOTE | 2018-02-10 10:21 | NUR ---
PATIENT SITTING UP IN BED VISITING WITH A FRIEND. WILL CONTINUE TO MONITOR.
--- NOTE | 2018-02-10 11:50 | NUR ---
PATIENT TO DIALYSIS. PATIENT IS STABLE AND VITAL SIGNS ARE GOOD.
--- NOTE | 2018-02-10 12:29 | MORECARE ---
CASE MANAGEMENT DISCHARGE SUMMARY PATIENT: LILI DELUCA UNIT: [id number] ADM DATE: 02/03/18 AGE: 82 : 34 SEX: F ROOM/BED: D[facility] AUTHOR: AMIDOC PHYSICIAN: REFERRING PHYSICIAN: JOEY DEUTSCH MD DATE OF SERVICE: 02/10/18 Discharge Plan Patient Name: LILI DELUCA Facility: [facility]:[place] : 1935 Planned Disposition: Correction Facility Anticipated Discharge Date: Discharge Date: Expected LOS: Initial Reviewer: [email or web address] Initial Review Date: 02/03/2018 Generated: 02/10/18 1:28 pm Comments DCP- Discharge Planning Updated by [email or web address]: Stef Gaming on 02/10/18 6:[address] Patient Name: LILI DELUAC Encounter No: [id number] : 1935 Primary Insurance: MEDICARE A & B Anticipated DC Date: Planned Disposition: Nursing Facility [facility] Cert External Planned Provider: [facility], INSTRUMENT SPECIALIST CARE MEDICAID BED DCP follow-up note: CM FAXED UPDATE TO JADIEL OF [facility] AT [phone]. FOR DISCHARGE, CM TO FAX DISCHARGE INFORMATION TO [facility] AT [phone]. NURSE REPORT TO BE CALLED TO [facility] AT [phone]. [facility] TO ARRANGE VAN TRANSPORT. KAITLIN Blakely DCP- Discharge Planning Updated by [email or web address]: Fatou Zepeda on 02/08/18 1:[address] Patient Name: LILI DELUCA Admission Status: ER Accout number: [id number] Admission Date: 02-03-2018 : 1935 Admission Diagnosis:SEPSIS, UNSPECIFIED ORGANISM Attending: JOEY DEUTSCH Current LOS: 5 Anticipated DC Date: Planned Disposition: Correction Facility Primary Insurance: MEDICARE A & B Discharge Planning Comments: CM met with granddaughter at patient bedside. Patient doesn't speak Swiss. Granddaughter Halle [phone] stated the patient lives at [facility] and plans on returning after discharge. Patient has dialysis MWF. Halle denies any discharge needs at this time. CM will continue to follow and assist with discharge planning / needs Balancer: Fatou COYLEA - Discharge Planning Initial Assessment Updated by [email or web address]: Fatou Zepeda on 02/08/18 2:46 pm * Is the patient Alert and Oriented? Yes * PCP [facility] * Pharm[place] * Preadmission Environment [facility] Social [facility] * ADLs Partial Dependent * List name and contact numbers for known caregivers / representatives who currently or will assist patient after discharge: Halle Mayorga -grand-daughter [phone] * Verbal permission to speak to the caregivers and representatives has been obtained from the patient. N/A * Community resources currently utilized None * Please name any agencies selected above. Hemodialysis MWF * Additional services required to return to the preadmission environment? No * Can the patient safely return to the preadmission environment? Yes * Has this patient been hospitalized within the prior 30 days at any hospital? No Last DP export: 02/10/18 6:46 am Patient Name: LILI DELUCA Page 47963 at 1229 All edits/amendments must be made on the electronic document DICTATION DATE: 02/10/188 SERGEANT OF OFFICERS: DAVIDA 02/10/18 1228 RPT#: [id number] DC DATE: STATUS: ADM IN [facility] [address] [place] [address] END OF REPORT
--- NOTE | 2018-02-10 12:39 | MORECARE ---
CASE MANAGEMENT DISCHARGE SUMMARY PATIENT: LILI DELUCA UNIT: [id number] ADM DATE: 02/03/18 AGE: 82 : 34 SEX: F ROOM/BED: D.1 AUTHOR: AMI,DOC PHYSICIAN: REFERRING PHYSICIAN: JEOY DEUTSCH MD DATE OF SERVICE: 02/10/18 Discharge Plan Patient Name: LILI DELUCA Facility: [facility]:[place] : 1935 Planned Disposition: Custodial Facility Anticipated Discharge Date: Discharge Date: Expected LOS: Initial Reviewer: [id number] Initial Review Date: 02/03/2018 Generated: 02/10/18 1:39 pm Comments DCP- Discharge Planning Updated by [email or web address]: Stef Gaming on 02/10/18 11:[address] Patient Name: LILI DELUCA Encounter No: [id number] : 1935 Primary Insurance: MEDICARE A & B Anticipated DC Date: Planned Disposition: Custodial Facility External Planned Provider: [facility], MEDICARE REHAB BED DCP follow-up note: CM RECEIVED CALL FROM [facility] OF [facility] TO ACCEPT PT BACK AT DISCHARGE AND WILL PLACE IN SKILLED BED FOR REHAB SERVICES. FOR DISCHARGE, CM TO FAX DISCHARGE INFORMATION TO [facility] AT [phone]. NURSE REPORT TO BE CALLED TO [facility] AT [phone]. [facility] TO ARRANGE VAN TRANSPORT. KAITLIN Blakely DCP- Discharge Planning Updated by [email or web address]: Stef Gaming on 02/10/18 6:[address] Patient Name: LILI DELUCA Encounter No: [id number] : 1935 Primary Insurance: MEDICARE A & B Anticipated DC Date: Planned Disposition: Nursing Facility [facility] External Planned Provider: [facility], [facility] C[facility] MEDICAID BED DCP follow-up note: CM FAXED UPDATE TO JADIEL OF [facility] AT [phone]. FOR DISCHARGE, CM TO FAX DISCHARGE INFORMATION TO [facility] AT [phone]. NURSE REPORT TO BE CALLED TO [facility] AT [phone]. [facility] TO ARRANGE VAN TRANSPORT. Stef Gaming, CASE MANAGEMENT DCP- Discharge Planning Updated by [email or web address]: Fatou Zepeda on 02/08/18 1:[address] Patient Name: LILI DELUCA Admission Status: ER Accout number: [id number] Admission Date: 02-03-2018 : 1935 Admission Diagnosis:SEPSIS, UNSPECIFIED ORGANISM Attending: JOEY DEUTSCH Current LOS: 5 Anticipated DC Date: Planned Disposition: Custodial Facility Primary Insurance: MEDICARE A & B Discharge Planning Comments: CM met with granddaughter at patient bedside. Patient doesn't speak Lithuanian. Granddaughter Halle [phone] stated the patient lives at [facility] and plans on returning after discharge. Patient has dialysis MWF. Halle denies any discharge needs at this time. CM will continue to follow and assist with discharge planning / needs Technical Architect: Fatou Zepeda DCPIA - Discharge Planning Initial Assessment Updated by [email or web address]: Fatou Zepeda on 02/08/18 2:46 pm * Is the patient Alert and Oriented? Yes * PCP [facility] * Pharmacy [place] * Preadmission Environment [facility] * ADLs Partial Dependent * List name and contact numbers for known caregivers / representatives who currently or will assist patient after discharge: Halle Mayorga -grand-daughter [phone] * Verbal permission to speak to the caregivers and representatives has been obtained from the patient. N/A * Community resources currently utilized None * Please name any agencies selected above. Hemodialysis MWF * Additional services required to return to the preadmission environment? No * Can the patient safely return to the preadmission environment? Yes * Has this patient been hospitalized within the prior 30 days at any hospital? No Last DP export: 02/10/18 11:28 am Patient Name: LIIL DELUCA Page 83426 at 1239 All edits/amendments must be made on the electronic document DICTATION DATE: 02/10/18 1239 TREE KILLER: DAVIDA 02/10/18 1239 RPT#: [id number] DC DATE: STATUS: ADM IN [place] [address] [place] [address] END OF REPORT
--- NOTE | 2018-02-10 16:30 | NUR ---
PATIENT RETURNED FROM DIALYSIS. PATIENT DENIES ANY NEEDS OR PAIN. VITALS SIGNS ARE GOOD AND PATIENT IS STABLE. WILL CONTINUE TO MONITOR
--- NOTE | 2018-02-10 19:20 | NUR ---
RESUME CARE. PT IN BED WILL EYES CLOSED BREATH SOUNDS EVEN NO C/O OF PAIN OR DISTRESS AT THIS TIME CALL LIGHT IN REACH WILL CONT TO YARON
[2018-02-10 20:00] VITALS: BP 129/52
[2018-02-11] VITALS: BP 128/49
[2018-02-11 04:00] VITALS: BP 159/61
[2018-02-11 05:58] LABS: BASOPHILS 0.6 % (0-2); EOSINOPHILS 6.5 % (0-7); HEMOGLOBIN 9.9 g/dL (12-16); IMMATURE GRANULOCYTES 0.7 % (0-5); LYMPHOCYTES 14.6 % (15-50); MCH 31.8 pg (26.0-34.0); MCV 96.5 fL (80.0-100.0); MONOCYTES 9.5 % (2-11); NEUTROPHILS 68.1 % (40-80); PLATELET COUNT 151 10x3/uL (130-400); RBC 3.11 10x6/uL (4.00-5.40); RDW 15.6 % (11.5-14.5)
[2018-02-11 06:24] LABS: ANION GAP 15.3 mmol/L (8-16); CALCIUM 8.2 mg/dL (8.5-10.1); CARBON DIOXIDE 28.4 mmol/L (21.0-32.0); CREATININE - SERUM 4.2 mg/dL (0.6-1.3); POTASSIUM - SERUM 3.7 mmol/L (3.5-5.1); VANCOMYCIN - RANDOM 27.3 ug/mL (10.0-20.0)
[2018-02-11 09:18] VITALS: BP 163/36
--- NOTE | 2018-02-11 10:55 | NUR ---
RESTING QUIETLY NAD NOTED
--- NOTE | 2018-02-11 14:42 | NUR ---
Nutrition follow-up: Diet: Renal PO intake continues to be poor; per family, pt is not eating what they bring either. Labs reviwed Wt: 113# May need to consider nutrition support; PEG tube placement vs NGT placement and TF started due to pts poor nutritional status. RDN following.
[2018-02-11 15:02] VITALS: BP 149/68
[2018-02-11 15:10] VITALS: BP 152/69
--- NOTE | 2018-02-11 16:00 | NUR ---
PT PULLED UP IN BED. VISITORS AT BEDSIDE. PT HAS NO FURTHER NEEDS AT THIS TIME. BED LOW. CL IN REACH. WILL CONTINUE WITH PLAN OF CARE.
--- NOTE | 2018-02-11 19:30 | NUR ---
RESUME CARE. PT BED ALERT BREATH SOUNDS EVEN GRANDDAUGHTER AT BEDSIDE NO C/O OF PAIN OR DISTRESS AT THIS TIME CALL LIGHT IN REACH WILL CONT TO YARON
[2018-02-11 20:00] VITALS: BP 137/49
[2018-02-12] VITALS: BP 152/58
[2018-02-12 04:00] VITALS: BP 137/58
[2018-02-12 06:30] LABS: ANION GAP 15.2 mmol/L (8-16); CALCIUM 7.8 mg/dL (8.5-10.1); CARBON DIOXIDE 27.5 mmol/L (21.0-32.0); POTASSIUM - SERUM 3.7 mmol/L (3.5-5.1); VANCOMYCIN - RANDOM 23.3 ug/mL (10.0-20.0)
[2018-02-12 06:38] LABS: CREATININE - SERUM 5.5 mg/dL (0.6-1.3)
[2018-02-12 07:21] LABS: BASOPHILS 0.8 % (0-2); HEMOGLOBIN 9.3 g/dL (12-16); IMMATURE GRANULOCYTES 0.6 % (0-5); LYMPHOCYTES 19.4 % (15-50); MCH 31.8 pg (26.0-34.0); MCHC 33.2 g/dL (31.0-37.0); MCV 95.9 fL (80.0-100.0); MEAN PLATELET VOLUME 10.1 fL (7.4-10.4); MONOCYTES 9.1 % (2-11); NEUTROPHILS 62.1 % (40-80); PLATELET COUNT 149 10x3/uL (130-400); RBC 2.92 10x6/uL (4.00-5.40); RDW 15.6 % (11.5-14.5); WBC 6.5 10x3/uL (4.8-10.8)
[2018-02-12 08:31] VITALS: BP 131/52
--- NOTE | 2018-02-12 10:24 | NUR ---
PT TAKEN TO DIALYSIS VIA BED.
--- NOTE | 2018-02-12 10:59 | MORECARE ---
CASE MANAGEMENT DISCHARGE SUMMARY PATIENT: LILI DLEUCA UNIT: [id number] ADM DATE: 02/03/18 AGE: 82 : 34 SEX: F ROOM/BED: D.1 AUTHOR: AMI,DOC PHYSICIAN: REFERRING PHYSICIAN: JOEY DEUTSCH MD DATE OF SERVICE: 02/12/18 Discharge Plan Patient Name: LILI DELUCA Facility: [facility]:[place] : 1935 Planned Disposition: Nursing Home Facility Anticipated Discharge Date: 02/12/18 Discharge Date: Expected LOS: 9 Initial Reviewer: [id number] Initial Review Date: 02/03/2018 Generated: 02/12/18 11:59 am Comments DCP- Discharge Planning Updated by [email or web address]: Stef Gaming on 02/12/18 9:[address] Patient Name: LILI DELUCA Encounter No: [id number] : 1935 Primary Insurance: MEDICARE A & B Anticipated DC Date: 02-12-2018 Planned Disposition: Nursing Home Facility External Planned Provider: [facility], MEDICARE REHAB BED DCP follow-up note: CM RECEIVED DISCHARGE ORDER, ATTEMPTED TO SPEAK TO PT IN ROOM WHO WAS NOT IN ROOM AND IN DIALYSIS. CM CALLED AND SPOKE TO Halle Mayorga -grand-daughter [phone], WHO IS IN AGREEMENT WITH DISCHARGE PLAN. IMPORTANT MESSAGE FROM MEDICARE DISCUSSED, PHONE NUMBER PROVIDED AND EXPLAINED. CM LEFT NOTICE IN PT'S ROOM WITH PT'S HAIR BRUSH. FOR DISCHARGE, CM [facility] AT [phone]. NURSE REPORT TO BE CALLED TO [facility] AT [phone]. [facility]SP[facility]. Stef Gaming, CASE MANAGEMENT DCP- Discharge Planning Updated by [id number]: Stef Gaming on 02/10/18 11:[address] Patient Name: LILI DELUCA Encounter No: [id number] : 1935 Primary Insurance: MEDICARE A & B Anticipated DC Date: Planned Disposition: Nursing Home Facility External Planned Provider: [facility], MEDICARE REHAB BED DCP follow-up note: CM RECEIVED CALL FROM JADIEL SANDS [facility] [place] TO ACCEPT PT BACK AT DISCHARGE AND WILL PLACE IN SKILLED BED FOR REHAB SERVICES. FOR DISCHARGE, CM TO FAX DISCHARGE INFORMATION TO [facility] AT [phone]. NURSE REPORT TO BE CALLED TO [facility] AT [phone]. [facility] TO ARRANGE VAN TRANSPORT. KAITLIN Blakely MANAGEMENT DCP- Discharge Planning Updated by [email or web address]: Stef Gaming on 02/10/18 6:[address] Patient Name: LILI DELUCA Encounter No: [id number] : 1935 Primary Insurance: MEDICARE A & B Anticipated DC Date: Planned Disposition: Nursing Facility [facility] Cert External Planned Provider: [facility], RESIDENTIAL CARE MEDICAID BED DCP follow-up note: CM FAXED UPDATE TO JADIEL OF [facility] AT [phone]. FOR DISCHARGE, CM TO FAX DISCHARGE INFORMATION TO [facility] AT [phone]. NURSE REPORT TO BE CALLED TO [facility] AT [phone]. [facility] TO ARRANGE VAN TRANSPORT. KAITLIN Blakely DCP- Discharge Planning Updated by [email or web address]: Fatou Zepeda on 02/08/18 1:[address] Patient Name: LILI DELUCA Admission Status: ER Accout number: [id number] Admission Date: 02-03-2018 : 1935 Admission Diagnosis:SEPSIS, UNSPECIFIED ORGANISM Attending: JOEY DEUTSCH Current LOS: 5 Anticipated DC Date: Planned Disposition: Nursing Home Facility Primary Insurance: MEDICARE A & B Discharge Planning Comments: CM met with granddaughter at patient bedside. Patient doesn't speak Armenian. Granddaughter Halle [phone] stated the patient lives at [facility] and plans on returning after discharge. Patient has dialysis MWF. Halle denies any discharge needs at this time. CM will continue to follow and assist with discharge planning / needs Terrazzo Polisher: Fatou Zepeda DCPIA - Discharge Planning Initial Assessment Updated by [email or web address]: Fatou Zepeda on 02/08/18 2:46 pm * Is the patient Alert and Oriented? Yes * PCP [facility] * Pharmacy [place] * Preadmission Environment Operations Administrator Intermediate * ADLs Partial Dependent * List name and contact numbers for known caregivers / representatives who currently or will assist patient after discharge: Halle Mayorga -grand-daughter [phone] * Verbal permission to speak to the caregivers and representatives has been obtained from the patient. N/A * Community resources currently utilized None * Please name any agencies selected above. Hemodialysis MWF * Additional services required to return to the preadmission environment? No * Can the patient safely return to the preadmission environment? Yes * Has this patient been hospitalized within the prior 30 days at any hospital? No Last DP export: 02/10/18 11:39 am Patient Name: LILI DELUCA Page 98943 at 1059 All edits/amendments must be made on the electronic document DICTATION DATE: 02/12/181057 INSTITUTIONAL ASSET MANAGER: DAVIDA 02/12/181057 RPT#: [id number] DC DATE: STATUS: ADM IN [facility] [address] [place] [address] END OF REPORT
[2018-02-12 13:05] VITALS: BP 130/86
--- NOTE | 2018-02-12 13:50 | NUR ---
PT RETURNED FROM DIALYSIS VIA BED. DIALYSIS NURSE STATED THEY REMOVED 1L OF FLUID.
--- NOTE | 2018-02-12 14:00 | NUR ---
PT REMAINS IN DIALYSIS.
--- NOTE | 2018-02-12 14:03 | NUR ---
PT'S SKIN EXAMINED THOROUGHLY. BUTTOCK HAS REDNESS AND EXCORIATION FROM BOWEL AND BLADDER INCONTINCE. HAD SECOND OPINION FROM BRIANNE PONCEAPI DEVELOPER NURSE AND SHE STATED BUTTOCK HAS RENDESS AND EXCORIATION BUT NO PRESSURE ULCERS.
--- NOTE | 2018-02-12 14:15 | NUR ---
SPOKE WITH FRAN KAUR SHE STATES TO REMOVE RIGHT GROIN CVL BEFORE DISCAHRGE.
--- NOTE | 2018-02-12 14:24 | MORECARE ---
CASE MANAGEMENT DISCHARGE SUMMARY PATIENT: LILI DELUCA UNIT: [id number] ADM DATE: 02/03/18 AGE: 82 : 34 SEX: F ROOM/BED: D.2111 AUTHOR: AMI,DOC PHYSICIAN: REFERRING PHYSICIAN: JOEY DEUTSCH MD DATE OF SERVICE: 02/12/18 Discharge Plan Patient Name: LILI DELUCA Facility: [facility]:[place] : 1935 Planned Disposition: Custodial Facility Anticipated Discharge Date: 02/12/18 Discharge Date: Expected LOS: 9 Initial Reviewer: [id number] Initial Review Date: 02/03/2018 Generated: 02/12/18 3:23 pm Comments DCP- Discharge Planning Updated by [email or web address]: Stef Gaming on 02/12/18 1:[address] Patient Name: LILI DELUCA Encounter No: [id number] : 1935 Primary Insurance: MEDICARE A & B Anticipated DC Date: 02-12-2018 Planned Disposition: Custodial Facility External Planned Provider: [facility], MEDICARE REHAB BED DCP follow-up note: CM RECEIVED DISCHARGE ORDER, ATTEMPTED TO SPEAK TO PT IN ROOM WHO WAS NOT IN ROOM AND IN DIALYSIS. CM CALLED AND SPOKE TO Ishmael Humphrey -grand-daughter [phone], WHO IS IN AGREEMENT WITH DISCHARGE PLAN. IMPORTANT MESSAGE FROM MEDICARE DISCUSSED, PHONE NUMBER PROVIDED AND EXPLAINED. CM LEFT NOTICE IN PT'S ROOM WITH PT'S HAIR BRUSH. FOR DISCHARGE, CM TO FAX DISCHARGE INFORMATION TO [facility] AT [phone]. NURSE REPORT TO BE CALLED TO [facility] AT [phone]. [facility]. Stef Gaming CASE MANAGEMENT Appended by Stef Gaming on 02/12/2018 14:19 EVP CHIEF EXPLORATION OFFICER: CM FAXED DISCHARGE INFORMATION TO [facility] AT [phone]. NURSE REPORT TO BE CALLED TO [facility] AT [phone]. [facility]. KAITLIN Blakely DCP- Discharge Planning Updated by [email or web address]: Stef Gaming on 02/10/18 11:[address] Patient Name: LILI DELUCA Encounter No: [id number] : 1935 Primary Insurance: MEDICARE A & B Anticipated DC Date: Planned Disposition: Custodial Facility External Planned Provider: [facility], MEDICARE REHAB BED DCP follow-up note: CM RECEIVED CALL FROM JADIEL OF [facility], [place] TO ACCEPT PT BACK AT DISCHARGE AND WILL PLACE IN SKILLED BED FOR REHAB SERVICES. FOR DISCHARGE, CM TO FAX DISCHARGE INFORMATION TO [facility] AT [phone]. NURSE REPORT TO BE CALLED TO [facility] AT [phone]. [facility]. Stef Gaming CASE MANAGEMENT DCP- Discharge Planning Updated by [id number]: Stef Gaming on 02/10/18 6:[address] Patient Name: LILI EDLUCA Encounter No: [id number] : 1935 Primary Insurance: MEDICARE A & B Anticipated DC Date: Planned Disposition: Nursing Facility [facility] External Planned Provider: [facility], [facility] [facility] MEDICAID BED DCP follow-up note: CM FAXED UPDATE TO JDAIEL OF [facility] AT [phone]. FOR DISCHARGE, CM TO FAX DISCHARGE INFORMATION TO [facility] AT [phone]. NURSE REPORT TO BE CALLED TO [facility] AT [phone]. [facility]. Stef Gaming CASE MANAGEMENT DCP- Discharge Planning Updated by [id number]: Fatou Zepeda on 02/08/18 1:[address] Patient Name: LILI DELUCA Admission Status: ER Accout number: [id number] Admission Date: 02-03-2018 : 1935 Admission Diagnosis:SEPSIS, UNSPECIFIED ORGANISM Attending: JOEY DEUTSCH Current LOS: 5 Anticipated DC Date: Planned Disposition: Custodial Facility Primary Insurance: MEDICARE A & B Discharge Planning Comments: CM met with granddaughter at patient bedside. Patient doesn't speak Frisian. Granddaughter Ishmael [phone] stated the patient lives at [facility] and plans on returning after discharge. Patient has dialysis MWF. Ishmael denies any discharge needs at this time. CM will continue to follow and assist with discharge planning / needs Metal Sander: Fatou COYLEA - Discharge Planning Initial Assessment Updated by [id number]: Fatou Zepeda on 02/08/18 2:46 pm * Is the patient Alert and Oriented? Yes * PCP [facility] * [facility] * Preadmission Environment Negative Checker Long-Term * ADLs Partial Dependent * List name and contact numbers for known caregivers / representatives who currently or will assist patient after discharge: Ishmael Humphrey -grand-daughter [phone] * Verbal permission to speak to the caregivers and representatives has been obtained from the patient. N/A * Community resources currently utilized None * Please name any agencies selected above. Hemodialysis MWF * Additional services required to return to the preadmission environment? No * Can the patient safely return to the preadmission environment? Yes * Has this patient been hospitalized within the prior 30 days at any hospital? No Coverage Notice Reviewer: [id number] Oralia [employer] Notice Issued Date-Time: 02/12/2018 10:35 Notice Type: IM Discharge Notice Notice Delivered To: Family Member Relationship to Patient: Granddaughter Cementer Helper Name: ISHMAEL HUMPHREY Delivery Method: PHONE - Phone Pari Days: Prior Verbal Notification: Recipient Understood Notice: Yes Recipient Signature: Med Rec Note Co-signed by Attending: Coverage Notice Comment: Last DP export: 02/12/18 9:59 am Patient Name: LILI DELUCA Page 10486 at 1424 All edits/amendments must be made on the electronic document DICTATION DATE: 02/12/181422 FOOD SERVICE ORDER CLERK: DAVIDA 02/12/18 142 RPT#: [id number] DC DATE: STATUS: ADM IN [facility] [address] [place] [address] END OF REPORT
--- NOTE | 2018-02-12 14:38 | NUR ---
ORDER RECEIVED FOR CVL REMOVAL. CVL IS IN THE R GROIN. DRESSING REMOVED AND SITE CLEANED WITH DURAPREP. 2 SUTURES REMOVED. CATH REMOVED WITH TIP INTACT. PRESSURE HELD FOR 10 MINS. NO SIGNS OF BLEEDING NOR EDEMA. 4X4 APPLIED WITH LARGE TEGADERM.
--- NOTE | 2018-02-12 14:53 | NUR ---
REPORT CALLED TO MALDONADO AT [facility] AND PART OF MY REPORT GIVEN TO HER I STATED TO HER PT'S BUTT IS RED AND EXCORIATED FROM INCONTINENCE AND SHE VERBALIZED UNDERSTANDING.
--- NOTE | 2018-02-12 14:55 | NUR ---
PT UNABLE TO SIGN DISCHARGE PAPERS.
--- NOTE | 2018-02-12 15:21 | NUR ---
AWAITING FOR TIME FOR CECILY LANE AUTOMATION DEVELOPER FOR PT.
--- NOTE | 2018-02-12 17:00 | NUR ---
PT BEING VERY AGGRESSIVE AND NOT WANTING TO LEAVE. PT'S GRANDDAUGHTER CALLED AND PT SPOKE WITH HER AND THAT DID NOT CALM PT DOWN. TURBINE ASSEMBLER FROM [facility] HERE TO PICK PT UP. PT PLACED IN WC. TURBINE ASSEMBLER DID NOT HAVE REGULATOR FOR OXYGEN TANK. HE HAD TO LEAVE AND STATES HE WILL BE BACK IN 20 MIN.
--- NOTE | 2018-02-12 17:26 | NUR ---
STILL BAL ON LEGAL ASSOCIATE TO ETURN PT IS OONE ON ONE WATCH BECAUSE SHE KEEPS TRYING TO GET OUT OF THE WC.
--- NOTE | 2018-02-12 17:31 | NUR ---
WOOD BOX MAKER FOR [facility] BACK. O2 AT 2L VIA NC HOOKED UP TO PORTABLE OXYGEN TANK. PT LEFT VIA WC WITH [facility] WOOD BOX MAKER.
== END 2018-02-12 17:31 | DRG 871 ==
LOC: D.ER 06:34 → D.ICU 09:49 → D.M2 09:49
PROVIDERS: Family Medicine; ADMIT Internal Medicine Nephrology
PROC: 5A1945Z Respiratory Ventilation, 24-96 Consecutive Hours (ICD-10-PCS; principal; 2018-02-03)
PROC: 0BH17EZ Insertion of Endotracheal Airway into Trachea, Via Natural or Artificial Opening (ICD-10-PCS; 2018-02-03)
PROC: 06HY33Z Insertion of Infusion Device into Lower Vein, Percutaneous Approach (ICD-10-PCS; 2018-02-03)
DX: A41.9 Sepsis, unspecified organism (principal); N18.6 End stage renal disease; J18.9 Pneumonia, unspecified organism; J96.01 Acute respiratory failure with hypoxia; I50.33 Acute on chronic diastolic (congestive) heart failure; I13.2 Hypertensive heart and chronic kidney disease with heart failure and with stage 5 chronic kidney disease, or end stage renal disease; E87.1 Hypo-osmolality and hyponatremia; J98.11 Atelectasis; Z99.2 Dependence on renal dialysis; R68.0 Hypothermia, not associated with low environmental temperature; D72.829 Elevated white blood cell count, unspecified; R59.0 Localized enlarged lymph nodes; E03.9 Hypothyroidism, unspecified; K21.9 Gastro-esophageal reflux disease without esophagitis; F03.90 Unspecified dementia, unspecified severity, without behavioral disturbance, psychotic disturbance, mood disturbance, and anxiety; D69.6 Thrombocytopenia, unspecified

== ENCOUNTER 2018-02-17 01:43 | Emergency (ER) | payer MEDICARE ==
[~2018-02-17] VITALS: Ht 157.5 cm; Wt 43.2 kg
[2018-02-17 01:44] VITALS: Ht 157.5 cm; Wt 43.2 kg
[2018-02-17] MEDS ORDERED: CARDIZEM CD300 MG PO (01:49)
[2018-02-17] MEDS ORDERED: SENNA LAXATIVE8.6 MG PO (01:49)
[2018-02-17] MEDS ORDERED: MELATONIN 3 MG1 TAB PO (01:49)
[2018-02-17] MEDS ORDERED: SEROQUEL25 MG PO (01:54)
[2018-02-17 02:20] LABS: BASOPHILS 0.9 % (0-2); EOSINOPHILS 5.2 % (0-7); HEMOGLOBIN 9.6 g/dL (12-16); IMMATURE GRANULOCYTES 0.6 % (0-5); LYMPHOCYTES 16.8 % (15-50); MCH 32.1 pg (26.0-34.0); MCHC 33.1 g/dL (31.0-37.0); MEAN PLATELET VOLUME 9.8 fL (7.4-10.4); MONOCYTES 8.9 % (2-11); NEUTROPHILS 67.6 % (40-80); RBC 2.99 10x6/uL (4.00-5.40); RDW 15.2 % (11.5-14.5); WBC 6.7 10x3/uL (4.8-10.8)
[2018-02-17 02:29] LABS: PLATELET COUNT 224 10x3/uL (130-400)
[2018-02-17 02:32] LABS: ALBUMIN 2.5 g/dL (3.4-5.0); ANION GAP 18.8 mmol/L (8-16); BILIRUBIN - TOTAL 0.44 mg/dL (0.2-1.3); CREATININE - SERUM 5.2 mg/dL (0.6-1.3); POTASSIUM - SERUM 3.8 mmol/L (3.5-5.1); PROTEIN - SERUM 6.8 g/dL (6.4-8.2)
[2018-02-17 02:41] LABS: MAGNESIUM - SERUM 2.1 mg/dL (1.8-2.4); THYROID STIMULATING HORMONE 4.3 uIU/mL (0.36-3.74)
[2018-02-17 03:55] VITALS: BP 149/53
== END 2018-02-17 03:55 ==
LOC: D.ER 01:43
PROVIDERS: Emergency Medicine
DX: I12.0 Hypertensive chronic kidney disease with stage 5 chronic kidney disease or end stage renal disease (principal); N18.6 End stage renal disease; D63.1 Anemia in chronic kidney disease; Z99.2 Dependence on renal dialysis; I11.0 Hypertensive heart disease with heart failure; I50.9 Heart failure, unspecified; F03.90 Unspecified dementia, unspecified severity, without behavioral disturbance, psychotic disturbance, mood disturbance, and anxiety

== ENCOUNTER 2018-05-12 08:48 | Inpatient (IN) | payer MEDICARE ==
[~2018-05-12] VITALS: Ht 157.5 cm; Wt 52.0 kg
[~2018-05-12 08:48] MED LIST changes: +CARDIZEM CD300 MG PO; +MELATONIN 3 MG1 TAB PO; +SENNA LAXATIVE8.6 MG PO
[2018-05-12 09:23] LABS: BASOPHILS 0.5 % (0-2); EOSINOPHILS 3.7 % (0-7); HEMATOCRIT 42.7 % (36.0-48.0); HEMOGLOBIN 14.4 g/dL (12-16); IMMATURE GRANULOCYTES 0.4 % (0-5); LYMPHOCYTES 14.3 % (15-50); MCH 32.4 pg (26.0-34.0); MCHC 33.7 g/dL (31.0-37.0); MCV 96.2 fL (80.0-100.0); MEAN PLATELET VOLUME 9.4 fL (7.4-10.4); MONOCYTES 5.1 % (2-11); PLATELET COUNT 232 10x3/uL (130-400); RBC 4.44 10x6/uL (4.00-5.40); RDW 14.1 % (11.5-14.5); WBC 7.9 10x3/uL (4.8-10.8)
[2018-05-12 09:33] LABS: INR 1.12 (0.85-1.17); PROTIME 13.9 SECONDS (11.6-15.0)
[2018-05-12 09:37] LABS: ALBUMIN 2.8 g/dL (3.4-5.0); ALKALINE PHOSPHATASE 120 U/L (46-116); ALT (SGPT) 10 U/L (10-68); BILIRUBIN - TOTAL 0.42 mg/dL (0.2-1.3); CALC OSMOLALITY 274 mosm/kg (275-300); CALCIUM 8.2 mg/dL (8.5-10.1); CARBON DIOXIDE 31.8 mmol/L (21.0-32.0); CHLORIDE - SERUM 93 mmol/L (98-107); CREATININE - SERUM 3.8 mg/dL (0.6-1.3); POTASSIUM - SERUM 3.8 mmol/L (3.5-5.1); PROTEIN - SERUM 8.4 g/dL (6.4-8.2); SODIUM 134 mmol/L (136-145); UREA NITROGEN 22 mg/dL (7-18); eGFR NON AFRICAN AMERICAN 12 mL/min (90-120)
[2018-05-12 09:39] VITALS: BP 140/94
[2018-05-12 09:42] LABS: GLUCOSE 177 mg/dL (74-106)
[2018-05-12 09:47] LABS: CKMB 1.1 U/L (0.0-3.6); CREATINE KINASE 64 UL (21-215); MAGNESIUM - SERUM 2.1 mg/dL (1.8-2.4); TROPONIN-I < 0.017 ng/mL (0.000-0.060)
[2018-05-12 10:32] LABS: T4 THYROXIN - FREE 1.21 ng/dL (0.76-1.46); THYROID STIMULATING HORMONE 1.26 uIU/mL (0.36-3.74)
[2018-05-12 13:00] VITALS: BP 97/70
--- NOTE | 2018-05-12 13:56 | NUR ---
TRANSFER FROM ER BY STRETCHER. CALL LIGHT IN REACH. WILL CONT. PLAN OF CARE.
[2018-05-12 15:00] VITALS: BP 97/65
--- NOTE | 2018-05-12 15:20 | NUR ---
REPORT CALLED TO KIARA NURSE AT THIS TIME.
--- NOTE | 2018-05-12 15:45 | NUR ---
RECIVED FROM ER PER WC TO ROOM 2127. ADMIT ASSESSMENT PER RN.
[2018-05-12 16:31] VITALS: BP 97/65; BMI 25.6
[2018-05-12 16:37] VITALS: Ht 157.5 cm; Wt 52.0 kg
--- NOTE | 2018-05-12 19:30 | NUR ---
STOPPED CARDIZEM GTT KIARA NURSE FROM DAY SHIFT STATED WAS ORDERED DUE TO ORAL MEDICATION BEING STARTED. PT IS NOW S/L AT THIS TIME. DENIES ANY NEEDS. UP WITH MINIMAL ASSIST. NAME AND DATE PLACED ON BOARD. PT WILL CALL FOR ASSIST WHEN NEEDED. WILL CPOC
[2018-05-12 20:00] VITALS: BP 133/48
--- NOTE | 2018-05-12 21:40 | NUR ---
PT REFUSING MEDICATION. PT IS AAO X3. SPEAKS A SMALL AMOUNT OF FILIPINO. RIGHT IV S/L PT WANTING IT REMOVED. TOLD PT IT NEEDS TO STAY UNTIL DISCHARGE. PT VERBALIZED UNDERSTANDING. PT REFUSES TO TAKE NIGHT MEDICATION. EDUCATED IN MEDICATION AND PT STILL REFUSES. PT DENIES ANY NEEDS. NO S/S OF DISTRESS. WILL CPOC
[2018-05-13] VITALS: BP 116/58
[2018-05-13 04:00] VITALS: BP 111/61
[2018-05-13 05:44] LABS: BASOPHILS 0.5 % (0-2); EOSINOPHILS 6.2 % (0-7); HEMOGLOBIN 14.1 g/dL (12-16); IMMATURE GRANULOCYTES 0.2 % (0-5); LYMPHOCYTES 25.4 % (15-50); MCHC 33.6 g/dL (31.0-37.0); MCV 95.5 fL (80.0-100.0); MEAN PLATELET VOLUME 9.5 fL (7.4-10.4); MONOCYTES 7.1 % (2-11); NEUTROPHILS 60.6 % (40-80); PLATELET COUNT 247 10x3/uL (130-400); RDW 14.1 % (11.5-14.5)
[2018-05-13 05:50] LABS: WBC 10.2 10x3/uL (4.8-10.8)
[2018-05-13 06:04] LABS: ANION GAP 16.1 mmol/L (8-16); CALCIUM 7.1 mg/dL (8.5-10.1); CARBON DIOXIDE 27.9 mmol/L (21.0-32.0); PHOSPHOROUS 6.2 mg/dL (2.5-4.9)
[2018-05-13 06:08] LABS: CREATININE - SERUM 5.1 mg/dL (0.6-1.3)
--- NOTE | 2018-05-13 06:09 | NUR ---
PT RESTING IN BED. PT DENIES ANY NEEDS. NO S/S OF DISTRESS. DENIES ANY NEEDS. IN A BETTER MOOD THIS MORNING. WILL CPOC
--- NOTE | 2018-05-13 07:50 | NUR ---
PT SITTING UP IN BED. EATING BREAKFAST. PT STATES SHE WANTS TO GO HOME TODAY. I STATED TO HER I WILL DO MY BEST. SHE VERBALIZED UNDERSTANDING. BED LOW. CL IN REACH.
--- NOTE | 2018-05-13 08:00 | NUR ---
DR. DON STATED TO ME IF IT IS OK WITH CARDIOLOGY PT CAN DC HOME TODAY.
--- NOTE | 2018-05-13 08:14 | NUR ---
SPOKE WITH DR. MEDINA AND HE STATES IT IS OK FOR PT TO DC HOME.
[2018-05-13 08:36] VITALS: BP 116/59
[2018-05-13 08:44] LABS: T4 THYROXINE 9.8 ug/dL (4.7-13.3); THYROID STIMULATING HORMONE 2.34 uIU/mL (0.36-3.74)
--- NOTE | 2018-05-13 09:50 | NUR ---
I have reviewed this patient and I concur with the Shift Assessment completed by the Licensed Practical Nurse today this shift.
--- NOTE | 2018-05-13 10:01 | NUR ---
FRAN KAUR STATES TO PUT IN DISCHARGE ORDER FOR PT TO GO BACK TO [facility].
--- NOTE | 2018-05-13 11:40 | NUR ---
PT LAYING IN BED. EYES CLOSED. CHEST RISING AND FALLING. ROOM AIR. BED LOW. CL IN REACH.
[2018-05-13 12:07] VITALS: BP 121/62
--- NOTE | 2018-05-13 13:14 | NUR ---
DIALYSIS COORDINATOR: [facility] MWF 1ST SHIFT. MEHUL FORREST.
--- NOTE | 2018-05-13 13:33 | MORECARE ---
CASE MANAGEMENT DISCHARGE SUMMARY PATIENT: LILI DELUCA R UNIT: [id number] ADM DATE: 05/12/18 AGE: 83 : 34 SEX: F ROOM/BED: D.6983 AUTHOR: ZOE MUELLER PHYSICIAN: REFERRING PHYSICIAN: RENATA MUNROE MD DATE OF SERVICE: 05/13/18 Discharge Plan Patient Name: LILI DELUCA Facility: [facility]:[place] : 1935 Planned Disposition: Nursing Facility DARIELA Cert Anticipated Discharge Date: 05/13/18 Discharge Date: Expected LOS: 1 Initial Reviewer: [id number] Initial Review Date: 05/13/2018 Generated: 05/13/18 2:33 pm DCPIA - Discharge Planning Initial Assessment Updated by [id number]: Torie Jim on 05/13/18 1:32 pm * Is the patient Alert and Oriented? Yes * How many steps to enter\exit or inside your home? * PCP [facility] * Pharmacy [facility] * Preadmission Environment Licensed Architect Detention * Facility Name [facility] * ADLs Total Dependent * Equipment Other * Other Equipment ALL EQUIPMENT NEEDS PROVIDED BY FACILITY * List name and contact numbers for known caregivers / representatives who currently or will assist patient after discharge: LARA SÁNCHEZ, * Verbal permission to speak to the caregivers and representatives has been obtained from the patient. Yes * Community resources currently utilized Other * Please name any agencies selected above. [facility], MWF @ 0645, [employer] * Additional services required to return to the preadmission environment? No * Can the patient safely return to the preadmission environment? Yes * Has this patient been hospitalized within the prior 30 days at any hospital? No External Providers External Provider: [facility] and [facility] Next Contact Date: Service Request Date: Service Type: Resolution: Reviewer: Comments: Patient Name: LILI DELUCA Page 12739 at 1333 All edits/amendments must be made on the electronic document DICTATION DATE: 05/13/18 1333 GREEN CHAIN OFFBEARER: DAVIDA 05/13/18 1333 RPT#: [id number] DC DATE: STATUS: ADM IN [facility] [address] [place] [address] END OF REPORT
--- NOTE | 2018-05-13 13:42 | MORECARE ---
CASE MANAGEMENT DISCHARGE SUMMARY PATIENT: LILI DELUCA UNIT: [id number] ADM DATE: 05/12/18 AGE: 83 : 34 SEX: F ROOM/BED: D.1852 AUTHOR: AMI,DOC PHYSICIAN: REFERRING PHYSICIAN: RENATA PERES MD DATE OF SERVICE: 05/13/18 Discharge Plan Patient Name: LILI DELUCA Facility: [facility]:[place] : 1935 Planned Disposition: Nursing Facility DARIELA Cert Anticipated Discharge Date: 05/13/18 Discharge Date: Expected LOS: 1 Initial Reviewer: [id number] Initial Review Date: 05/13/2018 Generated: 05/13/18 2:42 pm Comments DCP- Discharge Planning Updated by [email or web address]: Torie Jim on 05/13/18 12:[address] Patient Name: LILI DELUCA Admission Status: ER Accout number: [id number] Admission Date: 05-12-2018 : 1935 Admission Diagnosis: Attending: Renata Peres Current LOS: 1 Anticipated DC Date: 05-13-2018 Planned Disposition: Nursing Facility DARIELA Cert Primary Insurance: MEDICARE A & B Discharge Planning Comments: CM WORKING ON DISCHARGE PLANNING. PATIENT IS A RESIDENT OF [place] AND PLANS ON RETURNING TO [place] AT DISCHARGE. NO NEEDS VOICED. SPOKE WITH JADIEL AT [place] , [phone]. SHE CONFIRMED THE PATIENT IS A RESIDENT THERE IN A SNF CARE MEDICAID BED AND WILL RETURN TO THAT BED. SHE HAS ASKED FOR CLINICAL INFORMATION TO BE REVIEWED BE FAXED TO [phone]. CHART FAXED EXCEPT FOR DISCHARGE MEDS AND INSTRUCTIONS THAT ARE NOT AVAILABLE AT THIS TIME. I HAVE EXPLAINED THAT I WOULD FAX WHEN THE INFORMATION WAS READY. JADIEL WILL CALL BACK WITH A VAN TIME WHEN THEY HAVE IT. Supervisor Dumping: Torie Jim RN DCPIA - Discharge Planning Initial Assessment Updated by [id number]: Torie Jim on 05/13/18 1:32 pm * Is the patient Alert and Oriented? Yes * How many steps to enter\exit or inside your home? * [facility]CP [facility] * [facility] * Preadmission Environment Care Home Senior Living * Facility Name [facility] * ADLs Total Dependent * Equipment Other * Other Equipment ALL EQUIPMENT NEEDS PROVIDED BY FACILITY * List name and contact numbers for known caregivers / representatives who currently or will assist patient after discharge: LAURENTUGHTER, LARA HUMPHREY, * Verbal permission to speak to the caregivers and representatives has been obtained from the patient. Yes * Community resources currently utilized Other * Please name any agencies selected above. [facility], MWF @ 0645, [employer] * Additional services required to return to the preadmission environment? No * Can the patient safely return to the preadmission environment? Yes * Has this patient been hospitalized within the prior 30 days at any hospital? No Last DP export: 05/13/18 12:33 pm Patient Name: LILI DELUCA Page 11880 at 1342 All edits/amendments must be made on the electronic document DICTATION DATE: 05/13/18 1342 LOCAL TRUCK DRIVER: DAVIDA 05/13/18 1342 RPT#: [id number] DC DATE: STATUS: ADM IN [facility] [address] [place] [address] END OF REPORT
--- NOTE | 2018-05-13 14:50 | NUR ---
REPORT CALLED TO ARI LINTON AT [facility].
--- NOTE | 2018-05-13 15:00 | NUR ---
SPOKE WITH JADIEL AT [place] AND SHE STATES SHE WILL SEND A WC WITH THE VAN.
--- NOTE | 2018-05-13 15:06 | NUR ---
JADIEL FROM [place] [facility] STATES SHE WILL CALL WITH A EMOTIONAL DISABILITIES TEACHER TIME FOR THE VAN.
--- NOTE | 2018-05-13 16:40 | NUR ---
TELEMETRY DC'D. RIGHT AC 20G IV DC'D WITH CATH INTACT. DISCHARGE INSTRUCTION PACKET GIVEN TO ARIANA MARTINEZ. PT SIGNED CHART COPY. PT LEFT VIA WC ACCOMPANIED BY ARIANA MARTINEZ.
--- NOTE | 2018-05-13 18:02 | MORECARE ---
CASE MANAGEMENT DISCHARGE SUMMARY PATIENT: LILI DELUCA UNIT: [id number] ADM DATE: 05/12/18 AGE: 83 : 34 SEX: F ROOM/BED: D.3474 AUTHOR: ZOE MUELLER PHYSICIAN: REFERRING PHYSICIAN: RENATA PERES MD DATE OF SERVICE: 05/13/18 Discharge Plan Patient Name: LILI DELUCA Facility: [facility]:[place] : 1935 Planned Disposition: Nursing Facility DARIELA Cert Anticipated Discharge Date: 05/13/18 Discharge Date: 05/13/2018 Expected LOS: 1 Initial Reviewer: [email or web address] Initial Review Date: 05/13/2018 Generated: 05/13/18 7:02 pm Comments DCP- Discharge Planning Updated by [email or web address]: Torie Jim on 05/13/18 12:[address] Patient Name: LILI DELUCA Admission Status: ER Accout number: [id number] Admission Date: 05-12-2018 : 1935 Admission Diagnosis: Attending: Renata Peres Current LOS: 1 Anticipated DC Date: 05-13-2018 Planned Disposition: Nursing Facility DARIELA Cert Primary Insurance: MEDICARE A & B Discharge Planning Comments: CM WORKING ON DISCHARGE PLANNING. PATIENT IS A RESIDENT OF [place] AND PLANS ON RETURNING TO [place] AT DISCHARGE. NO NEEDS VOICED. SPOKE WITH JADIEL AT [place] , [phone]. SHE CONFIRMED THE PATIENT IS A RESIDENT THERE IN A GROUP HOME CARE MEDICAID BED AND WILL RETURN TO THAT BED. SHE HAS ASKED FOR CLINICAL INFORMATION TO BE REVIEWED BE FAXED TO [phone]. CHART FAXED EXCEPT FOR DISCHARGE MEDS AND INSTRUCTIONS THAT ARE NOT AVAILABLE AT THIS TIME. I HAVE EXPLAINED THAT I WOULD FAX WHEN THE INFORMATION WAS READY. JADIEL WILL CALL BACK WITH A VAN TIME WHEN THEY HAVE IT. [place] Pumping Supervisor: Torie Jim RN DCPIA - Discharge Planning Initial Assessment Updated by [id number]: Torie Jim on 05/13/18 1:32 pm * Is the patient Alert and Oriented? Yes * How many steps to enter\exit or inside your home? * [facility]CP [facility] * [facility] * Preadmission Environment Teller Coordinator Long-Term * Facility Name [facility] * ADLs Total Dependent * Equipment Other * Other Equipment ALL EQUIPMENT NEEDS PROVIDED BY FACILITY * List name and contact numbers for known caregivers / representatives who currently or will assist patient after discharge: LAURENTUGHTER, LARA HUMPHREY, * Verbal permission to speak to the caregivers and representatives has been obtained from the patient. Yes * Community resources currently utilized Other * Please name any agencies selected above. [facility], MWF @ 45, [employer] * Additional services required to return to the preadmission environment? No * Can the patient safely return to the preadmission environment? Yes * Has this patient been hospitalized within the prior 30 days at any hospital? No Last DP export: 05/13/18 12:42 pm Patient Name: LILI DELUCA Page 38909 at 1802 All edits/amendments must be made on the electronic document DICTATION DATE: 05/13/181800 GROCERY STORE ASSOCIATE: DAVIDA 05/13/181800 RPT#: [id number] DC DATE:05/13/18 STATUS: DIS [facility] [address] [place] [address] END OF REPORT
== END 2018-05-13 16:41 | DRG 308 ==
LOC: D.ER 08:48 → D.EDHOLD 12:01 → D.M2 13:52
PROVIDERS: Emergency Medicine; Internal Medicine Nephrology; ADMIT Internal Medicine Nephrology; ATTEND Internal Medicine Nephrology
DX: I48.91 Unspecified atrial fibrillation (principal); N18.6 End stage renal disease; I13.2 Hypertensive heart and chronic kidney disease with heart failure and with stage 5 chronic kidney disease, or end stage renal disease; R00.0 Tachycardia, unspecified; I48.92 Unspecified atrial flutter; I50.9 Heart failure, unspecified; Z99.2 Dependence on renal dialysis; Z95.0 Presence of cardiac pacemaker; K21.9 Gastro-esophageal reflux disease without esophagitis; F03.90 Unspecified dementia, unspecified severity, without behavioral disturbance, psychotic disturbance, mood disturbance, and anxiety; I25.10 Atherosclerotic heart disease of native coronary artery without angina pectoris; I16.0 Hypertensive urgency

== ENCOUNTER 2018-06-02 18:46 | Emergency (ER) | payer MEDICARE ==
[2018-06-02 18:59] VITALS: BP 119/68; BMI 25.6
[2018-06-02 20:04] LABS: ALBUMIN 3.1 g/dL (3.4-5.0); ANION GAP 15.1 mmol/L (8-16); BILIRUBIN - TOTAL 0.45 mg/dL (0.2-1.3); CALCIUM 7.4 mg/dL (8.5-10.1); CARBON DIOXIDE 26.8 mmol/L (21.0-32.0); CREATININE - SERUM 5.9 mg/dL (0.6-1.3); PHOSPHOROUS 4.1 mg/dL (2.5-4.9); POTASSIUM - SERUM 3.9 mmol/L (3.5-5.1); PROTEIN - SERUM 7.8 g/dL (6.4-8.2)
[2018-06-02 20:08] LABS: BASOPHILS 0.5 % (0-2); EOSINOPHILS 6.4 % (0-7); HEMATOCRIT 34.7 % (36.0-48.0); HEMOGLOBIN 11.9 g/dL (12-16); IMMATURE GRANULOCYTES 0.2 % (0-5); LYMPHOCYTES 18.2 % (15-50); MCH 31.2 pg (26.0-34.0); MCHC 34.3 g/dL (31.0-37.0); MCV 91.1 fL (80.0-100.0); MEAN PLATELET VOLUME 10.6 fL (7.4-10.4); MONOCYTES 5.7 % (2-11); PLATELET COUNT 193 10x3/uL (130-400); RBC 3.81 10x6/uL (4.00-5.40); RDW 14.1 % (11.5-14.5); WBC 9.2 10x3/uL (4.8-10.8)
== END 2018-06-10 00:51 | disposition home or self-care (01) ==
LOC: D.ER 18:46
PROVIDERS: Family Medicine
DX: Z00.01 Encounter for general adult medical examination with abnormal findings (principal); R74.8 Abnormal levels of other serum enzymes; E87.1 Hypo-osmolality and hyponatremia

== ENCOUNTER 2019-02-04 15:25 | Emergency (ER) | payer MEDICARE ==
[~2019-02-04] VITALS: Ht 157.5 cm; Wt 58.6 kg
[2019-02-04 15:46] VITALS: Ht 157.5 cm; Wt 58.6 kg
[2019-02-04 20:38] VITALS: BP 169/93
== END 2019-02-04 20:38 | disposition home or self-care (01) ==
LOC: D.ER 15:25
DX: T82.9XXA Unspecified complication of cardiac and vascular prosthetic device, implant and graft, initial encounter (principal); Z99.2 Dependence on renal dialysis